=== PATIENT | male | born 1990 | race Caucasian/White ===

== ENCOUNTER 2022-04-26 10:21 | Inpatient (IN) | payer MEDICAID, SELFPAY ==
[2022-04-26] VITALS (9 sets, daily range): BP systolic 117–130; BP diastolic 69–75; PULSE 74–97; RESP 16; TEMP 36.6–38.9; O2SAT 99–100; BMI 25.0; BMI 24.5
--- NOTE | 2022-04-26 11:11 | ED.VIS.LOWEX ---
HPI History of Present Illness HPI Narrative: Patient presents with right leg redness and swelling that has been getting worse over the past 2 weeks. Patient describes the pain as aching. Patient states it is worse with ambulation. Patient denies any paresthesias or weakness. Patient states that today it started bleeding. Patient states he had a Doppler ultrasound done at [place] which was negative for DVT. Patient had lab work drawn at [place] which was positive for an elevated D-dimer. Patient states his primary care physician referred him to the emergency department for further evaluation of the elevated D-dimer. Patient denies any fevers or chills. Patient denies any trauma or injury. Patient denies any chest pain or shortness of breath. Chief Complaint: Wound Informant: patient Onset/Context/Timing Onset: Weeks (2) Context: Gradual Onset Timing: Continuous Quality of Pain: Aching Location: Right leg Worsened by: Ambulation Relieved by: Rest Associated Symptoms Associated Symptoms: Negative for Parasthesia, Weakness or Loss of Funtion Narrative Tetanus Immunization: Unknown [facility] Medical History Eczema Hyperlipidemia Hypertension Home Medications atenolol 100 mg tablet 100 mg PO DAILY HTN 04/26/22 [History Last Taken 04/25/22] fenofibrate 160 mg tablet 160 mg PO DAILY CHOLESTEROL 04/26/22 [History Last Taken 04/25/22] lisinopril 20 mg-hydrochlorothiazide 12.5 mg tablet 1 tab PO DAILY HTN 04/26/22 [History Last Taken 04/25/22] upadacitinib 15 mg tablet,extended release 24 hr (Rinvoq) 15 mg PO DAILY RA 04/26/22 [History Last Taken 04/25/22] Allergy/AdvReac Type Severity Reaction Status Date / Time No Known Allergies Allergy Verified 04/26/22 10:25 Surgical History no surgical history Social History Smoking Status: Current every day smoker tobacco type: cigarettes ROS ROS ED Constitutional Constitutional ED: Denies chills or fever(s) Eyes Eyes: Denies blurry vision or change in vision ENT ENT ED: Denies rhinorrhea or sore throat Cardiovascular Cardiovascular: Denies chest pain or palpitations Respiratory/Chest Respiratory/Chest: Denies cough or dyspnea Gastrointestinal Gastrointestinal: Denies nausea or vomiting Genitourinary Genitourinary ED: Denies dysuria or hematuria Musculoskeletal Musculoskeletal: Denies back pain or neck pain Integumentary Denies abscess or rash Neurologic Neurologic: Denies headache(s) or weakness Allergic/Immunologic Allergic/Immunologic ED: Denies mouth swelling or urticaria EXAM Physical Exam Const Vital Signs: 04/26/22 10:22 04/26/22 12:15 Temperature 98.4 F Temperature Source Oral Pulse Rate 74 78 Respiratory Rate 16 16 Blood Pressure 117/71 117/75 Blood Pressure Mean 86 89 Pulse Ox 99 100 Oxygen Delivery Method Room Air Positive well nourished and well developed General Appearance ED: well developed and NAD HEENT Reports moist mucous membranes Neck full ROM and supple Extremity Extremity Narrative: There is tenderness, erythema, warmth, and induration over the posterior aspect of the right calf. There is some mild bleeding. There is tenderness to palpation over the area. There is full range of motion. Sensation was intact to light touch bilaterally in the lower extremities. Pedal pulses are equal bilaterally. Capillary refill was less than 2 seconds in all digits. Neuro oriented x3, CN's II-XII intact bilaterally, moves all extremities and no sensory deficits noted Sensorium / Orientation: alert Motor Exam: strength 5/5 throughout MDM MDM MDM Narrative Medical decision making narrative: Patient was started on Unasyn here in the emergency department. CBC shows a white blood cell count of 23.4. Comprehensive metabolic profile shows sodium 130, potassium of 2.7, and chloride of 92. Lactate was normal. Patient was given a dose of IV and oral potassium here. Blood cultures were obtained prior to starting antibiotics. Because of the elevated outpatient D-dimer, CTA of the chest was obtained. There is no evidence of pulmonary embolism. Patient was advised of his findings. Case was discussed with the hospitalist. She will admit the patient to her service. Patient understood and was agreeable with the plan. All questions were answered. Lab Data Attestation: I reviewed the patient's lab results. Labs: Laboratory Results - last 24 hr 04/26/22 04/26/22 04/26/22 10:28 10:28 10:28 WBC 23.4 H RBC 3.92 L Hgb 12.7 L Hct 37.0 L MCV 94.4 H MCH 32.4 H MCHC 34.3 RDW Std Deviation 40.0 RDW Coeff of Josette 11.6 Plt Count 390 MPV 10.6 Immature Gran % (Auto) 1.600 H Neut % (Auto) 81.0 H Lymph % (Auto) 5.6 L [place] % (Auto) 10.8 H Eos % (Auto) 0.6 Baso % (Auto) 0.4 Absolute Neuts (auto) 19.0 H Absolute Lymphs (auto) 1.31 Nucleated RBC % 0 Diff Path Review Reviewed Dohle Bodies 23.4 Sodium 130 L Potassium 2.7 L* Chloride 92 L Carbon Dioxide 30.0 Anion Gap 8 BUN 14 Creatinine 1.12 Estim Creat Clear Calc 102.97 Est GFR (MDRD) Af Amer 97 Est GFR (MDRD) Non-Af 80 BUN/Creatinine Ratio 12.5 Glucose 100 Lactic Acid 1.2 Calcium 9.9 Total Bilirubin 0.40 AST 20 ALT 38 Alkaline Phosphatase 76 Total Protein 8.8 H Albumin 2.8 L Globulin 6.0 H Albumin/Globulin Ratio 0.5 L Radiography Diagnostic Testing: Clinical Impression(s) from Imaging Studies Chest CTA 04/26/22 11:17 IMPRESSION: Normal CTA chest examination, without a demonstrated pulmonary embolism or arterial dissection. Electronically Signed: Vahid Antoine MD at 13:25 EST , Discharge Plan Triage Chief Complaint: Wound ED Provider: Gonzales Riojas Dx/Rx/DC Orders Clinical Impression: Cellulitis of leg, right, Leukocytosis, Hypokalemia Prescriptions: No Action lisinopril-hydrochlorothiazide 20-12.5 mg tablet 1 tab PO DAILY atenolol 100 mg tablet 100 mg PO DAILY fenofibrate 160 mg tablet 160 mg PO DAILY Rinvoq 15 mg tablet extended release 24 hr 15 mg PO DAILY Primary Care Provider: Shant Kaur NP Referrals: [facility],Out of [Non-Staff] - Disposition Disposition: [facility]
--- NOTE | 2022-04-26 11:17 | CT_ITS ---
STUDY: CTA CHEST REASON FOR EXAM: Male, 32 years old. Elevated D-dimer. Right lower extremity wound. RADIATION DOSAGE (If Supplied By Facility): CTDIvol = ( 14.44 ) mGy, DLP = ( 444.78 ) mGycm TECHNIQUE: The examination was performed with the intravenous administration of IV 100mL Isovue-370. Post-processing of the angiographic images was performed, with multiplanar reformation and 3D reconstruction. Individualized dose optimization techniques were used for this CT. COMPARISON: None. FINDINGS: Normal enhancement of the main pulmonary artery and right and left pulmonary arteries. Normal enhancement of the bilateral peripheral pulmonary arteries. There is no demonstrated pulmonary embolism. Normal thoracic aorta and visualized great vessels. There is no demonstrated aortic dissection. Normal heart and pericardium. Normal mediastinum. Normal hilar regions. Normal visualized trachea and bronchi. The lungs are well expanded. Normal pulmonary parenchyma. Normal pleura. Normal chest wall structures. Normal osseous structures. Normal visualized upper abdomen. CT/CTA Chest W/WO Contrast IMPRESSION: Normal CTA chest examination, without a demonstrated pulmonary embolism or arterial dissection. Electronically Signed: Vahid Antoine MD at 13:25 EST ,
[2022-04-26 11:33] LABS: Absolute Lymphocyte Count 1.31 X10^3/uL (0.83-4.51); Basophil# 0.09 X10^3/uL; Basophil% 0.4 % (0-1); Eosinophil# 0.13 X10^3/uL; Eosinophils% 0.6 % (0-5); Hemoglobin 12.7 g/dL (13.0-16.5); Lymphocyte # 1.31 X10^3/ul (0.83-4.51); Lymphocyte % 5.6 % (19-41); Mean Corp Hgb Conc 34.3 g/dL (32-36); Mean Corpuscular Hgb 32.4 pg (27.0-32.0); Mean Corpuscular Volume 94.4 fL (80-94); Mean Platelet Vol. 10.6 fl (6.2-12.0); Monocyte# 2.52 X10^3/uL; Monocyte% 10.8 % (0-10); NRBC Flagged by Analyzer 0 % (0-5); Neutrophil # 18.98 X10^3/uL (2.7-7.7); POSITIVE DIFFERENTIAL YES; Platelet Count 390 K/mm3 (150-450); RBC Distribution Width CV 11.6 % (11.6-14.6); Red Blood Count 3.92 M/mm3 (4.6-6.2); White Blood Count 23.4 K/mm3 (4.4-11.0)
[2022-04-26 11:34] LABS: Differential Indicated SCAN CRITERIA MET
[2022-04-26 11:55] LABS: Dohle Bodies 23.4
[2022-04-26 11:56] LABS: ALB/GLOB Ratio 0.5 RATIO (0.9-2.4); AST(SGOT) 20 U/L (15-37); Alanine Aminotransfer ALT/SGPT 38 U/L (16-61); Albumin, Serum 2.8 g/dL (3.2-5.0); Alkaline Phosphatase 76 U/L (45-117); Anion Gap 8 (5-15); BUN 14 mg/dL (7-18); BUN/Creat Ratio 12.5 RATIO (10-20); Calcium,Total 9.9 mg/dL (8.5-10.1); Chloride 92 mmol/L (98-107); Creatinine, Serum 1.12 mg/dL (0.70-1.30); EST Glomerular Filtration Rate 80 mL/min (>60); Est Glom Filt Rate - Afr Amer 97 mL/min (>60); Estimated Creatinine Clearance 102.97 ml/min; Glucose 100 mg/dL (74-106); Potassium 2.7 mmol/L (3.5-5.1); Protein, Total 8.8 g/dL (6.4-8.2); Sodium Level 130 mmol/L (136-145)
[2022-04-26 12:04] LABS: Lactic Acid 1.2 mmol/L (0.4-1.9)
[2022-04-26] MEDS: Potassium Chloride 10mEq/100mL 10 MEQ/100 ML IV.SOLN. 100 MEQ IV BOLUS (12:53)
[2022-04-26] MEDS: Potassium Chloride Oral Tablet 20 MEQ 40 MEQ PO (12:53)
[2022-04-26 14:37] LABS: Pathologist Review Reviewed
--- NOTE | 2022-04-26 14:52 | HP.PCM.HOS_ITS ---
HPI - General General Date of Admission: 04/26/22 Date of Service: 04/26/22 Chief Complaint: RLE edema, redness. HPI Narrative The patient is a 32 y/o M w/ PMHx: Eczema, HTN, HLD, Tobacco use who presents to the [facility] ED on 04/26/22 with history of right lower extremity redness and edema which has been worsening over the last 2 weeks with ongoing aching which has been worsening with a Doppler ultrasound at [place] which was negative for DVT as well as recent labs drawn at [place] ED which had an elevated D-dimer with recommendation for his PCP to present to the ED for consideration CT prompting [facility] evaluation. Patient upon evaluation notes significant pain especially with palpation to the right calf region, 10 out of 10 in severity with any attempts to palpate. Typically report that the ultrasound performed on the Saturday of the week of presentation did demonstrate fluid in that region but no DVT. He does report that just a handful of days prior to onset of the erythema he did fall and did have an abrasion to his right anterior knee but was unaware of any potential abrasions or wounds to the posterior calf but did not specifically look at that time. Work-up in the ED included T98.4, heart rate 78, BP 117/75, respiratory rate 16, 100% on room air, CBC with WC 23.4, hemoglobin 12.7, MCV 94.4, platelet 390 with significant left shift, CMP with sodium 130, potassium 2.7, chloride 92, hepatic profile not marked appearing, lactic acid 1.2, blood culture x2 pending per ED, CTPA unremarkable with no demonstrated PE or arterial dissection. In the ED patient ministered Unasyn and potassium 40 mill equivalent p.o. x1. [facility] Medical History Eczema Hyperlipidemia Hypertension Tobacco use Home Medications atenolol 100 mg tablet 100 mg PO DAILY HTN 04/26/22 [History Last Taken 04/25/22] fenofibrate 160 mg tablet 160 mg PO DAILY CHOLESTEROL 04/26/22 [History Last Taken 04/25/22] lisinopril 20 mg-hydrochlorothiazide 12.5 mg tablet 1 tab PO DAILY HTN 04/26/22 [History Last Taken 04/25/22] upadacitinib 15 mg tablet,extended release 24 hr (Rinvoq) 15 mg PO DAILY RA 04/26/22 [History Last Taken 04/25/22] Allergy/AdvReac Type Severity Reaction Status Date / Time No Known Allergies Allergy Verified 04/26/22 10:25 Family History (Updated 04/26/22 @ 21:[address] Clara Pacheco MD) Mother Diabetes Hypertension Father Hypertension Surgical History (Updated 04/26/22 @ 21:[address] Clara Pacheco MD) No history of previous surgery Surgical History no surgical history Social History (Updated 04/26/22 @ 21:[address] Clara Pacheco MD) household members: spouse and family Smoking Status: Current every day smoker tobacco type: e-cigarettes how long ago did patient quit smoking: Quit cigarette use 4-5 months prior, 1 ppd since teen until change to vape. alcohol intake: current alcohol intake frequency: a few times a week substance use type: does not use ROS ROS Narrative Admission Review of Systems: CONSTITUTIONAL: No weight loss, fever, chills, + weakness or fatigue. HEENT: Eyes: No visual loss, blurred vision, double vision or yellow sclerae. Ears, Nose, Throat: No hearing loss, sneezing, congestion, runny nose or sore throat. SKIN: + Significant right lateral posterior calf wound, mild drainage, tendern ess palpation, periwound erythema and edema, notable underlying issues with eczema. CARDIOVASCULAR: No chest pain, chest pressure or chest discomfort, palpitations, edema, orthopnea, syncopal events. RESPIRATORY: No shortness of breath, cough or sputum, wheezing, hemoptysis. GASTROINTESTINAL: No anorexia, nausea, vomiting or diarrhea, abdominal pain, melena, BRBPR. GENITOURINARY: No dysuria, frequency, urgency or retention. NEUROLOGICAL: No headache, dizziness, syncope, paralysis, ataxia, numbness or tingling in the extremities, focal weakness, change in bowel or bladder control, seizure. MUSCULOSKELETAL: + muscle, back pain, joint pain or stiffness. HEMATOLOGIC: + anemia, bleeding or bruising. LYMPHATICS: No enlarged nodes. No history of splenectomy. PSYCHIATRIC: No history of depression or anxiety. ENDOCRINOLOGIC: No reports of sweating, cold or heat intolerance. No polyuria or polydipsia. ALLERGIES: + history of eczema. Vital Signs Vital Signs Vital Signs: 04/26/22 10:22 04/26/22 12:15 Temperature 98.4 F Temperature Source Oral Pulse Rate 74 78 Respiratory Rate 16 16 Blood Pressure 117/71 117/75 Blood Pressure Mean 86 89 Pulse Ox 99 100 Oxygen Delivery Method Room Air Weight Weight: 184 lb 15.485 oz Body Mass Index (BMI) 25.0 Physical Exam Narrative Physical Examination: General: Awake, alert, oriented x 3 and cooperative, seated upright in the ED bed, fatigued appearing Skin: Normal color, normal turgor, no icterus, no cyanosis except for significant right posterior lateral calf with notable edema, erythema with a wound with mild macerated region and distal to this an area of induration, warm to touch, severely tender with a more proximal region of mild maceration with almost blotability. HEENT: AT/NC, EOMI, PERRLA, dry MM, no carotid bruits or JVD noted. Lungs: Mildly diminished, greater bases, poor effort, no rales, ronchi or wheezing. Heart: Mildly tachycardic with regular rhythm; no gallop, rub audible. Abdomen: Soft, NTTP, ND, distant normal BS, no HSM. Extremities: No cyanosis, no clubbing, see skin. Neurological: Patient awake, alert, oriented as noted, cognitive function intact; pupils equally reactive to light and accommodation, cranial nerves II- XII grossly normal, moving all 4 extremities although extremely limited limited right lower extremity movement secondary to pain elicited, strength accordingly moderately globally decreased. Psychiatric: Affect appears fatigued, uncomfortable, no acute evidence of depressive or anxiety feelings. Results Lab / Micro Data Result Diagrams: 04/26/22 10:28 04/26/22 10:28 Labs: Laboratory Results - last 24 hr 04/26/22 10:28: WBC 23.4 H, RBC 3.92 L, Hgb 12.7 L, Hct 37.0 L, MCV 94.4 H, MCH 32.4 H, MCHC 34.3, RDW Std Deviation 40.0, RDW Coeff of Josette 11.6, Plt Count 390, MPV 10.6, Immature Gran % (Auto) 1.600 H, Neut % (Auto) 81.0 H, Lymph % (Auto) 5.6 L, [place] % (Auto) 10.8 H, Eos % (Auto) 0.6, Baso % (Auto) 0.4, Absolute Neuts (auto) 19.0 H, Absolute Lymphs (auto) 1.31, Nucleated RBC % 0, Diff Path Review Reviewed, Dohle Bodies 23.4 04/26/22 10:28: Sodium 130 L, Potassium 2.7 L*, Chloride 92 L, Carbon Dioxide 30.0, Anion Gap 8, BUN 14, Creatinine 1.12, Estim Creat Clear Calc 102.97, Est GFR (MDRD) Af Amer 97, Est GFR (MDRD) Non-Af 80, BUN/Creatinine Ratio 12.5, Glucose 100, Calcium 9.9, Total Bilirubin 0.40, AST 20, ALT 38, Alkaline Phosphatase 76, Total Protein 8.8 H, Albumin 2.8 L, Globulin 6.0 H, Albumin/Globulin Ratio 0.5 L 04/26/22 10:28: Lactic Acid 1.2 Radiology Impression Chest CTA 04/26/22 11:17 IMPRESSION: Normal CTA chest examination, without a demonstrated pulmonary embolism or arterial dissection. Electronically Signed: Vahid Antoine MD at 13:25 EST , Assessment & Plan Assessment/Plan (1) Cellulitis of leg, right: PLAN: Plan The patient is a 32 y/o M w/ PMHx: Eczema, HTN, HLD, Tobacco use who presents to the [facility] ED on 04/26/22 with history of right lower extremity redness and edema which has been worsening over the last 2 weeks with ongoing aching which has been worsening with a Doppler ultrasound at [place] which was negative for DVT as well as recent labs drawn at [place] ED which had an elevated D-dimer with recommendation for his PCP to present to the ED for consideration CT prompting [facility] evaluation. #1. RLE Extremity Cellulitis: Will admit to [facility], maintain on IV vancomycin and Zosyn given significant appearance and notable concern for actual underlying abscess as patient did report that ultrasound performed on Saturday did demonstrate significant fluid appearance, requested CT of the leg however given recent contrast will need to be deferred to early a.m. which was discussed with CT, if in the interim and spontaneously opens will request wound culture and MRSA PCR wound. If there is notable fluid/abscess we will need to request surgery involvement, potentially plastics if they are available. Will continue affected extremity elevation above heart when seated and in bed, monitor erythema outline with VS checks. #2. Hyponatremia, mild, suspected hypovolemia: Admission sodium 130, chloride 92, suspect hypovolemic component we will continue to hydrate and repeat CMP in AM. #3. Hypokalemia: Admission K+ 2.7, magnesium level requested, supplementation given, repeat level in AM. #4. Anemia, macrocytic: Admission hemoglobin 12.7, MCV 94.4, no prior comparison, will obtain iron panel, ferritin, vitamin B12 and folic acid with repeat CBC in AM. #5. Hypertension: Continue home regimen including atenolol as well as lisinopril but holding hydrochlorothiazide given notable hypokalemia and intention for IV fluids given acute presentation #1, PRN hydralazine. #6. Chronic eczema: Did initially want to hold his revoked given acute presentation but he is insistent on continuation of this and is using his own home medication. #7. Tobacco Abuse: Patient previously smoked cigarettes but recently transition to high-dose vaping over the last 4 to 5 months, encouraged cessation, inpatient consultation per RT, NR if desired. #8. DVT prophylaxis: SCDs, Lovenox. Charges/Coding Visit Charges Inpatient E&M: 58291 Init Hosp L3
[2022-04-26 16:24] LABS: Magnesium 2.7 mg/dL (1.6-2.6)
[2022-04-26 17:54] LABS: Ferritin 1308 ng/mL (26-388); Iron 29 ug/dL (65-175); Iron Binding Capacity,Total 245 ug/dL (250-450); PERCENT IRON SATURATION 11.8 % (15.0-55.0)
[2022-04-26] MEDS: oxyCODONE 5 MG Tablet PO (18:11)
[2022-04-26] MEDS: 0.9% Normal Saline 1,000 ML 125 ML IV (18:12)
[2022-04-26] MEDS: 0.9% Saline Lock 10 ML Syringe IV (18:12)
[2022-04-26] MEDS: Acetaminophen 325 MG Tablet 650 MG PO (18:12)
[2022-04-26 19:08] LABS: Vitamin B12 499 pg/mL (211-911)
--- NOTE | 2022-04-26 19:45 | PCM.RX.CS ---
Consult Pharmacy has been consulted to manage selected antiobiotic: Vancomycin Type of Consult: New start Prior Doses of Antibiotics Received/Current Regimen: Medications Vancomycin HCl 2,000 mg/ (Sodium Chloride) 540 mls @ 250 mls/hr IV X1 ONE Stop: 04/26/22 20:39 Last Admin: 04/26/22 19:06 Dose: 250 mls/hr Labs: Sodium 130 mmol/L (136-145) L 04/26/22 10:28 Potassium 2.7 mmol/L (3.5-5.1) L* 04/26/22 10:28 Chloride 92 mmol/L (98-107) L 04/26/22 10:28 Carbon Dioxide 30.0 mmol/L (21.0-32.0) 04/26/22 10:28 Anion Gap 8 (5-15) 04/26/22 10:28 BUN 14 mg/dL (7-18) 04/26/22 10:28 Creatinine 1.12 mg/dL (0.70-1.30) 04/26/22 10:28 Est GFR (MDRD) Af Amer 97 mL/min (>60) 04/26/22 10:28 Est GFR (MDRD) Non-Af 80 mL/min (>60) 04/26/22 10:28 BUN/Creatinine Ratio 12.5 RATIO (10-20) 04/26/22 10:28 Glucose 100 mg/dL (74-106) 04/26/22 10:28 Weight used for dosin kg Estimated Creatinine Clearance: 103 Goal Trough: 15-20 mcg/mL Pharmacy Plan for Drug Dosinmg given x1, 1000mg IV q8 with trough prior to 4th dose per policy. Pharmacy Service will continue to monitor and adjust dosing as required. Follow-Up Labs: Trough Vancomycin - 04/27 @ 1830
[2022-04-26 22:08] LABS: M R Staph aureus DNA By PCR Negative (Negative); Probe Check PASS; Specimen Processing Control PASS; Staph aureus DNA By PCR NEGATIVE (Negative)
[2022-04-27] VITALS (13 sets, daily range): BP systolic 95–120; BP diastolic 61–81; PULSE 71–94; RESP 16–18; TEMP 36.6–38.7; O2SAT 95–100; BMI 26.4
--- NOTE | 2022-04-27 | ABS_PTH ---
PATIENT: NADIA GUALLPA LOC: [facility] U#:[id number] AGE/SX: 32/M ROOM: [facility] RE04/26/[address]: Dr. Andrews López MD : 1990 BED: 1 DIS: 04/28/2022 SPEC #: [id number] RECD: 04/30/22 08:08 STATUS: GEOVANY HOLM #: [id number] SAUL: 04/27/22 00:[address]: Amanda Iqbal DEPT: SURGICAL PATHOLOGY RECD BY: Darryl Musa ENTERED: 04/30/22 10:13 SP TYPE: Abscess OTHR DR: MD Dr. Natalie Diaz DO Dr. Linda Wang, MD Dr. Prakash Chand, MD Terry Hellinger, BURR FILER-C Tissues: Leg, NOS Procedures: Surgery Specimen Level IV Comments: @ Ordering doctor for SUIII edited from to DR.LWANG July GUERRERO at 04/30/22 1538 @ Submitting doctor edited from to DR.LWANG July GUERRERO at 04/30/22 1538 HEADER OPERATION: I & D abscess leg PRE-OP DIAGNOSIS: Immunosuppression, cellulitis and abscess of lower extremity TISSUE SUBMITTED: Debridement right lower extremity MICROSCOPIC DIAGNOSIS Soft tissue of right lower extremity, biopsy: Fibrofatty tissue with marked acute inflammation and tissue necrosis consistent with cellulitis and abscess. See comment. AM:michael 05/01/2022 COMMENT Clinical correlation is suggested. MICROSCOPIC DESCRIPTION Slides are reviewed. GROSS DESCRIPTION Received in fixative is one container labeled with the patient's name and designated right lower extremity debridement. The specimen consists of multiple irregular fragments of nolan-barr soft tissue that in aggregate measure 5 x 4 x 1 cm. Threading Machine Tender portions are submitted in one cassette. / AM:michael 04/30/2022 TC:2 CPT: 82833
[2022-04-27] MEDS: 0.9% Normal Saline 1,000 ML 125 ML IV (03:05)
[2022-04-27] MEDS: Acetaminophen 325 MG Tablet 650 MG PO (03:05)
[2022-04-27] MEDS: Vancomycin IV 1,000 MG/200 ML BAG 200 MG IV ×2 (03:06→15:11)
[2022-04-27] MEDS: oxyCODONE 5 MG Tablet PO (05:46)
[2022-04-27 06:03] LABS: Absolute Lymphocyte Count 0.73 X10^3/uL (0.83-4.51); Absolute Neutrophil Count 14.5 X10^3/uL (2.0-7.7); Basophil% 0.5 % (0-1); Eosinophil# 0.27 X10^3/uL; Eosinophils% 1.5 % (0-5); Hematocrit 33.4 % (40-54); Hemoglobin 11.4 g/dL (13.0-16.5); Lymphocyte # 0.73 X10^3/ul (0.83-4.51); Mean Corp Hgb Conc 34.1 g/dL (32-36); Mean Corpuscular Hgb 32.2 pg (27.0-32.0); Mean Corpuscular Volume 94.4 fL (80-94); Monocyte# 2.25 X10^3/uL; Monocyte% 12.2 % (0-10); NRBC Flagged by Analyzer 0 % (0-5); Neutrophil # 14.48 X10^3/uL (2.7-7.7); Neutrophil % 78.7 % (47-70); POSITIVE DIFFERENTIAL YES; Platelet Count 374 K/mm3 (150-450); RBC Distribution Width CV 11.6 % (11.6-14.6); RBC Distribution Width SD 40.3 fl (35.1-43.9); Red Blood Count 3.54 M/mm3 (4.6-6.2); White Blood Count 18.4 K/mm3 (4.4-11.0)
[2022-04-27 06:06] LABS: Differential Indicated SCAN CRITERIA MET
[2022-04-27 06:35] LABS: ALB/GLOB Ratio 0.4 RATIO (0.9-2.4); AST(SGOT) 18 U/L (15-37); Alanine Aminotransfer ALT/SGPT 32 U/L (16-61); Albumin, Serum 2.2 g/dL (3.2-5.0); Alkaline Phosphatase 62 U/L (45-117); Anion Gap 8 (5-15); BUN 5 mg/dL (7-18); BUN/Creat Ratio 6.3 RATIO (10-20); Calcium,Total 8.5 mg/dL (8.5-10.1); Chloride 98 mmol/L (98-107); Creatinine, Serum 0.79 mg/dL (0.70-1.30); EST Glomerular Filtration Rate 120 mL/min (>60); Est Glom Filt Rate - Afr Amer 145 mL/min (>60); Estimated Creatinine Clearance 145.98 ml/min; Glucose 122 mg/dL (74-106); Potassium 3.1 mmol/L (3.5-5.1); Protein, Total 7.2 g/dL (6.4-8.2); Sodium Level 131 mmol/L (136-145)
[2022-04-27 06:40] LABS: Macrocytosis RARE
--- NOTE | 2022-04-27 07:30 | CT_ITS ---
INDICATION: Suspect R calf abscess EXAMINATION: CT- CT Tibia/Fibula W/ Contrast Injection TECHNIQUE: Helically acquired images were obtained of the right tib-fib. 2-D reformats were performed by the technologist. A radiation dose optimization technique was used for this scan. IV Contrast dosage and agent: 100 cc [id number] COMPARISON: None. FINDINGS: SOFT TISSUES: 8.0 x 3.0 x 10.3 cm TRV X AP X CC abscess immediately posterior to the cephalad calf muscles, extending up to the level of the knee joints, and inferiorly to the level of the upper third of the tib-fib. The abscess extends close to the posterior skin surface near the midline approximately 4 cm inferior to the crease of the knee joint where there is irregularity of the skin suggestive of draining sinus tract or overlying puncture wound. Adjacent cellulitis and fasciitis, extending cephalad into the lateral thigh not fully visible, and inferiorly adjacent to the medial greater than lateral malleoli. No soft tissue air.. No radiopaque foreign body. BONES/JOINTS: No fracture or dislocation or osseous destruction. No significant degenerative changes. CT/Extremity Lower WITH Contrast IMPRESSION: 8.0 x 3.0 x 10.3 cm abscess immediately posterior to the cephalad calf muscles. The abscess extends close to the posterior skin surface near the midline approximately 4 cm inferior to the crease of the knee joint where there is irregularity of the skin suggestive of draining sinus tract or overlying puncture wound, please correlate with physical examination. Adjacent cellulitis/fasciitis. No soft tissue air to definitively suggest necrotizing infection. Electronically Signed: Gaston Mason MD at 7:48 EST Reading Location ID and State: [facility] / [place] Tel , Service support ,
[2022-04-27] MEDS: Fenofibrate 145 MG Tablet PO (08:04)
[2022-04-27] MEDS: Lisinopril 20 MG Tablet PO (08:04)
[2022-04-27] MEDS: Enoxaparin 40 MG/0.4 ML Syringe SC (08:04)
[2022-04-27] MEDS: Atenolol 100 MG Tablet PO (08:05)
--- NOTE | 2022-04-27 08:41 | WOUNDNOTE ---
wound photo: right calf
--- NOTE | 2022-04-27 09:04 | PCM.PROGNOTE ---
Subjective Subjective Zosyn/vancomycin day #2. Tmax is 102F Blood pressure is within normal limits. He is maintaining appropriate oxygen saturation on room air Patient is a 32-year-old male with a past medical history of eczema, hypertension, hyperlipidemia and tobacco dependence who presented to the emergency department at [facility] on 04/26/2022 complaining of right lower extremity redness and swelling which has been present and worsening over the past 2 weeks. Doppler ultrasound at [place] was negative for DVT. He denies fevers/chills, cough, SOB, nausea, lightheadedness. All lab from today was personally reviewed. Count today is 18.4, down from 23.4 yesterday. There is a left shift. Hemoglobin is 11.4 and platelets are within normal limits. Sodium is low at 131 and the potassium is low at 3.1. BUN is 5 with a creatinine of 0.79. Fasting blood sugar is 122. Iron studies yesterday are consistent with iron deficiency. Ferritin is elevated at 1308 likely secondary to inflammation/infection. Lactic acid yesterday was normal at 1.2.PCR was negative for SA and MRSA CTA of the chest was done yesterday due to an elevated D-dimer and was negative for pulmonary embolus. D-dimer is likely elevated secondary to infection. Blood cultures and wound culture are pending. He tells the the pain is adequately controlled. He denies cough and shortness of breath and also denies lightheadedness, nausea, dysuria, abdominal pain. Med list was reviewed. He is currently on normal saline at 125 cc/h. Objective Data Objective Data Vital Signs: Vital Signs Temp Pulse Resp BP Pulse Ox O2 Del Method 97.9 F 83 16 120/76 97 Room Air 04/27/22 08:44 04/27/22 08:44 04/27/22 08:44 04/27/22 08:44 04/27/22 08:44 04/27/22 08:44 Oxygen Delivery Method Room Air Weight: 181 lb 7.047 oz Body Mass Index (BMI) 24.5 Intake & Output: Intake and Output for Last 24 Hours 04/25/22 04/26/22 04/27/22 23:59 23:59 23:59 Intake Total 866.58 / 1166.58 1562.5 / 1562.5 Output Total 125 / 325 500 / 500 Balance 741.58 / 841.58 1062.5 / 1062.5 Lab / Micro Data Result Diagrams: 04/27/22 05:46 04/27/22 05:46 Labs: Laboratory Results - last 24 hr 04/26/22 10:28: WBC 23.4 H, RBC 3.92 L, Hgb 12.7 L, Hct 37.0 L, MCV 94.4 H, MCH 32.4 H, MCHC 34.3, RDW Std Deviation 40.0, RDW Coeff of Josette 11.6, Plt Count 390, MPV 10.6, Immature Gran % (Auto) 1.600 H, Neut % (Auto) 81.0 H, Lymph % (Auto) 5.6 L, [place] % (Auto) 10.8 H, Eos % (Auto) 0.6, Baso % (Auto) 0.4, Absolute Neuts (auto) 19.0 H, Absolute Lymphs (auto) 1.31, Nucleated RBC % 0, Diff Path Review Reviewed, Dohle Bodies 23.4 04/26/22 10:28: Sodium 130 L, Potassium 2.7 L*, Chloride 92 L, Carbon Dioxide 30.0, Anion Gap 8, BUN 14, Creatinine 1.12, Estim Creat Clear Calc 102.97, Est GFR (MDRD) Af Amer 97, Est GFR (MDRD) Non-Af 80, BUN/Creatinine Ratio 12.5, Glucose 100, Calcium 9.9, Total Bilirubin 0.40, AST 20, ALT 38, Alkaline Phosphatase 76, Total Protein 8.8 H, Albumin 2.8 L, Globulin 6.0 H, Albumin/Globulin Ratio 0.5 L 04/26/22 10:28: Lactic Acid 1.2 04/26/22 10:28: Magnesium 2.7 H 04/26/22 10:28: Iron 29 L, TIBC 245 L, Iron Saturation 11.8 L, Ferritin 1308 H, Folate 9.00 04/26/22 18:37: Vitamin B12 499 04/26/22 20:00: S.aureus Protein A PCR NEGATIVE, MRSA (PCR) Negative 04/27/22 05:46: WBC 18.4 H, RBC 3.54 L, Hgb 11.4 L, Hct 33.4 L, MCV 94.4 H, MCH 32.2 H, MCHC 34.1, RDW Std Deviation 40.3, RDW Coeff of Josette 11.6, Plt Count 374, MPV 10.0, Immature Gran % (Auto) 3.100 H, Neut % (Auto) 78.7 H, Lymph % (Auto) 4.0 L, [place] % (Auto) 12.2 H, Eos % (Auto) 1.5, Baso % (Auto) 0.5, Absolute Neuts (auto) 14.5 H, Absolute Lymphs (auto) 0.73 L, Nucleated RBC % 0, Diff Path Review May foll, Macrocytosis RARE 04/27/22 05:46: Sodium 131 L, Potassium 3.1 L, Chloride 98, Carbon Dioxide 25.0, Anion Gap 8, BUN 5 L, Creatinine 0.79, Estim Creat Clear Calc 145.98, Est GFR (MDRD) Af Amer 145, Est GFR (MDRD) Non-Af 120, BUN/Creatinine Ratio 6.3 L, Glucose 122 H, Calcium 8.5, Total Bilirubin 0.40, AST 18, ALT 32, Alkaline Phosphatase 62, Total Protein 7.2, Albumin 2.2 L, Globulin 5.0 H, Albumin/Globulin Ratio 0.4 L Radiography Diagnostic Testing: Radiology Impression Chest CTA 04/26/22 11:17 IMPRESSION: Normal CTA chest examination, without a demonstrated pulmonary embolism or arterial dissection. Electronically Signed: Vahid Antoine MD at 13:25 EST , Lower Extremity CT 04/27/22 07:30 IMPRESSION: 8.0 x 3.0 x 10.3 cm abscess immediately posterior to the cephalad calf muscles. The abscess extends close to the posterior skin surface near the midline approximately 4 cm inferior to the crease of the knee joint where there is irregularity of the skin suggestive of draining sinus tract or overlying puncture wound, please correlate with physical examination. Adjacent cellulitis/fasciitis. No soft tissue air to definitively suggest necrotizing infection. Electronically Signed: Gaston Mason MD at 7:48 EST Reading Location ID and State: [facility] / [place] Tel , Service support , Physical Exam Const alert, oriented x3 and no apparent distress Constitutional Narrative: Lying in bed and does not appear to be in any distress. He is pleasant and appropriate HEENT Mouth: dry mucous membranes Resp Resp Narrative: He has coarse crackles on the left anterior and lateral. No wheezes. Breath sounds are diminished. Breathing is not labored and he has no conversational dyspnea. I reviewed the CT chest done yesterday and there was no infiltrate in the left base. Cardio regular rate, regular rhythm and no gallops GI normal to inspection, nondistended, normoactive bowel sounds, soft to palpation and non-tender GI Narrative: No guarding with palpation Extremity Extremity Narrative: The wound was just dressed by the wound care nurse and I viewed the photo of the wound she took. The posterior calf is erythematous and the calf is swollen. There is a localized area in the upper posterior calf that appears to be and abscess. General Extremity: edema left (calf); Negative for cyanosis Skin General Skin Exam: no breakdown Wound Narrative: See under extremity Neuro CN's II-XII intact bilaterally and no focal motor deficits Psych thought process normal, cooperative and affect normal Assessment & Plan Assessment/Plan (1) Cellulitis and abscess of lower extremity: PLAN: continue the Zosyn and the Vanco. Keep the pt NPO and consult Dr. Mazariegos. If Dr. Mazariegos is not available will consult general surgery. (2) Immunosuppression: PLAN: DC Rinvoq until the infection is well controlled. (3) Hyponatremia: PLAN: Continue IV NS at 125cc/hr and recheck a BMP in the AM. Check a Urine sodium and creatinine but, suspect hyponatremia due to dehydration. (4) Iron deficiency anemia: PLAN: IV iron sucrose 100 mg today and if tolerated with no adverse reaction consider 2 more doses of iron sucrose. Start a PO iron supplement (5) Leukocytosis: (6) Hypokalemia: PLAN: supplement and recheck in the AM (7) Vaping nicotine dependence, tobacco product: PLAN: Cessation counselling was given. Charges/Coding Visit Charges Inpatient E&M: 18557 Subs Hosp L2
[2022-04-27] MEDS: Potassium Chloride Oral Tablet 20 MEQ 40 MEQ PO (10:22)
--- NOTE | 2022-04-27 10:45 | CASEMGMT ---
RN JESSICA Face to Face with patient for initial transition planning/care coordination assessment. RN CM introduced self and role at [facility]. Patient lying in bed, alert and oriented, at bedside. Patient willing to participate in assessment and is able to answer all questions appropriately. Care providers, pharmacy, and demographics verified. Patient wishes to discharge home, denies need for home health at this time. Patient states he has no further needs or concerns at this time. CM to follow for discharge planning needs that may arise. PCP: Vincent Specialists: Flor Physics Teacher Preferred Pharmacy: [facility] Insurance: [employer] Prescription Benefit: yes Living Will/HPOA: none LNOK: Living Arrangements: Patient lives with in a single story home with no steps to enter. Patient states he is independent at home. Transportation: DME/HHC: Patient states he has crutches at home. No previous HHC. is able to assist with wound care. Disposition Plan: Patient to discharge home with family support and follow-up plans in place. Will monitor for wound care at discharge. Smita MA, RN, CM
[2022-04-27 11:23] LABS: Urine Sodium 26 mmol/L (Not Establ.)
[2022-04-27] MEDS: Sodium Ferric Gluconat 125 MG in 0.9% Normal Saline 100 ML 110 MG IV (11:56)
[2022-04-27 12:04] LABS: Pathologist Review Reviewed
--- NOTE | 2022-04-27 12:11 | NURSING ---
page out for Dr Green thrhardeep Wilks RN/RU for clarification of consult w/[place] or Surgery
[2022-04-27] MEDS: Morphine 2 MG/ML Syringe IV (13:51)
[2022-04-27] MEDS: 0.9% Saline Lock 10 ML Syringe IV ×2 (13:55→21:22)
--- NOTE | 2022-04-27 16:49 | CON.PCM.SX_ITS ---
Assessment & Plan Assessment/Plan (1) Immunosuppression: PLAN: need for drainage (2) Cellulitis and abscess of lower extremity: PLAN: Will plan I&D of this area. Will require healing by secondary intention. Patient can follow up in wound clinic as outpatient. packing can remain in, until evaluation by wound nurse on Saturday, or if discharged - at the wound clinic. PLAN: Plan Risls/benefits - need to drain infection to allow area to heal and prevent sepsis risks - including but not limited tO: of infection/bleeding, cosmetic deformity, injury to any blood vessels/nerves, continued infection, etc. Patient understands and agrees to proceed. HPI Consult Data Date of Consult: 04/27/22 HPI Narrative Reason for Consultation: leg abscess HPI Narrative: Mariano GUALLPA, is a 32 M who presents with leg abscess. I was asked by Dr. Natalie Green to evaluate this patient. It has been present for about two weeks and slowly increased in size. Noted purulent drainage at the site. Previous doppler US done at another location revealed no DVT. Another US revealed possible fluid pocket. Patient is presently on Rinvoq. [facility] Medical History Eczema Hyperlipidemia Hypertension Tobacco use Home Medications atenolol 100 mg tablet 100 mg PO DAILY HTN 04/26/22 [History Last Taken 04/25/22] fenofibrate 160 mg tablet 160 mg PO DAILY CHOLESTEROL 04/26/22 [History Last Taken 04/25/22] lisinopril 20 mg-hydrochlorothiazide 12.5 mg tablet 1 tab PO DAILY HTN 04/26/22 [History Last Taken 04/25/22] upadacitinib 15 mg tablet,extended release 24 hr (Rinvoq) 15 mg PO DAILY RA 04/26/22 [History Last Taken 04/25/22] Allergy/AdvReac Type Severity Reaction Status Date / Time No Known Allergies Allergy Verified 04/26/22 10:25 Family History Mother Diabetes Hypertension Father Hypertension Surgical History No history of previous surgery Surgical History no surgical history Social History household members: spouse and family Smoking Status: Current every day smoker tobacco type: e-cigarettes how long ago did patient quit smoking: Quit cigarette use 4-5 months prior, 1 ppd since teen until change to vape. alcohol intake: current alcohol intake frequency: a few times a week substance use type: does not use ROS ROS Narrative CONSTITUTIONAL: No weight loss, fever, chills, + weakness or fatigue. HEENT: Eyes: No visual loss, blurred vision, double vision or yellow sclerae. Ears, Nose, Throat: No hearing loss, sneezing, congestion, runny nose or sore throat. SKIN: + Significant right lateral posterior calf wound, mild drainage, tenderness palpation, periwound erythema and edema, notable underlying issues with eczema. CARDIOVASCULAR: No chest pain, chest pressure or chest discomfort, palpitations, edema, orthopnea, syncopal events. RESPIRATORY: No shortness of breath, cough or sputum, wheezing, hemoptysis. GASTROINTESTINAL: No anorexia, nausea, vomiting or diarrhea, abdominal pain, melena, BRBPR. GENITOURINARY: No dysuria, frequency, urgency or retention. NEUROLOGICAL: No headache, dizziness, syncope, paralysis, ataxia, numbness or tingling in the extremities, focal weakness, change in bowel or bladder control, seizure. MUSCULOSKELETAL: + muscle, back pain, joint pain or stiffness. HEMATOLOGIC: + anemia, bleeding or bruising. LYMPHATICS: No enlarged nodes. No history of splenectomy. PSYCHIATRIC: No history of depression or anxiety. ENDOCRINOLOGIC: No reports of sweating, cold or heat intolerance. No polyuria or polydipsia. ALLERGIES: + history of eczema. Physical Exam Const alert and oriented x3 General Appearance: cooperative HEENT normocephalic Eyes conjunctivae normal Neck supple Resp normal respiratory effort Effort and Inspection: able to speak in complete sentences Cardio Rate: regular rate GI GI Narrative: abdomen is soft and benign Extremity Extremity Narrative: right lower extremity - posteriorly, calf area with erythema at least extending 20 cm with purulent drainage from central aspect, very tender Skin Skin Narrative: see above Medical Records Data Attestation: I reviewed the patient's medical records Lab / Micro Data Attestation: I reviewed the patient's lab results. Result Diagrams: 04/27/22 05:46 04/27/22 05:46 Labs: Laboratory Results - last 24 hr 04/26/22 10:28: Iron 29 L, TIBC 245 L, Iron Saturation 11.8 L, Ferritin 1308 H, Folate 9.00 12/01/22 18:37: Vitamin B12 499 04/26/22 20:00: S.aureus Protein A PCR NEGATIVE, MRSA (PCR) Negative 04/27/22 05:46: WBC 18.4 H, RBC 3.54 L, Hgb 11.4 L, Hct 33.4 L, MCV 94.4 H, MCH 32.2 H, MCHC 34.1, RDW Std Deviation 40.3, RDW Coeff of Josette 11.6, Plt Count 374, MPV 10.0, Immature Gran % (Auto) 3.100 H, Neut % (Auto) 78.7 H, Lymph % (Auto) 4.0 L, [place] % (Auto) 12.2 H, Eos % (Auto) 1.5, Baso % (Auto) 0.5, Absolute Neuts (auto) 14.5 H, Absolute Lymphs (auto) 0.73 L, Nucleated RBC % 0, Diff Path Review Reviewed, Macrocytosis RARE 04/27/22 05:46: Sodium 131 L, Potassium 3.1 L, Chloride 98, Carbon Dioxide 25.0, Anion Gap 8, BUN 5 L, Creatinine 0.79, Estim Creat Clear Calc 145.98, Est GFR (MDRD) Af Amer 145, Est GFR (MDRD) Non-Af 120, BUN/Creatinine Ratio 6.3 L, Glucose 122 H, Calcium 8.5, Total Bilirubin 0.40, AST 18, ALT 32, Alkaline Phosphatase 62, Total Protein 7.2, Albumin 2.2 L, Globulin 5.0 H, Albumin/Globulin Ratio 0.4 L 04/27/22 10:30: Ur Random Sodium 26 04/27/22 10:30: Urine Creatinine 17.50 Micro: Microbiology 04/26/22 20:00 Fluid, Cyst - Leg, Right Gram Stain - Final 04/26/22 20:00 Fluid, Cyst - Leg, Right Wound Culture - Preliminary Streptococcus group A Radiology Impression Lower Extremity CT 04/27/22 07:30 IMPRESSION: 8.0 x 3.0 x 10.3 cm abscess immediately posterior to the cephalad calf muscles. The abscess extends close to the posterior skin surface near the midline approximately 4 cm inferior to the crease of the knee joint where there is irregularity of the skin suggestive of draining sinus tract or overlying puncture wound, please correlate with physical examination. Adjacent cellulitis/fasciitis. No soft tissue air to definitively suggest necrotizing infection. Electronically Signed: Gaston Mason MD at 7:48 EST Reading Location ID and State: [facility] / [place] Tel , Service support ,
--- NOTE | 2022-04-27 19:22 | PCM.OPRPT ---
Report of Operation Date of Procedure: 04/27/22 Pre-Operative Diagnosis: right lower extremity posterior calf abscess/cellulitis Post-Operative Diagnosis: necrotizing fasciitis of right lower extremity posterior calf Surgery/Procedure Performed:: Incision and drainage of abscess, deep debridement of soft tissues and fascia Description of Surgical Findings:: necrotic fascia overlying gastrocnemius muscles, necrotic soft tissue Surgeon: Amanda Iqbal Type of Anesthesia: MAC Anesthesiologist: Clarissa Aguila Specimen's removed: necrotic fascia and soft tissue for pathology and tissue culture Estimated Blood Loss (mL): 50 cc Fluids Replaced: 500 ml RL Description of Procedure: After informed consent was given, the patient was brought to the operating room. Appropriate time out protocol was followed. He was placed in the left lateral decubitus position with appropriate padding to all pressure areas. He was given IV anesthesia by the anesthesiologist. The patient's posterior right calf area was prepped with a betadyne skin preparation and appropriate surgical drapes were placed. The patient already had an area of necrotic skin that was draining purulent material. This area was opened and a large amount of purulent fluid emanated. There was a large amount of necrotic subcutaneous fatty tissue and soft tissue that was debrided sharply.. This was done down to the level of the gastrocnemius muscles. The overlying fascia was noted to be necrotic. There was a large amount of undermining of the soft tissue that was devitalized. Excision of the overlying skin was done. This skin was devitalized. The wound was then vigorously irrigated with hydrogen peroxide solution. Hemostasis was achieved with electrocautery. The wound was then densely packed with gauze and gauze dressing was wrapped around the leg. Tissue for cultures and pathology were sent. Sponge, suture, and instrument count were verified and correct. The patient tolerated the procedure well and was brought to the Recovery Room in stable condition. Complications none noted Admit VTE Documentation VTE Pharm Prophylaxis ordered?: Yes
--- NOTE | 2022-04-27 19:35 | PCM.PN.BLA ---
Progress Note Patient found to have necrotizing fasciitis. I have discussed this with the hospitalist information technology officer and recommended transfer to a tertiary facility. I am uncomfortable with continued treatment of necrotizing fasciitis. I attempted to contact plastic surgery here, however, we do not have a plastic surgeon information technology officer at this facility.
[2022-04-27 20:00] LABS: Vancomycin, Trough Level 22.2 ug/mL (5.0-15.0)
--- NOTE | 2022-04-28 01:08 | PN_ITS ---
Progress Note Received a call from Dr. Amanda Iqbal that patient had an I&D with her and the patient has necrotizing fasciitis. Recommendation was to transfer patient. Patient prefers to stay at [facility] since he feels better. Explained to patient that we may have to transfer him. His first preference is [place]. Called [facility] and [facility] who did not have beds at this time. Called [facility] mainline. Advised to call later on.
--- NOTE | 2022-04-28 02:44 | PN_ITS ---
Progress Note Discussed case with [facility] transfer line. [facility] requested per patient preference. Rapid COVID test ordered per transfer line request. Nurses to fax facesheet. Expecting a call back from transfer line.
--- NOTE | 2022-04-28 02:44 | PCM.PN.BLA ---
Progress Note Discussed case with [facility] transfer line. [facility] requested per patient preference. Rapid COVID test ordered per transfer line request. Nurses to fax facesheet. Expecting a call back from transfer line.
[2022-04-28 03:06] VITALS: BP 117/65; PULSE 81; RESP 18; TEMP 38.2; O2SAT 99
[2022-04-28] MEDS: Acetaminophen 325 MG Tablet 650 MG PO ×2 (03:24→11:25)
[2022-04-28 03:34] LABS: Absolute Lymphocyte Count 0.79 X10^3/uL (0.83-4.51); Absolute Neutrophil Count 9.8 X10^3/uL (2.0-7.7); Basophil# 0.11 X10^3/uL; Basophil% 0.9 % (0-1); Eosinophil# 0.33 X10^3/uL; Eosinophils% 2.6 % (0-5); Hematocrit 36.1 % (40-54); Hemoglobin 12.2 g/dL (13.0-16.5); Lymphocyte # 0.79 X10^3/ul (0.83-4.51); Lymphocyte % 6.1 % (19-41); Mean Corp Hgb Conc 33.8 g/dL (32-36); Mean Corpuscular Hgb 32.8 pg (27.0-32.0); Mean Platelet Vol. 9.6 fl (6.2-12.0); Monocyte# 1.56 X10^3/uL; Monocyte% 12.1 % (0-10); NRBC Flagged by Analyzer 0 % (0-5); Neutrophil % 75.7 % (47-70); POSITIVE DIFFERENTIAL YES; Platelet Count 411 K/mm3 (150-450); RBC Distribution Width CV 11.8 % (11.6-14.6); RBC Distribution Width SD 41.8 fl (35.1-43.9); Red Blood Count 3.72 M/mm3 (4.6-6.2); White Blood Count 12.9 K/mm3 (4.4-11.0)
[2022-04-28] MEDS: Vancomycin IV 1,000 MG/200 ML BAG 200 MG IV (03:41)
[2022-04-28 03:47] LABS: Differential Indicated SCAN CRITERIA MET
[2022-04-28 04:04] LABS: Anion Gap 7 (5-15); BUN 8 mg/dL (7-18); BUN/Creat Ratio 6.1 RATIO (10-20); Calcium,Total 8.8 mg/dL (8.5-10.1); Chloride 100 mmol/L (98-107); Creatinine, Serum 1.32 mg/dL (0.70-1.30); EST Glomerular Filtration Rate 66 mL/min (>60); Est Glom Filt Rate - Afr Amer 80 mL/min (>60); Estimated Creatinine Clearance 84.78 ml/min; Glucose 96 mg/dL (74-106); Magnesium 2.2 mg/dL (1.6-2.6); Phosphorus 2.4 mg/dL (2.5-4.9); Potassium 3.5 mmol/L (3.5-5.1); Sodium Level 134 mmol/L (136-145); Vancomycin, Trough Level 11.7 ug/mL (5.0-15.0)
[2022-04-28 04:15] LABS: Differential Comment SCANNED
--- NOTE | 2022-04-28 05:47 | PCM.RX.CS ---
Consult Pharmacy has been consulted to manage selected antiobiotic: Vancomycin Type of Consult: Follow-up Labs: Sodium 134 mmol/L (136-145) L 04/28/22 03:24 Potassium 3.5 mmol/L (3.5-5.1) 04/28/22 03:24 Chloride 100 mmol/L (98-107) 04/28/22 03:24 Carbon Dioxide 27.0 mmol/L (21.0-32.0) 04/28/22 03:24 Anion Gap 7 (5-15) 04/28/22 03:24 BUN 8 mg/dL (7-18) 04/28/22 03:24 Creatinine 1.32 mg/dL (0.70-1.30) H 04/28/22 03:24 Est GFR (MDRD) Af Amer 80 mL/min (>60) 04/28/22 03:24 Est GFR (MDRD) Non-Af 66 mL/min (>60) 04/28/22 03:24 BUN/Creatinine Ratio 6.1 RATIO (10-20) L 04/28/22 03:24 Glucose 96 mg/dL (74-106) 04/28/22 03:24 Vancomycin Trough 11.7 ug/mL (5.0-15.0) 04/28/22 03:24 Microbiology: Microbiology 04/28/22 03:00 Nasal Secretion SARS-CoV-2 Antigen (Rapid) - Final 04/26/22 20:00 Fluid, Cyst - Leg, Right Gram Stain - Final 04/26/22 20:00 Fluid, Cyst - Leg, Right Wound Culture - Preliminary Streptococcus group A Goal Trough: 15-20 mcg/mL Pharmacy Plan for Drug Dosing: Pharmacy Service will continue to monitor and adjust dosing as required. ORDERED Q12H, TROUGH ORDERED EARLY. RESCHEDULED TROUGH AND 11.7 @ 12HRS. SCr INCREASED FROM 1.12 TO 1.32. NO CHANGES AT THIS TIME DUE TO INCREASE IN SCr. AND RECHECK TROUGH IN 24 HRS Follow-Up Labs: Trough Vancomycin Labs to be done on [date and time ordered]: 04/29 @ 7151
[2022-04-28] MEDS: oxyCODONE 5 MG Tablet PO ×2 (06:56→11:26)
[2022-04-28 07:01] VITALS: BP 126/71; PULSE 69; RESP 18; TEMP 36.6; O2SAT 100
[2022-04-28 07:31] VITALS: O2SAT 98
--- NOTE | 2022-04-28 08:36 | PN.HOSP_ITS ---
Objective Data Objective Data Vital Signs: Vital Signs Temp Pulse Resp BP Pulse Ox O2 Del Method 97.8 F 69 18 126/71 H 98 Room Air 04/28/22 07:01 04/28/22 07:01 04/28/22 07:01 04/28/22 07:01 04/28/22 07:31 04/28/22 07:31 Oxygen Delivery Method Room Air Weight: 190 lb Body Mass Index (BMI) 26.4 Intake & Output: Intake and Output for Last 24 Hours 04/26/22 04/27/22 04/28/22 23:59 23:59 23:59 Intake Total 866.58 / 1166.58 4311.75 / 4311.75 648.75 / 648.75 Output Total 125 / 325 500 / 1100 1250 / 1250 Balance 741.58 / 841.58 3811.75 / 3211.75 -601.25 / -601.25 Lab / Micro Data Result Diagrams: 04/28/22 03:24 04/28/22 03:24 Labs: Laboratory Results - last 24 hr 04/27/22 05:46: Diff Path Review Reviewed 04/27/22 10:30: Ur Random Sodium 26 04/27/22 10:30: Urine Creatinine 17.50 04/27/22 18:36: Vancomycin Trough 22.2 H 04/28/22 03:24: WBC 12.9 H, RBC 3.72 L, Hgb 12.2 L, Hct 36.1 L, MCV 97.0 H, MCH 32.8 H, MCHC 33.8, RDW Std Deviation 41.8, RDW Coeff of Josette 11.8, Plt Count 411, MPV 9.6, Immature Gran % (Auto) 2.600 H, Neut % (Auto) 75.7 H, Lymph % (Auto) 6.1 L, [place] % (Auto) 12.1 H, Eos % (Auto) 2.6, Baso % (Auto) 0.9, Absolute Neuts (auto) 9.8 H, Absolute Lymphs (auto) 0.79 L, Nucleated RBC % 0, Differential Comment SCANNED, Diff Path Review September04/28/22 03:24: Sodium 134 L, Potassium 3.5, Chloride 100, Carbon Dioxide 27.0, Anion Gap 7, BUN 8, Creatinine 1.32 H, Estim Creat Clear Calc 84.78, Est GFR (MDRD) Af Amer 80, Est GFR (MDRD) Non-Af 66, BUN/Creatinine Ratio 6.1 L, Glucose 96, Calcium 8.8, Phosphorus 2.4 L, Magnesium 2.2 04/28/22 03:24: Vancomycin Trough 11.7 Micro: Microbiology 04/26/22 20:00 Fluid, Cyst - Leg, Right Gram Stain - Final 04/26/22 20:00 Fluid, Cyst - Leg, Right Wound Culture - Final Streptococcus group A 04/28/22 03:00 Nasal Secretion SARS-CoV-2 Antigen (Rapid) - Final Physical Exam Narrative Physical Examination: General: Awake, alert, oriented x 3 and cooperative, seated upright in the ED bed, fatigued appearing Skin: Normal color, normal turgor, no icterus, no cyanosis except for significant right posterior lateral calf with notable edema, erythema with a wound with mild macerated region and distal to this an area of induration, warm to touch, severely tender with a more proximal region of mild maceration with almost blotability. HEENT: AT/NC, EOMI, PERRLA, dry MM, no carotid bruits or JVD noted. Lungs: Mildly diminished, greater bases, poor effort, no rales, ronchi or wheezing. Heart: Mildly tachycardic with regular rhythm; no gallop, rub audible. Abdomen: Soft, NTTP, ND, distant normal BS, no HSM. Extremities: No cyanosis, no clubbing, see skin. Neurological: Patient awake, alert, oriented as noted, cognitive function intac t; pupils equally reactive to light and accommodation, cranial nerves II-XII grossly normal, moving all 4 extremities although extremely limited limited right lower extremity movement secondary to pain elicited, strength accordingly moderately globally decreased. Psychiatric: Affect appears fatigued, uncomfortable, no acute evidence of depressive or anxiety feelings. Assessment & Plan Assessment/Plan (1) Cellulitis and abscess of lower extremity: PLAN: continue the Zosyn and the Vanco. Keep the pt NPO and consult Dr. Mazariegos. If Dr. Mazariegos is not available will consult general surgery. (2) Immunosuppression: PLAN: DC Rinvoq until the infection is well controlled. (3) Hyponatremia: PLAN: Continue IV NS at 125cc/hr and recheck a BMP in the AM. Check a Urine sodium and creatinine but, suspect hyponatremia due to dehydration. (4) Iron deficiency anemia: PLAN: IV iron sucrose 100 mg today and if tolerated with no adverse reaction consider 2 more doses of iron sucrose. Start a PO iron supplement (5) Leukocytosis: (6) Hypokalemia: PLAN: supplement and recheck in the AM (7) Vaping nicotine dependence, tobacco product: PLAN: Cessation counselling was given.
--- NOTE | 2022-04-28 08:45 | DS.PCM_ITS ---
Providers Date of Admission: 04/26/22 Date of Discharge: 04/28/22 Primary Care Physician: Shant Kaur, INSURANCE SALES ASSISTANT-C Consultations 04/26/22 17:18 Consult: Onc/Wound/gunner's mate g Routine Comment: Reason for Consult:: R leg wound 04/27/22 12:45 Consult: General Surgery Routine Consulting Provider: Amanda Iqbal Reason for Consult: Right calf abscess EMERGENT Consult: No MD Notified: Yes Date Notified: 04/27/22 Time Notified: 12:45 Method of Notification: Text Reason For Visit: RLE CELLULITIS Diagnosis Discharge Diagnosis (1) Cellulitis and abscess of lower extremity: Status: Acute Code(s): L03.119 - Cellulitis of unspecified part of limb; L02.419 - Cutaneous abscess of limb, unspecified Plan: continue the Zosyn and the Vanco. Keep the pt NPO and consult Dr. Mazariegos. If Dr. Mazariegos is not available will consult general surgery. (2) Immunosuppression: Status: Acute Code(s): D84.9 - Immunodeficiency, unspecified Plan: DC Rinvoq until the infection is well controlled. (3) Hyponatremia: Status: Acute Code(s): E87.1 - Hypo-osmolality and hyponatremia Plan: Continue IV NS at 125cc/hr and recheck a BMP in the AM. Check a Urine sodium and creatinine but, suspect hyponatremia due to dehydration. (4) Iron deficiency anemia: Status: Acute Code(s): D50.9 - Iron deficiency anemia, unspecified Plan: IV iron sucrose 100 mg today and if tolerated with no adverse reaction consider 2 more doses of iron sucrose. Start a PO iron supplement (5) Leukocytosis: Status: Acute Code(s): D72.829 - Elevated white blood cell count, unspecified (6) Hypokalemia: Status: Acute Code(s): E87.6 - Hypokalemia Plan: supplement and recheck in the AM (7) Vaping nicotine dependence, tobacco product: Status: Acute Code(s): F17.290 - Nicotine dependence, other tobacco product, uncomplicated Plan: Cessation counselling was given. Medications at Discharge Home Medications atenolol 100 mg tablet 100 mg PO DAILY HTN 04/26/22 fenofibrate 160 mg tablet 160 mg PO DAILY CHOLESTEROL 04/26/22 lisinopril 20 mg-hydrochlorothiazide 12.5 mg tablet 1 tab PO DAILY HTN 04/26/22 upadacitinib 15 mg tablet,extended release 24 hr (Rinvoq) 15 mg PO DAILY RA 04/26/22 Hospital Course Summary of Care Provided Hospital Course: This 32-year-old question gentleman with history of hypertension dyslipidemia and chronic smoking was admitted with 2-week history of right lower leg redness swelling in the region of calf. Patient had venous duplex done on past Saturday 6 days ago in [place] was negative for DVT. He did not had fever chills cough shortness of breath nausea vomiting lightheadedness. His further hospital course as explained below 1.? RLE cellulitis and abscess complicated into necrotizing fasciitis: Patient was admitted on [facility] floor. Was started on IV vancomycin and Zosyn. CT of the right lower extremity shows 8 x 3 x 10.3 cm abscess mainly posterior to [place] calf muscles. Abscess extends close to posterior skin surface near midline which raises suspicion of irregularity of his skin suggestive of draining sinus tract. [place]'s cellulitis and fasciitis but no soft tissue air. Patient had incision and drainage by Dr. Iqbal. She suggested transfer for suspected necrotizing fasciitis. Multiple hospitals were called overnight by nighttime hospitalist but there were no available bed therefore no sepsis. Lastly I called [facility] and talked to Dr. Vargas and she accepted the patient. Patient had fever, T-max 102 Fahrenheit on 04/26 and 100.7 Fahrenheit at 3 AM. Blood pressure in normal range #2.? Hyponatremia, mild hypotonic hypovolemic: Admission sodium 130, chloride 92, improved to sodium 134 chloride 100. #3.? Hypokalemia: Admission K+ 2.7, magnesium 2.2. Mild hypophosphatemia phosphorus 2.4. Sodium and potassium were replaced. Repeat potassium 3.5. #4.? Anemia, macrocytic: Admission hemoglobin 12.7, MCV 94.4. Iron profile was done suggestive of anemia of chronic disease with high ferritin, low iron and low TIBC, low iron saturation. #5.? Hypertension: Continue home regimen including atenolol as well as lisinopril. HCTZ was held due to hypokalemia and hyponatremia. #6.? Chronic eczema and immunosuppression: DC Rinvoq until the infection is well controlled. #7.? Tobacco Abuse: Patient previously smoked cigarettes but recently transition to high-dose vaping over the last 4 to 5 months, encouraged cessation Total time spent, exact 40 minutes on discharge meds reconciliation, examina tion, transfer call and clinical exchange of information for transfer with surgeon Dr. Vargas in [facility], transfer primary care md, coordination of care with nurses and ancillary staff, review of imaging and blood test and discussion with the patient on follow-up instructions. Clinical Impression(s) from Imaging Studies Chest CTA 04/26/22 11:17 IMPRESSION: Normal CTA chest examination, without a demonstrated pulmonary embolism or arterial dissection. Electronically Signed: Vahid Antoine MD at 13:25 EST , Lower Extremity CT 04/27/22 07:30 IMPRESSION: 8.0 x 3.0 x 10.3 cm abscess immediately posterior to the cephalad calf muscles. The abscess extends close to the posterior skin surface near the midline approximately 4 cm inferior to the crease of the knee joint where there is irregularity of the skin suggestive of draining sinus tract or overlying puncture wound, please correlate with physical examination. Adjacent cellulitis/fasciitis. No soft tissue air to definitively suggest necrotizing infection. Physical Exam Narrative Seen and examined. Patient had incision and drainage of right calf region. Admitted with cellulitis and abscess of 2 weeks. Physical exam: General: Alert, Oriented x3, Cooperative HEENT: Atraumatic, PERRLA, EOMI, Normocephalic Oral: Oral mucosa moist. No Gingival or Mucosal Lesions/ Ulcerations Neck: Supple, No JVD, Negative Carotid Bruits Lungs: Air entry diminished in bilateral lung bases. No crepitation/rhonchi Cardiovascular: Regular rate, Regular Rhythm, Normal S1, Normal S2, No murmurs Abdomen: Bowel Sounds Present, Soft, Non Tender, Non-Distended : No renal angle tenderness. No suprapubic tenderness. Extremities: No edema, Capillary Refill Less than 3 Seconds Skin: Bandage over incision and drainage is dry. Tenderness present around the wound. Musculoskeletal: No Tenderness to Palpation of Joints or Extremities Neurological: Cranial nerves II-XII grossly intact, DTR 2+/4 and Symmetrical, Neuro grossly intact Psych/Mental Status: Normal Affect, Appropriate. Weight / BMI Weight Weight: 190 lb Body Mass Index (BMI) 26.4 ABG / Lab / Microbiology Data Result Diagrams: 04/28/22 03:24 04/28/22 03:24 Laboratory: Laboratory Results - last 24 hr 04/27/22 05:46: Diff Path Review Reviewed 04/27/22 10:30: Ur Random Sodium 26 04/27/22 10:30: Urine Creatinine 17.50 04/27/22 18:36: Vancomycin Trough 22.2 H 04/28/22 03:24: WBC 12.9 H, RBC 3.72 L, Hgb 12.2 L, Hct 36.1 L, MCV 97.0 H, MCH 32.8 H, MCHC 33.8, RDW Std Deviation 41.8, RDW Coeff of Josette 11.8, Plt Count 411, MPV 9.6, Immature Gran % (Auto) 2.600 H, Neut % (Auto) 75.7 H, Lymph % (Auto) 6.1 L, [place] % (Auto) 12.1 H, Eos % (Auto) 2.6, Baso % (Auto) 0.9, Absolute Neuts (auto) 9.8 H, Absolute Lymphs (auto) 0.79 L, Nucleated RBC % 0, Differential Comment SCANNED, Diff Path Review May foll 04/28/22 03:24: Sodium 134 L, Potassium 3.5, Chloride 100, Carbon Dioxide 27.0, Anion Gap 7, BUN 8, Creatinine 1.32 H, Estim Creat Clear Calc 84.78, Est GFR (MDRD) Af Amer 80, Est GFR (MDRD) Non-Af 66, BUN/Creatinine Ratio 6.1 L, Glucose 96, Calcium 8.8, Phosphorus 2.4 L, Magnesium 2.2 04/28/22 03:24: Vancomycin Trough 11.7 Microbiology: Microbiology 04/26/22 20:00 Fluid, Cyst - Leg, Right Gram Stain - Final 04/26/22 20:00 Fluid, Cyst - Leg, Right Wound Culture - Final Streptococcus group A 04/28/22 03:00 Nasal Secretion SARS-CoV-2 Antigen (Rapid) - Final Meaningful Use Info Meaningful Use Diagnoses (Choose all that apply): None applicable Discharge Plan Admission Admit Date/Time: 04/26/22 14:53 Attending Provider: Andrews López Primary Care Provider: Shant Kaur INSURANCE SALES ASSISTANT Consulting Providers: Clara Pacheco ; Amanda Iqbal ; Natalie Green Discharge Orders/Prescriptions Prescriptions: No Action lisinopril-hydrochlorothiazide 20-12.5 mg tablet 1 tab PO DAILY atenolol 100 mg tablet 100 mg PO DAILY fenofibrate 160 mg tablet 160 mg PO DAILY Rinvoq 15 mg tablet extended release 24 hr 15 mg PO DAILY Referrals / Follow Up: Shant Kaur NP, INSURANCE SALES ASSISTANT-C [Primary Care Provider] - [facility] Doctor,Out of [Non-Staff] - Disposition Disposition (needs filled in before D/C Order can be placed): Acute Care Hospital Charges/Coding Visit Charges Inpatient E&M: 53222 Disch Hosp
--- NOTE | 2022-04-28 08:47 | PN.SURG_ITS ---
Subjective Subjective Patient notes still pain in the area, but he states that it is less than prior to surgery, however, patient seems in good spirits and may be downplaying the pain, I am still concerned about necrotizing fasciitis Objective Data Objective Data Vital Signs: Vital Signs Temp Pulse Resp BP Pulse Ox O2 Del Method 97.8 F 69 18 126/71 H 98 Room Air 04/28/22 07:01 04/28/22 07:01 04/28/22 07:01 04/28/22 07:01 04/28/22 07:31 04/28/22 07:31 Oxygen Delivery Method Room Air Weight: 86.183 kg Body Mass Index (BMI) 26.4 Intake & Output: Intake and Output for Last 24 Hours 04/26/22 04/27/22 04/28/22 23:59 23:59 23:59 Intake Total 866.58 / 1166.58 4311.75 / 4311.75 648.75 / 648.75 Output Total 125 / 325 500 / 1100 1250 / 1250 Balance 741.58 / 841.58 3811.75 / 3211.75 -601.25 / -601.25 Lab / Micro Data Attestation: I reviewed the patient's lab results. Result Diagrams: 04/28/22 03:24 04/28/22 03:24 Labs: Laboratory Results - last 24 hr 04/27/22 05:46: Diff Path Review Reviewed 04/27/22 10:30: Ur Random Sodium 26 04/27/22 10:30: Urine Creatinine 17.50 04/27/22 18:36: Vancomycin Trough 22.2 H 04/28/22 03:24: WBC 12.9 H, RBC 3.72 L, Hgb 12.2 L, Hct 36.1 L, MCV 97.0 H, MCH 32.8 H, MCHC 33.8, RDW Std Deviation 41.8, RDW Coeff of Josette 11.8, Plt Count 411, MPV 9.6, Immature Gran % (Auto) 2.600 H, Neut % (Auto) 75.7 H, Lymph % (Auto) 6.1 L, [place] % (Auto) 12.1 H, Eos % (Auto) 2.6, Baso % (Auto) 0.9, Absolute Neuts (auto) 9.8 H, Absolute Lymphs (auto) 0.79 L, Nucleated RBC % 0, Differential Comment SCANNED, Diff Path Review September foll 04/28/22 03:24: Sodium 134 L, Potassium 3.5, Chloride 100, Carbon Dioxide 27.0, Anion Gap 7, BUN 8, Creatinine 1.32 H, Estim Creat Clear Calc 84.78, Est GFR (MDRD) Af Amer 80, Est GFR (MDRD) Non-Af 66, BUN/Creatinine Ratio 6.1 L, Glucose 96, Calcium 8.8, Phosphorus 2.4 L, Magnesium 2.2 04/28/22 03:24: Vancomycin Trough 11.7 Micro: Microbiology 04/26/22 20:00 Fluid, Cyst - Leg, Right Gram Stain - Final 04/26/22 20:00 Fluid, Cyst - Leg, Right Wound Culture - Final Streptococcus group A 04/28/22 03:00 Nasal Secretion SARS-CoV-2 Antigen (Rapid) - Final Physical Exam Const alert and oriented x3 General Appearance: cooperative HEENT normocephalic Neck supple Resp normal respiratory effort Effort and Inspection: able to speak in complete sentences GI GI Narrative: abdomen is soft and benign Extremity Extremity Narrative: erythema is slightly better proximally, however, distally, I am concerned of its persistent presence and 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 cannot fully extend right knee Skin Skin Narrative: see above Assessment & Plan Assessment/Plan (1) Necrotizing fasciitis: PLAN: see below (2) Immunosuppression: PLAN: see below PLAN: Plan I am concerned that patient has necrotizing fasciitis - I am uncomfortable in further treatment due to lack of experience I discussed with plastic surgery last night and he agrees with transfer to tertiary medical facility This patient will require further operative debridement and this may be quite extensive also concerning is his increasing serum creatinine I have told the patient the above and I have answered his questions and he has no further questions
[2022-04-28 09:33] VITALS: BP 132/71; PULSE 74; RESP 16; TEMP 36.6; O2SAT 100
[2022-04-28] MEDS: Enoxaparin 40 MG/0.4 ML Syringe SC (09:37)
[2022-04-28] MEDS: Atenolol 100 MG Tablet PO (09:37)
[2022-04-28] MEDS: Juven (unflavored) Packet 1 PACKET PO (09:37)
[2022-04-28] MEDS: Lisinopril 20 MG Tablet PO (09:37)
[2022-04-28] MEDS: Fenofibrate 145 MG Tablet PO (09:38)
--- NOTE | 2022-04-28 11:19 | NURSING ---
REPORT CALLED TO [facility] AND SPOKE WITH DIDI BERG RN
[2022-04-28] MEDS: 0.9% Saline Lock 10 ML Syringe IV (11:25)
[2022-04-30 14:17] LABS: Pathologist Review Reviewed
== END 2022-04-28 11:50 | disposition short-term general hospital (02) | DRG 383 ==
LOC: ED 15:13 → MS3 15:33
PROVIDERS: Internal Medicine; Surgery; Admitting Provider Family Medicine; Emergency Provider Emergency Medicine; PCP Nurse Practitioner Family; Visit Provider Internal Medicine
PROC: 0JBN0ZZ Excision of Right Lower Leg Subcutaneous Tissue and Fascia, Open Approach (ICD-10-PCS; principal; 2022-04-27 16:50)
DX: L03.115 Cellulitis of right lower limb (principal); M72.6 Necrotizing fasciitis; E87.1 Hypo-osmolality and hyponatremia; E78.5 Hyperlipidemia, unspecified; D50.9 Iron deficiency anemia, unspecified; F17.290 Nicotine dependence, other tobacco product, uncomplicated; E87.6 Hypokalemia; L30.9 Dermatitis, unspecified; I10 Essential (primary) hypertension; E86.1 Hypovolemia; E86.0 Dehydration; L02.415 Cutaneous abscess of right lower limb; Z79.899 Other long term (current) drug therapy
CPT/HCPCS: 36415; 71275; 73701; 80048; 80053; 80202; 82570; 82607; 82728; 82746; 83540; 83550; 83605; 83735; 84100; 84300; 85025; 87015; 87040; 87070; 87075; 87077; 87102; 87116; 87186; 87205; 87206; 87426; 87640; 88304; 88305; 99251; 99285; 99406; J7030; J7040; J7050; Q9967; A4216; G0463; J0295; J2405; J2916

== ENCOUNTER 2022-05-25 23:05 | Emergency (ER) | payer MEDICAID, SELFPAY | END 2022-05-25 23:15 | disposition left against medical advice (07) | LOC: ED 05-26 01:01 | PROVIDERS: PCP Nurse Practitioner Family | DX: Z53.21 Procedure and treatment not carried out due to patient leaving prior to being seen by health care provider (principal) ==

== ENCOUNTER → 2024-04-15 | Outpatient (CLI) | payer MEDICARE, SELFPAY ==
--- NOTE | 2024-04-15 07:09 | US_ITS ---
STUDY: ABDOMINAL ULTRASOUND - RIGHT UPPER QUADRANT REASON FOR VISIT: Male, 34 years old RUQ PAIN, DIARRHEA TECHNIQUE: Ultrasound evaluation of the right upper quadrant was performed with real-time and static nolan-scale imaging. TECHNICAL QUALITY: Adequate. COMPARISON: None. FINDINGS: Liver: The liver is enlarged and measures 20.6 cm. There is increased echogenicity consistent with fatty infiltration. There is evidence of focal fatty sparing adjacent to the gallbladder lumen. The bile ducts are within normal limits. There is hepatic color flow. The direction of portal flow is hepatopetal. There is no demonstrated mass lesion. Gallbladder: Normal distended gallbladder. The gallbladder wall measures 1.5 mm. There is a negative sonographic Campbell''s sign. There is no pericholecystic fluid. There are no gallstones. Common Bile Duct (C.B.D.): The common bile duct measures 4.0 mm. Pancreas: Normal size of the head, body and tail of the pancreas. There is normal echogenicity of the pancreas. There is no demonstrated pancreatic mass or cyst. Right Kidney: Normal size of the right kidney. The right kidney measures 12.9 cm x 5.8 cm x 4.7 cm. Normal renal cortex. The right cortex measures 1.7 cm. There is no demonstrated renal mass or cyst. There is no right hydronephrosis. US/Gallbladder IMPRESSION: Hepatomegaly and fatty infiltration of the liver. Focal fatty sparing adjacent to the gallbladder fossa. Electronically Signed: Vahid Antoine MD at 11:49 EST ,
== END | disposition home or self-care (01) ==
LOC: US 07:08
PROVIDERS: PCP Internal Medicine; Referring Provider Internal Medicine; Visit Provider Internal Medicine
DX: R10.11 Right upper quadrant pain (principal)
CPT/HCPCS: 76705

== ENCOUNTER → 2024-05-29 | Outpatient (CLI) | payer MEDICARE, SELFPAY ==
--- NOTE | 2024-05-29 12:18 | NM_ITS ---
CLINICAL: 34-year-old male with history of chronic diarrhea. RADIONUCLIDE HEPATOBILIARY SCINTIGRAPHY COMPARISON: Abdominal ultrasound report 04/15/2024 FINDINGS: Following the intravenous administration of 5.8 mCi of 99m Tc Mebrofenin, hepatobiliary images reveal: 1. Relatively prompt and homogeneous radiopharmaceutical concentration is noted by a normal sized liver. No parenchymal defects are identified. 2. Gallbladder activity is identified at approximately 10 minutes post radiopharmaceutical administration. 3. Small intestinal tract is observed at 10 minutes following tracer injection. 4. Washout of the radiopharmaceutical by the hepatic parenchyma appears qualitatively normal. Cholecystokinin (0.02 ug/kg) was administered intravenously over a 30-minute period. The post CCK gallbladder ejection fraction calculated at 18 minutes following Cholecystokinin administration was noted to be 85.0 % (normal greater than 35%). During 30 minutes of post CCK imaging, there is no scintigraphic evidence of reflux of the radiotracer into the common hepatic duct or refilling of the gallbladder. There appears to be scintigraphic evidence of post CCK duodenal gastric reflux. NM/Hepatobilliary Img w/Pharm Int IMPRESSION: 1. A gallbladder ejection fraction calculated to be greater than 35% following the administration of Cholecystokinin makes the probability of functional hepatobiliary disease (gallbladder and/or sphincter of Oddi dyskinesia) and/or organic hepatobiliary disease (chronic acalculous cholecystitis and/or cystic duct syndrome) to be low. (Lorena Tello et al, Journal of Nuclear Medicine 32:1695, 1990). 2. There is apparent scintigraphic evidence of post CCK duodenal-gastric reflux. (Judie et al, Nucl Med Angelia Nuris Press pg. 35, 1980). Electronically Signed: Yeison Dickerson DO at 8:59 EST ,
== END | disposition home or self-care (01) ==
PROVIDERS: PCP Internal Medicine; Referring Provider Internal Medicine; Visit Provider Internal Medicine
DX: R10.11 Right upper quadrant pain (principal); R19.7 Diarrhea, unspecified
CPT/HCPCS: 78227; A9537; J2805

== ENCOUNTER 2024-11-08 00:39 | Emergency (ER) | payer MEDICARE, SELFPAY ==
[2024-11-08 00:40] VITALS: BP 124/85; PULSE 68; RESP 18; TEMP 37.1; O2SAT 99; BMI 30.2
[2024-11-08 00:43] VITALS: BP 115/84; PULSE 68; RESP 18; TEMP 37.1; O2SAT 98
--- NOTE | 2024-11-08 01:06 | ED.VIS.LOWEX ---
HPI History of Present Illness Chief Complaint: Lower Extremity Injury Informant: patient Narrative Narrative: 34-year-old male has been having pain in his left hip for the past 3 months or more, states he has been following with his primary care provider Jeane Mendez in [place], had x-rays and an MRI that showed degeneration of the bone or joint according to the patient, and is scheduled to see orthopedics in about 3 weeks. He states he has been on meloxicam for several weeks, and presents here for pain control because he just cannot take the pain anymore. Denies any new falls or injuries. Denies any new symptoms. No fevers or chills. He is able to walk but urged to do so. He has been taking nothing other than the prescription he was given any try to call his PCP today for a prescription for something stronger, but she was not available. [facility] Medical History (Updated 11/08/24 @ 01:[address] Sukh Pradhan MD) Necrotizing fasciitis Vaping nicotine dependence, tobacco product Immunosuppression Cellulitis and abscess of lower extremity Tobacco use Leukocytosis Hyperlipidemia Eczema Hypertension Home Medications ?Medication ?Instructions ?Recorded ?Last Taken ?Type atenolol 100 mg tablet 50 mg PO DAILY HTN 04/26/22 04/25/22 History fenofibrate 160 mg tablet 160 mg PO DAILY CHOLESTEROL 04/26/22 04/25/22 History lisinopril 20 1 tab PO DAILY HTN 04/26/22 04/25/22 History mg-hydrochlorothiazide 12.5 mg tablet upadacitinib 15 mg tablet,extended 15 mg PO DAILY RA 04/26/22 04/25/22 History release 24 hr (Rinvoq) meloxicam 15 mg tablet 15 mg PO DAILY 11/08/24 Unknown History tramadol 50 mg tablet 50 mg PO Q8H PRN Pain 4 days #12 11/08/24 Unknown Rx tabs Allergy/AdvReac Type Severity Reaction Status Date / Time No Known Allergies Allergy Verified 11/08/24 00:44 Family History Mother Diabetes Hypertension Father Hypertension Surgical History No history of previous surgery Social History household members: spouse and family Smoking Status: Current every day smoker tobacco type: smokeless tobacco how long ago did patient quit smoking: Quit cigarette use 4-5 months prior, 1 ppd since teen until change to vape. alcohol intake: current alcohol intake frequency: a few times a week substance use type: does not use ROS ROS ED Constitutional Constitutional ED: Denies chills or fever(s) Musculoskeletal Musculoskeletal: Reports extremity pain; Denies neck pain Integumentary Denies Abrasions, rash or wounds Neurologic Neurologic: Denies paresthesias or weakness EXAM Physical Exam Const Vital Signs: 11/08/24 00:40 11/08/24 00:43 11/08/24 01:12 Temperature 98.8 F 98.8 F 98.8 F Temperature Source Oral Oral Pulse Rate 68 68 78 Respiratory Rate 18 18 18 Blood Pressure 124/85 H 115/84 H 123/88 H Blood Pressure Mean 98 94 99 Pulse Ox 99 98 100 Oxygen Delivery Method Room Air Room Air Positive well nourished and well developed General Appearance ED: well developed and NAD Neck full ROM and supple GI non-tender and non-distended Auscultation: normoactive bowel sounds Palpation: soft Back/Spine normal ROM and normal to inspection Extremity Extremity Narrative: Greater trochanter on the left is not tender. The pelvis and iliac crest are nontender. There is no significant discomfort with internal and external rotation of the hip joint, when he bears weight he has pain but he is able to do so, but the joint otherwise moves well when he is not bearing weight, without limitation. Neuro oriented x3, no focal motor deficits and no sensory deficits noted Sensorium / Orientation: alert Psych mental status grossly normal and thought process normal Skin no wounds Rashes: no rashes MDM MDM MDM Narrative Medical decision making narrative: I checked an [facility] report on the patient and it is clear. I given him a tramadol and a prescription for a short course advising that he follow-up after the weekend with his physician. Discharge Plan Triage Chief Complaint: Lower Extremity Injury ED Provider: Sukh Pradhan Dx/Rx/DC Orders Clinical Impression: Acute pain of left hip Instructions: Osteoarthritis: Common Sites Prescriptions: New tramadol 50 mg tablet 50 mg PO Q8H PRN (Reason: Pain) 4 Days Qty: 12 0RF Continued lisinopril-hydrochlorothiazide 20-12.5 mg tablet 1 tab PO DAILY atenolol 100 mg tablet 50 mg PO DAILY fenofibrate 160 mg tablet 160 mg PO DAILY Rinvoq 15 mg tablet extended release 24 hr 15 mg PO DAILY meloxicam 15 mg tablet 15 mg PO DAILY Primary Care Provider: Yeimi Mendez Referrals: Yeimi Mendez, KILN OPERATOR HELPER-C [Primary Care Provider] - 3-5 Days if not improving Print Language: Sammarinese Disposition Disposition: Home, Self Care Discharge Date/Time: 11/08/24 01:14
--- OUTSIDE RECORDS SUMMARY | 2024-11-08 01:08 | XMS RPT_ITS | CCD ---
Author Organization [facility] Care Team Providers Care Vice President Lending Name Role Phone FAZAL STEVENS II Unavailable UnavailKain Laureano Unavailable Stephanie Clover Unavailable Unavailable Unavailable Primary Care Provider UnavailKain Laureano CNP Primary Care Provider [phone] KAIN VIEYRA. Primary Care Unavailable KAIN VIEYRA Attending Unavailable KAIN VIEYRA. Referring Unavailable KAIN VIEYRA Primary Care Physician [phone] JANETT AUGUSTIN Referring Unavailable CHRIS SUAREZ Attending Unavailable CHRIS SUAREZ Admitting Unavailable REQUEST, IP OCCUPATIONAL THERAPY SERVICE Consult ing Unavailable Dolce, Daniel R Attending Unavailable Dolce, Daniel R Attending Unavailable REFERRAL, SELF Referring Unavailable Dolce, Daniel R Attending Unavailable Dolce, Daniel R Attending Unavailable Dolce, Daniel R Attending Unavailable Dolce, Daniel R Attending Unavailable Dolce, Daniel R Attending Unavailable Dolce, Daniel R Attending Unavailable Dolce, Daniel R Attending Unavailable Dolce, Daniel R Attending Unavailable Eric Singh DO Primary Care Provider ERIC SINGH Primary Care Unavailable Eric Singh DO Unavailable [phone] JOSH COFFMAN DO Primary Care Unavailable JOSH COFFMAN DO Admitting Unavailable KAIN VIEYRA Referring Unavailable KAIN VIEYRA Consulting Unavailable JOSH COFFMAN DO Attending Unavailable PROVIDER, UNKNOWN Consulting Unavailable HARRIET RICHARDS DO Attending Unavailable HARRIET RICHARDS DO Primary Care Unavailable HARRIET RICHARDS DO Admitting Unavailable KAIN VIEYRA Referring Unavailable KAIN VIEYRA Consulting Unavailable PROVIDER, UNKNOWN Consulting Unavailable Samantha LINKCaseyalexia Mtz Unavailable [phone] Yeimi Haynes Primary Care Provider ERIC SINGH Attending Unavailable ERIC SINGH Referring Unavailable ERIC SINGH Primary Care Unavailable YEIMI MENDEZ Attending Unavailable YEIMI MENDEZ Primary Care Unavailable YEIMI MENDEZ Referring Unavailable YEIMI MENDEZ Primary Care Unavailable YEIMI MENDEZ Referring Unavailable YEIMI MENDEZ Primary Care Unavailable Allergies Allergy Classification Reported Allergen(s) Allergy Type Date of Onset Reaction(s) Facility (1 source) BEE STING; Translations: [BEE STING] Propensity to adverse reactions (disorder) [facility] Repository Medications Current Medications Medication Drug Class(es) Dates Sig (Normalized) Sig (Original) acetaminophen 500 mg oral tablet (13 sources) Start: 05-02-2022 End: 06-01-2022 take 1 tablet by mouth every six hours as needed for pain acetaminophen (TYLENOL) 500 MG tablet Take 1 Tablet by mouth every 6 hours as needed for Pain or Fever. 30 Tablet 0 05/02/2022 06/01/2022 Active Start: 04-28-2022 End: 06-01-2022 take 2 tablets by mouth every six hours acetaminophen (TYLENOL) 325 mg tablet Take 2 Tablets by mouth every 6 (six) hours. 30 Tablet 0 04/30/2022 05/02/2022 Discontinued Adbry 150 mg/mL syringe injection (6 sources) Start: 04-24-2023 Adbry 150 mg/m L syringe injection Inject 2 mL (300 mg) under the skin every 14 (fourteen) days. 04/24/2023 Active Start: 04-24-2023 Adbry 150 mg/m L syringe injection Inject 2 mL (300 mg) under the skin every 14 (fourteen) days. 0 04/24/2023 Active atenolol 50 mg oral tablet (8 sources) beta-Adrenergic Carly Start: 03-09-2024 take 1 tablet by mouth once daily atenolol (Tenormin) 50 mg tablet Indications: Primary hypertension TAKE 1 TABLET BY MOUTH EVERY DAY 90 tablet 1 03/09/2024 Active Start: 05-28-2023 End: 06-17-2023 take 1 tablet by mouth once daily atenolol (Tenormin) 50 mg tablet Indications: Primary hypertension Take 1 tablet (50 mg) by mouth once daily. 90 tablet 1 06/17/2023 Active Start: 04-29-2022 atenolol (TENO RMIN) tablet blood pressure kit-extra lar ge kit (2 sources) Start: 10-02-2024 blood pressure kit-extra large kit Indications: Primary hypertension Use 1-2 times daily to track BP 1 kit 10/02/2024 Active Start: 09-30-2024 blood pressure kit-extra large kit Indications: Primary hypertension 1 KIT ONCE DAILY. 1 kit 09/30/2024 Active blood pressure monitor kit (1 source) Start: 09-30-2024 blood pressure monitor kit Indications: Primary hypertension 1 kit once daily. 1 kit 09/30/2024 Active cefTRIAXone 2000 mg injection (1 source) Cephalosporin Antibacterial Start: 04-28-2022 cefTRIAXone (ROCEPHIN) 2,000 mg in dextrose 50 mL ivpb 0.4 ml enoxaparin sodium 100 mg/ml prefilled syringe (1 source) Low Molecular Weight Heparin Start: 04-28-2022 enoxaparin (LOVENOX) 40 MG/0.4ML injection 40 mg [id number] 0.3 ml EPINEPHrine 1 mg/ml auto-injector (4 sources) alpha-Adrenergic Agonist, beta-Adrenergic Agonist, Catecholamine Start: 03-23-2024 EPINEPHrine (Epipen) 0.3 mg/0.3 mL injection syringe Indications: Bee allergy status Inject 0.3 mL (0.3 mg) into the muscle 1 time if needed for anaphylaxis for up to 4 doses. Call 911 after use. 2 each 1 03/23/2024 Active fenofibrate 160 mg oral tablet (8 sources) Peroxisome Proliferator Receptor alpha Agonist Start: 09-01-2024 take 1 tablet by mouth once daily fenofibrate (Triglide) 160 mg tablet Indications: Primary hypertension Take 1 tablet (160 mg) by mouth once daily. 30 tablet 09/01/2024 Active Start: 12-10-2022 End: 06-17-2023 take 1 tablet by mouth once daily fenofibrate (Triglide) 160 mg tablet Indications: Primary hypertension Take 1 tablet (160 mg) by mouth once daily. 90 tablet 3 06/17/2023 Active Start: 04-29-2022 fenofibrate (T RICOR) tablet hydroCHLOROthiazide 12.5 mg / lisinopril 20 mg oral tablet (7 sources) Thiazide Diuretic, Angiotensin Converting Enzyme Inhibitor Start: 05-28-2023 End: 06-17-2023 take 1 tablet by mouth once daily lisinopriL-hydrochlorothiazide 20-12.5 mg tablet Indications: Primary hypertension Take 1 tablet by mouth once daily. 90 tablet 3 06/17/2023 Active lisinopril 10 mg oral tablet (7 sources) Angiotensin Converting Enzyme Inhibitor Start: 05-27-2023 End: 06-17-2023 take 1 tablet by mouth once daily lisinopril 10 mg tablet Indications: Primary hypertension Take 1 tablet (10 mg) by mouth once daily. 90 tablet 3 06/17/2023 Active meloxicam 15 mg oral tablet (3 sources) Nonsteroidal Anti-inflammat ory Drug Start: 09-30-2024 End: 09-30-2025 take 1 tablet by mouth once daily meloxicam (Mobic) 15 mg tablet Indications: Left hip pain Take 1 tablet (15 mg) by mouth once daily. 30 tablet 11 09/30/2024 09/30/2025 Active methylPREDNISolone (2 sources) Corticosteroid Start: 09-30-2024 End: 10-06-2024 methylPREDNISolone (Medrol Dospak) 4 mg tablets Indications: Left hip pain Take as directed on package. 21 tablet 09/30/2024 10/06/2024 Active naloxone hydrochloride 40 mg/ml nasal spray (3 sources) Opioid Antagonist Start: 05-02-2022 naloxone 4 mg/0.1 mL nasal liquid Use 1 [place] in one nostril (alternate sides) as needed for Drug Overdose for up to 1 dose. Every 2-3 mins. until help arrives. 1 Each 1 05/02/2022 Active omeprazole 40 mg delayed release oral capsule (6 sources) Proton Pump Inhibitor Start: 06-19-2024 take 1 capsule by mouth once daily before mealtime omeprazole (PriLOSEC) [address] capsule Indications: Gastroesophageal reflux disease without esophagitis Take 1 capsule (40 mg) by mouth once daily in the morning. Take before meals. Do not crush or chew. 90 capsule 3 06/19/2024 Active Start: 01-06-2024 take 1 capsule by mo uth once daily before mealtime omeprazole (PriLOSEC) [address] capsule Indications: Gastroesophageal reflux disease without esophagitis TAKE 1 CAPSULE (40 MG) BY MOUTH ONCE DAILY IN THE MORNING. TAKE BEFORE MEALS. DO NOT CRUSH OR CHEW. 90 capsule 1 01/06/2024 Active Start: 07-12-2023 take 1 capsule by mo uth once daily before mealtime omeprazole (PriLOSEC) [address] capsule Indications: Gastroesophageal reflux disease without esophagitis TAKE 1 CAPSULE (40 MG) BY MOUTH ONCE DAILY IN THE MORNING. TAKE BEFORE MEALS. DO NOT CRUSH OR CHEW. 90 capsule 1 07/12/2023 Active Start: 06-17-2023 take 1 capsule by mo uth once daily before mealtime omeprazole (PriLOSEC) [address] capsule Indications: Gastroesophageal reflux disease without esophagitis Take 1 capsule (40 mg) by mouth once daily in the morning. Take before meals. Do not crush or chew. 30 capsule 1 06/17/2023 Active 2 ml ondansetron 2 mg/ml injection (1 source) Serotonin-3 Receptor Antagonist Start: 04-28-2022 ondansetron (ZOFRAN) 4 MG/2ML injection oxyCODONE hydrochloride 5 mg oral tablet (10 sources) Opioid Agonist Start: 05-02-2022 End: 05-05-2022 take 1 tablet by mouth every six hours as needed for pain oxyCODONE 5 MG immediate release tablet Indications: Acute post-operative pain Take 1 Tablet by mouth every 6 hours as needed for Pain for up to 3 days. 12 Tablet 0 05/02/2022 05/05/2022 Active Start: 04-28-2022 End: 05-03-2022 take 1 tablet by mouth every four hours as needed oxyCODONE 5 MG immediate release tablet Indications: Abscess of right leg Take 1 Tablet by mouth every 4 hours as needed for up to 3 days. 9 Tablet 0 04/30/2022 05/02/2022 Discontinued Completed/Discontinued Medications Medication Drug Class(es) Dates Sig (Normalized) Sig (Original) calcium chloride 0.0014 meq/ml / potassium chloride 0.004 meq/ml / sodium chloride 0.103 meq/ml / sodium lactate 0.028 meq/ml injectable solution (1 source) Start: 04-28-2022 End: 04-28-2022 lactated ringers iv infusion 1 ml HYDROmorphone hydrochloride 1 mg/ml cartridge (1 source) Opioid Agonist Start: 04-28-2022 End: 04-30-2022 HYDROmorphone (DILAUDID) 1 mg/mL injection 50 ml magnesium sulfate 40 mg/ml injection (1 source) Start: 04-29-2022 End: 04-29-2022 magnesium sulfate 2 GM/50ML in 50 mL ivpb sodium phosphate 15 mmol injection in D5W (1 source) Start: 04-29-2022 End: 04-29-2022 sodium phosphate 15 mmol injection in D5W Problems Active Problems Problem Classification Problem Date Documented Da te Episodic/Chronic Alcohol-related disorders (1 source) Alcohol intoxication; Translations: [Alcohol abuse, unspecified] 11-09-2020 Chronic Diabetes mellitus without complication (2 sources) Hyperglycemia, unspecified; Translations: [Hyperglycemia, unspecified] Onset: 4 Episodic Disorders of lipid metabolism (12 sources) Mixed hyperlipidemia; Translations: [Mixed hyperlipidemia] Onset: 4 06-17-2023 Chronic E Codes: Fall (1 source) Fall from balcony; Translations: [Accidental fall from or out of building or other structure] 11-09-2020 Episodic E Codes: Fall (1 source) Fall from balcony 11-09-2020 Esophageal disorders (4 sources) Gastroesophageal reflux disease without esophagitis; Translations: [Gastro-esophageal reflux disease without esophagitis] Onset: 5 06-17-2023 Chronic Essential hypertension (12 sources) Essential hypertension; Translations: [Essential (primary) hypertension] Onset: 4 06-17-2023 Chronic Other connective tissue disease (2 sources) Pain in right leg; Translations: [Pain in right leg] Onset: 2 Episodic Other gastrointestinal disorders (1 source) Diarrhea; Translations: [Diarrhea, unspecified] 03-23-2024 Episodic Other nervous system disorders (8 sources) Antalgic gait; Translations: [Other abnormalities of gait and mobility] Onset: 2 Episodic Other nervous system disorders (1 source) Acute postoperative pain; Translations: [Other acute postprocedural pain] Episodic Other non-traumatic joint disorders (4 sources) Hip pain; Translations: [Pain in left hip] 09-30-2024 Episodic Other non-traumatic joint disorders (4 sources) Pain in left hip; Translations: [Pain in left hip] Onset: 5 Episodic Other screening for suspected conditions (not mental disorders or infectious disease) (3 sources) Patient encounter status; Translations: [Encounter for screening for malignant neoplasm of prostate] Onset: 5 09-30-2024 Episodic Skin and subcutaneous tissue infections (20 sources) Abscess of left thigh; Translations: [Cutaneous abscess of left lower limb] Onset: 2 Episodic Unclassified (2 sources) FALL 8FT OFF RAILING INTO GRASS 11-09-2020 Comment on above: FALL 8FT OFF RAILING INTO GRASS Unclassified (1 source) Acute alcohol intoxication 11-09-2020 Past or Other Problems Problem Classification Problem Date Documented Da te Episodic/Chronic Abdominal pain (4 sources) Right upper quadrant pain; Translations: [Right upper quadrant pain] Onset: 03-23-2024 03-23-2024 Episodic Allergic reactions (12 sources) Allergic disorder of skin; Translations: [Allergic contact dermatitis, unspecified cause] Onset: 09-16-2023 09-16-2023 Episodic Other gastrointestinal disorders (2 sources) Diarrhea, unspecified; Translations: [Diarrhea, unspecified] Onset: 03-23-2024 Episodic Unclassified (6 sources) Onset: 06-17-2023 06-17-2023 Results Test Name Value Interpretation Reference Range Facility MR Hip - left WO contraston 11-04-2024 1. Acute on chronic avascular necrosis within the left hip. There is a cwogz-bx-tlicazjn left hip joint effusion, favored to be reactive. However, if there is clinical concern for infectious/inflammator y etiology, consider aspiration. 2. Chronic avascular necrosis within the right hip. I personally reviewed the images/study and I agree with the findings as stated. This study was interpreted at [facility], [place], [place]. 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 COMPARISON: Pelvis with left hip radiographs 09/30/2024. ACCESSION NUMBER(S): [id number] ORDERING CLINICIAN: YEIMI MENDEZ TECHNIQUE: MR imaging of the left hip was obtained without IV contrast. FINDINGS: TENDONS: The insertions of the gluteus medius and gluteus minimus tendons are normal. The insertion of the iliopsoas tendon is normal. The visualized hamstring tendon origin is normal. JOINTS: The hip joint articular cartilage is normal without focal defect. There is no evidence of significant arthrosis. The acetabular labrum is normal. There are serpiginous well-demarcated lines within the bilateral humeral heads consistent with chronic avascular necrosis. Within the left humeral head and neck, there is diffusely increased T2/stir signal concerning for acute marrow edema. There is a small left-sided joint effusion, favored to be reactive. OSSEOUS STRUCTURES: No focal marrow replacing lesions are identified. There is no fracture. SOFT TISSUES: No muscle atrophy or tear is seen. No evidence of muscular edema. INTERNAL ORGANS: Evaluation of the internal organs of the pelvis is limited on this small field of view study tailored for evaluation of the musculoskeletal system. No gross abnormality is seen in the pelvic organs. 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 COMPARISON: Pelvis with left hip radiographs 09/30/2024. ACCESSION NUMBER(S): [id number] ORDERING CLINICIAN: YEIMI MENDEZ TECHNIQUE: MR imaging of the left hip was obtained without IV contrast. FINDINGS: TENDONS: The insertions of the gluteus medius and gluteus minimus tendons are normal. The insertion of the iliopsoas tendon is normal. The visualized hamstring tendon origin is normal. JOINTS: The hip joint articular cartilage is normal without focal defect. There is no evidence of significant arthrosis. The acetabular labrum is normal. There are serpiginous well-demarcated lines within the bilateral humeral heads consistent with chronic avascular necrosis. Within the left humeral head and neck, there is diffusely increased T2/stir signal concerning for acute marrow edema. There is a small left-sided joint effusion, favored to be reactive. OSSEOUS STRUCTURES: No focal marrow replacing lesions are identified. There is no fracture. SOFT TISSUES: No muscle atrophy or tear is seen. No evidence of muscular edema. INTERNAL ORGANS: Evaluation of the internal organs of the pelvis is limited on this small field of view study tailored for evaluation of the musculoskeletal system. No gross abnormality is seen in the pelvic organs. IMPRESSION: 1. Acute on chronic avascular necrosis within the left hip. There is a qbtfh-kk-lqpaqgqj left hip joint effusion, favored to be reactive. However, if there is clinical concern for infectious/inflammator y etiology, consider aspiration. 2. Chronic avascular necrosis within the right hip. I personally reviewed the images/study and I agree with the findings as stated. This study was interpreted at [place], [place]. MACRO: None Signed by: Gerardo Chiang 11/04/2024 10:22 AM Dictation workstation: [id number] [facility] [place] Work Phone: Radiology Study observation (narrative) [facility] [place] Work Phone: MR Hip - left WO contrastOrd ered By: Gerardo Chiang on 11-04-2024 [facility] [place] Work Phone: MR HIP LEFT WO IV CONTRASTon 10-01-2024 MR HIP LEFT WO IV CONTRAST Interpreted By: Gerardo Chiang and Hofer Lindsay STUDY: MRI of the left hip without IV contrast; 11/04/2024 9:40 am INDICATION: Signs/Symptoms: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 COMPARISON: Pelvis with left hip radiographs 09/30/2024. ACCESSION NUMBER(S): [id number] ORDERING CLINICIAN: YEIMI MENDEZ TECHNIQUE: MR imaging of the left hip was obtained without IV contrast. FINDINGS: TENDONS: The insertions of the gluteus medius and gluteus minimus tendons are normal. The insertion of the iliopsoas tendon is normal. The visualized hamstring tendon origin is normal. JOINTS: The hip joint articular cartilage is normal without focal defect. There is no evidence of significant arthrosis. The acetabular labrum is normal. There are serpiginous well-demarcated lines within the bilateral humeral heads consistent with chronic avascular necrosis. Within the left humeral head and neck, there is diffusely increased T2/stir signal concerning for acute marrow edema. There is a small left-sided joint effusion, favored to be reactive. OSSEOUS STRUCTURES: No focal marrow replacing lesions are identified. There is no fracture. SOFT TISSUES: No muscle atrophy or tear is seen. No evidence of muscular edema. INTERNAL ORGANS: Evaluation of the internal organs of the pelvis is limited on this small field of view study tailored for evaluation of the musculoskeletal system. No gross abnormality is seen in the pelvic organs. IMPRESSION: 1. Acute on chronic avascular necrosis within the left hip. There is a mjxig-vr-ymzragvb left hip joint effusion, favored to be reactive. However, if there is clinical concern for infectious/inflammator y etiology, consider aspiration. 2. Chronic avascular necrosis within the right hip. I personally reviewed the images/study and I agree with the findings as stated. This study was interpreted at [place], [place]. MACRO: None Signed by: Gerardo Chiang 11/04/2024 10:22 AM Dictation workstation: [id number] Normal [facility] XR HIP LEFT WITH PELVIS WHEN PERFORMED 2 OR 3 VIEWSon 09-30-2024 XR HIP LEFT WITH PELVIS WHEN PERFORMED 2 OR 3 VIEWS Interpreted By: Faye Crane, STUDY: XR HIP LEFT WITH PELVIS WHEN PERFORMED 2 OR 3 VIEWS; 09/30/2024 10:50 am INDICATION: Signs/Symptoms:left hip pain. COMPARISON: None. ACCESSION NUMBER(S): [id number] ORDERING CLINICIAN: YEIMI MENDEZ FINDINGS: Mild narrowing of bilateral hip joints is seen with associated sclerosis and spur formation. Areas of sclerosis and lucency are seen in bolus femoral heads, which may be related to avascular necrosis. No acute fracture or dislocation is seen. The pubic symphysis is not a diastased. No lytic or blastic lesions are seen. IMPRESSION: Mild degenerative changes of bilateral hips. Areas of lucency and sclerosis in both femoral heads, qwti-rxyzffh-hvul-righ t which may be related to avascular necrosis. Further evaluation with CT or MRI may be obtained. MACRO: None Signed by: Faye Crane 10/01/2024 11:46 AM Dictation workstation: [id number] [facility] ACETAMINOPHENon 06-19-2024 ACETAMINOPHEN <0.0 Low 10.0 - 30.0 [facility] Comment on above: Performed By: #### 2 [id number] #### [facility],[address] [place] [address] 54357 ALCOHOL-BLOOD MEDICALon 05-28 Ethanol [Mass/Vol] 333 mg/dL Critically high 0 - 50 J [facility] Comment on above: Result Comment: { CA LLED TO HERMINIO TenorioRN AT 0239 { READ BACK BY HERMINIO Tenorio RN TO Performed By: #### 2 [id number] ####[facility],[address] [place] [address] 61472 CBC + DIFFon 06-19-2024 Baso # 0.05 x10EE3/UL Normal 0.00 - 0.10 [facility] Comment on above: Performed By: #### 2 [id number] ####[facility],[address] [place] [address] 09492 Basophils/100 WBC (Bld) 0.5 % Normal 0.0 - 2.0 [facility] Comment on above: Performed By: #### 2 [id number] ####[facility],[address] [place] [address] 20988 CBC + DIFF Normal [facility] Comment on above: Result Comment: CBC- COMPLETE BLOOD COUNT Performed By: #### 2 [id number] ####[facility],[address] [place] [address] 80401 EO # 0.54 x10EE3/UL High 0.00 - 0.50 [facility] Comment on above: Performed By: #### 2 01213 ####[facility],[address] [place] [address] 70157 Eosinophils/100 WBC (Bld) 5.4 % Normal 0.0 - 7.0 [facility] Comment on above: Performed By: #### 2 [id number] ####[facility],[address] [place] [address] 55133 Erythrocyte distribution width (RBC) [Ratio] 12.7 % Normal 12.0 - 15.6 [facility] Comment on above: Performed By: #### 2 [id number] ####[facility],[address] [place] [address] 82961 Hematocrit (Bld) [Volume fraction] 46.0 % Normal 40.0 - 52.0 [facility] Comment on above: Performed By: #### 2 14274 ####[facility],[address] [place] [address] Hemoglobin (Bld) [Mass/Vol] 16.3 g/dL Normal 13.0 - 17.5 [facility] Comment on above: Performed By: #### 2 06713 ####[place] [address] Lymph # 2.41 x10EE3/UL Normal 0.80 - 2.80 [facility] Comment on above: Performed By: #### 2 [id number] ####[facility],[address] [place] [address] 70831 Lymphocytes/100 WBC (Bld) 24.4 % Normal 20.0 - 45.0 [facility] Comment on above: Performed By: #### 2 04187 ####[facility],[address] [place] [address] 97092 MANUAL DIFF N/A Normal [facility] Comment on above: Performed By: #### 2 [id number] ####[facility],[address] [place] [address] 12468 MCH (RBC) [Entitic mass] 32 pg Normal 27 - 33 [facility] Comment on above: Performed By: #### 2 01831 ####[facility],[address] [place] [address] 77470 MCHC 35 X10 3 Normal 32 - 36 [facility] Comment on above: Performed By: #### 2 07830 ####[facility],[address] [place] [address] 62788 MCV (RBC) [Entitic vol] 91 fL Normal 81 - 98 [facility] Comment on above: Performed By: #### 2 [id number] ####[facility],[address] [place] [address] 79571 Bibb # 0.81 x10EE3/UL Normal 0.20 - 1.00 [facility] Comment on above: Performed By: #### 2 92026 ####[facility],[address] [place] [address] 88014 MONOS % 8.2 % Normal 0.0 - 10.0 [facility] Comment on above: Performed By: #### 2 90668 ####[facility],[address] [place] [address] 17839 Morphology Michael (Bld) [Interp] N/A Normal [facility] Comment on above: Performed By: #### 2 [id number] ####[facility],[address] [place], [place] [id number] Neut # 6.05 x10EE3/UL Normal 1.50 - 7.10 [facility] Comment on above: Performed By: #### 2 66315 ####[facility],[address] [place] [address] 81880 Neutrophils/100 WBC (Bld) 61.4 % Normal 46.0 - 76.0 [facility] Comment on above: Performed By: #### 2 62222 ####[facility],[address] [place] [address] 14579 PLATELET 352 x10EE3/UL Normal 150 - 450 [facility] Comment on above: Performed By: #### 2 17034 ####[facility],[address] [place] [address] 88392 Platelet mean volume (Bld) [Entitic vol] 7.5 fL Normal 6.4 - 10.5 [facility] Comment on above: Result Comment: AUTO MATED DIFFERENTIAL Performed By: #### 2 56981 ####[facility],[address] [place] [address] 15108 RBC 5.05 x 10EE6/UL Normal 4.50 - 6.00 [facility] Comment on above: Performed By: #### 2 07490 ####[facility],[address] [place] [address] 21992 WBC 9.9 x 10EE3/UL Normal 4.5 - 10.8 [facility] Comment on above: Performed By: #### 2 92517 ####[facility],[address] [place] [address] 07193 CMP with eGFRon 06-19-2024 AGE 34 years Normal [facility] Comment on above: Performed By: #### 2 59274 #### [facility],[address] [place] [address] 30306 Albumin [Mass/Vol] 3.8 g/dL Normal 3.4 - 5.0 [facility] Comment on above: Performed By: #### 2 29854 #### [facility],[address] [place] [address] 72979 Albumin/Globulin [Mass ratio] 0.9 {ratio} Normal 0.9 - 1.6 [facility] Comment on above: Performed By: #### 2 51494 #### [facility],[address] [place] [address] 26428 ALK PHOS 63 U/L Normal 46 - 116 [facility] Comment on above: Performed By: #### 2 97189 #### [facility],[address] [place] [address] 09913 ALT [Catalytic activity/Vol] 75 U/L High 16 - 63 [facility] Comment on above: Performed By: #### 2 79279 #### [facility],[address] [place] [address] 68074 Anion gap [Moles/Vol] 16 mmol/L Normal 10 - 20 [facility] Comment on above: Performed By: #### 2 42767 #### [facility],[address] [place] [address] 86949 AST [Catalytic activity/Vol] 68 U/L High 15 - 37 [facility] Comment on above: Performed By: #### 2 07949 #### [facility],[address] [place] [address] 49301 B/C RATIO 7 ratio Normal 0 - 30 [facility] Comment on above: Performed By: #### 2 57153 #### [facility],[address] [place] [address] 64086 Bilirubin [Mass/Vol] 0.3 mg/dL Normal 0.2 - 1.0 [facility] Comment on above: Performed By: #### 2 00504 #### [facility],[address] [place] [address] 05603 Calcium [Mass/Vol] 8.5 mg/dL Normal 8.5 - 10.1 [facility] Comment on above: Performed By: #### 2 31772 #### [facility],[address] [place] [address] 12580 Chloride [Moles/Vol] 98 mmol/L Normal 98 - 107 [facility] Comment on above: Performed By: #### 2 81225 #### [facility],[address] [place] [address] 75169 CMP with eGFR Normal [facility] Comment on above: Result Comment: COMP REHENSIVE METABOLIC PANEL Performed By: #### 2 29551 #### [facility],[address] [place] [address] 26703 CO2 [Moles/Vol] 23.7 mmol/L Normal 21.0 - 32.0 [facility] Comment on above: Performed By: #### 2 43364 #### [facility],[address] [place] [address] 25240 Creatinine [Mass/Vol] 0.71 mg/dL Normal 0.70 - 1.30 [facility] Comment on above: Performed By: #### 2 19954 #### [facility],[address] [place], [place] [id number] GFR/1.73 sq M.predicted among non-blacks MDRD (S/P/Bld) [Vol rate/Area] mL/min/{1.73_m2} Normal 60 - 999 [facility] Comment on above: Performed By: #### 2 51154 #### [facility],[address] [place] [address] Result Comment: ACCO RDING TO THE NATIONAL KIDNEY DISEASE EDUCATION PROGRAM(NKDE), A NORMAL eGFR IS A VALUE GREATER THAN OR EQUAL TO 60 ML/MIN/1.73 SQ METERS. CHRONIC KIDNEY DISEASE: <60mL/MIN/1.73 SQ METERS KIDNEY FAILURE: <15mL/MIN/1.73 SQ METERS THIS TEST SHOULD ONLY BE USED FOR PATIENTS 18 YEARS OF AGE AND OLDER. Globulin (S) [Mass/Vol] 4.1 g/dL High 1.5 - 3.8 [facility] Comment on above: Performed By: #### 2 25855 #### [place] [address] Glucose [Mass/Vol] 101 mg/dL Normal 74 - 106 [facility] Comment on above: Performed By: #### 2 14377 #### [facility],[address] [place] [address] 94055 Potassium [Moles/Vol] 3.0 mmol/L Low 3.5 - 5.1 [facility] Comment on above: Performed By: #### 2 48135 #### [address] [address] Protein [Mass/Vol] 7.9 g/dL Normal 6.4 - 8.2 [facility] Comment on above: Performed By: #### 2 06741 #### [place] [id number] Sodium [Moles/Vol] 135 mmol/L Low 136 - 145 [facility] Comment on above: Performed By: #### 2 81662 #### [facility],[address] [place] [address] Urea nitrogen [Mass/Vol] 5 mg/dL Low 7 - 18 [facility] Comment on above: Performed By: #### 2 94401 #### [facility],[address] [place] [address] CORONAVIRUS (SARS) ANTIGEN T ESTon 06-19-2024 EXTERNAL QC DONE? YES Normal [facility] Comment on above: Performed By: #### 2 22592 #### [facility],[address] [place] [address] INTERNAL CONTROL PASS Normal [facility] Comment on above: Performed By: #### 2 64179 #### [facility],[address] [place] [address] SARS ANTIGEN Negative Normal NORMAL: NEGATIVE [facility] Comment on above: Performed By: #### 2 71556 #### [facility],[address] [place] [address] SEND TO ? NO Normal [facility] Comment on above: Result Comment: SARS -CoV-2 THIS TEST IS BEING USED UNDER THE FDA EUA PROCEDURE. THIS ASSAY HAS BEEN VALIDATED AT [facility] FOR USE WITH NASAL AND NASOPHARYNGEAL SWAB SPECIMENS. INTERPRETIVE DATA TEST RESULTS SHOULD ALWAYS BE CONSIDERED IN THE CONTEXT OF CLINICAL OBSERVATIONS AND EPIDEMIOLOGICAL DATA IN MAKING FINAL DIAGNOSIS AND PATIENT MANAGEMENT DECISIONS. PATIENT MANAGEMENT SHOULD FOLLOW CURRENT CDC GUIDELINES. THE TANJA SARS ANTIGEN DOUG DOES NOT DIFFERENTIATE BETWEEN SARS-CoV & SARS-CoV-2. A POSITIVE TEST RESULT INDICATES THE PRESENCE OF SARS-CoV-2 NUCLEOCAPSID PROTEIN ANTIGEN, AND THE PATIENT IS INFECTED WITH THE VIRUS AND PRESUMED TO BE CONTAGIOUS. A NEGATIVE TEST RESULT FOR THIS TEST MEANS THAT SARS-CoV-2 NUCLEOCAPSID PROTEIN ANTIGEN WAS NOT PRESENT IN THE SPECIMEN ABOVE THE LIMIT OF DETECTION. HOWEVER, A NEGATIVE RESULT DOES NOT RULE OUT COVID-19 AND SHOULD NOT BE USED THE SOLE BASIS FOR TREATMENT OR PATIENT MANAGEMENT DECISIONS. A NEGATIVE RESULT DOES NOT EXCLUDE THE POSSIBILITY OF COVID-19. NEGATIVE RESULTS, FROM PATIENTS WITH SYMPTOM ONSET BEYOND FIVE DAYS, SHOULD BE TREATED PRESUMPTIVE AND CONFIRMATION WITH A MOLECULAR ASSAY, IF NECESSARY, FOR PATIENT MANAGEMENT, MAY BE PERFORMED. WHEN DIAGNOSTIC TESTING IS NEGATIVE, THE POSSIBLILTY OF A FALSE NEGATIVE RESULT SHOULD BE CONSIDERED IN THE CONTEXT OF A PATIENT'S RECENT EXPOSURES AND THE PRESENCE OF CLINICAL SIGNS AND SYMPTOMS CONSISTENT WITH COVID-19. THE POSSIBILITY OF A FALSE NEGATIVE RESULT SHOULD ESPECIALLY BE CONSIDERED IF THE PATIENT'S RECENT EXPOSURES OR CLINICAL PRESENTATION INDICATE THAT COVID-19 IS LIKELY, AND DIAGNOSTIC TESTS FOR OTHER CAUSES OF ILLNESS (e.g., OTHER RESPIRATORY ILLNESS) ARE NEGATIVE. IF COVID-19 IS STILL SUSPECTED BASED ON EXPOSURE HISTORY TOGETHER WITH OTHER CLINICAL FINDINGS, RE-TESTING SHOULD BE CONSIDERED BY HEALTHCARE PROVIDERS IN CONSULTATION WITH PUBLIC HEALTH AUTHORITIES. Performed By: #### 2 92164 #### [place] [address] DRUG SCREEN URINE MEDICon AMPHETAMINES Negative [facility] Comment on above: Performed By: #### 2 57029 #### [facility],[address] [place] [address] B-DIAZEPINES Negative [facility] Comment on above: Performed By: #### 2 71145 #### [address] [address] BARBITURATES Negative [facility] Comment on above: Performed By: #### 2 91217 #### [facility],[address] [place], [place] [id number] COCAINE Negative [facility] Comment on above: Performed By: #### 2 34818 #### [place] [address] DRUG SCREEN URINE MEDIC [facility] Comment on above: Result Comment: DRUG SCREEN - URINE Performed By: #### 2 35988 #### [facility],[address] [place] [address] 14479 METHADONE Negative Normal [facility] Comment on above: Performed By: #### 2 37989 #### [facility],[address] [place] [address] 35104 OPIATES Negative Normal [facility] Comment on above: Performed By: #### 2 25856 #### [facility],[address] [place] [address] 65650 PCP Negative Normal [facility] Comment on above: Performed By: #### 2 45966 #### [facility],[address] [place] [address] 01208 THC Negative Normal [facility] Comment on above: Result Comment: ANGEL ENTS RECEIVING PROTON PUMP INHIBITORS MAY DEMONSTRATE FALSE POSITIVE THC/CANNABINOID RESULTS. AN ALTERNATIVE CONFIRMATORY METHOD SHOULD BE CONSIDERED TO VERIFY POSITIVE RESULTS. 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 [place] [id number] [phone] 06/18/2024 Patient: NADIA BIGGS Sex: Male : 1990 Age: 34y MEASUREMENTS: Wt: 90.7 kg, Ht/Ney: 72.0 in, BMI: 27.12 ALLERGIES: No known drug allergies Medication Ordered Medication Administration Date/Time IV NS 0.9 % 1000 00:17 06/19 IV NS 0.9 % refused. - 06:17 Christa Rebolledo R.N. Refused mL at 999 mL/hr 00:17 06/19/2024 (NOW x1) Christa Rebolledo R.N. LORazepam 01:06/19 LORazepam (Ativan) IM 2 mg given. Given in the right Given (Ativan) IM 2 mg deltoid. (pt combative, PD assisted). - 03:01 Christa Rebolledo R.N. 01:06/19/2024 (NOW x1) Christa Rebolledo R.N. Scanned Haloperidol IM 5 mg 01:01 06/19 Haloperidol IM 5 mg given. Given in the right deltoid. Given (NOW x1) (pt combative). - 03:02 Christa Rebolledo R.N. 01:06/19/2024 Christa Rebolledo R.N. Not Scanned Potassium Chloride 06:16 06/19 Potassium Chloride PO refused. Refused by patient Refused PO 40 mEq (NOW (MD made aware MD made aware). - 06:16 Christa Rebolledo R.N. 06:16 06/19/2024 x1) Christa Rebolledo R.N. 1 of 1 Normal [facility] ED NURSES CLINICAL NOTEon ED NURSES CLINICAL NOTE Nurse Narrative Nurse Clinical Narrative [place] [address] [place] [address] [phone] 06/18/2024 Patient: NADIA BIGGS Sex: Male : 1990 Age: 34y Disposition: Transfer to [facility] Disposition Decision Time: 03:56 06/19/2024 Departure Time: 08:10 06/19/2024 TRIAGE Historian: patient. Arrived in police custody. Triage time: 23:48 06/18/2024. Acuity: LEVEL 2. Chief Complaint: SUICIDAL THOUGHTS. ( Pt arrived by [place] . called PD to report pt was having SI, pain with a gun, Pt has guns at home . Pt has been having these thoughts for 2 days. Pt is a daily drinker per 's report to PD. Pt reported several family members passing that has pushed him to this point.). ( Pt's reported earlier was hearing voices). SEPSIS SCREEN: NEGATIVE. SIRS criteria negative. No possible sources of infection. -- 00:14 06/19/24 YVONNE Rebolledo R.N. 00:13 06/19/24. BP: 136/86 while sitting. MAP: 103. HR: 79. RR: 20. O2 saturation: 97% Temperature: 98.2 F (oral). Pain level now 0/10. -- 00:14 06/19/24 YVONNE Rebolledo R.N. Measurements: 00:10 06/19/24 Wt: 90.7 kg, Ht/Ney: 72.0 in, BMI: 27.12 -- 00:10 06/19/24 YVONNE Rebolledo R.N. Medications: Adbry 150 mg/mL subcutaneous syringe -- 00:16 06/19/24 YVONNE Rebolledo R.N. fenofibrate 160 mg tablet -- 00:16 06/19/24 YVONNE Rebolledo R.N. 1 of 5 Nurse Narrative lisinopril 20 mg-hydrochlorothiazide 12.5 mg tablet -- 00:16 06/19/24 YVONNE Rebolledo R.N. omeprazole 40 mg capsule,delayed release -- 00:16 06/19/24 YVONNE Rebolledo R.N. epinephrine 0.3 mg/0.3 mL injection, auto-injector -- 00:16 06/19/24 YVONNE Rebolledo R.N. atenolol 50 mg tablet -- 00:16 06/19/24 YVONNE Rebolledo R.N. lisinopril 10 mg tablet -- 00:16 06/19/24 YVONNE Rebolledo R.N. Allergies: no known drug allergies -- 00:03 06/19/24 YVONNE Rebolledo R.N. Problems: Hypertension: Active -- 00:07 06/19/24 YVONNE Rebolledo R.N. exzema -- 00:07 06/19/24 YVONNE Rebolledo R.N. Hypercholesterolemia -- 00:08 06/19/24 YVONNE Rebolledo R.N. 23:48 06/18/24. Preferred pharmacy: [facility]. -- 00:14 06/19/24 YVONNE Rebolledo R.N. ADDITIONAL SURGERIES: right leg. Calf area, to remove infection -- 00:09 06/19/24 YVONNE Rebolledo R.N. History 23:48 06/18/24. SOCIAL HX: Smoker - current smoking amount unknown. Alcohol use; consumes a large amount of beer daily and liquor occasionally. Last drink was less than 24 hours ago. Patient is a longstanding alcoholic. Patient smells of ETOH in the emergency department (recently). The patient has not traveled outside the [place] Infectious disease exposure: No infectious disease exposure. ABUSE ASSESSMENT: The patient answered yes to the question(s) Do you feel safe in your home? and no to the question(s) Are you afraid to go home?. SELF HARM ASSESSMENT: Self harm assessment was performed. The patient answered yes to the question(s) Have you recently felt down, depressed, or hopeless?, Do you have thoughts of harming or killing yourself?, Do you have a plan for harming or killing yourself?, Do you have any dangerous items in your 2 of 5 Nurse Narrative possession? and Have you noticed less interest or pleasure in doing things? and no to the question(s) Have you recently had thoughts about harming or killing others?, Are you here because you tried to hurt yourself? and Have you ever tried to hurt yourself before today?. The patient has been placed under 1-on-1 supervision with a hospital sitter at bedside. The patient was placed in a safe room in direct sight of the nurses station. Clothes and valuables were removed and placed in a safe. The ED physician has been notified. FALL RISK ASSESSMENT: Fall risk assessment completed. Risk factors identified include patient impairment; ETOH. -- 00:14 06/19/24 YVONNE Rebolledo R.N. Interventions 23:48 06/18/24. Identification band and allergy band on patient. Advanced care plan discussed with patient. Patient does not have advanced directive. -- 00:14 06/19/24 YVONNE Rebolledo R.N. PHYSICAL ASSESSMENT 00:38 06/19/24. GENERAL / NEURO / PSYCH: Alert. Oriented X 4. Patient's speech is slurred. Patient appears calm and cooperative. The patient appears to have altered thought processes (altered mental status due to ETOH). Good eye contact. RESPIRATORY: Respirations not labored. Breath sounds within normal limits. CVS: Normal heart rate and rhythm. Capillary refill less than 2 seconds. GI / : Abdomen soft and nontender. Bowel sounds within normal limits. SKIN: Skin intact. Skin is warm and dry. Skin color is within normal limits. -- 00:38 06/19/24 YVONNE Rebolledo R.N. NURSING PROGRESS NOTES 00:06/19/24. IV NS 0.9 %: Medication Refused. -- 06:17 06/19/24 YVONNE Rebolledo R.N. 00:18 06/19/24. 12-LEAD EKG: EKG time: (00:18 (more content not included)... Normal [facility] ED ORDER SHEET (CPOE ONLY)on 06-19-2024 ED ORDER SHEET (CPOE ONLY) Order Sheet Order Sheet [facility] [address] [place] [address] [phone] 06/18/2024 Patient: NADIA BIGGS Sex: Male : 1990 Age: 34y MEASUREMENTS: Wt: 90.7 kg, Ht/Ney: 72.0 in, BMI: 27.12 ALLERGIES: No known drug allergies MEDICATION/IV/DRIP/FLU ID ORDERS Order Description Priority Entered Acknowledged Completed IV NS 0.9 %1000 mL at 999 00:06 06/19/2024 00:16 06:17 mL/hr (NOW x1) Josh Coffman D.O. 06/19/2024 06/19/2024 Live Schwab R.N. LORazepam (Ativan) IM2 mg 01:00 06/19/2024 01:01 03:01 (NOW x1) Josh Coffman D.O. 06/19/2024 06/19/2024 Live Schwab R.N. Haloperidol IM5 mg (NOW x1) 01:00 06/19/2024 01:01 03:02 Josh Coffman D.O. 06/19/2024 06/19/2024 Live Schawb R.N. Potassium Chloride PO40 mEq 06:04 06/19/2024 06:12 06:16 (NOW x1) Josh Coffman D.O. 06/19/2024 06/19/2024 Live Schwab R.NMariam Reason for ordering with alerts: Clinical consideration given --06:04 06/19/2024 Josh Coffman D.O. LAB ORDERS 1 of 3 Order Sheet Order Description Priority Entered Acknowledged Collected Completed Drug Screen Urine Stat 00:03 06/19/2024 00:16 06/19/2024 00:20 06/19/2024 Medic Stat Josselyn Boland, Live Rebolledo RJoyce Urinalysis Stat Stat 00:03 06/19/2024 00:19 06/19/2024 00:20 06/19/2024 Josselyn Boland, Brooks SchmidtNMariam CBC w Diff Stat Stat 00:03 06/19/2024 00:16 06/19/2024 00:06/19/2024 Josselyn Boland, Live Rebolledo R.N. CMP Stat Stat 00:03 06/19/2024 00:16 06/19/2024 00:19 06/19/2024 Josselyn Boland R.N. Anne Rutt, BrooksNMariam EKG - ED Stat Stat 00:03 06/19/2024 00:16 06/19/2024 00:19 06/19/2024 Josselyn Boland, Live Rebolledo, R.NMariam Acetaminophen Level Stat 00:03 06/19/2024 00:16 06/19/2024 00:06/19/2024 Stat Josselyn Boland, Live Rebolledo, R.NMariam Salicylate Level Stat Stat 00:03 06/19/2024 00:19 06/19/2024 00:20 06/19/2024 Josselyn Boland, Live Rebolledo, R.N. Rapid COVID (SARS) Stat 00:03 06/19/2024 00:19 06/19/2024 00:20 06/19/2024 ANTIGEN TEST Stat Josselyn Boland, Live Rebolledo, R.N. Blood Alcohol - ETOH Stat 00:03 06/19/2024 00:16 06/19/2024 00:06/19/2024 Stat Josselyn Boland R.N. Anne Rutt, R.N. DIAGNOSTIC STUDY ORDERS 2 of 3 Order Sheet Order Description Priority Entered Acknowledged Completed STAFF ORDERS Order Description Priority Entered Acknowledged Collected Completed IV Saline Lock 00:06 06/19/2024 00:19 06/19/2024 Josselyn Boland R.N. Order Comments: 06:17 06/19/2024: pt refused IV Christa Rebolledo R.N. [Electronically signed by Josh Coffman D.O. (06/19/2024 07:10 EST)] 3 of 3 Normal [facility] ED PHYSICIAN CLINICAL REPORT on 06-19-2024 ED PHYSICIAN CLINICAL REPORT Narrative Physician Clinical Narrative [address] [place] [address] [phone] 06/18/2024 Patient: NADIA BIGGS Sex: Male : 1990 Age: 34y Disposition: Transfer to [facility] Disposition Decision Time: 03:56 06/19/2024 Measurements Wt: 90.7 kg, Ht/Ney: 72.0 in, BMI: 27.12 Initial Vital Sign Measured Time BP MAP HR RR O2Sat ETCO2 Temp Pain GCS RTS 00:13 06/19/2024 136/86 103 79 20 97% 98.2 F 0 Time Seen: 23:57 06/18/2024. Arrived- Police present. Came from home. Historian- patient. Referred by patient's family. HISTORY OF PRESENT ILLNESS Chief Complaint: DEPRESSED and SUICIDAL THOUGHTS and AUDITORY HALLUCINATIONS. This started 3 days ago. (Patient describes several days SI without a plan. He describes ongoing depression due to father who shot himself 3 years ago as well as aunt who recently . He does have access to firearms at home. His family reports he has been found holding farms who has had however that was not the case this evening. Despite these reports, patient does endorse SI however denies plan. He does not consistently and describe having auditory hallucinations to which he describes to me as his aforementioned her brother stating that it is okay. To other staff he has reported command hallucinations to kill himself. He describes having about 8 or 9 beers per day but denies any history of withdrawal. Furthermore he does endorse has been came out half a joint each day 1 of 15 Narrative but no other illicit drugs.). Recent drug use and alcohol consumption. Has been depressed and had suicidal thoughts. REVIEW OF SYSTEMS SKIN: The patient has had skin rash with generalized distribution (chronically). Has had similar previous symptoms of skin rash. CONSTITUTIONAL: No fever. GI: No abdominal pain or vomiting. CVS: No chest pain or palpitations. NEUROLOGICAL: No headache, dizziness or weakness. PAST HISTORY Depression. Alcoholism. exzema Hypercholesterolemia Hypertension: [Active] Surgeries: right leg: Body Site Calf area, to remove infection Medications: Adbry 150 mg/mL subcutaneous syringe atenolol 50 mg tablet epinephrine 0.3 mg/0.3 mL injection, auto-injector fenofibrate 160 mg tablet lisinopril 10 mg tablet lisinopril 20 mg-hydrochlorothiazide 12.5 mg tablet omeprazole 40 mg capsule,delayed release Allergies: no known drug allergies SOCIAL HISTORY Current every day smoker. Alcohol use. No drug use. Has social support. FAMILY HISTORY History of suicide attempts in first-degree relative (sibling). 2 of 15 Narrative ADDITIONAL NOTES The nursing notes have been reviewed. PHYSICAL EXAM Vital Signs: Have been reviewed. Appearance: Alert. Appearance is normal. Patient is in mild distress. Neck: Normal inspection. CVS: Normal heart rate and rhythm. Heart sounds normal. Respiratory: Breath sounds normal. Abdomen: Soft and nontender. Skin: Normal skin color. Normal skin turgor. (generalized rash consistent with history of eczema.). Extremities: Extremities exhibit normal ROM. Psych / Neuro: Oriented X 3. Appears depressed. Speech normal. Cognition normal. Appears to have auditory hallucinations. The patient expresses suicidal thoughts. Insight and judgement normal. No motor deficit. No sensory deficit. LABS, X-RAYS, AND EKG 12-LEAD EKG: EKG time: 00:18 06/19/2024. No acute process. No acute ischemia. Normal EKG. Normal sinus rhythm. Rate: 80. The study has been interpreted contemporaneously by me. The study has been independently viewed by me. Interpretation time: 00:21 06/19/2024. Laboratory Tests: ACETAMINOPHEN Final SAUL: 06/19/2024 01:58:00 EST MsgRcvd: 06/19/2024 02:58 EST Lab Test Result Reference Status Received Comments <0.0 ug/mL 06/19/2024 ACETAMINOPHEN 10.0 - 30.0 Final Below low normal 02:58 EST ALCOHOL-BLOOD MEDICAL Final SAUL: 06/19/2024 01:58:00 EST MsgRcvd: 06/19/2024 02:39 EST 3 of 15 Narrative Lab Test Result Reference Status Received Comments { CALLED TO HERMINIO Tenorio RN 333 mg/dl 06/19/2024 02:39 AT 0239 ALCOHOL Above upper panic 0 - 50 Final EST { READ BACK limits BY HERMINIO Tenorio RN TO GE CBC + DIFF Final SAUL: 06/19/2024 00:14:00 EST MsgRcvd: 06/19/2024 00:48 EST Lab Test Result Reference Status Received Comments 06/19/2024 00:48 CBC-COMPLETE CBC + DIFF Final EST BLOOD COUNT 06/19/2024 00:48 WBC 9.9 x 10/UL 4.5 - 10.8 Final EST 06/19/2024 00:48 RBC 5.05 x 10/UL 4.50 - 6.00 Final EST 06/19/2024 00:48 HEMOGLOBIN 16.3 g/dl 13.0 - 17.5 Final EST 06/19/2024 00:48 HEMATOCRIT 46.0 % 40.0 - 52.0 Final EST 06/19/2024 00:48 MCV 91 fl 81 - 98 Final EST 06/19/2024 00:48 MCH 32 pg 27 - 33 Final EST 06/19/2024 00:48 MCHC 35 X10 3 32 - 36 Lexus (more content not included)... Normal [facility] ED SUPER BILLon 06-19-2024 ED SUPER BILL [address] [place] [address] [phone] 06/18/2024 Patient: NADIA BIGGS Sex: Male : 1990 Age: 34y Facility Professional Category Item Description Code Code Quantity Fee Total Nurse/E/M EMERGENCY 983144 1 $0.00 $0.00 DEPT VISIT HIGH SEVERITYFUNCJ (21524-05) Nurse/IV/IM/Infusions IM/SQ ([id number]) [id number] 2 $0.00 $0.00 Grand $0.00 Total Providers Josh Coffman D.O. Chief Complaint DEPRESSED and SUICIDAL THOUGHTS and AUDITORY HALLUCINATIONS. Principal Diagnosis Probable suicidal ideation Probable alcohol intoxication with alcohol dependence.No alcohol intoxication with delirium. Complicated alcohol intoxication. 1 of 1 Normal [facility] ED VISIT SUMMARYon ED VISIT SUMMARY Visit Overview Visit Overview [facility] [address] [facility] [place] [address] [id number] 06/18/2024 Patient: NADIA BIGGS Sex: Male : 1990 Age: 34y 06/19/2024 03:55 PM EST ED Arrival:23:50 06/18/2024 EST Status: Recent Travel:no Language:eng Adv Directive:No Isolation Status: Ethnicity:N Fall Risk:risk Infectious Disease Exposure:no Measurements:6' / 182.9 Self-Harm Status:risk Sepsis Screen:negative cm 200.0 lb / 90.7 kg Chief Complaint:SUICIDAL THOUGHTS, (Pt arrived by [place] [employer]. called PD to report pt was having SI, pain with a gun, Pt has guns at home . Pt has been having these thoughts for 2 days. Pt is a daily drinker per 's report to PD. Pt reported several family members passing that has pushed him to this point. ), and (Pt's reported earlier was hearing voices) ALLERGIES 1 of 4 Visit Overview No Known Drug Allergies HOME MEDICATIONS Adbry 150 mg/mL subcutaneous syringe atenolol 50 mg tablet epinephrine 0.3 mg/0.3 mL injection, auto-injector fenofibrate 160 mg tablet lisinopril 10 mg tablet lisinopril 20 mg-hydrochlorothiazide 12.5 mg tablet omeprazole 40 mg capsule,delayed release PAST MEDICAL HISTORY / PROBLEMS Alcoholism Depression exzema Hypercholesterolemia Hypertension: Active PAST SURGICAL HISTORY right leg. Calf area, to remove infection SOCIAL HISTORY Smoking status: Unknown Alcohol use: Yes ED COURSE MEDICATIONS GIVEN IN EMERGENCY DEPARTMENT 01:00 06/19/24 LORazepam (Ativan) IM 2 mg 01:06/19/24 Haloperidol IM 5 mg IV SITE INFORMATION INTAKE OUTPUT 2 of 4 Visit Overview REASSESMENT (most recent) 00:38 06/19/24. GENERAL / NEURO / PSYCH: Alert. Oriented X 4. Patient's speech is slurred. Patient appears calm and cooperative. The patient appears to have altered thought processes (altered mental status due to ETOH). Good eye contact. RESPIRATORY: Respirations not labored. Breath sounds within normal limits. CVS: Normal heart rate and rhythm. Capillary refill less than 2 seconds. GI / : Abdomen soft and nontender. Bowel sounds within normal limits. SKIN: Skin intact. Skin is warm and dry. Skin color is within normal limits. VITAL SIGNS First Vitals Last Vitals Temp 00:13 06/19/24 98.2 F Temp 04:58 06/19/24 BP 00:13 06/19/24 136/86 BP 04:58 06/19/24 HR 00:13 06/19/24 79 HR 04:58 06/19/24 56 RR 00:13 06/19/24 20 RR 04:58 06/19/24 16 O2 Sat 00:13 06/19/24 97% O2 Sat 04:58 06/19/24 98% Pain 00:13 06/19/24 0 Pain 04:58 06/19/24 ETCO2 00:13 06/19/24 ETCO2 04:58 06/19/24 GCS 00:13 06/19/24 GCS 04:58 06/19/24 RTS 00:13 06/19/24 RTS 04:58 06/19/24 PROCEDURES NURSING INTERVENTIONS LABS / STUDIES LABS / STUDIES ORDERED Acetaminophen Level Blood Alcohol - ETOH CBC w Diff CMP Drug Screen Urine Medic EKG - ED Rapid COVID (SARS) ANTIGEN TEST Salicylate Level Urinalysis 3 of 4 Visit Overview CLINICAL IMPRESSION PROBABLE ALCOHOL INTOXICATION WITH ALCOHOL DEPENDENCE.NO ALCOHOL INTOXICATION WITH DELIRIUM. COMPLICATED ALCOHOL INTOXICATION PROBABLE SUICIDAL IDEATION 4 of 4 Normal [facility] ED VITALS FLOW SHEETon 06-19 ED VITALS FLOW SHEET Vitals Vital Sign Flow Sheet [address] [place] [address] [phone] 06/18/2024 Patient: NADIA BIGGS Sex: Male : 1990 Age: 34y Measurements Wt: 90.7 kg, Ht/Ney: 72.0 in, BMI: 27.12 Measured Time BP MAP HR RR O2Sat ETCO2 Temp Pain GCS RTS 04:58 06/19/2024 56 16 98% 02:40 06/19/2024 64 20 100% 00:13 06/19/2024 136/86 103 79 20 97% 98.2 F 0 1 of 1 Normal [facility] SALICYLATEon 06-19-2024 SALICYLATE 1.2 mg/dl Low 2.8 - 20.0 [facility] Comment on above: Result Comment: *PAT IENTS TREATED WITH SULFASALAZINE MAY GENERATE A FALSE HIGH RESULT FOR SALICYLATE. *PATIENTS TREATED WITH SULFAPYRIDINE MAY GENERATE A FALSE LOW RESULT FOR SALICYLATE. Performed By: #### 2 90786 #### [facility],[address] [place] [address]1265 URINALYSISon 06-19-2024 Bilirubin Ql (U) Negative Normal NORMAL: NEGATIVE [facility] Comment on above: Performed By: #### 2 56328 #### [facility],[address] [place] [address] 81803 Clarity (U) clear Normal NORMAL: CLEAR [facility] Comment on above: Performed By: #### 2 74199 #### [facility],[address] [place] [address] 52690 Color (U) p.yel Normal NORMAL: YELLOW [facility] Comment on above: Performed By: #### 2 55516 #### [facility],[address] [place] [address] 84937 Glucose Ql (U) NORM Normal NORMAL: NORMAL [facility] Comment on above: Performed By: #### 2 26120 #### [facility],[address] [place] [address] 52755 Hemoglobin Ql (U) Negative Normal NORMAL: NEGATIVE [facility] Comment on above: Performed By: #### 2 30828 #### [facility],[address] [place] [address] 28145 Ketone Negative Normal NORMAL: NEGATIVE [facility] Comment on above: Performed By: #### 2 68502 #### [facility],[address] [place], [place] [id number] Leukocytes Negative Normal NORMAL: NEGATIVE [facility] Comment on above: Performed By: #### 2 05486 #### [facility],[address] [place] [address] Nitrite Ql (U) Negative Normal NORMAL: NEGATIVE [facility] Comment on above: Performed By: #### 2 66166 #### [facility],[address] [place] [address] pH (U) 6 [pH] Normal NORMAL: 5.0-8.0 [facility] Comment on above: Performed By: #### 2 32550 #### [facility],[address] [place] [address] Protein Ql (U) 15 Abnormal NORMAL: NEGATIVE [facility] Comment on above: Performed By: #### 2 36767 #### [facility],[address] [place] [address] Sp Olean 1.010 Normal NORMAL: 1.010-1.030 [facility] Comment on above: Performed By: #### 2 64754 #### [facility],[address] [place] [address] Specimen Type R Normal [facility] Comment on above: Performed By: #### 2 03298 #### [facility],[address] [place] [address] Urinalysis dipstick W Reflex Microscopic panel (U) NOT INDICATED Normal [facility] Comment on above: Performed By: #### 2 35572 #### [facility],[address] [place] [address] Urobilinog NORM Normal NORMAL: NORMAL [facility] Comment on above: Performed By: #### 2 49277 #### [facility],[address] [place] [address] EMERGENCY REPORTon 4 EMERGENCY REPORT [facility] EMERGENCY ROOM REPORT NAME ACCOUNT SEX AGE ADMIT DISCHARGE PT MED. RECORD# NUMBER DATE DATE TYPE NADIA BIGGS [id number] Aniya 33 10/18/23 10/19/23 3 [id number] ROOM: [facility] DATE OF : 1990 DICTATING PHYSICIAN: Harriet Richards HISTORY OF PRESENT ILLNESS: This 33-year-old male came into the Emergency Room for evaluation of a nail injury to his left plantar foot. It happened about 2 hours prior to arrival. He came in by ambulance because of transportation issues. He states that he was going out into the barnyard to attend to his child's goat, and there was a nail that was hidden in the debris in the barnyard and he stepped on it. He had tennis shoes on, and it went through his tennis shoe to get to his foot. He states that he has some discomfort to it. He and his washed the foot off with soap and water, but it is uncomfortable to walk thereupon so he came to the Emergency Room. He has not taken anything for it. His last tetanus was about a year and a half ago. He is not a diabetic. He denies numbness or tingling to his toes or more proximal. He states he can move his foot okay, but when he steps on it, it hurts. No history of heart valve disorder. He is not a diabetic. He was seen in the hallway. At arrival, he is a pleasant individual. Positive smoker. PHYSICAL EXAMINATION: VITAL SIGNS: Temperature is 97.7, pulse 75, blood pressure 154/98, and saturation 97% on room air. Normal respirations. Prior to discharge, I rechecked his blood pressure and it was 123/77, which is good. GENERAL: Grossly, he was in no distress. HEENT: Examination is normal. LUNGS: Lungs are clear. There are no expiratory wheezes, rales, or paradoxical chest motion. HEART: Heart rate and rhythm are regular without a murmur. ABDOMEN: His abdomen is soft. He is not overweight. EXTREMITIES: Attention was directed to the left foot, which had a puncture wound just around the area just slightly lateral to the second ray of the toe. He indicated the discomfort is near the web of that toe. There is no swelling to his foot either dorsally or ventrally. The puncture site was very clean. No foreign body could be palpated. Alignment is well maintained. Distal samira of 1-5 was normal. Range of motion was good. DIAGNOSTIC DATA: X-rays revealed no fracture, foreign bodies, dislocation, or air in the tissues, as interpreted by the Emergency Room physician. EMERGENCY DEPARTMENT COURSE AND TREATMENT: He was medicated here in the Emergency Room with antibiotics, Cipro. He was also given a dose of ibuprofen and also discharged to home with prescriptions for ibuprofen and Cipro and told to keep his eye on it. Follow up with his family doctor, who is in another [facility], or he can follow up with [facility] in a couple days if he is not improving. DIAGNOSIS: Puncture wound of plantar left foot in a contaminated environment. Page 1 of 2 NADIA BIGGS Emergency Room Report NADIA BIGGS : 1990 Dictated By: Harriet Richards DO 10/20/23 05:11 JOB #: [id number] Transcribed By: stiven 10/20/23 11:39 Electronically signed by: E-SIGN HARRIET RICHARDS DO 11/09/23 18:00 Page 2 of 2 NADIA BIGGS Emergency Room Report Normal [facility] FOOT COMPLETE LTon FOOT COMPLETE [place] [address] Patient: NADIA BIGGS. Phone#: : 1990 Age: 33 Gender: M Pt. Type: ER Account: [id number] Location: 052 Ordering: DR. HARRIET RICHARDS Exam Date: 10/18/2023/23:29 Family Phys: KAIN VIEYRA Charge Code: 478889 Physician: [place] Order #: [id number] Dose#: PROCEDURE: X-RAY FOOT LT COMPLETE MIN 3 VIEWS COMPARISON: None. INDICATIONS: Foreign body. FINDINGS: BONES: Normal. No significant arthropathy or acute abnormality. No fracture or dislocation. SOFT TISSUES: Negative. No visible soft tissue swelling. No radiopaque foreign object. EFFUSION: None visible. OTHER: Negative. CONCLUSION: No radiopaque foreign object. Dictated by: Denia Márquez MD on 10/19/2023 at 21:39 Approved by: Denia Márquez MD on 10/19/2023 at 21:46 Normal [facility] CBC W Auto Differential pane l (Bld)on 06-17-2023 Basophils (Bld) [#/Vol] 0.08 x10*3/uL Normal 0.00-0.10 [facility] Comment on above: Performed By: #### 5 7021-8 #### RONNY SINGH ([id number]) [facility] ([facility]) [address] [place] [address] 60986 Basophils/100 WBC (Bld) 1.5 % Normal 0.0-2.0 [facility] Comment on above: Performed By: #### 5 7021-8 #### RONNY SINGH ([id number]) [facility] ([facility]) [address] [place] [address] 03307 Eosinophils (Bld) [#/Vol] 0.54 x10*3/uL Normal 0.00-0.70 [facility] Comment on above: Performed By: #### 5 7021-8 #### RONNY SINGH ([id number]) [facility] ([facility]) [address] [place] [address] 57326 Eosinophils/100 WBC (Bld) 10.3 % Normal 0.0-6.0 [facility] Comment on above: Performed By: #### 5 7021-8 #### RONNY SINGH ([id number]) [facility] ([facility]) [address] [place] [address] 73653 Erythrocyte distribution width (RBC) [Ratio] 11.3 % Low 11.5-14.5 [facility] Comment on above: Performed By: #### 5 7021-8 #### RONNY SINGH ([id number]) [facility] ([facility]) [address] [place] [address] 42128 Hematocrit (Bld) [Volume fraction] 46.1 % Normal 41.0-52.0 [facility] Comment on above: Performed By: #### 5 7021-8 #### RONNY SINGH ([id number]) [facility] ([facility]) [address] [place] [address] 07868 Hemoglobin (Bld) [Mass/Vol] 15.8 g/dL Normal 13.5-17.5 [facility] Comment on above: Performed By: #### 5 7021-8 #### RONNY SINGH ([id number]) [facility] ([facility]) [address] [place] [address] 89150 Immature granulocytes (Bld) [#/Vol] 0.07 x10*3/uL Normal 0.00-0.70 [facility] Comment on above: Performed By: #### 5 7021-8 #### RONNY SINGH ([id number]) [facility] ([facility]) [address] [place] [address] 61071 Immature granulocytes/100 WBC (Bld) 1.3 % High 0.0-0.9 [facility] Comment on above: Result Comment: Annalise ture Granulocyte Count (IG) includes promyelocytes, myelocytes and metamyelocytes but does not include bands. Percent differential counts (%) should be interpreted in the context of the absolute cell counts (cells/UL). Performed By: #### 5 7021-8 #### RONNY SINGH ([id number]) [facility] ([facility]) [address] [place] [address] 57965 Lymphocytes (Bld) [#/Vol] 1.42 x10*3/uL Normal 1.20-4.80 [facility] Comment on above: Performed By: #### 5 7021-8 #### RONNY SINGH ([id number]) [facility] ([facility]) [address] [place] [address] 74991 Lymphocytes/100 WBC (Bld) 27.2 % Normal 13.0-44.0 [facility] Comment on above: Performed By: #### 5 7021-8 #### RONNY SINGH ([id number]) [facility] ([facility]) [address] [place] [address] 38198 MCH (RBC) [Entitic mass] 31.3 pg Normal 26.0-34.0 [facility] Comment on above: Performed By: #### 5 7021-8 #### RONNY SINGH ([id number]) [facility] ([facility]) [address] [place] [address] 66673 MCHC (RBC) [Mass/Vol] 34.3 g/dL Normal 32.0-36.0 [facility] Comment on above: Performed By: #### 5 7021-8 #### RONNY SINGH ([id number]) [facility] ([facility]) [address] [place] [address] 02727 MCV (RBC) [Entitic vol] 91 fL Normal 80-100 [facility] Comment on above: Performed By: #### 5 7021-8 #### RONNY SINGH ([id number]) [facility] ([facility]) [address] [place] [address] Monocytes (Bld) [#/Vol] 0.40 x10*3/uL Normal 0.10-1.00 [facility] Comment on above: Performed By: #### 5 7021-8 #### RONNY SINGH ([id number]) [facility] ([facility]) [address] [place] [address] 50913 Monocytes/100 WBC (Bld) 7.6 % Normal 2.0-10.0 [facility] Comment on above: Performed By: #### 5 7021-8 #### RONNY SINGH ([id number]) [facility] ([facility]) [address] [place] [address] 64076 Neutrophils (Bld) [#/Vol] 2.72 x10*3/uL Normal 1.20-7.70 [facility] Comment on above: Result Comment: Perc ent differential counts (%) should be interpreted in the context of the absolute cell counts (cells/uL). Performed By: #### 5 7021-8 #### RONNY SINGH ([id number]) [facility] ([facility]) [address] [place] [address] 36908 Neutrophils/100 WBC (Bld) 52.1 % Normal 40.0-80.0 [facility] Comment on above: Performed By: #### 5 7021-8 #### RONNY SINGH ([id number]) [facility] ([facility]) [address] [place] [address] Nucleated RBC/100 WBC (Bld) [Ratio] 0.0 /100 WBCs Normal 0.0-0.0 [facility] Comment on above: Performed By: #### 5 7021-8 #### RONNY SINGH ([id number]) [facility] ([facility]) [address] [place] [address] 74832 Platelets (Bld) [#/Vol] 314 x10*3/uL Normal 150-450 [facility] Comment on above: Performed By: #### 5 7021-8 #### RONNY SINGH ([id number]) [facility] ([facility]) [address] [place] [address] RBC (Bld) [#/Vol] 5.05 x10*6/uL Normal 4.50-5.90 [facility] Comment on above: Performed By: #### 5 7021-8 #### RONNY SINGH ([id number]) [facility] ([facility]) [address] [place] [address] WBC (Bld) [#/Vol] 5.2 x10*3/uL Normal 4.4-11.3 [facility] Comment on above: Performed By: #### 5 7021-8 #### RONNY SINGH ([id number]) [facility] ([facility]) [address] [place] [address] Comprehensive metabolic 2000 panelon 06-17-2023 Albumin BCP dye [Mass/Vol] 5.0 g/dL Normal 3.4-5.0 [facility] Comment on above: Performed By: #### 2 4323-8 #### RONNY SINGH ([id number]) [facility] ([facility]) [address] [place] [address] 20942 ALP [Catalytic activity/Vol] 41 U/L Normal 33-120 [facility] Comment on above: Performed By: #### 2 4323-8 #### RONNY SINGH ([id number]) [facility] ([facility]) [address] [place] [address] 67536 ALT With P-5'-P [Catalytic activity/Vol] 70 U/L High 10-52 [facility] Comment on above: Result Comment: Angel ents treated with Sulfasalazine may generate falsely decreased results for ALT. Performed By: #### 2 4323-8 #### RONNY SINGH ([id number]) [facility] ([facility]) [address] [place] [address] Anion gap [Moles/Vol] 16 mmol/L Normal 10-20 [facility] Comment on above: Performed By: #### 2 4323-8 #### RONNY SINGH ([id number]) [facility] ([facility]) [address] [place] [address] AST With P-5'-P [Catalytic activity/Vol] 62 U/L High 9-39 [facility] Comment on above: Performed By: #### 2 432-8 #### RONNY SINGH ([id number]) [facility] ([facility]) [address] [place] [address] Bilirubin [Mass/Vol] 0.3 mg/dL Normal 0.0-1.2 [facility] Comment on above: Performed By: #### 2 432-8 #### RONNY SINGH ([id number]) [facility] ([facility]) [address] [place] [address] Calcium [Mass/Vol] 9.6 mg/dL Normal 8.6-10.3 [facility] Comment on above: Performed By: #### 2 4323-8 #### RONNY SINGH (47696) [facility] ([facility]) [address] [place] [address] Chloride [Moles/Vol] 102 mmol/L Normal 98-107 [facility] Comment on above: Performed By: #### 2 4323-8 #### RONNY SINGH ([id number]) [facility] ([facility]) [address] [place] [address] CO2 [Moles/Vol] 23 mmol/L Normal 21-32 [facility] Comment on above: Performed By: #### 2 4323-8 #### RONNY SINGH ([id number]) [facility] ([facility]) [facility] [place] [address] Creatinine [Mass/Vol] 0.75 mg/dL Normal 0.50-1.30 [facility] Comment on above: Performed By: #### 2 4323-8 #### RONNY SINGH ([id number]) [facility] ([facility]) [address] [place] [address] 96081 GFR/1.73 sq M.predicted MDRD (S/P/Bld) [Vol rate/Area] mL/min/{1.73_m2} Normal >60 [facility] Comment on above: Result Comment: Calc ulations of estimated GFR are performed using the 2020 CKD-EPI Study Refit equation without the race variable for the IDMS-Traceable creatinine methods. https://jasn.asnjournals.org/content//ASN.97322055 88 Performed By: #### 2 4323-8 #### RONNY SINGH ([id number]) [facility] ([facility]) [address] [place] [address] 83952 Glucose [Mass/Vol] 141 mg/dL High 74-99 [facility] Comment on above: Performed By: #### 2 4323-8 #### RONNY SINGH (47757) [facility] ([facility]) [address] [place] [address] 19393 Potassium [Moles/Vol] 3.5 mmol/L Normal 3.5-5.3 [facility] Comment on above: Performed By: #### 2 4323-8 #### RONNY SINGH ([id number]) [facility] ([facility]) [address] [place] [address] 50669 Protein [Mass/Vol] 7.9 g/dL Normal 6.4-8.2 [facility] Comment on above: Performed By: #### 2 4323-8 #### RONNY SINGH ([id number]) [facility] ([facility]) [address] [place] [address] 56188 Sodium [Moles/Vol] 137 mmol/L Normal 136-145 [facility] Comment on above: Performed By: #### 2 4323-8 #### RONNY SINGH ([id number]) [facility] ([facility]) [facility] [place] [address] Urea nitrogen [Mass/Vol] 7 mg/dL Normal 6- [facility] Comment on above: Performed By: #### 2 4323-8 #### RONNY SINGH ([id number]) [facility] ([facility]) [address] [place] [address] 13296 HbA1c (Bld) [Mass fraction]o n 06-17-2023 Average glucose Estimated from glycated hemoglobin (Bld) [Mass/Vol] 108 mg/dL Normal Not Established [facility] Comment on above: Order Comment: Diagn osis of Diabetes-Adults Non-Diabetic: < or = 5.6% Increased risk for developing diabetes: 5.7-6.4% Diagnostic of diabetes: > or = 6.5% Monitoring of Diabetes Age (y)....................... Therapeutic Goal (%) Adults: >18.........................<7.0 Pediatrics: 13-18...................<7.5 Pediatrics: 7-12....................<8.0 Pediatrics: 0-6..................... 7.5-8.5 [place] [employer]. Diabetes Care 33(S1)May 2009 Performed By: #### 4 548-4 #### RONNY SINGH ([id number]) [facility] ([facility]) [address] [place] [address] 74562 Hemoglobin A1c/Hemoglobin.to sukhi 06-17-2023 HbA1c (Bld) [Mass fraction] 5.4 % Normal see below [facility] Comment on above: Order Comment: Diagn osis of Diabetes-Adults Non-Diabetic: < or = 5.6% Increased risk for developing diabetes: 5.7-6.4% Diagnostic of diabetes: > or = 6.5% Monitoring of Diabetes Age (y)....................... Therapeutic Goal (%) Adults: >18.........................<7.0 Pediatrics: 13-18...................<7.5 Pediatrics: 7-12....................<8.0 Pediatrics: 0-6..................... 7.5-8.5 [employer]. Diabetes Care 33(S1), May 2009 Performed By: #### 4 548-4 #### RONNY SINGH ([id number]) [facility] ([facility]) [address] [place] [address] 68640 Lipid 1996 panelon 4 Cholesterol [Mass/Vol] 216 mg/dL High 0-199 [facility] Comment on above: Result Comment: Age Desirable Borderline High High 0-19 Y 0 - 169 170 - 199 >/= 200 20-24 Y 0 - 189 190 - 224 >/= 225 >24 Y 0 - 199 200 - 239 >/= 240 All ranges are based on fasting samples. Specific therapeutic targets will vary based on patient-specific cardiac risk. Pediatric guidelines reference:Pediatrics 2011, 128(S5).Adult guidelines reference: NCEP ATPIII Guidelines,JACKIE 2001, 258:2486-97 Venipuncture immediately after or during the administration of Metamizole may lead to falsely low results. Testing should be performed immediately prior to Metamizole dosing. Performed By: #### 2 4331-1 #### RONNY SINGH ([id number]) [facility] ([facility]) [address] [place] [address] 23083 Cholesterol in HDL [Mass/Vol] 48.0 mg/dL Normal [facility] Comment on above: Result Comment: Age Very Low Low Normal High 0-19 Y < 35 < 40 40-45 ---- 20-24 Y ---- < 40 >45 ---- >24 Y ---- < 40 40-60 >60 Performed By: #### 2 4331-1 #### RONNY SINGH ([id number]) [facility] ([facility]) [address] [place] [address] 61106 Cholesterol in LDL [Mass/Vol] 119 mg/dL High <=99 [facility] Comment on above: Result Comment: Near Borderline AGE Desirable Optimal High High Very High 0-19 Y 0 - 109 --- 110-129 >/= 130 ---- 20-24 Y 0 - 119 --- 120-159 >/= 160 ---- >24 Y 0 - 99 100-129 130-159 160-189 >/=190 Performed By: #### 2 4331-1 #### RONNY SINGH ([id number]) [facility] ([facility]) [address] [place] [address] 31575 Cholesterol in VLDL [Mass/Vol] 49 mg/dL High 0-40 [facility] Comment on above: Performed By: #### 2 4331-1 #### RONNY SINGH ([id number]) [facility] ([facility]) [address] [place] [address] 03725 CHOLESTEROL/HDL RATIO 4.5 Normal [facility] Comment on above: Result Comment: Ref Values Desirable < 3.4 High Risk > 5.0 Performed By: #### 2 4331-1 #### RONNY SINGH ([id number]) [facility] ([facility]) [address] [place] [address] 58808 NON HDL CHOLESTEROL 168 mg/dL High 0-149 [facility] Comment on above: Result Comment: Age Desirable Borderline High High Very High 0-19 Y 0 - 119 120 - 144 >/= 145 >/= 160 20-24 Y 0 - 149 150 - 189 >/= 190 ---- >24 Y 30 mg/dL above LDL Cholesterol goal Performed By: #### 2 4331-1 #### RONNY SINGH ([id number]) [facility] ([facility]) [facility] [place] [address] Triglyceride [Mass/Vol] 247 mg/dL High 0-149 [facility] Comment on above: Result Comment: Age Desirable Borderline High High Very High 0 D-90 D 19 - 174 ---- ---- ---- 91 D- 9 Y 0 - 74 75 - 99 >/= 100 ---- 10-19 Y 0 - 89 90 - 129 >/= 130 ---- 20-24 Y 0 - 114 115 - 149 >/= 150 ---- >24 Y 0 - 149 150 - 199 200- 499 >/= 500 Venipuncture immediately after or during the administration of Metamizole may lead to falsely low results. Testing should be performed immediately prior to Metamizole dosing. Performed By: #### 2 4331-1 #### JEFFERSON SAMANTHA ([id number]) [facility] ([facility]) [address] [place] [address] Nursing Note - Woundon 08-01 Nursing Note - Wound [id number]#2. 00CD:127 Normal [facility] Coding Summary.on 07-24-2022 Coding Summary. CD:[id number] Gh 0bWw+PGhlYWQ+DH3GRYWpY 81kcTRdvX7IW8fFNP4LGQK GBADQCA0SFZ2gbAZ5PKxjR 2VybiAv TikmoGHlLK73DDq8QHB7aA bfJVwszA4rmSOcR2b7QdZk NR51tG74ISbrSJQwBnI3Iv ZpbjsgbWFy A7dcNkRfuGItCfa+PHRhYm xlIHdpZHRoPScxMDAlJyBz xAkoHT7yIu6wHMJqSXMmsR xhcHNlOiBj w4pgPCPzYWwuLB3chRrwU4 VjxPG7XBJcz2d4Rv99kNC+ VUFrGRG5fPaxBSayj396Yp Fso4qrRMO9 bEMeUMyjBGK6K71fh2Q1ZF KbHVBlAIK8jKO4cS9beBox ykhpM2UugCBcXqK2UMJ7iH EcdM2djTae pmlalZ6nZro+Q01LLX5BWB CDCO2NMop4K2OzIegfyLI+ YI36UGDaVH19uRShwZPpw8 ccxQe5LoZo JRJsGOS5pXwyUYboy0BhZY IbP47wpXNhu3I9RRCsqPbg gYTwMxFprZN3aY4cPTafxs jzo7rpovdz Trprs8hsbx70lT25N94sOT liFPLrOUA1ZPUrRAHahJgm nu5xzK7hEt0+LYxxs2zpj8 ywgPg0TzWk XAAqmlUbmHibTTI1z3NsEe 12H7ZxhJtsj5MjIck4oq77 nEDym4J3gHB7EYleIEWvlL 0uICmiPnW7 IWZsYeWsiS30pQIxRFvkWg 7coPcfiChrUP0mFDDsljey OKVuwQ0gDITahALmdZyfUZ 4wNTBpbjtm g817KfKoETQ2AMWqiJPnE0 JapR7yUrTxINBsEAUdC8Vc zMMjOAwxB150FDjpQlR1OD IuwlVgX7Tf EWXttHtpCnA9q2C8Fy0Qk2 ZxuhwiIXN5EBznTKWzFfA0 PcYaCbL6O8TzNnw1YPGzdP gaFW3zW9Yl LAKxpgmutfmlpNY9RLYgMJ KsnI49kBZhAZqjVb3ca0X1 v238GFEoTCKbhK46Cy0pmD ogMTBwdCBU dF1evhiho4rzfwjdIzGeMB HgAMf9JXe9VZToqPxtNcDf ZZH5WrH6LAY5nMHyjW8nwY hpslsrwY7i Oyc+Q48bpB6mJJM1OEN2ra hvPPCjabGxLY66IS08D3Sj PjwvdGFibGU+PGRpdiBzdH skFM3iDoRi w3bmi7NhASljQ7RwPGHwHZ hgPwv9IHTcEFW4qTA1qT7p RAThRKlki3L2qHH7W6Nirl Xtpm8ys2ti RKCcBNhrL51xzPKkh9Q5RW EzpVF8HYNfiVaeYkYtgL74 Oyc+HPEtuNjos5WsImjmk4 uhs1ksiQx5 KaNbIULumkQvoGgoQHU6c7 RzSi72U24rNFvvWAHzHITl USIwSAYyaPzndu1xbD7dNp 8+PGNvbCB3 sMJ4iZ0lYLHnKpT3YXhoF9 88TvKlgMBoVjdyh4ojn9qm pIx2NcCyWJDmhiMkoRirHH G1s4TvZi42 L16uDStzUDGqHCGlDCCdQI DtnBdijn2lyB8yOc4+PC9j z7qegw36mD55rWG+PHRkIH A5lQwvJFnd XFDkxD0tUOnuKzJ9JKXnUk FgwK04rRUeATtsNd9hiVgx yMwcMX5uEIIyvfunn085Tq Rbx0roEGPz zCAzEZwpGAX4H60lf1Y2YF KbGTYsVQV6bHF2eK5xrDdn bjogbGVmdDsgdmVydGljYW tlGKufJ085 IHRvcDsnPlBhdGllbnQgTm ZqCUe5I9FuTcp8TQOumKvi NU1avUCaWEjyRm4obNpjpF akQO1eQJAd ckgqz316DuJig6adODYdyW TrXDccOLX0M78kr2V2IMUa RLKrCRE7bRQ0fR0bwAzazz ogbGVmdDsg ghWgyOgcKRvrGWhiG702YA RvcDsnPkJpcnRoIERhdGU6 AW41QY87eCWok0B4tVD8R6 BhZGRpbmct hvkxlRJ4SKRnEVErrT31Xz 1ezZwbGl1dPNEdTQL8ETVm fYMpE5DaeL8uAuDgRBOdBX ZsW5VjyFJk XGixU067CKlmSnX0LXTvmf EbN1WaXSMhdPkgEbZ0e5N1 Pd2FO9V1JC76SH68rZSho8 E6bTX2B9At DTOatffqerpmnZL2XRIqRY DviS56Sm4dmEnqWf2aFHLb YRM1XZWhxCRiP2HzlR9qLt AjMDAwMDAw U7OamFLzULatC644PPnuGa W8RSIcbsJrV9IwNZTyiRyf KnH2d9G3Vp8VOQo7TY54AT 51lATik2E1 eCC7O1CiYOIwmtqidzwaaB G1ILLqNYClmD40Yr6xrTzq Vy8sYEYbPFK7RQHuoMEyM8 AwoI3fArPb QGAmHPEkU9AomBRlHTozY0 75JJgtQsY1VEPmbhXsJ1Oi GCLvhAmqBkB5o2H6Hp2ZUR TxPG69RQY8 jUR9TG68NF03G0XsNzacnM FibGU+PHRhYmxlIHdpZHRo OKvpHCXoFvJrkGykMG7sGn 9yZGVyLWNv bOqxyHTxBuApl4uzSXZzQZ uvYI6xtTohI7HvfSD7OUAg a5p4Dy90Z23jK7TuhMY+PG XwwSK6zJR5 gO4rIlRlXuG7QDyeQ190Cs AzzBSfVlhbl5qym5thhLg7 KoQ4TCJjajAyjQbjUUB3t7 PyGk55V50o IHdpZHRoPSIxNSUiIHZhbG ybzi2rvJ7xNs1+PGNvbCB3 uJP4pG5zZjZhWxO7NLkaS6 49InRvcCIv Psswq3ido0irfHd1WePnAM LqakZllAfbDOW2x5AoFa38 A8PfyGwin6ZlDqu4dt99mE Vbf0S5qWP4 Q6SbTBXvdxjcfWDhhEjgQZ 0pTMQzpmtcEZZonU1cNQYw H2x4FgDcKqH5PJcwP5Uxsa R4YKSsuBPt LXqlJBR8I56op7L8WFXcVN QeQNO7hGT7yU1ydUxqedtd bGVmdDsgdmVydGljYWwtYW uwA541DXCv aAzaNXUjoD2qOPHhrIHknO zwBE0eSAEipizyFhcTMUUe IFJPQkJJRTwvdGQ+PHRkIH S0mAktCAwe SVPatM3rODQdW6e8YqDuAs N2HPwkT3JhXYLnntxfTx30 jZ6gRvEzSeF6VMqmQ9Lnjc W9KFRejIAu UVwzUEC7S88uz6R1DTKrZR DnUEO7sIE2oE0dsFzaljsh bGVmdDsgdmVydGljYWwtYW hhI428BSRy hHjkOeMpEfFuJcO4NWo7G5 ZvWec4OCFrqGdgKV9eoSZk FZvcOu3lnJmlaErrPH0hXV BpbjtwYWRk jT8hLMRmjGLjgWcbLS9nCJ Bvmcmft813FoByIPT6ABOu sINgE3ZtnF6gVuWpBTSvDG YfY7WrjACc AZhrW372MWerHtF2WQTlqw BsZ3YsKXApnFddIoD7x2P8 Qb2hIiWQODXqkyjxdSG+PH HtSFS2iTqs JHfePWDmzY9bOVHpY2a6Qo FaUxL3ALboP0TjLZKcordq Nh87vN9aRfEzCzL2RHanQ9 IlskT0SGDx aLQzUVzgYQC9Q64fk2E4SD FkZNXgEUZ1yIX6dY6wjFqv bjogbGVmdDsgdmVydGljYW dyVSzrI012 AOIzkSrsHm4onNK8H9PkMt d8KTRvnUocJA6uuIFhREcd Eh9wlYmhrRntNG3hLMAzbx xhDFWbiP2x KQMpiGBgkTruHH7iMTCnxn fsn099ReNtDWD2WNLirHTt I8EsfG8jAaOuXVOxMDVqW1 RleHQtYWxp C456BLvaSrR8VVWugmIdD7 LlPMZmbQqbPgB4v5O6Qi8G iZAxGOHfCM34MP05BL19H9 RyPjwvdGFi bGU+PHRhYmxlIHdpZHRoPS bmLOKtUxMwdTdjFJ5yMj8x ZGVyLWNvbGxhcHNlOiBjb2 xsYXBzZTsg CW5fjJspF7OjkEA3FJCew9 p1Bq05Y15qQ4ZujAL+PGNv vVN0vLP1pN8kDvAeLpT2XO wvA625PdOt yVAeIzsxc6qiv5rgnCe8Ro XiOPXsooKokUpmGGV7z8Ba Tf19C46sSTvhZZFeBGWzUK UiIHZhbGln rv4leF0oTg1+APYioQJ0wE L9jG6tJkDvZlW3UXomK967 GxCzeHJtWtpqG21mY1DchP A+PHRyPjx0 VHMaiMgwJH0lbRMpIMexEr 2xZIL7PpZiPwQdUTopC4Qo VCCsatfaxspnuGJ6AURhLS PsmK91Tc7k fJtmBg4jBMUkWJE5DDLceZ XgJ5VodQ2jFtBxYYIuZDIg S7KspZSzCToxI707LKmkZc U9ZGHqstQr Z0SmZURrwFnpUaO2a9J2Ue 9FyXmyeZDmGM4fXyPoGSq9 G0MfVga3KULvsFqoIZ5fzQ RnSWoeSx6e nXdcsQlhDO0gOKLxsmqzp6 55VtUij6hlXACcoZRgHEia YPH0P02ou4R9EOBeZMXmLI G8jZB9pR6v bGlnbjogbGVmdDsgdmVydG zxRWjaALfdV215LQWluCse IkOCGqo8E1RzIvu7RLJolF bbEB1pkRPj HTkhZb9ylRtkoDqtWI6vPZ Qsniwnc406ItMmt5jcUFRv wWYeZSpjJAU8Y00qi4Z8SM MwMDAwMDA7 qSL1yE8ahXgyxwyjoKFthM ptwuNsrPjfVYdvTUtvV522 WOIxsQjdBy5CJdm2U1XgOe j9OOCfrCgo SU0xcVQjKGtfHx7udLsknS tsIC5jDVNujfaea130XpEx q9pbKJLovKKtPUhvAMR9H4 6vf6C2OYDm ETIvTGA9zQP4zP2eyZgyeu ogbGVmdDsgdmVydGljYWwt SNoeN203QGFjgUbmJpHvfS VyOjwvdGQ+ VO69gm44D5HdHwbzFbs9HP VbRMY3kHX3sQ7dJKMfQTna d7U7xWR2Z0MdkkHipt3sv8 xsYXBzZTog Y29s (more content not included)... Normal [facility] Multi-Wound Charton 07-20-19 23 Multi-Wound Chart [id number]#2. 00CD:127 Normal [facility] Nursing Assessment - Woundon 07-20-2022 Nursing Assessment - Wound [id number]#1. 00CD:127 [facility] Consent for Treatmenton 06-28 Consent for Treatment [id number]#1.0 0CD:127 [facility] Physician Orderon 07-18-2022 Physician Order [id number]#1. 00CD:127 Normal [facility] Procedure - Woundon 07-18-19 Procedure - Wound [id number]#1. 00CD:127 Normal [facility] Progress Note - Woundon 06-28 Progress Note - Wound [id number]#1. 00CD:127 Normal [facility] Coding Summary.on 07-11-2022 Coding Summary. CD:[id number] Gh 0bWw+PGhlYWQ+WY1DADCsD 43kuOYuaO5TF0dLGH1EUFC PRBTPMW4HCJ2cxDL3WWusF 2VybiAv QnnceMNeLJ56MBi4WRD9zR xdQZqmuX2wcGZjW2p4CeQk ZW37qQ61JMsxTPJaRoT4Ro ZpbjsgbWFy A3opIzOlhOZnOca+PHRhYm xlIHdpZHRoPScxMDAlJyBz oHxrXG1qZg4wWFImKJCfsQ xhcHNlOiBj i6xzPWMtEKarWB9rvIgsA9 CxkWB7OOMnu9d3Bu66oCJ+ LJLgFIE7oLowXZofs928Le Qgp7dwOQG8 cDDbCJtjCLC7S41qe2F9EF UbCRNcRQU6gHV1iF2ptJyx qjvqT4PhbRRlQtM1FEK0jZ PdyX4cjMfk iqdsiW4iXfz+E08YJS7JWR CCUH7MYez4Q4PvDxbttBJ+ MG24DNTzMX36dWVkdZOct9 dbdDy2JiSv WAVpJHP6mPrhEUxyq0FxTY FeK51qqUJxo5L3VAXrtBez tZBvEoXqfFA2pW3fOQwcak utv3mvhuew Geqjv9ovxg61bQ77C66gDV ggOIAyZGD3TKCmPZTmdFop qb1pwW9iVa7+MWkjf5fcw2 mscCz0OtSw DQAxouReeXehEWC4x3CxKy 86H5TxwNoly3OjStq4as68 nTJob0F7ySP9PUyrKLDywK 5gHUmeQfI5 YJYxPmNqnB73eYByHUnwPc 0fgDismFxkPB2aJDIkqdoq MKPezS1aKNJghXVxzDqgPY 4wNTBpbjtm l081PjRqSSA6PHRarAIrJ3 CxiC9wYqVxGDXgDVIvO8Zv nQYkJZfqM186AWgyHtP2SU XcxjQoN4Ra XBPwpGoiBxK4o3G3Hy8Oh4 YvtgiaHRU8GPdcKMXhRcT2 EtRkUtP5W1YwMbk4DJCnzC izOO3lE8Yr UXDxaznvhdpxyQP7UEGrYH TtyG19oWLnEMdrHq3zk1B0 s369ZNFbLTMyzI58Ra3ydU ogMTBwdCBU eD9fqujyq0ptqcglChIbFK BlORe2RVx4BSZvhYysWcGr LQO3IoF9XAM9dOSsfX7rrO nzzonjdV5o Oyc+P91urC0nHQH0VEX1qu ekAXGfftCaDP46ZX40S6Gn PjwvdGFibGU+PGRpdiBzdH roAV4gYtNf k6pux0YnOElzI0JhIJIiRV isFdq6NJKtJXC1mKT7cE3w EQIqJPjcw6G1sQJ2Q3Obyz Myqm2cn1ra HUFaWWnmH71wxWScl8T2LP KcxNZ3LZYszWoxVxYfbP19 Oyc+MYNkkDkqz0HdRqtgb8 stt1xktPw9 SrNfDXFiybQrqZwzMMG4g0 BvKm30N28lSKoaVJPtKWLk CIMoKGGguAnjrn1feK9fNh 8+PGNvbCB3 zTP7bR0xFBNyRzG0GJncN0 56YzCubURfFuzrv2jmh0gs hAc0OsGvUTCipwXbmScnYI L5b0NhJw62 J20cCZguJPSkROCpLKKaDS VpcXnrte4jgH7jCw4+PC9j b7etbx88yO00oHP+PHRkIH E4yJwoCFgv CGEtqU1hKAboRpA0QSZuJr NxaU73tJDxDHnbKw5nkCtc fNdzNI0qBUEkncsfg652Wy Lwv2qbYDCs jHLiHQubNOV5S93ar2T1YB ToKKKwJIV9fKI4uZ0ozPko bjogbGVmdDsgdmVydGljYW taAGvtC230 IHRvcDsnPlBhdGllbnQgTm KuAXu8X5ReNba7XDYlxAei FF3ouXBeHRmuLk1shSbfhM bqOW9sRCFx ddjcq011TcGgg3qeMGNftO SlFDbnDQT4B44eh6D7TDBt VRNdRTT8bDP5zT6cqIpflw ogbGVmdDsg nwMbjXcdJMxcMSbaM530VB RvcDsnPkJpcnRoIERhdGU6 YD83JC93lLYkj1A6sFU3F9 BhZGRpbmct athqsDD0OZKqXKEwoV15It 0dmOxvNw1dJMCdAPY9ILVo eNIfO2QtcD8xCeYtZPYzSM EgB7PbzPXd ICouB569XLoyEtA6GTBtbk JjD8VqJQHshXioBwA8z9D4 Io9MP8T5EK43NM95yXCfk2 L8vFH2X3Ke ORDieyeuozvnhFY2DYFyPF GzoN12Ay8buLknVr3lSWIb EBR1FKRnfBTfY3EulS7nZx AjMDAwMDAw V9KbxHAbUGtnK732QNapAf B1DWVjxcOpK1HxPGGcyMfv AuF1k4F2Kx3CGWp5MF33CF 89lCGmb2Q3 dEX4V4UlCSIfhedraihtjH C4XLSgZLPciM99Tl8vyLey Vd1iODCgOOF9JUGzmDMpG8 FomT2dUrPe PRNcQINnC5UlaFUdOCfmP9 40TQkwMrH4HRSsrzZgI8Yq THGpxMooQwL4c0E2Bh8IZI IvMQ86WEO9 eDA0BY87ID90Z3OpBaqqxY FibGU+PHRhYmxlIHdpZHRo SQvfWKRlJoIvdGhjHW3nGr 9yZGVyLWNv jYfjhMDeYxGwc1pmLGDnHC fnTP4ohIktJ6BfkHF9QXLk i9z4Rq50A01xM1XnmZM+PG WqfOK1fIC4 pN1dUcKyMkX5ONhuA326It QouTIcTczpv6ivz1mvqIu6 QhQ7PRIjihZomKasFHA8p5 QpMw48G91i IHdpZHRoPSIxNSUiIHZhbG rpej6zuJ1nIy6+PGNvbCB3 pEH7qP1zOpIyUqD2UQllC9 49InRvcCIv Nlram8aiq1wopNe5NpNaNZ TlovMmhKtzHPW2f1AlXu99 Z7RqaSbwg5BlYaa2yp76yN Xuz5R5jOS8 H7MuMMHagrhjcFLfkNarGO 6zBLUiqrbqDMAarV5mWKXi C4m0FnBrSwN6YOxuN3Bulq B2MSXjcJSa IDelPQG5G06wp9Q7CZSpZT PpZLX9xUY6hY8bwSpfhrxm bGVmdDsgdmVydGljYWwtYW fdW995MHQs gCbnURWacE5zXOTqfNZrcN alOC3bXSIdqljhQumXEWXs IFJPQkJJRTwvdGQ+PHRkIH S1vXoaBVcq CMQxhE2bTLTqY2h6AlTzSj B3KDneB4ImXSXgnbcyFx41 oP4xVvPiMiB3QIfaS2Zokl M6DLVipNIl CShiWWU4T41gh4C8BYVmFR TfMDG4iUI9wA2smNomtvms bGVmdDsgdmVydGljYWwtYW fdH239EZZe aXgoEgDtCaHxJkK7TAh7E5 YdXyt5ZEAtrTcgFW4rvOTr GLbfKi2rmCzpbDayCC6hCJ BpbjtwYWRk kO6pLFBgmCRyeIwvXM6jAF Bczzukt896KkOlVTF0XWYu sYSgB9KdwH0rDoCmAFYqNV XoU3IoyUUy BCieM819DCywOiX8CZFvrl OsK5IoSNFobJfuWdC5u9K2 Ca7xKdBHFDXbkuubaKZ+PH JlJTH9tLdl IHuiTEBiuR8kAGRrF8q3Qp NpScD6RZgeX9UcIEDmkexs Dp55oC8xQaCwJwP6VPjsE8 HjpnH3FJIw qIUyNLfeJGW6J23kw6O9HC ZoNKFmKLR0fWO6oL5luSci bjogbGVmdDsgdmVydGljYW svLGasT137 QHPsuEjkDj7gyUU8U2GqRf z1ZJIftWfdRO5inXCfTDtf Yf5fcSopqDhkXO6eMTBesd siYRZkhG0d FJHkwRFwaMwmEV3vEJSdkx cav418GdUlMUD0QIRlxSNz H7BlkS8cWpGpXILzNJAeY9 RleHQtYWxp C937WNurYdX5NWDknhOcS6 UzTGScoBptHsR5l1I6Ot4U dVUbKXYbUL21WO27JY48H9 RyPjwvdGFi bGU+PHRhYmxlIHdpZHRoPS ecAQOnBlTdaKsiSZ6oSa6q ZGVyLWNvbGxhcHNlOiBjb2 xsYXBzZTsg KF8vnEygL4EufLL1QPUry0 x4Cb42B87sN0MinTE+PGNv wTG3mQJ4oZ5aOqAqPqE4EH scS342TjDl jXZgXzygd8zdl4nqvQj6Jc JeVBNsdjKwaHxeVXZ5p9Ey Cn31R59dPQlyTVCmUPLsDH UiIHZhbGln kt8heI8wSu0+FSWdkNI7nL B2iX6xAoJdTjB2HWpoJ858 AmXgjWUbFnngW16xE3PgdY A+PHRyPjx0 RHVyzFmiIN9voMWjLUeeMe 8kPSF2ZiGnFaQdISzhI8Pa OALxiuhvehnjvAU4SXGnAV WluJ48Iu2j iRgmTf2xWWCsAKA5AFSbbX CuK8UnbN3hQtAxAHHoTPBg P2VygZApNKnyT087YZyoKz V7EEJekxEw Z1YtTXNwwNnsIaP5v1Y3Hl 6UnVqwwORzXS5aDyOjEKh4 I9VrKmi5IBVlbUmeYC6feE VdGMgpBe7s pObbtJvgAF7zMICgpesmv6 43ElPou9amHJNykUBpPWxu WPL1L46zx1Z4JQHyHUKnWT Z5aVI8yH7t bGlnbjogbGVmdDsgdmVydG ufVZfaSAxaI155KBYeuXnb JgHHTdr7Y1OiXyk1BGPqzZ xvVN3zvQRa CBdoLw4gjKeckKzrXG9zBN Lupeklb062QkYqx7aiZLEi jXZlTFwzQUM0L20cn5B3IT MwMDAwMDA7 eET0fP9svXjljrgohEEjbY rayqMtkDoeFCzzZDwzV851 IZMubAbqEl8FUbl7E3VnKf o1BPBozPsu SW9zlNEtVOquEm9kiBqrqB wuYS9uVXAypxugr230RoAt p1nmZVMclOFfXRphXOW7N2 1wd3P8MWSy WBGtKIU0cVV9mA2vjGeeea ogbGVmdDsgdmVydGljYWwt WMplD079XTPjxMihTqDkcF VyOjwvdGQ+ EB74sz60D1OsByrsLmo5HX YaKEA1gPH7yQ3eKWKnFWme c3C4qFT6B7QhpmDmbo9ta5 xsYXBzZTog Y29s (more content not included)... Normal [facility] Nursing Assessment - Woundon 07-05-2022 Nursing Assessment - Wound [id number]#1. 00CD:127 Normal [facility] Nursing Note - Woundon 07-05 Nursing Note - Wound [id number]#1. 00CD:127 [facility] Consent for Procedure/Surger yon 07-04-2022 Consent for Procedure/Surgery [id number]#1.00 CD:127 Normal [facility] Multi-Wound Charton 07-04-19 Multi-Wound Chart [id number] 20 [id number]#1. 00CD:127 Normal [facility] Physician Orderon 07-04-2022 Physician Order [id number] 20 [id number]#1. 00CD:127 [facility] Procedure - Woundon 07-04-19 Procedure - Wound [id number] 20 [id number]#1. 00CD:127 [facility] Progress Note - Woundon Progress Note - Wound [id number]#1. 00CD:127 Normal [facility] Physician Orderon 07-02-2022 Physician Order [id number] 20 [id number]#1. 00CD:127 Normal [facility] Coding Summary.on 06-29-2022 Coding Summary. CD:[id number]:[id number] Gh 0bWw+PGhlYWQ+VF5QZTUnL 27fnFCcbL4VQ9sIXG9LUID XDISWGB4SAU3jbVG2NXsdY 2VybiAv RkusfPSiOU10HYq4YCA8jV ooQEatsS0aoGHlS5c7HeMf NM25fI56IMsiPIVpTbM8Ur ZpbjsgbWFy U9rxSyVbxMAvVfq+PHRhYm xlIHdpZHRoPScxMDAlJyBz iFnmVG4jZe0jKGCuDWHoiL xhcHNlOiBj f1tbCDIsWMtzLC4cqWvaE3 NupKS7SMEbz2s9Ft53oFY+ CVIbIPK5bPjwQQqij857Na Wxy3wnKAY3 wCBuDLyjVAC7Z21xn8G5QJ YoMCGjCCK6jAV7lO9sxQer uiyiA8TpfFFsMiK8LVT5dV MdsE8izZyu vovkeP1kMhb+M19MYH6ATZ LTIJ1EZic9X2MuJfomxPE+ NC08SGWoXA28cXUkrXUes8 rgrDo4LzHp LKJkIPZ6qFgwZBvzn1IsUY SwP97neEIou9Q7OLHyfDdq nWGfTbZrsMT4oD4bVNyazm fep5ircqpz Rjsgo8qcuo12mK38N13gLA lkBYMdNKB6HTZoHUHbcHie hu4gsY2dYk7+ANqds0kmn3 yqtAc0VmGz GVZecyRoaXpyOOX6a1AzPj 69V8RqvZtwg5RcVyw7nj90 jDLyx3B7aKA3QBmiQOZnvA 1eJIcpVuF7 JPQpEfXfqQ67tOJfLShdUr 1qoProeSnxOR9tZRDzlxqo EUAdoQ3bYJLahWRkbJakCO 4wNTBpbjtm m982PcGmDDE0MDPuaYBeY7 MhgM6oClCyRHKaYPGmK9Da eAIrEFemG384CFybXoR6NX HwavMqD2Bn TRDzePuzZcU2n0A1Gl8Ch3 KgvsouWEI8UYpxXQDuIeUn OjAeVpK4H3IpZgm5OIAsnK xbAN2lB4Zg HGBfsozvqatceSU5VRSyZS HweH59qAIjIMtsVs8tm5B7 r453CZTsFZMpxM98Yn6yaR ogMTBwdCBU uC1gcfety1jwkgfjAyZaSA HxYKp3OTd5RQIaxZwuPnFl IEP7AyA0UWA0uVXssY2ceV nnbwdtdU3o Oyc+Q79ucC9qXPH9BWN7wi wyADRxpdCiQG66UU33G7Mt PjwvdGFibGU+PGRpdiBzdH mbIL5hGhJm p2btn5DaSYoiJ1YfMHOfAO gtQun0ESIbLTW5eQF8rF9k ZREsDFcsk9V7kLB4W8Qcsu Xfuz9qd1rk KVMiJHcoB30qbQDmg8I3TE VymTB2IVDjrEbzJyAmiV78 Oyc+PMXhbRmec5UvJhfhk2 ces5kmpSb0 GbQxNIXvrhBlwMbsPZB4u4 NrMd03I50uOJleVTJmTXKj ZSMdJAOalElwlc4ilH3eYj 8+PGNvbCB3 uRR8aV6nEOGwYtJ9KZmyE2 19KgGczEBuJjcnp1ojr4yq xJf7CdTzPSTjjxTmjSldQH S9a7BgFt34 W01fRQnlCAEbQEQbHNQaIW AzlYydsu9ytH8qKn7+PC9j j0luyw83iR25jEJ+PHRkIH C8kPyhOLrv CCLasD1pPJeqQkR9FDEvLm BkyY78vKYfUPdwEl8lpVqz pHbyDW4wSIZgwunjy292Xu Rnb5icFJJq aOMvPFydWDE8H09ru2Q7KZ JdUMQeORI6fLU9rG1loBuh bjogbGVmdDsgdmVydGljYW jyRPowL790 IHRvcDsnPlBhdGllbnQgTm ZcLEg3K1FfNvl6BLJypGqt CM5ebGWuTAidBe9abHuodA cvPQ9tZAFk rbcny073QmKuw7bgGHPsiV LjPBmtABP3F71wm5G6ENSx IITqMQO4xME9sQ7teRlgeq ogbGVmdDsg bsTdqUsuMRjhRAanU674NO RvcDsnPkJpcnRoIERhdGU6 HF10MO44dGLnr8P8iCF8A9 BhZGRpbmct rdokbKR5APSsJRPajD88Io 1kqYtiHr9uCMXbOAT8LECo lPCsJ8NtnP4dMoYuZRSvDQ JnC6LjgFDw TSreN679CKvkOdM0RNRftf XgV9ZuLLTslSmfHqB7f5H5 Mh7SN1Z7ZT85IL50tFVym4 W2jCV0C7Yf PXLvafzosrkjwBM8XBEeTJ TtjQ72Pm0xpEglOe1cSFPn UVF0XHKmwREiH9PcbQ6yTk AjMDAwMDAw A1ZraNCeAXgfC896YOhsGn E4VHEpnpPuG7ZvEHWptRex UnW1g9Q1Au7XSJx0VF66PH 12lWUjq9T8 tTQ4Q3VyKLPtyooynznshJ H4XKGtZPZnnQ57Kz7uhZyl Dn2zGKNjMYC3RHOwrQOuU7 OtkQ3sVmKn FKLsGIHxA9OkzRSlYBbcV3 10LShzQxD7FBZuayViP7Pw GSBlpSbsOjJ3z9O8No9UJX QfSN69DEX1 mKY9VJ14EP83L1BoUaxowD FibGU+PHRhYmxlIHdpZHRo DPnnCFVkQnCbbMwiWS0qJr 9yZGVyLWNv iHgpmBKjTuWuc7tdKRNyWM wdGO9muNzhM4BicFV6MTMy u0p0Jq92Z31nI4LklYC+PG QycHQ6bGN0 tH5uKeTeXuF5DLasD026Hm UjiFUmOiioh1rcp0qccZk6 MhH8YWMpahRzbZrnDGU6t5 WpXa26Z37x IHdpZHRoPSIxNSUiIHZhbG fgud0soL2aAt4+PGNvbCB3 tMR3sN4cOdGyGnI4OWdgI2 49InRvcCIv Vorhx0yjr7xjuFr3GxYtER ExdnYbnFefWPO0r4MoBf25 X8GczLske2YdJxb3rh55xX Ccr9D9yID5 F1FxMCZjxnldcJYrgVtsYJ 0vCKKglkueRHMzmH1zCTQi T7d0YvHuLoQ6ZVbiR9Gjjl Z0LKTycVJj LMdxUMT6N89fi3I2ODLsSF YeMNV1kHI6jB8xgPcplxls bGVmdDsgdmVydGljYWwtYW siY388EKTe eKkzUSUflX9bGKEtdRHloQ usCP5wIEScvbslNcePSHLt IFJPQkJJRTwvdGQ+PHRkIH T3yCasVQiv FGZdfB7sNUIpA2q3RcTjYb K8YEerH2EiNYLrawutYi26 kD2rEzMyRxI5RVluQ2Kjzk D6ZDAbtDPt XFjbVEV9N67bm5G4XCNhSV InNLL3cHV6iV8stYkmaszs bGVmdDsgdmVydGljYWwtYW cyM135YWBz hVnhQiPaHnMcRwC8JNm5P4 GmSwb1MBYmmShvPT7uiCFo PBkxAh0jrXfaiVylQN3mYE BpbjtwYWRk gX7rVOVngZRheSglXN3qXF Ixishei933SuHtMQL4SLOj oMOiB7EveT8aXqCvSHZnRL KnU8BdsFOi EBojQ752HNxvXdM7VHZvwk EoF1PzHITsmDgvWnA8a5V6 El8nTtVUAMSsohwreHR+PH LnXUE1iBch JOjrPFGtsV6lGPBhR9t5Hm RtSxA3FBhnK4KcHZXrtslm Lx25kQ5fIbLjAeP7LBpgG1 XqfjK6SNXv bYQgVNknZZQ2V68ft4B6FM YiJZUvLHX6mED8aU2shFhl bjogbGVmdDsgdmVydGljYW dmKAulN660 TRGmmKbmId9qyIO9E2OtFv r8OFBnlZbeMN8qzNZfJWif Es8kiNyduPnuKE3pHFZzat hsQAOmvD5t CESzzHQmxGfsCO5eFYPukh fts525QcYmLCK5HTTeoRXt C1JpoC5xLhYuIYQbITVaM1 RleHQtYWxp F761XRboDtT4BANdxgIoA1 ZmXQWsbKjsRfD4r0B9Ew7A xRSgYCVlRD39LY22YW38M4 RyPjwvdGFi bGU+PHRhYmxlIHdpZHRoPS lzOFWaAsRywSqzLT6yEu0s ZGVyLWNvbGxhcHNlOiBjb2 xsYXBzZTsg LE1qeZbaR6GxtNQ0UVBth7 y8Cq17J89nR7IlyRF+PGNv iGQ9dWP7wB9eMwAxIeN8DI lyM621ByDb hTYcJwiis6psj7nxfSj4La EuXDVcdcUsoHqhBUX0v5Cr Qm20I23bCUbcOXHzGXTiGE UiIHZhbGln bi3onI4uDw9+NNRasNH1bU J4cR5vUbWrUaR5WBmoA475 DyRiwCGpGwhzR00mZ3FuqD A+PHRyPjx0 YJPjkFnqWR9ljLCxMUxlRj 8lSIH5JwDfLjDhVBqdO4Jj UDAbmsbqmprosIU3HCGvRE DfeN09Ab2i mRsqMi2qRDQlPIT7NMNztK AqK3RbwJ8tCaMjJKHdGFWg D0JeqXVpZKbpV206SKvoYn E1SMXbhyWw D3MbQEJhkFcjWbJ8g6I3Hu 4VlZzzvMSyBO3uUkRvECk5 L6NpMjt3XHNnpYgmCZ5hcN HjLIryBb4r vHzjdAveSE9cLWWhvwhpr9 76VeRfj9paWKZklSQgCFnw DXT9B58tf0G4DBHsFYEiVA L6iPS9iE1m bGlnbjogbGVmdDsgdmVydG xlNIqzMYsoR809XJAzgTot HqRADda6T5GcQqj3XYNxwZ tjFL6qzVJs NDimMu9nzBqaaCxhMW7hEU Odlpxij291ArFqs8jpPFWw zSCxNHwnIBA0P12do6U0QY MwMDAwMDA7 vTC8zA4kzCginezivUPvlU pabeHyzCtfVMkjOZmjY156 RDLlpChfTr1QUls1N8KvZq e0KWFljMot QV1xwTKuBUfsPg8ggCmseJ zbVD0iUWKqkzvpd614ZfJd n2sjZSLegWWnWWwnSZJ2C3 1lu5F2OMUt HBObDIH8fEH7fW3tgQvqes ogbGVmdDsgdmVydGljYWwt IChpU625ZOKwgPrbQbMmgC VyOjwvdGQ+ DY88ow18S4UfRjafVir6NO GkGTP7bUL5aW0jPYCzNFxa t3U6lIG2Q5DmgeBoij7fm8 xsYXBzZTog Y29s (more content not included)... Normal [facility] Multi-Wound Charton 06-28-19 23 Multi-Wound Chart [id number] 20 [id number]#1. 00CD:127 Normal [facility] Nursing Note - Woundon 06-28 Nursing Note - Wound [id number]#1. 00CD:127 [facility] Consent for Treatmenton Consent for Treatment [id number]#1.0 0CD:127 [facility] Coding Summary.on 06-25-2022 Coding Summary. CD:[id number]:[id number] Gh 0bWw+PGhlYWQ+TI0GSOAlT 26igNRtdF5SQ4rYCY1MBTZ HBHJSWP7TXC5juUM9DYpbM 2VybiAv QbukwRVwZS64DJq4CQG8hX edGLvudB8hcOObF1p3ZxCh CC61rK56VBlnAPJkBfC7Gk ZpbjsgbWFy H9jwUcRxcPWsYjv+PHRhYm xlIHdpZHRoPScxMDAlJyBz tLiyWL4lCs0uHZGvIXImlQ xhcHNlOiBj v5hdXNYoKAqmCV7vdRdzO9 NxiBD3ORRix0f6Wi27qEP+ DDPqQSC7aFgnGIqtk067Pa Lem2ihLEE1 lIHnCTlxDLB3G16in4N0BQ NnZRZfRDM4rJE0xB0mrVmo limnQ5XueEWeWmA3OGT6zM NxjR7eiYjo ggucsX9jJki+B09PLV1HEU EISS4YBvr0U0WoLgadgYZ+ PT60XTAtDB30xOIymPCqt3 tbuZy6UnHb GDDqHXR8vIolBLcng1BhLQ BcF97ejFRot2V1CIIzbUqj eDYyEtDexHW8uS9rWPfaua lps1svpnqr Yxcrq2ixdo96wP29V00oXN ljNNIgMEP6RPVaNLFbgIao ax5giQ4aEm0+XMpyb9joy7 kkuKy0PrRr HWOwnlBkaLlzQPS1w6MmJc 80C6WwlUoip0TdNhr0hr25 eYOxb1O3cJF1FCvqMOBzsA 7tGUdyJiL8 BQWsOiWvaJ32sBMpQGocRi 7xxJxqsLzsMM0qZTVpkthu DHOdvI5bMDQdcQWqiQwiUW 4wNTBpbjtm n097MwOvYHT4USVxpYFaU1 OcaQ1iYfIzDCJyGQUnV0Qh lAYgTFcaQ403WMzmTmP3LX PylmCsW6Wt UZTxhTiuRyP8m8I1Sq5Az9 HgfajdUDI2NTpmSZNaLoJq MwZjXxF1X6FtKvi3RDBgzL ovGH9sC8Ke SHCeshjxcvbpvYE2JSRvDN UijY63oBMzDEigKq2on5T4 l848LKSzJAZtcM40Ei5uwY ogMTBwdCBU eX9cpjayp2fmsefpCqFlCM JwPAh6IEw1JUHcoRgaCaLz WBF2PpZ3HLK5hHAemJ0ixM bvazclqT5c Oyc+B39miX7jNVR9DNC6wp lmREMiovTeCL82EK30L3Jn PjwvdGFibGU+PGRpdiBzdH bhKO3dNkLt d8teh4NoJSubP4ZcRIBlFK uyDrm4CTWiYAH6wFO5vN4f OJEvINexb3V5rCF2C6Rrdo Vvlt9pr8oz OSGjCVbxO88kjFOwk8T0GC AjwWQ9QOQsqNpeLwVovE56 Oyc+QRKfpYyiv8UxJnieg2 jbi0cnnNv9 KrNoYEAjmrZkgRhjNSX5t0 BbMb05I99zWHwuIDMrVOAu ENQyMYHvmJgtml9wzU7kOn 8+PGNvbCB3 eVL1dT2nWHYfLqS2NJfdL3 95EfOhjQLwYewuo7wsd9an iUf5QrKfFMQhpvUtjLocHL X0u0UxSz47 D87dAFcyFJGkWZEaVPGzDE UnoUfkhl3ncG1cLt7+PC9j r1oweh44iF86iXQ+PHRkIH M2gXqeWYfs MAKzeB7lXUiwIpD3WUDwLz McyS77sGHtDFbdFx6boToj bAlsZH3dRJFignoek472Ut Qwr2gsTCLn tUAhHJmcWJA0S17bt9V0IW McGXUoYYM9sBR3sF9fdNzf bjogbGVmdDsgdmVydGljYW sdVOkaN966 IHRvcDsnPlBhdGllbnQgTm JtYIv4R1RhWei4OMYjjRno RC3crUBrABsrIa9zpWqqwH wiVH1dAGGp ujplk089ElLhj0feLZCytT PpCMplQQV9R14qs7O2DQAe AOZxQYX2hVL0qR6jmLcxyz ogbGVmdDsg phYnyDgqCNqhTTrhF898TZ RvcDsnPkJpcnRoIERhdGU6 AQ61YZ30xQCmr7M6iAC0C8 BhZGRpbmct elnopFQ3KYPcYMSmuF31Cq 0kqGqrPl1hZTJqLRR3NGCh yZJgA5MjaC6hXvTyETNjGT FiE5UesMIe IHjbE870EAdoVbN1ZMHejg EaV8XzEXRuhRypLxV1n8D6 Tl6AB5S4RS27HA12zZYay5 Y3nAU4W9Fv HCCtbpereqfgrFH4ZUBoBJ XgsK21Mz8hoKmjDd8aYFHp KFP2IXYhoBIwP2QuhO8wAw AjMDAwMDAw G3CkzTVnKNjvC479SEcmZm G0EYTgkxAuD8CoDCMuoVsl QzB5s7J7Ei3UEOj8AQ75JE 22yXJwa9C1 yRN3B7KwGXLxhervtsdfcD S8GBXtYZBtnS67Ed4pfIyf Cb3pISYlIKP6KJEgfPDvI0 WkvZ1oZcUg FAJkXXBiJ2UwhIUjBZygE8 76GPuaJnT8KUIxpcYgN2Tr DZKlzVwnVtY4t5M4Xh7XMC DgBI14EPQ7 sUY8ED20HT95X5YdTnlhzX FibGU+PHRhYmxlIHdpZHRo WBvdKXGvKwKvqFbuFM9lUo 9yZGVyLWNv vGggyLEkCnGjw1geDIXkNU gvTA6chEwcC4SuyOX8HZJc g6z2Az06Y59gA1SqySD+PG XepKY2qHY0 hD3eWdDaYiB1CHruU483Pd BrkBKwRjxrm1iwn7aqkUs5 OsA1SWLgioYzqDsvTNP4m0 IyJu81P61v IHdpZHRoPSIxNSUiIHZhbG cqao0dyW1vVr0+PGNvbCB3 qCE3pB7sImBtLvP2RWbbV9 49InRvcCIv Ssvvf3ymb4tgtSm6BoVmEH BafdQarCleCWB8d1BzPc56 S6JfuGkar0XeFix3om33aF Mjx7K7nNB6 N0DyOJAbkmnqaVIwqHbdKM 0jVRGwpttrCCMxsT6dUQRc B6c3EsNgYaS1UXixB1Jtji I9ZEKpnQOe MOssLPM1W26ry2V2HHWgPW SoPED0oNA9fS1fvOavtnuq bGVmdDsgdmVydGljYWwtYW kqT474ZVKh gZpvVGWgtR1yFHQagEIueC ixWC4hBVNtniuoWbzTVRMc IFJPQkJJRTwvdGQ+PHRkIH M6jGoxVUtv UIEsgJ6mPJBnJ0v9KiHiZb U0RYhtH4WiIKThsvizLw85 jU4vXmNpEdX8KKikV7Vtmv N5KWTdsKLf YNraRDV9S95ua5C9IJLaQI QoPXG5gPV3zL8obNwecgnt bGVmdDsgdmVydGljYWwtYW jhG142IUQl xKvsKeLwMoLcKaO3BIc8P7 BvUss9OVFjdArbRS9soWJo KXdwUv5ljOcwvWkxWE8pEM BpbjtwYWRk gC1wXQJzkEIjbDheFE6mIX Jyhjfjd437MyWmPVQ0CDVv nDJnN3ExfE1bDrUlYEXsUC CrE4DegZCj GXfuE004EQuaBnU0ZTJagi NhF5GtOCZgkMriHlW6n2E6 Ll3vBaNEALBzykxqpYE+PH QgIPL4sYjv WEldXCEqjD8fJSUmM5p4Tk RqBmQ1MAcnR9HkDOGcrgfs Bz49lL8yDnUhPjT8DRsyN7 ZwlbN2FLEk qGPiLZalWSS4W20kj2Q3UI XsVNNyEKW7gPE3tM2uqLpm bjogbGVmdDsgdmVydGljYW skMRodD830 CTZexWifOh4dxPT0B6ZtEz e7XEJofZqfGZ3bfZQdYNcl Mp8bcCzupFipLR4rBPNkia vvINXefZ5o RJYqaACfrShsVA4vBVZmbo xli066ZwShTOJ8JSMijQSy Y1UxtB0cQxWdVERbCCHaI8 RleHQtYWxp Z185RQjlGfC1SIFatnArL4 KiADSjbBerNqB7l7H4Gl5N cMEuOHLnQD48CV90TQ48J3 RyPjwvdGFi bGU+PHRhYmxlIHdpZHRoPS ttDZBeMbCouZgnII3yWu9s ZGVyLWNvbGxhcHNlOiBjb2 xsYXBzZTsg RY0fxAayE8KulAJ8XGRaz7 o2Qn54T93eC9ZymTT+PGNv pIM2vNR3qJ6dUdZgAaA4QA bcH570LyFh xIDvDwdyt5oil8zztKb2Mw NfAJDfjcTbrFwmRQN3v4Ft Df86O74hBLboGCLiTBJaQQ UiIHZhbGln nz9niU6gAr6+FUFxaAD5oI Y2wW7uZwPuAfH3NGqcB327 LoDzmUFyHzfoJ80uL4YtzO A+PHRyPjx0 SKHuaZnyMF1jxCVaLLmjBm 1uRXN8FxNjVxPkGBngE7Wf SDAiehihtwdcoWD8BFIiWS LgoM39By2j eTmhEc9sVYVwKQT4TJEerO QsD0FaxI8lUtWzYTStPXLa P4OwoSOeDOhgL607GWztJj T9NOSbrdZw H5OaWBKjmBhsMeW8t7V5Zh 4RiJteeRAwAL3bPrOjOVv1 P2NgFcw7XNAsrYoyTS0pqJ WzTIehUo0y dBfqyBpfEU7gZDDgezjxn7 86NqMiy5efCMOjvAOjEImq OLU3C97wm5P9YFQgCLLsVH G8xDK4bX2a bGlnbjogbGVmdDsgdmVydG nhQBusFEzqQ132FKVseLlj PzLNVbc2P0CcHhp5FEHhxB gcIS6xsDCm TDklYm0zdCjdfPizRG8uYC Cojbzbi223JeOib1ozPKEl qTHyEQtnWGE4U22kd9H0ZK MwMDAwMDA7 kEH0pI7vpKshtyuacWVvkP rqvsSqkIcsUHooPKjwK938 JGOknWyaTp2PCmr0Z0QyAu p8MMDyqHuo XG0rtSSlUBtoDq2twWkwyN sjTO2zIGHezutfa365BuHa l3qhAAJweRJuOYndGXP8A1 1vq5T1SQLr RGMzSFY1lPO0vK3bqDiyyd ogbGVmdDsgdmVydGljYWwt TPvyY811ASPlzTwbAdTaaW VyOjwvdGQ+ ZA49pa11J8CbItjeNhw1HG GbWCV0pOP2wO4rSECzRBdw j3S8mIX7I4YqfjNbkj8ok2 xsYXBzZTog Y29s (more content not included)... [facility] Physician Orderon 06-25-2022 Physician Order [id number]#1. 00CD:127 [facility] Consent for Treatmenton 05-28 Consent for Treatment [id number]#1.0 0CD:127 Normal [facility] Multi-Wound Charton 06-22-19 Multi-Wound Chart [id number]#1. 00CD:127 Normal [facility] Nursing Note - Woundon 06-22 Nursing Note - Wound [id number]#1. 00CD:127 Normal [facility] Coding Summary.on 06-15-2022 Coding Summary. CD:[id number] Gh 0bWw+PGhlYWQ+NK9IIKTtC 21axDKczL5XN5nTOF6VHWM JGSPJZI9CPR7kfZO2JQybV 2VybiAv LpqngCAqEI43OLl5BOI9dV enOGekiB7qlNJcO4v2GaRy CM28mI71PZpjBLVdOlR9Pt ZpbjsgbWFy B9kdNzMwnRUzVzg+PHRhYm xlIHdpZHRoPScxMDAlJyBz zUxrZO8hTz0uCOTcOEZbhN xhcHNlOiBj b9imKDOyOMilWD9wzFwwD2 ZavLY2USLry2b5Zp48uQL+ EAPtOEG4rGhhQKnqe831Ct Fbq5rmEZG9 qRUcMTtqJGZ0S99lt4A7RY SrSWMmLJF5vUN3eH5mmUna jnqzB8QfmXCvKtS7XGZ1xW UbxP1dlBis fytxhS2vDzq+T76KSA1FAM BEAG4DVgo0K6WiJxqksJM+ HD14OBAfFV55pSIbeMRgj9 tkbWi8UbOw TWGfLGA1hXhsPNzye2AtNX XuY12jbCAwc4F6BMAhkGuq aZJeAiPnfAI5qN8vKRzivz lni4bwhwzh Btyqe6xkpb64mZ64M33cVC upIPBaEPK9RKYsVBRiuOmv gx9sgU5pPg7+FVxhj8jjo9 nkmFo1YdRy OBDdjpMusQkpZBX4q1DoMo 20F6EqtMscc8RwTiv2tr92 jKRrf6T8cJE5BQfaUXRbgK 0lELhfJhX8 AKJjAiGiyU10xCWmCTdvVw 2dxEnbwAqtRE8zBQTwqyhp TSTpxU2oTYQvcVZvwTdwGQ 4wNTBpbjtm s195VjCtDZE8IZCumNVsD2 LhlF9hHtRzHSSnQJKuT0Pj uAJnHZtdC077AIbgRaL7AS XtxfDgV9Ha GHXwoEacMaP9o3M9Zl1Sz5 VkpfxtZON4FSxoKJHiUyMx JzSbSyQ2J2RmOtk5PNLmgB zdDQ7qS3Dv EFPswszdenxnoIC3JBCgPB HinR27gTArSJlkHt8kw6D7 h670TIXdXFGnjW82Jo2wjT ogMTBwdCBU mD2ijdklt6osheymYyXqWU KeUYs8LGt5LDArpFjcBtYk INM4MbI4GRC4aACcdT8wdZ ojvgqtpV8d Oyc+K35kmX0xMQK3HYT0db ciYFQalrDpRL45PA96S1Wi PjwvdGFibGU+PGRpdiBzdH mzZO9lSeZd c4kse3YwVDalS6GrPLPeRH xkGnu7YTUzTEL9pLI8oH4q ETVdQWpfk1S4lRX4Y6Iazu Abqd2rj7fx DOVyYRzpT76vyGWmp5F1PA NfnBT6SPOqjNbyYtQdzC48 Oyc+YSSyjVqhg1IlOeewv6 ppm6cvvHk6 BkFmWTJvzyHyzOdmSOW7l5 NdRq46Y17hKAkzJEUnGWWu XYWgSOYzeGvggy8hgR9oDo 8+PGNvbCB3 qPS1wU5lRGOfUsC7DWbvF6 93TgFvrAFoQuijz5fhc4ty ySr5XgFlGCKgelGhoVjiMU X6h3OvLe01 D25iWKpyGPAaJELcHDIhOV ToiUrkze9scW6yHp2+PC9j q4lxhy69kN21kQK+PHRkIH X0lSxbKHhv VIGcbL4oQDeoGeU9LNGlSn IbwS39oGRjTRjaXy7phYhr rEycNT9tYMGicbcop145Ao Iax2nzDHKl hTUmRItoCHK9V80ir1O1BX BcSFZrQUW3nOF4gD9dbZgg bjogbGVmdDsgdmVydGljYW euVSfkC510 IHRvcDsnPlBhdGllbnQgTm DhEUt0Q9UuRhe7SDVrwMxn VI5gsEOsQZidKe0xhFruuP hoIY6oZTVi jzazf440ZpTnd1tyMOZxwD PhTCltULX8Q95pv1P2ZMJk BVDkVXH1sJL7oY6lfVjjzt ogbGVmdDsg ruBuoMsgGLqdINvnU653TP RvcDsnPkJpcnRoIERhdGU6 CV58XM01vKXar6B9nXH5N6 BhZGRpbmct gqbcvSA9WXZaVLHyeM84Zi 8sgQspPr0tAOLrUTG7JZTu lZRwB8DkmX3oZcEhPFJqLB IyG3DjmKHr AWbnH283PVjgZgI7QJXcwz LgD2FfPNCgzXllTkP2y9H4 Kw4KI0L4ES62MG83eZSid3 M4uVF1X1Xv GOLosxwvlpwxrRG4HGGgBG IweR36Tq1sqAydKe3sSQWm MLM0VIKjzSAlR5VjzP9zLi AjMDAwMDAw S7LnpUSwEDfdN045HOjdCu G3VLGwfcYiM9SwARNvoGjk MsS7g6V5Hm1OJVc1KH55UN 36rFUjh6N3 nGF5W2WtIYFxsyephlcxpH L9SAGjMEEunQ28Di7tfZnn An0xSRMvPIY1HNVzfNUnV4 OunJ9yKsGq VHBbGAGaC7EecZCqIDgcB3 45YDzaWsM8DBYuyuPfB9Hd RIPmnVjvXtW7h6U2Nr7HEE EiKL92UEZ5 xXY2WG50HM28A0ScErwqpH FibGU+PHRhYmxlIHdpZHRo PFufAPBdOeCjhArkYJ0rTb 9yZGVyLWNv ePxqkSBhGpVas5khNEZsJU vxRP1pvGbvB9FtqFK7VRQf s6t2Eb01A11sM5EnhJZ+PG JexTC4cQB7 dK8qPyJjSaZ6KEamP537Fg MykIBgHsxue1ffw6mkhZw3 ZvJ2UFZagkOhaVnhHRR5e6 PtDy79U31r IHdpZHRoPSIxNSUiIHZhbG qsbi4tlB3oYd9+PGNvbCB3 nCR2jF0tXzYuYfS8SCaxJ7 49InRvcCIv Dztvx4cne1vwgJy3DlNmIH NfepZzsNxgPLT1m8CsZc55 U0QblIvgh3VqDkn7vr72vI Aoh2O1tNI7 K8PmNOCfbwjvnZJdzUvgCQ 6mQDVdxjskQDAhoU4xUGAn D1n7NkJdSnJ3RKlpT2Smkd K0NSUslQBi WIxkARU2Z40eo4Q6LBGkXQ BtKWE2iLC2hI5fpWrbatcq bGVmdDsgdmVydGljYWwtYW edB789FIEn lOvvUJAmfN2rJUVgxRDdgD ktMQ0bGYXryzcrGhtKZIMp IFJPQkJJRTwvdGQ+PHRkIH O2gVsfUSwq NZZcwH8hYBBeY3l9PmXbCe W8WApxG6SfWZIbwtznOy44 cS0vNvIlEsW0MKocY8Abwx A2OMYjqFJe BBbaKKE5M53vn0X6YFLcIT DmPPS4jZS4bK2zfDwfgoqv bGVmdDsgdmVydGljYWwtYW vcW210AZEs dWspBzRxKaKsZfW2TPa8E3 VoWdg7AZJqkGwbHD6egXJv NGkfQd0vvHfyoWubEF5wXN BpbjtwYWRk xC1zDKIlbPBvdHfrUD8xPD Zvpgymg682GvWyZYG7ZTAq cUAyM6MggH7dRdKyQJNwOE HfB9IqyTVr SFwuY921RKesMzX3QTJswg AjH1AzHKMmpNcuGgG2k7H5 Ff3xDhMCVEEbyapqkQB+PH CoNBF9uVcv WUekCPRljI4fUMPgY5e9Cv TlOyP7IQqqR6DqLEWetnvq Pt35nW7bKqKuHaT6REbtL1 ObspM8DGTu gBPbXXelYJI0Y74vz2Q6BO GwOISoSZE8hLH6jS8hmFtm bjogbGVmdDsgdmVydGljYW xzKYvgP016 DNCyuNowGv0ezBR6Q3NoRh r9QAHldMulVJ8weZOsATrq Yn2jyBuuoSoiFF9zVNOnsp ipZSMwvA6k FOCkeRNfgQhiIU3vFUYyvm owi431GhOaUMC7CADkwEDc O5MtgJ2vMiTdYCSkOXTlW9 RleHQtYWxp D932ZJceHzM6GHWijzDpB9 GfGGQhxFgoBdB9z9E5Zh7A dOPiCYPsFZ97XZ29AB67E4 RyPjwvdGFi bGU+PHRhYmxlIHdpZHRoPS raDXUlUeBozTnxCL5wIf0s ZGVyLWNvbGxhcHNlOiBjb2 xsYXBzZTsg VL4lfFxfW1GftRV1VEXcm7 n1Ch39V24zS9VpeFK+PGNv pMN4vBP0tM2qByHfUfH4XR ujD620MxDl eECqUwttk4xvq4psaFd5Mi RxSWGgpwOapNddPNA6a2Mr Es46Z03dRPbpAYDxIYGpJS UiIHZhbGln ed0amW2zPu3+IJXwdQD4lB V3bX3qOmXjWsU9EHdoY005 OtKclEXuWadoH17jR0KboR A+PHRyPjx0 AWQqpKfqMH7qlNUwKKrtQp 9yILK8BnXuZfIdSPbhJ5Lh HGVujrucsyarmBV0TKOeDP AcvF64Qh9h tLjwHm6xNAQmNNV7QVEbqB AjQ2UiiR3qNuFqCFObOWVv N5YoaBOzBByaD405OLdqLu V3REKdxlAs F2RxSZPqbQckKrD5y6T7Hx 6BgJltuDBzBO1bZePwPPc1 J3UcXkh5XVHzzUgcXA7qkW AvMMubYg4r jLoxoHgfCD2rUWPnucpyu9 82ZrRlh7taFLQrcTOnNFxm TDF9E61oc2H9NCVnRSGxCI K2aJH0sT3l bGlnbjogbGVmdDsgdmVydG pmHOqcMFukL629BPXeqMvm LlAIZxy9F6QyOvl6QMGorP faLO3okNPp FRpoGm5liJdoqFimIQ5tCE Sorsxoi079OcDsy5bsNKSt sTWlNHieBDS0T85uz6U4YR MwMDAwMDA7 uNS2eQ6gsNrzydfpsDSknL ndsnKewCitMWqeRLtyH527 BQKwvObbIz1MZel3R0LaOo l3AVKcoSak HV8brNNlKUffEp2reSmoxF fhVR0lRZQekcijt009MyFn w6daLKVnsNMjYWqfSFL0F6 2fp4U0LSGv LMYaDVD6lWG9kF6quXhwyj ogbGVmdDsgdmVydGljYWwt BXizS027BXMrvLycVlCvlD VyOjwvdGQ+ AA88wc08W3ImNrevXnz2HZ IfIJN5rCL3bT1zDDRxDHez f1I1vFY5J2ZiemTwyw6kw7 xsYXBzZTog Y29s (more content not included)... [facility] Consent for Procedure/Surger yon 06-13-2022 Consent for Procedure/Surgery [id number]#1. 00CD:127 [facility] Consent for Treatmenton 05-27 Consent for Treatment [id number]#1.0 0CD:127 [facility] Multi-Wound Charton 06-13-19 Multi-Wound Chart [id number]#1. 00CD:127 [facility] Nursing Assessment - Woundon 06-13-2022 Nursing Assessment - Wound [id number]#1. 00CD:127 [facility] Nursing Note - Woundon 06-13 Nursing Note - Wound [id number]#1. 00CD:127 [facility] Physician Orderon 06-13-2022 Physician Order [id number]#1. 00CD:127 [facility] Procedure - Woundon 06-13-19 Procedure - Wound [id number]#1. 00CD:127 Normal [facility] Progress Note - Woundon 05-27 Progress Note - Wound [id number]#1. 00CD:127 Normal [facility] Coding Summary.on 06-12-2022 Coding Summary. CD:[id number] Gh 0bWw+PGhlYWQ+VQ5QYEPgD 93ajUAvsU4TA2cBUP5JQXE VAYYIZQ3SAV9jcOI2JPrqJ 2VybiAv CwweyRWmXJ42GDd5ACY5bY ukBPqnmO2quYAgI4a5XmQg IG70rK36FRplVVMtHnS0Rl ZpbjsgbWFy R2hjWxOtgPPvKcp+PHRhYm xlIHdpZHRoPScxMDAlJyBz yJckVK3aSb0zTLHjOKYojI xhcHNlOiBj h4gwRBBeYCntWK7siSkhY2 CmfLJ9AJPdd9k8Gz62uHM+ DNEvKZJ1wVmmETqdd800Xy Eup5rxDUO2 jTZcFJmyNQL1S25ky5W1XZ VpEAMjUBN4tQV6sK4pvHoj mmfjG5BwfZOwBnO9YAG1oG OhkA0kgAuu ulwdcZ6wMzp+R79KOM9ZTE UCKQ0EDcj9K6VpQokydUO+ TR29XLOlHQ39uRTlyCYbr9 cczOr6BfSt DGZePCN3dOalGFtit4MxCV NoE87kvFJyo5K2RHKnrKga sKVkGlOlbDZ2sK2dZZyxss zdp1kjfeqm Vnmfi5wkyr17yZ04X60aXX hiRAGoECQ2CXBvWGZqlHht oq0hnD1mJu0+YBaaf4ajz1 gjlDj7WpSe SJPhasMlvUybHBK7t6PmQy 37H2PdvVrlw5NhStu5nz36 iFAsy4R4jKF0TEtxYRLtnC 7uOEljOfO7 GPZbUsMtkM56nFQdIErxWo 9jiVfffMzaSS8nBWNtbbhn KGOjoC8cUDAafUZtiGtdQQ 4wNTBpbjtm d585QmPoHEO6CWIzjRTfU4 DmtV1lUyQwCDRcEXQiZ6Gl cVLeCNjaW152HWbeGbO8CD WcrmMoE0Vn UHSrsLreWbV2k0R2Az6Ex6 InxjnfHAM1CVxtUAYdBkY5 AzJzCxZ8F2QmIhi5ICIrdZ rdHE0mX9Tq IKUmpqkghlrfzLI5BSSuPX OtnE34nXBiSLbtZj3qa9P9 r590QMIrVUNkkG83Nj4hfD ogMTBwdCBU sT1urevpi4gbfqrlDnHtYD AhCVo0SXt1ABAnmEjfNqIg BRS7SbI4IOJ4aAVjqX7llQ zyswnkxC2c Oyc+Y07nmV8uWAX7ABC7ug ozZVWuzcZnGE11TY96G0Iv PjwvdGFibGU+PGRpdiBzdH yjDC2fDbHk s6jzf0PeGTxoW0PdDKWjYT dqShr8UOQcSHX4uEB9xI6w YNOqCPhnw2D2rZB3M1Ktun Crci1ou6zb FJEpQFelD75jgTLli4A9OP WozKB7OIAplNwuIiEupZ47 Oyc+SPBwxPyje5NtTeeri8 hsv7rxuFo9 FwEfIAFekgQwtIouUHG7d3 NqUm05N77nUTkgQWUwIHDt SGMyCDGmkBgxer8khW9eTq 8+PGNvbCB3 qHD4fI9zTPZhYpS1YQdzE0 28PmUwtGFzRhwof6jzb1ef kYx4StVhJGFxjoLvrPrpND E9d3SaXo86 V06lWQjrNINdVIMbIMExDX KdkCuhlh2pmP7jKc2+PC9j v5xtse13bT88mIA+PHRkIH Q0aRimDZgy JGDruN4vDJpvYbP6CNOvLo OdoW91bJImULzaKo0hrGqq dKurQQ0dKMLgjgwnx045Zd Zre0jsSHEr pJDsDBtxLFQ0U00oc4D3WM SuUKKpWPE5uCL4dE3txQvg bjogbGVmdDsgdmVydGljYW ueLQciZ952 IHRvcDsnPlBhdGllbnQgTm BqSEz8G0AhSeg8XAUtpMqe FV6bpVQlRFqzTw8ybWuftO enUW2aXLHx bebfm254QuZla4iqYHIzjJ LgGBohWQM2U23lb0G7LNCa WVFqXYB4wHG2lD2llXwrad ogbGVmdDsg jyUgzBrvCKtvVZuwG686TF RvcDsnPkJpcnRoIERhdGU6 AL84NL65uVSwg3U7jRR9Y3 BhZGRpbmct uxlxbJZ3ZSIjOPQxlQ17Zh 9lfLpqPi0mCWBqOMC3CMSp jPWnU5DvdW2nCwDtXPRlAX OeE5WgcJOj AQwxB326UHroVdK1XLYrzh YyI3BaPGXozJouVkI3s8Y7 Tz2SS2W5WC04DZ31kFPzo2 Z4qDJ6A7Pi XDXzpdbxujednFH7AVIyQB ZynK81Zc3noDjgSj6rXFQa WXN2AWAluVAeV0RrsL4jHt AjMDAwMDAw R3LfbCLdAWfzJ031GBmzOl B1XBRbyrGpY9UiWTQhlJvq JnO7h6I2Js7TQDp6EV19BE 25hZBfr8U3 dMM6C7WbVEAtyoumvmddeD J9TTAeNDGewB83Rc3qdYry Vm9kDWDcBIM8NOHjqWZrS6 ExxO8fUeXm NBEtGARmM1KbjKEqALdaK9 22PIwvIeE3LMOvboAwJ9Fj XWFauNivAmD7a2B3Kc5ZZU TuJW88QTM5 uRO8KT05JK42W6NkYzkqtK FibGU+PHRhYmxlIHdpZHRo EZpdARJjNfYydGnxNR6bGi 9yZGVyLWNv mAixiUVnRhPrg6mkWUZpNL jvQC4vnUydO7UnbAP5UPUt x3b7Ye27P41lQ0QnkLZ+PG WuhAY7qTT5 xL8cTnVhEqN3HEkgS058Wk WtaJUkRasxo2nhw9vgmYc2 KsJ4KCQdznIfmNvhKFE0j8 CkDq13Y32r IHdpZHRoPSIxNSUiIHZhbG rxal6cuE6mYg8+PGNvbCB3 gME3pJ1mSpJpUkF8MZefS4 49InRvcCIv Yalsb8ucc6mojAd3JdMsNZ GkwnDefPrmEBB1c1OaCm38 Y0AaxXhwr9PoZyc4gq60xK Jbd8T9nQK5 T5RdAQSylzgtnVYtrQezZK 8qHBIsqahbNTLysW3vGQBy U5c9WuHkUrL2WImiK4Pqof I9CITbtEUx NIfvJSN4R08po2P6GXZkPN YoBJZ5rKZ2zT5qjRzspifj bGVmdDsgdmVydGljYWwtYW thC708FDCf hAqiMMQahA0oQCXwaJBhfA dhVD8fVETsyznpOmmZYMTv IFJPQkJJRTwvdGQ+PHRkIH S8eIdxSZfb QEAopZ1eCTYvQ0t1LpZrUt Q6PMfoZ8FuUGRowtcfEe11 lX1uFfKnWoP1BSnwR2Htbj T7KMAhnPEs TKolMRY6N60tg6H7TLIwLR XsOTC1mGU7xE5bbHymryop bGVmdDsgdmVydGljYWwtYW oxU425ESPv dKktBzTwMhSvXvX4MPu9U6 AfNsz5WXZhpWyfSA5elMTk YMitBc4kaLoraRpkFN0bYZ BpbjtwYWRk sK7tWGEadLUukHjhBB5dLW Kmmxpse787AjTyHMG2UVFp lOSzK8LleI0iTmTrJRVtHO AuZ2HbpZEg SVsnX457ZVtvOaR6XIXhyx DmG7OwHCOamUwcXqD0g2X7 Kn5yAiRNHUWwkyelpSO+PH NzANB5yXdf IXfyFDBorA7mNRRoU2l5Mz JzEbL2IAoiE3WlWCTrxfun Jq99qH5gWoOgFdZ6XWpgE2 UcgrR7UKLc hRHyHKgsCPR8H14mp8R4MW BxISWpYJH0nAR2cQ9qyAzv bjogbGVmdDsgdmVydGljYW ypZEbjM772 ENJawFjaPo2fvQR1X3BuTf g9IBBqtNgeZG1szOOyTEir Cj7ynWtvtMsvGR1uMNYnjq boIPHgrD0l DXTwaRSegHwuIH9uEUCupc eeh487LeBzKTY3CNIxkYZf Q2ZcpC0zJcMzSXZlGTBtL6 RleHQtYWxp D171AYujDgF0WMXvciNsM5 UzLQTuxGsxEcA8f6H9Yl7T jUEeBIAwZU88MB13QI94Q1 RyPjwvdGFi bGU+PHRhYmxlIHdpZHRoPS yfWFDaRsRrhJwcBP0nEt3s ZGVyLWNvbGxhcHNlOiBjb2 xsYXBzZTsg XZ3zcFptH3CgpOU4DEBod0 f8Yf73W32oT7KmoQS+PGNv gAI3nRC3xI8jFxDcCpQ7TH bvR235SyTf hAGrKcpiq9wip9qgrXw4Gc GiWIVvmrPkgQsdZRE6r4Tp Zl47T37xJGuuIMXoOXHnEL UiIHZhbGln vt9nkG8zCt1+VGNqdTS8yT Y0oH4wZaVyGqL0BFfjQ139 JbBudFIlJgflE80kH3VttP A+PHRyPjx0 TMMyzGpmCC3dzPBeVWvoHn 0bUXR0XaZuOvInGChlK0Nw LHOyduriynilrHX1UEXcJY WbvL31Mx5v fVuqQb1mZPPaOJH4IPMdkW LbU9KduQ1hRmUfUQGaMKNz W2IcoFZdOKesY165OUvyCj I1BXJxgpMs C9DvDWRksDptEfE5d9T5Rn 7ElQrvjBDcCH2rQgFxCLi2 R9CyAvh8HYWkpDjpPI7wqD ZnFGafCw1s dHxmrMjjPM3jGWUxmkylu5 89KrFpa6kqEDFizZBnFGkm QYT6T44aj8V2ECZsGMFzWI C6vUE8fH8v bGlnbjogbGVmdDsgdmVydG vkCWcfVShgP972DIUrnNwb NuBDAqd3M0QsVat1BGBlkE ndNE4ulHEo HCghLx7plOieqPioWC7yXR Hctgylc717ArQaw1lfLWOx qDIkSNvvCAM8Z96rw2N3ML MwMDAwMDA7 kXH8sP6jmJcmwqcpxQRcaX jsnbVqrTinQIrkMTdeY155 TIQzmXcnWy6ZGun9Q0KuUt t4NCKkwIpz UU2ghCQaZIklRx2slHdfwE pfIT2vKUObkzlsv794KjWy w5xeAYPwkBZjMMctBHU6F8 1wi7H8CBLi SUCdLJF9lRN9lW9erFiarc ogbGVmdDsgdmVydGljYWwt OYsaC005PJMdnZpvDgJsiH VyOjwvdGQ+ QY90hk00I7ZoYkjeWhb5GO SuKYQ3wSI3iK0mVWWzOAok d5S7cYI5F4DgjhJefo0if7 xsYXBzZTog Y29s (more content not included)... Normal [facility] Multi-Wound Charton 06-12-19 Multi-Wound Chart [id number] 10 [id number]#1. 00CD:127 Normal [facility] Nursing Note - Woundon 06-12 Nursing Note - Wound [id number]#1. 00CD:127 [facility] Physician Orderon 06-12-2022 Physician Order [id number]#1. 00CD:127 [facility] Consent for Treatmenton 05-27 Consent for Treatment [id number]#1. 00CD:127 [facility] Coding Summary.on 05-25-2022 Coding Summary. CD:[id number]:[id number] Gh 0bWw+PGhlYWQ+TD2CHEEkD 09hzGKvqI2IO3gIAO3RJAC CGEWKBZ8GFG9crUZ2PMnaE 2VybiAv WwmfuKBnDQ23DOv4JGP2rG ggFVzvxB8suSQaQ5u7WyXl KB68eU45MElzIRUdEyI0Rj ZpbjsgbWFy K5jpObDhbORkZnu+PHRhYm xlIHdpZHRoPScxMDAlJyBz eRotEV8mKh6iDOZmHKDzqU xhcHNlOiBj m9eaRFAoZTrjXU8itRruH0 TjzQM2XFWmw7y2Lu28zEX+ HLOzENT1uExyOXvvz236Ke Srq7naNRT6 oHPuBTvaKON2W63yc4O1TU SxJGVdEEP4oVT2nI2yvFlc wzpoY8AmkAPtQfT8VUO1eQ KqqE3vjHnm olmctC3gZzf+F84KFG7YEW OYTY5HCbw8S0MyEoygeCG+ AP95OTCoAF06iZQvlHZqv9 ddoYk5XaDm CBJbMAO2eAwhHNwfu7ThHW ZsB06xpVLve2N6ONVczRiu aPXgVbDbjTP4uV5gDRfkvu nik9xynkya Mfqfh0jbfa51lF70V83aMN ntKRFdKGL3KEHrSWQrkYhh pb2hyF5yAh3+EToun4iiw5 vgnSd7QzIw OTGajaSciWdpBIK1c9NdLk 26Z5UmwYlko1VgJck2gc62 yUBuy7A5sTN3EHzpNBSemU 6nDZjcAzV5 CPZfCqSkhU89qLRdPNctMd 4jdBfkxIsdYS6fSKIloofp CNLdrU3oHLOfjIMnsKmaYE 4wNTBpbjtm l191VzTkEBN9KGZhfGUmT1 JrkC6pIcFjWXUoACHiS1Ic dEXoGYkmL164REvmOoI3PZ VdkgEgJ9Kg ZFYncPlgIuT4q5K7Dv4Of6 NxcodeDDQ2CMlfBZApSsVx BsOzDrP8Y7YcEru7PXLppF jgGO5mU6Al OBLbflgtskgedFV5IWDwGC DdyU44lZErJYdkCt1xq6X0 z720BNEaGDGqrO88Ua2zoA ogMTBwdCBU wT5mkvblq9xfqoiaVvIqBW GaHSs6IDc3VMCefDowKnCv GET6YyJ3IRJ1hYGkaK7opM fwxbsmdI2c Oyc+X78wmI7lUEC8WSF9ef yiBGEbsnRyGZ44JM37A0Qt PjwvdGFibGU+PGRpdiBzdH ouYW7oCfFp q4fdm4DhXUqyS3DgZXVpDA veMjf7JLZzDKA5bPV1hE4l STIeKHxov3H6yWT1X6Jrpv Aenp2ma5ld YUAbULroI66piJQif6Q7RC VyjOT9QTCpzMnaTyUsrF65 Oyc+WVLofGezt9KkJhdwi5 eje8qqdFb1 MjCsJWIjtjRhvRolBMF5z9 MmEe93W65gTQtxFBIqHBLe CPUqWAAgiUqmav6foV4oQs 8+PGNvbCB3 uOA5tM4sWWTrTuW4GYrhR1 50YlXzuTJyZokry9qet7wv fHu8IjZuNFWpqiPdrDtmCT Z9v7QwQs80 W04eUMfcWZBkXUZbIKSxMJ GwqYclta1fnN4bRi1+PC9j h5huhp19kY87uFB+PHRkIH L1kWrkJZye RJWcwP0xRWqyXkN8CKPiFh AqpV28bEHfSRezAa8bfVlb hXkwGV8hTODzbbdjd775Gl Jut3uuZSQu lKBdTDubMUZ3H41wc3O7VM FvDJJrXFX6pFG2qI0nzDxn bjogbGVmdDsgdmVydGljYW kqUJhzJ538 IHRvcDsnPlBhdGllbnQgTm FfIYc2H0NcQvg3IFEftJek WV0pxPXgUVdpDb6tzKptcK cbTP6bPZJr ccoww010PgEuf5myLKUobR DbGAvbJRX2M30nl8C3RLXr NHQhLSK9pAG6lG9sjYjkqk ogbGVmdDsg qeLkkVfzANknMPtbQ131XB RvcDsnPkJpcnRoIERhdGU6 NA43JO88qERev7X8gHJ7U9 BhZGRpbmct ifrggRC3YIQmOWPwmE37Lk 0xvZjcFe4xTRWeVBL0QNCw eSKyI6MhcF9zWoBaIIQxTF ZwZ0RicJYd SRneM978JFboPxP1YSCivi KdQ3RlPIAiwQpdIlX0n3C5 Of4CW3A8PO10WD11dSUoh5 I9yHP2V4Cj HIUiwcitxzkdtST6XJEfJP FpxX97Mi6hvUbcFq0gPUAz UED9LRUqiNTdW0AmiR7eTd AjMDAwMDAw O4WhlYMlMBlaK294TSdgAc F8PUJrerKrG4TgKBOheDgq YbY3e0K5Ls5NNUq2SD60ZK 87pFPgl0E7 zSW3L7ZgWUIacoljndbxuL F1RXLfSNNtaD05Ab3hbQrv Jq9aVJJcPII2YIIltGAjV8 CcbG9dOgMt YTArRKJmC4SuiDAqRYhyU4 58ZFfuGwE9XUOwtqHlE7Hw ARSsvLwnLuO5z3C6Lb6FZH HsIL16RHZ6 yME2RC56BP27K2UdBwrjyF FibGU+PHRhYmxlIHdpZHRo JHjmVUCzYzGacCcdVG7aRw 9yZGVyLWNv iOzejERySoLox9vkJPJtYT hhIX9xfVhtB2YvsBE8GPMw v5a2Jf14X40mB9CdyDB+PG IsvSU4rTV8 dY6tSyPuFsZ0CMddR369Hv PvpJMsUhlag6bew4ibhPj2 VeF1VRCgknQssMviQTK1z9 BtEs18L88x IHdpZHRoPSIxNSUiIHZhbG oazu8vfF0qZa1+PGNvbCB3 pEI3pR5pUzOjGjK6KFyiJ5 49InRvcCIv Cxutk2lmn4venZv6PjHxQR ZhlmVhkUehOSX0x1HbMz11 A2AldAhxr1QrPpf4vn14oR Agl4H1zVT7 X5DySTBqfhjunWNqtYfgIP 0uXRMdpunnLINjfZ6xORQg X5u6LvYcWuL4JVfqS7Iimm E7XODbyHMj SZkmUXY0D49cm0G5YYDqNK FpRBO3uWP4fE1xgRkfpenu bGVmdDsgdmVydGljYWwtYW zpW003SGBo sIcdJWGbpR3pABGpqMVftI ihNE5qMWBrltpuNvfBSDQa IFJPQkJJRTwvdGQ+PHRkIH A5uXtoJHix ADAjyU8wVDEzA5n4RyMoCt L9FHdsU1DoHCLufkhkOs90 nR0qLiCrQdB4DIwsB4Ycqt X9ESXfgHEq ZTdaAGT3M93ze0R2VNIzFE PkVJL8nUU8wG9wuPopczef bGVmdDsgdmVydGljYWwtYW onF128MKCi nLsoQfUrMaUqAzF9BMy1S2 BiDjj8LOJjpXzhST0cwNTj LAdvPn2fbSaeuRuoUI5dWQ BpbjtwYWRk jC5uNRUlzVNquPjtHE1mYH Mocefnq639AaXnYSY5LVYc nSOnU0OxlE7mJmIvQZOcKT WiP9CvyTFq IYawO042IBseLuE5CYKyav IpN9RqONXyjXryDwT0b9D2 Ai8dLjPQRGXdudslkLL+PH ZaESR9gPoz FHiiLSQolZ9xZVVuA7d5Wn EtHhP1NTwhQ7ScLHJgrutz Pm88sA7dEwPyQoF6ZZmxL3 BbrpJ0VORv zALrUQfhXRK7F28gc9E3HN UfQQRjTZK9dQC6lV5lzRby bjogbGVmdDsgdmVydGljYW rwPYxxI158 KSVvsWiuYp2aoOX5M4EwTc v7YFCiyQksJT3oiEIcNKrk Jd5taLraxNieIM1aBLVbxe ftCTHtkA6t FZViqXHmqUqnPU8tYFSinj vav433HjNcNYM8KVKycJAe J8XriA0aAcGxBEBcTGPkV0 RleHQtYWxp U251MAeiGzC4HVAogdCwQ3 WwIJClmQdpOgQ8b6B2Gh2H uOHhATRvBN94IL65QE68N0 RyPjwvdGFi bGU+PHRhYmxlIHdpZHRoPS urLQHmGqWikOvbLE5mZw9k ZGVyLWNvbGxhcHNlOiBjb2 xsYXBzZTsg WG9vlTztY2QpnXZ1IBUpy2 e4Bz03P20qL7IeiKG+PGNv tIZ2xMW4bT0eQuEbEhW9HY bfE585LaXb xACmXnlfa7bbj5ygoVn4Hl DmQFAowxZivVorLDE0q9Vw Nr14S15oWXvkFZLvBVEtXI UiIHZhbGln qm0shR1qXz2+TUVexHM5uT W7bF2kIvBvNnL2ZKrnU020 IaYuqBOjIfnvA20xY1ZdtU A+PHRyPjx0 NUHqoXyrSZ6inOZcKZnzWt 9sGJB9SoJmAfKcZFxhA5He SHUxhdgejzecaWF3FOXyPW JboF61Nk9n bQmbVl5sSDChAGR7QNRndS SbE4GmmP9xJgBqFJUuFJZo U6JkqVPuBTvgC029KMojFa X7NPHzlqWf O8OkGIEneAslDqG0p3I9Sr 2PqDrmfMQbZO7nHvApRVx7 J7YgIna9CJGztVsqVD7imU GjBOwjLg9g yCpqbCnlNN2uCDWvihlrl3 17YuFst4puQBWcsIYeAIlh MWN3L16wg4Z9NQZgEPAgBE G7hBM5nC4p bGlnbjogbGVmdDsgdmVydG ehUBhaHXlxL420BITydLtl SnBTHrl7E6VnGyx4JKCbeT zeRE6riVPb JNmwRc4lmNfncXsvEV3kUT Jevesja921BmOwo9iqLHSn rHKfNTkjFMS0P39if0Y8SY MwMDAwMDA7 gNO6fI4ohEtsobocmNFnuR tcyaZniVbaEPyyOVqhO119 UYOaoKqdLk9QKoc8F5ZpJa k8VZEywFtk KZ2oxUYnFMiqRm7prYpjaF kfPH6nCBRswonyf608MbSv q3vsKGTqzDTsWVuwNFA3F9 7lg1Y6UVJy ZJYrOZW1tIY3tE5laNipsx ogbGVmdDsgdmVydGljYWwt KNcyW271AQBojDhgHrPbwH VyOjwvdGQ+ JI68eb61X7WyVzhyXnk9PH LeSMV6cQE7mZ5uAJYpRCez x7A6uPS5A1WoncMxdn4at6 xsYXBzZTog Y29s (more content not included)... Normal [facility] Consent for Treatmenton 04-27 Consent for Treatment [id number]#1.0 0CD:127 Normal [facility] Multi-Wound Charton 05-23-20 Multi-Wound Chart [id number] 20 [id number]#1. 00CD:127 Normal [facility] Nursing Assessment - Woundon 05-23-2022 Nursing Assessment - Wound [id number]#1. 00CD:127 Normal [facility] Nursing Note - Woundon 05-23 Nursing Note - Wound [id number]#1. 00CD:127 [facility] Physician Orderon 05-23-2022 Physician Order [id number]#1. 00CD:127 [facility] Physician Order [id number] 20 [id number]#1. 00CD:127 [facility] Procedure - Woundon 05-23-20 Procedure - Wound [id number] 20 [id number]#1. 00CD:127 [facility] Progress Note - Woundon 04-27 Progress Note - Wound [id number]#1. 00CD:127 [facility] Coding Summary.on 05-18-2022 Coding Summary. CD:[id number]:[id number] Gh 0bWw+PGhlYWQ+ZX5LQMGtY 15bjENnbR2FE7iEMZ8XKRO SIQNIWK5GOG8zhGG5GCdfZ 2VybiAv SakqvTAnYV00IUo7URC1zE ylJYenoL1bwDIsJ2w1EwEy BF40sX80WNbsBSMcBnD4Xm ZpbjsgbWFy W1xlSeJniFHyGdy+PHRhYm xlIHdpZHRoPScxMDAlJyBz iXnvVW8zWo6fTQLrEJFpfX xhcHNlOiBj z6gkCPCiTHfkRB8gyQstK1 VttRU7GQWrh5x2Zk89lPI+ LZHlCVX2dKezDDaea766Hy Cmm3asKSY3 mQAcQQusHNM7O20qx9S6EZ NoKHTtIBN2eSS0qK9fxDau kviiR4DayKBcPeF1EWD0xG MxoV5vpAvo untpnT0sCmu+B27URH6UBN UQWV0UBst1I7BzMxtcsWO+ HJ55RDBvOS72uRKtkFGin8 mooMn0RgOo VMFiNSA5cIhrXJeev3MgLY WoQ78fxVVpm8S8QNLxrJbv vYVmIgZdvPF8hA2pWXuzmx wfj6taldzq Xrbol9xodg80iU23T77uIT vhXIIfLIF6MMQoFPByxHag vy3poF8sRx4+DNdps7mmx3 hgtAf8AnBh GJQjafZsfNiuFUG0q5TcEq 77T5PghVstq8XsGuh3pr56 tAPxp9G3wXF4STpuJMCivQ 3mJDfcMpF4 KWKjZhMflI92aDXrIJqwGm 9qoUxriProYJ6aABVmatzr MNZntZ4oILQytMSegFmeZS 4wNTBpbjtm t357DiYcXZI9QGOhlLLgT5 OpgI7zNuQpZVHcDBAkP3Qo zNCyAVwcO303VUbmYyS6VQ ImqxElC6Qg JEFnuXnvIdZ1z7R5Tm6Dh4 KnxtmoWRQ6VZtaKAHxFhTj JbJdJuD5E8VcPis9PRTxzC gcMZ1bD5Dg ZVAaqeakepedxAW3TZBvMX NmbF36aZRrYZvnRs0qn5C4 z282JAUiJKIdsT46Px3hrF ogMTBwdCBU wD4cdgoru1wdibamUvArIK MoEBx2EWv3TWExoBrwKoDc OGG0WcF3XQA4iBTfjH8kpU deznmetZ8b Oyc+H70zgW8rMDT5NVG1rz eoKHOuylPxGV59HZ26T2Be PjwvdGFibGU+PGRpdiBzdH yjNR9aBoXz u4ykw0IsKEcdN3QmTUGjXE zhHxk7VLRpDMK1jUO9sN8e MVLjIBmzy6Q6fNA2O9Stpn Ddao5pl5rr XDAkHRbsE08saNCap2V0MY DxaBC6TTQmpLfxMfCkmQ17 Oyc+QFZpuKwku3YxFwdsq5 pzt4qxjYw6 NoNwZNPkgzRgvRaxGAX4t9 JtQf45J84nABnkPEGkDNOa UVUtBNPbsMskjj2bzW7cAk 8+PGNvbCB3 nIE4hT7cXFUfZzU5MIjxO7 38JcCctKAoLpatm8zdc3fv tQe0MlZmNRQsubBltDgkHA Y9m5FpAt16 J37kFWgpVUTuHWTdKWIqYM UglAhmkl7esK7qZa2+PC9j b3byzb02oZ40uGD+PHRkIH D4bXpvPJsa HLQlgX2zKNdzSnL4CJOxVs PqfR63rUOvMKkmIz6byXwh gRfsAR4fMNWsfjine341Kb Uis5hkCZSd kFKsDRawJAV0G53cf8S5PS LyJXEbAYA5uJJ4rV5twPhb bjogbGVmdDsgdmVydGljYW hvGGvdX061 IHRvcDsnPlBhdGllbnQgTm PxOHl7T9TfVuk3JEYlgJoe MN8xqZSkJBnuEe9gbNzscM ugOK3rPBZf rqare016ErKya7jqTRKozN AzQVwxMXE6V77bi4Y7HEGh VSXgQAW6oJJ8tZ4lsCrpaa ogbGVmdDsg wiQolXruJXkmDJqkT038OH RvcDsnPkJpcnRoIERhdGU6 WL27VI86cRHff7F6iCJ0W7 BhZGRpbmct tgoceBK2UOAhJTRtyR13Zc 2dfJckMh6wWCPiXCP6CCLy pBMxS2YhyS8tCqMiUGVkEW YbJ5GwcHWx EJywE753ZWkwJgR5OGLwfr TcP3PlIAGolLutMgP9g1T3 Nr9DQ5Q3XQ42JV27mDKgx2 E6mWI3P3Kp ALXpihpsxtywiMA2VPThTI FpwW58Sq8mzBrqQa8rBWYo QUJ9ODUebJIuZ8XubW8mLl AjMDAwMDAw C1PpfNOqRPsmU651AVnrMd V1OWErcnVnF0YnYSJqvUat MwA9j1O3Zm8MLNi7BX57WE 15tQRok6F4 qSX7G2HpEWXoedsfhouklN P7NDBtAAZryP74Tf6yeAaz Yn2eJGCgGIL9YRBvnFKgU3 HbbD3xUhVa LTFwGEZkJ5AvbSZwCEsjO7 49ALydLlR3EUQygzNgG1Je GXOmiCkcGdC5v9O4Xq4OMJ SeDN84SFF7 iYV0UM34OW00J3OhYvfgjO FibGU+PHRhYmxlIHdpZHRo AUdeLWRoXsWfhKilCK8kQz 9yZGVyLWNv oNyrePZkQxDhb6xwIWUkLU juDB8adZgcJ4HltXR8ONYl s7z4Fd96B43zG9FunSG+PG ErsFM0qZS3 aT5fXgUvYpF1RMaqC933Mu PxjEJmSefft3jqg0gryFi2 ZvF0QKGvafSzlSqmIDE2m3 GkLz86P39j IHdpZHRoPSIxNSUiIHZhbG jrxr6szJ1cCs5+PGNvbCB3 zIV3nN7zKiAxMtM6UTiiS8 49InRvcCIv Obinu4rtg6qfzXk3GaKcKY MyqnIwqYcfRGK1w8HbOn08 N1JidTifr9EsXgu8lw19lI Wnd9R8mRQ8 E9ZjZICbmjleoVTvxNisFQ 6mCDXmsvheXLMouM1zDYBd G6l0IiTuJfC1UHxrJ8Dkwu Q8HWFfjHHi HKpzZAZ3M21fd3S6BVMgFP KjWHI6oUY9vM9iqWyfbaxy bGVmdDsgdmVydGljYWwtYW xuB263FGBn sZhdPGSlgS7bFYZmqTPwtQ gzWG5sBCFhkocpRjhNCCHf IFJPQkJJRTwvdGQ+PHRkIH C0dEyeNHqk IUZzaP0sFDGaH5u6GfQgSb B0NMijB4GfLYJzqontQd67 nQ4xTcPoOaU2HKelB6Ekxc J8ULZnpGAz ZGtePGJ4A88ph4G7IHPdPP HnQSZ8jVI3jL0nfZzkymnb bGVmdDsgdmVydGljYWwtYW zbP514KFBx eDojZwHvXvAlFkP9DZz5K5 GmJrr5PURceWjeHB4dpKWr NUjtNj3alSnfdUyhVD6jMJ BpbjtwYWRk qW8qAUImoGLyiWxjNX7eOL Cwwtypa314LzCkPJO4IQPo oSVaG0WffB8tHsGbDLVhHB YbS6PhxJSp JGaqQ818TTevKtB4ROQeib NxC2MwVDSksBksYoS4q8Y5 Xe0qZoRYFGLlivezkQR+PH OhFLC9qNsp RLpuZEJcpA1hRNAlI7j1Up FhCdE1RIacK3GqAGOvbjul Tw27dM0xAbRiMxP3DGwmK0 TlfhG5WJGa tIXhCRycTEP5W68uf8O6UK PfLLXfPBC7sXZ8gL1dwGlr bjogbGVmdDsgdmVydGljYW nlQHwcX132 RIGnqYqwCp7cjNB8H0LeJk x9OXLdsKpfCZ6ozXVkDYob Tp6njOyfrSmkMY2gCHCspn xwLZUnsY7i OFSkgMHfxIzxSB1wMGZamk ena683KwOoBFR6BHHhsUPj J2VtaP0cPqZgVNYuWOPlF1 RleHQtYWxp I816RZezCgE2BBTmqnVwD5 PxOOHduFnsQwS2h9F0Ai8S lDFlUNHvHY38QO75WL51M5 RyPjwvdGFi bGU+PHRhYmxlIHdpZHRoPS zxBZLzWmFhhBgpEU5rEk7m ZGVyLWNvbGxhcHNlOiBjb2 xsYXBzZTsg YD5oaRbyU8TefTJ3OLFpq3 g4Zp05L18rT8PsjCK+PGNv rHA5aFR7fI5uJmUpHuR3NZ wdM924HfIx qMPuUhocw0klm3ytwHc4Rf SxQWQpmjBudZniOMB2b8Sc Le10U98dPBfhDCWzZOOzWZ UiIHZhbGln kc9uyN5pNj4+RUJgxDO4eK C6uG4gLiAyKpF5LFfmY283 PaYizYYuYrjyH54xE1UvaH A+PHRyPjx0 SZOijIgqNS2eyRQqNGslPp 0yZYS3WaQfSqNaLCxuN5Dg VITmpovlgayaeYO1YDYlGK LfuT49Yo0m hLqfUd2wWKOiCSW9HEBogM DsG6HzzH0fWvXtXWFhWMVg T8TxsCDxMOhoM721TJmmZc B2BEWtxjCq K9BkONKviVkaMsT0a2U4Xp 0TlGafwUBxAB9fByUaGDh8 S9OnUnc3DGVblOfqDM5lyF RsVNjjKx7y jEgulHtiFO3lEONbfrzzn8 04UmRxv4mgVGAjgWAdIWdy SHE8U80en9C5ODNuFNXsYW V2vCS5nN7x bGlnbjogbGVmdDsgdmVydG fcQFuvXQarN763ABZrkNsf BtGDYva6U7AmKxf5HWHgyB tqDG9oeWRt AOtuIu6qbNbgqAgsCO9qEO Sefztxa120LmEpq7cgHTMd oOFmZHqjZGM8T42nd4O3RJ MwMDAwMDA7 cFT9cP0zjWqwwcsjzGNaeR jmyeNlcIciPJryUInhU992 JEKljNvxPn0PAod0A5RdYv a8KEFkzZhz RY6csMHzOYkaAo1inVlqyB deLT6aQDPvsnbnr341ScIh q2ejONExiMLkUPwoJAM4S5 5wx3T5YYLk VVEaNGA3kUB6nI4zrVhnxh ogbGVmdDsgdmVydGljYWwt FKdtF782KOIwnLvrIvKfcN VyOjwvdGQ+ XS35hs67R8OxWernEil7PG LeCTD1jEY3iK0vONFiYJhn q7B8pOX7Z9HersSkxm6ox6 xsYXBzZTog Y29s (more content not included)... [facility] Coding Summary.on 05-17-2022 Coding Summary. CD:[id number]:[id number] Gh 0bWw+PGhlYWQ+ZP4QSCFkX 17tnLNtfL0FJ0tWTU0VYVO UXONOTT6EFH5ydGC9RDziZ 2VybiAv JhkyeEXaHI38ZRl2FWR5tE maYGgieJ4mnNHfL8l0HbAf UR37rL04EKskTZAyUvV3Mn ZpbjsgbWFy P0ikQfSbdPYmZut+PHRhYm xlIHdpZHRoPScxMDAlJyBz hMmmGZ1tWd7wAGBjQARopC xhcHNlOiBj p4eiWWDiUYepBJ3sqNchW3 CdeKN0PYJpr8s2Wk79tDL+ HGVvPXR2iQbpZVnbp613Ao Oho5kfIZU5 uLVqWIoeFFC8Q00ey3R6LB IjSOIlBJS9nTP3nF0icBba cdeoD4IucAUqJyW0IKE6vC ZpaA7muIdo agteqJ2eNqx+P77HRO7ILC QAHI9XShu7P7UhSftmxEL+ HS20RDRuXN68aLQwbQJmo2 ethKj3KfLq MIHyARZ8hRnbLVbwi2BeWT SgT65aqFXfs6V9TTChpDok eWFqWsDfcKP7mV0qNOtqhx rxv2idnjah Jmgvh3ioyi96eU93W23hDK exSCSpMLT7ZYLnNXDibVnw gu7vsE4sQp8+JHbkm7jgw2 azcRf9PhJy CKMopzJvdNptUAO4c3MlPd 07M7UebLkgc8IkDdm7ss73 dUVxf5Q6zCC0BWgqOWQmmT 9nUQbaGmC5 HMFlLdHmuI65kNQiHXrbHw 1zwFykjYaeVU0gBGAqsykv PLSwqZ9zBCPgsOGdxMprRL 4wNTBpbjtm r337UuThJLP3ASPmsYRqQ6 DdbF6rUiUeQHMrEVXyT1Yv bQGjVVfyT395XFhvXeM2AZ BierZlX4Xz NZUwyXevWqU4j7K2Cy2Eq5 OevdvpMKP3ZKhcUDJdMdTq JfEyZrT8S1VlDak5HQUkgK qpUY3oD3Cr LREtaqqxyfmbsGB5WHFfNP AkxC04tZYyETjeRr1ow1P3 h281NOGjWTMxoY74Ry1nhD ogMTBwdCBU gR4itxiaa5sajjreFkMuKK IdXKd1KQt8HNPbmVcvYzJz YWP3QyC1PSP7oQOseX7doN ecqjohqW5k Oyc+Y32czK4mLCA3JYY5zy lpAHNfebOlPT27GH55F8Fz PjwvdGFibGU+PGRpdiBzdH jpWJ0iPrTg r0fva4RsFIhmR1NcOYUpMK oxBiy7YFZgBMJ7hBX1xG7s OJBwYYcmo8T2xLM4K4Ounu Mgex4cn1aq WYOfLLwpQ25ooXRwi9L4BC UbgSD9FLAtwDwvSwUxiT65 Oyc+UBSuyLtfu0GvRwsjp1 nlx6ubqCr2 BdPzEPMrrsQvjGagRUL8b3 VhOe24K56jWXtrODXeAWYw VYLxRIRtvMvvnu7shA2pAo 8+PGNvbCB3 xYO2dB1jIYJkQfO2FMxzB0 95KaBpwGOyVgwws6xto7ck yYs2UoPiOPBwljTucQcmMH V8b5QaUp14 O38kWJosWHAsERVmGSFlKA CrvMteys3avY5sFv2+PC9j r5llns32sR51aXS+PHRkIH Q6fEaxPWgv ZRChxI3jFQvzGwJ7QMKnTb AivC91tZCwDFszAy1wpRxy dQehST2pHSAmqwlvl271Ek Eor8mdNPAa lFLwUUxhZUJ2Z87pw2A6PE MeAMLiDOO9uBL0wY1yxObd bjogbGVmdDsgdmVydGljYW rfFUphK904 IHRvcDsnPlBhdGllbnQgTm IyPOx4X9DgWdr3PQByfWos IT5llUOtISgmWl4eeVgdjX tbET9lUQPh ymnyy071CtCrf5rfFOAkmH WdMLspJSY4H84rc1C9MSIc TNTeCVN7fIE1oL3hkWdlnc ogbGVmdDsg dmQhcLqrSRsaCOmoY634EA RvcDsnPkJpcnRoIERhdGU6 YA28CJ71cLXpp7M3dTO4B2 BhZGRpbmct msdvaXW2SYQwQLJefG72Ri 6wvGbqFz2aSAQmEIL7KCLv gLSxT0VprI3tRwHsTYPsET ZnR6PxyWOz INemK496CDsuIpZ6KRFdbk JhT5VxHGJinSobVjP7c5S1 Iw6ND3A2LM44WY34xFMkc4 E8aAO0R7Xo STSdrsqeizeupJE6TLTgQJ VyjT15Br5kdWpbQg8zCYDg PFW3GVTfiYMiC6TiiF9kJw AjMDAwMDAw U9WnjHRuVZmkM642WYohAe G9HXHbnnWlK9XmNRTcyEpa ZnW5y3Z3Oh2QIBg2CU52UB 00fDQxc9M6 oAS4T1WeSMZyutnjqnqhiL I1YQPdQQZttA85Bb0jlPmr Bo0qTCJlKHE9OMZhrHMwU2 DtxJ0eFjPs QEJnEUKiE4ZlbPNoQZnaD7 28GDqvUlS4IMSrafJiQ6Py GDZvsJbzGzU4o3U9Dr8FDV RvWF41LYF1 oJV6RM95AX36S5GbCpbofN FibGU+PHRhYmxlIHdpZHRo BUsbAACoCiXydTigRX9xPz 9yZGVyLWNv zTzdcLUjKrIod5rzKXOfVU ovFE5kcJpkS2OtfGU2DLVu y3u8Xh39B78wQ7XabIJ+PG MutNF8aBZ0 bV3kMlLuMdS2OFxnY469Gc GwmYEsPuwzw9gfr5xmqAx4 RiM3EFRlzlSkoBecUHF2d0 LuQx91Z44m IHdpZHRoPSIxNSUiIHZhbG gyxo0llP4mNf6+PGNvbCB3 kFE6qR6iQoYxCmX9ZHyoB8 49InRvcCIv Swfgg5zxj9tssMd7MdQsJV AistUuoHbvWJJ7z1RmRn30 V3DvpWqsk2YyDej5mw29qM Kik6W2rIK7 P0CsXGDcqvxhmDFpvLhnHK 5tGLTicxzbPOVkgW7pSWZl K9t6BwQqAqH4MCaoO7Hpnj N0DGVjlAJc JLuqYDT0Y42sw4Y3PRCeKO JdUFK0jVN4fP7ilJdbzvrt bGVmdDsgdmVydGljYWwtYW vrY818TMWf jJzmDLTplE4nGAGsiJXdkN hcUC4yAUSxrelxWidBDNFx IFJPQkJJRTwvdGQ+PHRkIH V9rGgxSGoy WMXlsI9tMBVoB6m1XqIlPu K2RAvcS7IeNSJxieggNw29 gQ3lAqPeDtV2EWfpH0Euaw Q3SOYqoHWc MDneQZG8G71mb5Y3TTEqGN MtTNS5uBZ4qO1ieKkxplot bGVmdDsgdmVydGljYWwtYW tvZ361AZBj iBjpEdXaIbFwEkV7YJe4W2 CdPmm0YQUewBlpTI8auYXu YJcpBs8bdMiexJjhOR2oXI BpbjtwYWRk jO0dUIXwwYAuqKxqDX6jOB Jzhvjtf013EqZdUZS1EPWj hKOeO3JbhH0iWfMtRQNfFK QzL4KxiMAe FLvpX195YAxnYsD1VFLtge AaS9UfXGUhyKpqGwX6a8Y0 Sv5kVtSZCSJgghlqiHP+PH QcXSY6eSof XTwdEJUheF4yILRgI3r2Wy QhFeY7XKpsU9PaPKQwbrhy Gb81tR4eTuClWnI4YPpaE4 BcueA9JSQb kZSuYUhwKXE4T36vs1O0CP WiWNIiJHL9oAZ0tW0ioOco bjogbGVmdDsgdmVydGljYW qjHLjvQ625 SYIpaCoxIz0ahKC5I9XpFx q2HFPjcJgpCY9mpNEbGKzw Du2zkOyxuXqmTF1pPJKapz fkSVBzwO7j CCStlPQzlLqlXK1rHQEqch yoy436XqSjXNL7IHNrhOUv H6LnwO3zFrLqEMPiWNMjL3 RleHQtYWxp G347OApkIrI4BDHrpuZtA6 JvMYLulFiyBiG4m1P3Al1E gKOzGENtIO05UO14DE45S7 RyPjwvdGFi bGU+PHRhYmxlIHdpZHRoPS hyXEFaFoQipVmzSA8rUp1i ZGVyLWNvbGxhcHNlOiBjb2 xsYXBzZTsg EJ2aiLifQ1VvzDH9IPZgt5 t9Ve56V43hW8OdyMR+PGNv bKA2wOZ5gS6gMaHzDuM5DQ jiF784KnPp nIYxSpgdw3jaz3gaoHd9Hq LfTOXslfCmeEsfJGU8p8Fo Yq59V13uLVqeTRBjNMOnPL UiIHZhbGln gn4yxR6nIj5+DQVktPL0nD J3kW9mSpOkPwZ1KUznG498 CkYvrFSeZwyeS52iO8FurX A+PHRyPjx0 WMLbtByjOM4xtTEzCXggTl 6zAIB8CgBcYdRoCPidF4Cz PHWofmajdytadIP9IGEeBQ NoeT77Cz3z fDwqCz6jPXPmGED3YLBaoX OhB4OxqO4tJeQrCTJuFYDz V1DeiFCeOQukQ924XFihPt E2EOOxaeXp E9OkWSZvhQroLqB0i7T2Sj 9HmBaqgITtYF5hLcKnMWz1 T7XkCzx1CHPkdNmvSK1znN HeOBjtCu7y fRtsaDniAH1sHBHlpttba8 75BoSva1rbIUQfgIXxVSog FAJ9G20kn0Q9GWLmHCHeYD A7hME1cV0x bGlnbjogbGVmdDsgdmVydG qeCFaaJIerQ533AQQjtXxs JuZUXtw4X5WvFwh1TVTkmO saXX1vrIEw JNenQj1yiXvgaNceIF0uAP Nhiqiel612SrNfe6zhNOVe wKQpMNriLWZ6J23bm7V0MA MwMDAwMDA7 cUZ8aF1mfXpnoepyiTWqwK vdekMpvKtzAImdYFmpQ328 RTEwjGisEt1BPsa4B4IkUe x5IBZadDgh WH5wjDHlDKqmSm0jvEmauK ssTC2wWKKifujst351SmUb h3rpKDRhhZIuWIueVDA5V9 5vl6H9BZEa KJMwMTN7cWA0qO9mzUptoy ogbGVmdDsgdmVydGljYWwt MJbyV424MVFwhPtoIuRmoR VyOjwvdGQ+ TQ33zt20Q0GuBexbOgg1AA JnHSB7gTU0dN1kAANoKOfv c7G6mFL3F1JbicDbxo9gh0 xsYXBzZTog Y29s (more content not included)... [facility] Consent for Treatmenton 04-27 Consent for Treatment [id number]#1.0 0CD:127 [facility] Multi-Wound Charton 05-17-20 Multi-Wound Chart [id number] 20 [id number]#1. 00CD:127 [facility] Nursing Note - Woundon 05-17 Nursing Note - Wound [id number]#1. 00CD:127 [facility] Progress Note - Woundon 04-27 Progress Note - Wound [id number]#2. 00CD:127 [facility] Nursing Assessment - Woundon 05-15-2022 Nursing Assessment - Wound [id number]#2. 00CD:127 [facility] Consent for Treatmenton 04-26 Consent for Treatment [id number]#1.0 0CD:127 [facility] Correspondence - Woundon Correspondence - Wound [id number]#1. 00CD:127 [facility] Multi-Wound Charton 05-14-20 Multi-Wound Chart [id number]#1. 00CD:127 [facility] Nursing Assessment - Woundon 05-14-2022 Nursing Assessment - Wound [id number]#1. 00CD:127 [facility] Nursing Note - Woundon 05-14 Nursing Note - Wound [id number]#1. 00CD:127 [facility] Nursing Note - Wound [id number]#2. 00CD:127 Normal [facility] Physician Orderon 05-14-2022 Physician Order [id number] 20 [id number]#1. 00CD:127 Normal [facility] Procedure - Woundon 05-14-20 Procedure - Wound [id number] 20 [id number]#1. 00CD:127 Normal [facility] Progress Note - Woundon 04-26 Progress Note - Wound [id number]#1. 00CD:127 Normal [facility] Coding Summary.on 05-11-2022 Coding Summary. CD:[id number]:[id number] Gh 0bWw+PGhlYWQ+MY0MPYHwL 28irRLovP0SZ2aGGE0RWND EIYKGLI1ACH7eoGC3CFrhY 2VybiAv GfqmpBOfWG68SIw8WQN0pS pxFJtzdU8kbIIrW4z9BwYd XV71kG89WMtqGULwOrG6Js ZpbjsgbWFy K0vhEtGbhOGqWzv+PHRhYm xlIHdpZHRoPScxMDAlJyBz mFgfBV0xBc8vUWEnAOJfmC xhcHNlOiBj e9ibTUGbUWznZT9hvLvgD6 NfxDB2KGFla6e6Tx99dNL+ NCLvDRL1fFlvFSjtq489To Mkg0sgIJC6 uTJhUBbaEIA9D69uz8L7EJ QcJQWeNQD2rKO2iB3sjAnc asydZ1LesUXvAkV0XRL2aC HifQ1jmCpa gddqdG5yUry+Q22HUG3RMS QWJM8RTqe5S1AdNlkndYU+ SO94VEUcVI67ySTolPMga5 jgkTy9DoNi AFIkQIB6uGfaASpso8ExWT ZmT48doIJsn1X7UTXkhIpd oWBpHgFtbBG5qP8pIDxhxz bec9eopxsl Djdnq5bfvz80tY28K76nAO ldXMQrQWC1RBXcWKBbzVih zm7vrI0eZn9+ZEowa4qhp3 gamWu1GeZs XSUoqbHjeLlwKEZ0p1OhGh 20A8WikBsxo0SmPhi5ze90 pTHjx5D5sRQ5PAvbHGAnxK 9nYIziTlE9 CRIdJvKbbI96lQUtDHdhBj 0trVpyxPooHQ8bVKItgmym UZRbtI6bIPNqqCArkGjwDA 4wNTBpbjtm k256EeXuJIH7YTGuwVIjL1 DfqR4yBdPqJIXtHYFiB1Uz eKVcRMeaL975VCdhPuD3TR HvlsNzU3La UJXbcWhuFuS2z4G9Hd3Zv5 TxqsdePXV1UJxpROGvFgB6 YsUwFyR1M3DvGyk2VVGdmV xgWX8iR0Am LVSazoxmqcdsqEF7CSTuBA RetO61xOPwGUhkIs3pi0S7 v776DIKlOUTeaE65Mj1lbC ogMTBwdCBU lL7nrsyfx0qsxsqwLzLhOQ NzAXb5RWz8NHHjvZjfArXf TEJ8LsH9UBI0zNYeqJ2egR omesgijB1d Oyc+F13oqQ2gFGW4DRB1ht anCOEdadDxMP49CZ10H7Tp PjwvdGFibGU+PGRpdiBzdH toUO6gNlWr e2cgq6QpGXudW4VlZVPmFO miRvz7IZMgOAB8nLY5dC8b QIUaKZove6T6nNK4F9Vatn Imwy7ih9gc IPDeXOyfE15xtPBux9O6YW SacLU4IOYizLlbWmHiwM31 Oyc+AMYepApfk2UmMadlp5 qgt6ubvOl5 QhZaNGUzuyCnqBsyXAE2c6 IkIs17P18tEHxwPVEqLJXz CEJfHMZjySttxg6qrT9yFl 8+PGNvbCB3 hMC5rV8yYZCnJxI7GOisG3 86KaZxaLCjDkrkw7fxe3kp hZd3GpBpYGUskpFztDkkFZ H0g3BoVs71 G65dSJgpYKWzCJLcBNCvVF NwsIvjkx8oxR6gXw2+PC9j q2yqyb68hI97uYS+PHRkIH P9nKvkBOmd EVBlkF4fMZftWsF6MMUmLl XvyD00zBJxNAslMh1arGtj vEhtQE7cMMLzuxiat211Kj Bms2rjATTd mSYdVIruNKC9U64qj8E9ZY GrEIWzNZJ5dLN6kF2hlQjy bjogbGVmdDsgdmVydGljYW oaDXvnB409 IHRvcDsnPlBhdGllbnQgTm UiKZv0C4XkYya9MAXjrSwo IL5plQZiRHtcSz2ovTpdjU dlQF0pYIUm ewjlr395CcLig5cxNHMpnF IuKNtnZUU2G53cl4Z4KIEe RNVcRET1eRE1kZ6nyIkeuq ogbGVmdDsg wmExeGqgIXwaERhjK028UP RvcDsnPkJpcnRoIERhdGU6 WW83OK85cQZox2Z8pAW8C6 BhZGRpbmct gfvdtST8IUIdTEDdbN03Fn 8ynYfhIf9cJGLzQQX0FFEp bBFoM6YvlN4vPsIyORItOG ZlW4FkvPQl LAutH589FQulHoA9YXBvyu IrZ3DrPPXteEkyIqH2v6P0 He0CI5D3WQ73EU17tRIpu1 U9tDV5P0Pf YTObvihilybppKC0KNRqFQ GacC74Yj8muBdvHg6mXUCy SJD5UVMqcKCcP9TxaX5fVf AjMDAwMDAw H7CwiDWgSTfaD115MWmkUb X8UHNdaiHqB3XxFFVxpTkk PwX4q3D6Kg3MFDq1FA78JH 07vNQpe9K8 mIE8G8LyJUAjrtfayyirhN P0YHGyVXRrqX93Wr0peRky Xb9aQULuGVB3NBWgmUOxO7 KcyP1gDhKn TGNmSIAvY8PphASsRHbyI1 03JNsgAvR6CGYjzxEtT0If SDRocBddXlS5f0O9Lp6SLS RkLX07TWL6 uGS5DL91YM90A5FoUzgvuX FibGU+PHRhYmxlIHdpZHRo FSmkNBSeChAouDmrZO0cSe 9yZGVyLWNv xExcyQSwKnGpy3roYCBpTY erUJ9qyBcbS7HyyLL5ZZTs w5f0Sz73D24zV6GvkXQ+PG XcgNR4tBG8 wO6aYlJxGfU6IFyeP694Xb OrdOFqNjxta1ogq2huuNz5 QbA3LGDizjNelQneMQC8u2 AqRw09N95j IHdpZHRoPSIxNSUiIHZhbG mmti5elA5kSs6+PGNvbCB3 aPV2bK0uMeQnKyJ4HJbuQ2 49InRvcCIv Grhwr9sgu0nrwIy9AoUkKC OeykZilQvpOMB1o8OaLr18 I6HyxNjkv4HxApr2uo00xI Rez1J7gCU1 J3UjWLTviuzvoPXrnWjcDW 6lWYOmpfrlIPRgtY2cVVKa E0b0ZfJxOzQ2OIxqN2Dkbr R2KRMoeBZj LMnnQEU4U32ln8G9IMCzYI VfTNA4kBW2kK3ukUdbfqcb bGVmdDsgdmVydGljYWwtYW dcD558OSIq gVfiKGFtuF0rYWJgqFBepA rfIZ9xLMWhlcnwEcbYMSLc IFJPQkJJRTwvdGQ+PHRkIH E0aVlpDLmv HPXluT6zNACnC1p8NgPmDj H6VFcfP1IqCGLehhttMd84 tA2fMuBrIrS9EUtqH0Qzam W9ZXNscOQy DXrhHXY1W30qm0W9UDWnFK RvWFZ4oXR8cD1luVffldtc bGVmdDsgdmVydGljYWwtYW icC055PDPe pGalJtDnVdGcEeK6DGu9Q8 PsDvh8TCSaiBwdDQ0ukHAw CFoiBv0fsUmtaXkcYJ3eOF BpbjtwYWRk zM5eJGYxkKRjgTiiEJ5zFC Bmluvbx368DnRcNLZ3WUQj yNQmG7KttY0uDrMpUXIePL VkV1QzwCDd HKeqH034XTorMsD7MKIgit BvV2AmQDMleFepCmH3y9O4 Nr6vWvYPWMThxfewhFX+PH PdHUI1mUzd CWomQJWzzR1qSMLlZ2m8Ig KwBrH7JShdU6NhDBFgaayk Wk67xN8kCkErHrG4HUclD1 HiqtR8KQTj iXMlIWixCNZ7S09bu3R8XL MjABPlHXZ5kQM4bZ8tbOhy bjogbGVmdDsgdmVydGljYW arEGgeE466 GDJnaZgfZm8ubWN1W0EtIc q1GJFpgXtpUI4cfTNkJHgx Yw4fnYwndRhgCV7xFYXery tbGYCmmD7s RCHfkCGzaGecKP8fCCWwpg eeh758IvSfQSM7MCRwrYPc J0KwrW1tAbZtSVRfTQJwG3 RleHQtYWxp T862FCfzCfY1KDCkfsNmP9 ExRUWiiHukHtS9q0V7Wf2C rZFxGAXzIK17FS49VZ73D0 RyPjwvdGFi bGU+PHRhYmxlIHdpZHRoPS qyBKRzKxRrtHnzZN5dCz8o ZGVyLWNvbGxhcHNlOiBjb2 xsYXBzZTsg BD7amVboE8IphSE4MVStg6 n0Qf00V55yU5IwrIU+PGNv kYQ0uUP6yQ6gQzZoRtH7KS eaQ023OzIv fKFoSxsnf7nzo6hanNb4Lp DnRSDlapWwnCyoBAI5t7Yx Gq95S24fIBgwOZTzCGBmUP UiIHZhbGln bb0acY7pLa1+FOGqrUL7aQ N7zB8kYsLtZcV4KSpeW538 AiHrrPIwNhyaE51kH0NmjE A+PHRyPjx0 ZLDbkCwgAD1ncKUyFPhiHh 0wLMK7XxViAeMsABozA4Vc MOHbajdyehpnwPJ7BJLgDO JpzK15Vl2b lDvuYa6cVQMxVBY0QIYgfQ EdQ4XmlJ7pWePkAYBqJGIl B3AdvUIrPWtqI409NSrfMv H1PDBdebZg S4NmJIUvaRsvXoR9v0L7Lq 4MdLrqaIJpFK4mCmNjMSr1 D7UsZwo2RZHreFtiPP8oxK UdPOsiIm3n gSldiHwkVR3kGZIokkmtx9 22WsHug7ttFYKcaEObECwu SXH0G59tk6O1KMPzJKFiVZ O8nRE6dU7s bGlnbjogbGVmdDsgdmVydG ykUPycAHvoP606KXXpbGbz FjUKKvj8K3WjDdu8CGNfnK nuNS2abYVr BOnvXv5zaGngdBhhVL4vIH Nlxqnov862UsYqy8gkRFQw zSPmBBxyIFQ3X27lw6N9KO MwMDAwMDA7 lNA6aH2wmBqhvwitmMTtpK citgPueLtiKWlgBGgaO754 TBDsnGpdBk2PQsv0V1SfZo k3ODHoeJtn HH9rzMErHNhlIm1sdZmyjL spHX0cRNProlwkh434BwWh r5nuKITagPWvYYvmSIF4O8 1rg6Y3TFSu HCWsRLP6wDC7cR5xhIxnha ogbGVmdDsgdmVydGljYWwt OZxqN085CQAtdOclYyOtbI VyOjwvdGQ+ OB10tk80B7ZfDkadAra9VX YmSJI3qOT7vU7nGPKuQXsw g4P9kCN0H8PwrhTbpx8mp9 xsYXBzZTog Y29s (more content not included)... [facility] Consent for Procedure/Surger yon 05-07-2022 Consent for Procedure/Surgery [id number]#1.0 0CD:127 [facility] Consent for Treatmenton 04-26 Consent for Treatment [id number]#1.0 0CD:127 [facility] Consent to Photographon 04-26 Consent to Photograph [id number]#1.0 0CD:127 [facility] Correspondence - Woundon Correspondence - Wound [id number]#1.0 0CD:127 [facility] Correspondence - Wound [id number]#1.0 0CD:127 [facility] HIPAA Forms Officeon 022 HIPAA Forms Office [id number]#1.0 0CD:127 Normal [facility] Multi-Wound Charton 05-07-20 Multi-Wound Chart [id number]#1. 00CD:127 Normal [facility] Physician Orderon 05-07-2022 Physician Order [id number]#1. 00CD:127 Normal [facility] Procedure - Woundon 05-07-20 Procedure - Wound [id number]#1. 00CD:127 Normal [facility] Telephone Encounteron 2021 [employer] Authentication Interface Message Text .Patient is calling to check the status of this request. Normal [facility] Telephone Encounteron 2021 [employer] Authentication Interface Message Text Reason for EGS/ Trauma Patient Call A patient call was received from family member/significant other tarik on May 03, 2022 Reason for call: other: issues w/getting meds Appointment made: no Was surgery performed? Yes, to By Meka Discussed with resident Mani Elaine [facility] Addendum Noteon 05-02-2022 [employer] Authentication Interface Message Text Addended by: MANI BLUE on: 05/02/2022 02:50 PM Modules accepted: Orders Normal [facility] Telephone Encounteron 2021 [employer]hentication Interface Message Text Situation: Pt's calling in. Pt gave verbal permission to speak with her on his behalf. [facility] pharmacy has not received Oxycodone Rx from today. Background: It is listed as written by Heath Peterson PA-C, but when I secure-chatted him, he replied: The medical staff office somehow never registered me to escribe so I cannot help with this. However I informed our surgery chief earlier this afternoon and he put in the scripts after I tried. I see his encounter for the patient. I will add him to this conversation- Assessment: - Recommendation: Both , Antonette Hernandes MD and Mani Blue MD were added by Heath Peterson PA-C and all viewed the group secure chat at approx 4:24 pm. Awaiting response from either MD provider in the chat. requesting a call back when pain med has been order and pharmacy in [place] also aware to notify the pt/ when order is received. Normal [facility] [employer] Interface Message Text Was notified that the meds that were ordered for this patient while he was in hospital were blocked by [facility]-to-beds to get to his pharmacy. Had to reorder his medications. Mani Blue MD Surgery Resident [facility] [phone] ACS Consults [phone] ACS Floor Patients Normal [facility] [employer]hentication Interface Message Text Discharge 04/30/2022, Pt called regarding patient medication was sent to a [facility], they live in [facility]. I spoke to VIOLA Ramirez gave him [facility] pharmacy phone number [phone], closer to the patient home. I will follow up with the once the script has been completed. Normal [facility] Telephone Encounteron 2021 [employer] Authentication Interface Message Text Patient is calling to check the status of this request. Patient is in need of this medication at this time. Normal [facility] [employer] Interface Message Text What is the need: Pt triaged for concern of wound vac malfunction. Situation: As noted. Background: Wound vac in place s/p RLE Right DEBRIDEMENT, WOUND 04/28/22. Pt not receiving home care services at this time. Assessment: See triage. No bleeding, rash, fever, chills. Leaking clear fluid. No odor. Recommendation: Pt/spouse inquiring about getting site checked. Please reach out to pt/spouse: Phone numbers Advised to call back to report any new/worsening sx. Reason for Disposition [1] Caller has URGENT question AND [2] triager unable to answer question Answer Assessment - Initial Assessment Questions 1. SYMPTOM or QUESTION: What is your reason for calling today? or How can I best help you? (e.g., bleeding, redness, drainage, pain) States d/c with wound vac and noted that connection from tubing and sponge was lost. They came apart a little bit ago. States wound is already leaking. Leaking clear fluid. No odor. 2. WOUND APPEARANCE: What does the wound look like? Is there new or spreading redness? If YES, ask: What is the size of the red area? (Inches, centimeters, or compare to size of a coin). Has the drainage changed or increased? Is there a new odor? Wound is covered and sponge intact. 3. ONSET: When did the problem begin? As noted. 4. LOCATION: Where is the wound(s)? (e.g., , ankle, lower left leg) RLE - calf posterior 5. BLEEDING: Are you having a problem with bleeding? (e.g., amount, timing) Denies 6. PAIN: Is there any pain? If Yes, ask: How bad is the pain? (Scale 1-10; or mild, moderate, severe) Denies 7. FEVER: Do you have a fever? If Yes, ask: What is your temperature, how was it measured, and when did it start? Denies 8. OTHER SYMPTOMS: Do you have any other symptoms? (e.g., chills, rash elsewhere, new weakness) Denies 9. TREATMENT: How have you been treating the wound? 10. NEGATIVE PRESSURE WOUND THERAPY (NPWT): What concerns do you have about your negative pressure dressing? When was your last dressing change? Are you getting a device alert or alarm? What have you done to try to fix the problem? Disconnection 11. : Is there any chance you are ? When was your last menstrual period? NA Protocols used: Wound - Chronic and Negative Pressure Wound [id number] Normal [facility] [employer] Interface Message Text Patient is calling to check the status of this request. Normal [facility] [employer] [facility] Message Text Pharmacy did not receive the E-script that was sent for this medication. Please re-send another prescription for the patient. Thank you. Patient did not get medications on discharge and he lives too far to come back [facility]. Please send to his local pharmacy. Requested Prescriptions Pending Prescriptions Disp Refills acetaminophen (TYLENOL) 325 mg tablet 30 Tablet 0 Sig: Take 2 Tablets by mouth every 6 (six) hours. oxyCODONE 5 MG immediate release tablet 9 Tablet 0 Sig: Take 1 Tablet by mouth every 4 hours as needed for up to 3 days. No PCP on file No PCP on file Normal [facility] AEROBIC WOUND CULTUREon Bacteria identified Cx Nom (Wound) Positive Abnormal [facility] Bacteria identified Cx Nom (Wound) 1+ Streptococcus pyogenes - (Group A) [facility] Interpretation and review of laboratory results Abnormal [facility] Microscopic observation Gram stain Nom (Unsp spec) 2+ Polymorphonuclear Leukocytes [facility] Microscopic observation Gram stain Nom (Unsp spec) No Squamous Epithelial Cells seen [facility] Microscopic observation Gram stain Nom (Unsp spec) No organisms seen [facility] AEROBIC WOUND CULTUREOrdered By: Paige Benz on 04-30-2022 Bacteria identified Cx Nom (Wound) Positive Abnormal [facility] Bacteria identified Cx Nom (Wound) 1+ Streptococcus pyogenes - (Group A) [facility] Interpretation and review of laboratory results Abnormal [facility] Microscopic observation Gram stain Nom (Unsp spec) 1+ Polymorphonuclear Leukocytes [facility] Microscopic observation Gram stain Nom (Unsp spec) No Squamous Epithelial Cells seen [facility] Microscopic observation Gram stain Nom (Unsp spec) No organisms seen [facility] BASIC METABOLIC PANELon Anion gap [Moles/Vol] 13 mmol/L Normal 10-20 [facility] Comment on above: Performed By: #### Chata H8 MG PHOS #### [facility] [address] [place] [address], Calcium [Mass/Vol] 8.3 mg/dL Low 8.4-10.4 [facility] Comment on above: Performed By: #### Chata H8 MG PHOS #### [facility] [address] [place] [address], Chloride [Moles/Vol] 105 mmol/L Normal 97-111 [facility] Comment on above: Performed By: #### C H8 MG, PHOS #### [facility] [address] [place] [address], CO2 [Moles/Vol] 26 mmol/L Normal 21-30 [facility] Comment on above: Performed By: #### C H8, MG, PHOS #### [facility] [address] [place] [address], Creatinine [Mass/Vol] 0.99 mg/dL Normal 0.80-1.30 [facility] Comment on above: Performed By: #### MG Archer PHOS #### [facility] [address] [place] [address], ESTIMATED GFR (CKD-EPI) 103 mL/min/1.73sqm Normal >=60 [facility] Comment on above: Result Comment: 2020 CKD EPI Equation using Creatinine without Race Comment: Estimated glomerular filtration rate (eGFR) is calculated without a race coefficient. Values should be interpreted in the context of the patient's full clinical presentation. Reference: 1. Ghassan C, Josselyn M, Freddy DC, et al.. A Unifying Approach for GFR Estimation: Recommendations of the NKF-ASN Task Force on Reassessing the Inclusion of Race in Diagnosing Kidney Disease. [place] Journal of Kidney Diseases 2021;79(2):268-88.e1. 2. N Engl J Med 2020 Vol. 385 Issue 19 Pages 3972-4864 Performed By: #### MG Archer PHOS #### [facility] [address] [place] [address], Glucose [Mass/Vol] 75 mg/dL Normal 68-110 [facility] Comment on above: Performed By: #### MG Archer PHOS #### [facility] LABORATORY [address] [place] [address], Potassium [Moles/Vol] 4.4 mmol/L Normal 3.3-5.3 [facility] Comment on above: Performed By: #### MG Archer PHOS #### [facility] [address] [place] [address], Sodium [Moles/Vol] 140 mmol/L Normal 135-148 [facility] Comment on above: Performed By: #### MG Archer PHOS #### [facility] [address] [place] [address], Urea nitrogen [Mass/Vol] 12 mg/dL Normal 8-22 [facility] Comment on above: Performed By: #### MG Archer PHOS #### [facility] [address] [place], [address] Basic metabolic 2000 panelon 04-30-2022 Anion gap [Moles/Vol] 13 mmol/L 10 - 20 [facility] Calcium [Mass/Vol] 8.3 mg/dL Low 8.4 - 10. 4 mg/dL [facility] Chloride [Moles/Vol] 105 mmol/L 97 - 111 mmol/L [facility] CO2 [Moles/Vol] 26 mmol/L 21 - 30 mmol/L [facility] Creatinine [Mass/Vol] 0.99 mg/dL 0.80 - 1.30 mg/dL [facility] GFR/1.73 sq M.predicted MDRD (S/P/Bld) [Vol rate/Area] 103 mL/min/{1.73_m2} - PINF [facility] Comment on above: 2020 CKD EPI Equatio n using Creatinine without Race Comment: Estimated glomerular filtration rate (eGFR) is calculated without a race coefficient. Values should be interpreted in the context of the patient's full clinical presentation. Reference: 1. Ghassan C, Josselyn M, Freddy DC, et al.. A Unifying Approach for GFR Estimation: Recommendations of the NKF-ASN Task Force on Reassessing the Inclusion of Race in Diagnosing Kidney Disease. Indonesian Journal of Kidney Diseases 202;79(2):268-88.e1. 2. N Engl J Med 2020 Vol. 385 Issue 19 Pages 0253-4759 Glucose [Mass/Vol] 75 mg/dL 68 - 110 mg/dL [facility] Interpretation and review of laboratory results Abnormal [facility] Potassium [Moles/Vol] 4.4 mmol/L 3.3 - 5.3 mmol/L [facility] Sodium [Moles/Vol] 140 mmol/L 135 - 148 mmol/L [facility] Urea nitrogen [Mass/Vol] 12 mg/dL 8 - 22 mg/dL [facility] CBC panel Auto (Bld)on 04-30 Erythrocyte distribution width (RBC) [Ratio] 13.1 % 11.5 - 14.5 % [facility] Hematocrit (Bld) [Volume fraction] 30.7 % Low 41.0 - 53.0 % [facility] Hemoglobin (Bld) [Mass/Vol] 10.2 g/dL Low 13.9 - 16.3 g/dL [facility] Interpretation and review of laboratory results Abnormal [facility] MCH (RBC) [Entitic mass] 32.3 pg 26.0 - 34.0 pg [facility] MCHC (RBC) [Mass/Vol] 33.2 g/dL 32.0 - 35.9 g/dL [facility] MCV (RBC) [Entitic vol] 97 fL 80 - 100 fL [facility] Platelet mean volume (Bld) [Entitic vol] 8.3 fL 7.5 - 11.2 fL [facility] Platelets (Bld) [#/Vol] 480 10*3/uL High 150 - 400 K/uL [facility] RBC (Bld) [#/Vol] 3.16 10*6/uL Low [facility] WBC (Bld) [#/Vol] 11.4 10*3/uL 4.5 - 11.5 K/uL [facility] COMPLETE BLOOD COUNTon 04-30 Erythrocyte distribution width (RBC) [Ratio] 13.1 % Normal 11.5-14.5 [facility] Comment on above: Performed By: #### C BC #### S PATHOLOGY LABORATORY [address] [place] [address], Hematocrit (Bld) [Volume fraction] 30.7 % Low 41.0-53.0 [facility] Comment on above: Performed By: #### C BC #### S PATHOLOGY LABORATORY [address] [place] [address], Hemoglobin (Bld) [Mass/Vol] 10.2 g/dL Low 13.9-16.3 [facility] Comment on above: Performed By: #### C BC #### S PATHOLOGY LABORATORY [address] [place] [address], MCH (RBC) [Entitic mass] 32.3 pg Normal 26.0-34.0 [facility] Comment on above: Performed By: #### C BC #### S PATHOLOGY LABORATORY [address] [place] [address], MCHC (RBC) [Mass/Vol] 33.2 g/dL Normal 32.0-35.9 [facility] Comment on above: Performed By: #### C BC #### S PATHOLOGY LABORATORY [address] [place], [place], MCV (RBC) [Entitic vol] 97 fL Normal 80-100 [facility] Comment on above: Performed By: #### C BC #### S PATHOLOGY LABORATORY [address] [place] [address], Platelet mean volume (Bld) [Entitic vol] 8.3 fL Normal 7.5-11.2 [facility] Comment on above: Performed By: #### C BC #### [facility] [address] [place] [address], Platelets (Bld) [#/Vol] 480 10*3/uL High 150-400 [facility] Comment on above: Performed By: #### C BC #### [facility] [address] [place] [address], RBC (Bld) [#/Vol] 3.16 10*6/uL Low 4.50-5.90 [facility] Comment on above: Performed By: #### C BC #### [facility] [address] [place] [address], WBC (Bld) [#/Vol] 11.4 10*3/uL Normal 4.5-11.5 [facility] Comment on above: Performed By: #### C BC #### [facility] [address] [place] [address], Care Plan Noteon 04-30-2022 [employer] Authentication Interface Message Text Problem: Safety: Goal: Patient will remain free of falls during hospital stay 04/30/2022 1605 by Ely Mendoza RN Outcome: Completed 04/30/2022 07 by Ely Mendoza RN Outcome: Progressing Note: Call light and bed alarm on throughout shift for safety Goal: Free from injury during hospitalization 04/30/2022 1605 by Ely Mendoza RN Outcome: Completed 04/30/2022 07 by Ely Mendoza RN Outcome: Progressing Problem: Acute Pain: Goal: Ability to identify pain intensity on a pain scale and rate it consistently will be achieved and maintained 04/30/2022 1605 by Ely Mendoza RN Outcome: Completed 04/30/2022 07 by Ely Mendoza RN Outcome: Progressing Goal: Understanding of proper administration and use of medicines will be achieved 04/30/2022 160 by Ely Mendoza RN Outcome: Completed 04/30/2022740 by Ely Mendoza RN Outcome: Progressing Goal: Acceptable level of pain which allows the patient to achieve functional outcome goals 04/30/2022 160 by Ely Mendoza RN Outcome: Completed 04/30/2022 07 by Ely Mendoza RN Outcome: Progressing Problem: Discharge Planning: Goal: Discharge needs of the adult patient will be met 04/30/2022 160 by Ely Mendoza RN Outcome: Completed 04/30/2022740 by Ely Mendoza RN Outcome: Progressing Problem: Impaired Skin Integrity: Goal: Acheive wound healing without signs and symptoms of infection 04/30/2022 160 by Ely Mendoza RN Outcome: Completed 04/30/2022740 by Ely Mendoza RN Outcome: Progressing Note: Pt. To show no signs and symptoms of infection throughout shift Problem: Routine Care: Goal: Patient care will be managed and maintained throughout hospital stay per unit specific routine care procedure 04/30/2022 160 by Ely Mendoza RN Outcome: Completed 04/30/2022740 by Ely Mendoza RN Outcome: Progressing Note: Purposeful hourly rounding and assessment throughout shift RN given and reviewed discharge paper work with pt. And spouse at bedside. RN educated both pt. And spouse on medication administration, as well as wound care instruction and provided two prevena wound vac cannister's to last to the follow up appointment in [facility] on the 08 of May. ordered medication to be filled at [facility] closest to pt. Home. RN removed IV at bedside, and gathered all pt. Belongings prior to discharge. CCP taken pt. Safely downstairs via wheelchair to spouse, and discharged home. Normal [facility] [facility] [employer] Authentication Interface Message Text Problem: Safety: Goal: Patient will remain free of falls during hospital stay Outcome: Progressing Note: Call light and bed alarm on throughout shift for safety Goal: Free from injury during hospitalization Outcome: Progressing Problem: Acute Pain: Goal: Ability to identify pain intensity on a pain scale and rate it consistently will be achieved and maintained Outcome: Progressing Goal: Understanding of proper administration and use of medicines will be achieved Outcome: Progressing Goal: Acceptable level of pain which allows the patient to achieve functional outcome goals Outcome: Progressing Problem: Discharge Planning: Goal: Discharge needs of the adult patient will be met Outcome: Progressing Problem: Impaired Skin Integrity: Goal: Acheive wound healing without signs and symptoms of infection Outcome: Progressing Note: Pt. To show no signs and symptoms of infection throughout shift Problem: Routine Care: Goal: Patient care will be managed and maintained throughout hospital stay per unit specific routine care procedure Outcome: Progressing Note: Purposeful hourly rounding and assessment throughout shift Normal [facility] [employer] [facility] MAGNESIUMon 04-30-2022 Magnesium [Mass/Vol] 2.4 mg/dL 1.6 - 2.8 mg/dL [facility] Magnesium [Mass/Vol] 2.4 mg/dL Normal 1.6-2.8 [facility] [employer] [facility] Comment on above: Performed By: #### Chata H8, MG, PHOS #### [facility] [address] [place] [address], No Panel Informationon 04-30 Interpretation and review of laboratory results [facility] PHOSPHORUSon 04-30-2022 Phosphate [Mass/Vol] 4.5 mg/dL 2.5 - 4.8 mg/dL [facility] Phosphate [Mass/Vol] 4.5 mg/dL Normal 2.5-4.8 [facility] [facility] Comment on above: Performed By: #### Chata H8, MG, PHOS #### [facility] [address] [place] [address], Progress Noteson 04-30-2022 [employer] Authentication Interface Message Text Normal [facility] [employer] Interface Message Text Attestation signed by Giovany Miller MD at 04/30/2022 2:28 PM Teaching Physician Note: I saw and evaluated the patient. I personally obtained the stokes and critical portions of the history and physical exam. I reviewed the resident's documentation and discussed the patient with the resident. I agree with the resident's medical decision making as documented in the resident's note. Wound is clean without sign of infection. Minimal areas of fibrinous exudate which were debrided at bedside. Wound vac re-applied, pt stable for discharge with follow up in wound clinic. Giovany Miller MD Division of Trauma, Critical Care, Pulido, and Emergency General Surgery Department of Surgery [facility] DIVISION OF ACUTE CARE SURGERY -------- GENERAL INFORMATION ------- EMERGENCY GENERAL SURGERY NOTE Patient Name: Nadia Biggs Admission Date: 04/28/2022 Patient seen and examined on 04/30/2022 ------ INTERVAL HISTORY/EVENTS ---- Background Narrative: Mr. iBggs is a 32 yo who presents after I AND D of right leg abscess with large wound and concern for NSTI. Patient states he had progressive swelling of his right leg with increasing difficulty walking. He had an ulcer overlying the calf that began to bleed a little. He presented to OSH where CT was consistent with 10 cm abscess. He is now s/p I AND D on 04/27. Cultures with padilla-sensitive Group A Strep. Was on Vanc and Zosyn at OSH. WBC at presentation was 25, now normalized. He endorses fever that was improved with Tylenol. Pain in his leg has significantly improved since his I AND D. Denies chills, nausea, vomiting, numbness/tingling in extremity. Hospital Course/Procedures: 04/28: Admitted to ACS service. OR for excisional debridement of right lower extremity and wound vac placement. 12:04: No acute events overnight Events in last 24 hours: No acute overnight events overnight. Recovering well and pain well-tolerated. Denies nausea, vomiting, fever and chills. PHYSICAL EXAM Vitals: Vital sign ranges over the past 24 hours (retrieved 04/30/2022 at 9:27 AM): Tmax (24 hours): 98.2 ???F (36.8 ???C) Pulse Av Min: 54 Max: 59 Systolic (24hrs), Av , Min:124 , Max:130 Diastolic (24hrs), Av, Min:66, Max:92 MAP (mmHg) Av mmHg Min: 84 mmHg Max: 103 mmHg Resp Av.2 Min: 14 Max: 18 SpO2 Av.6 % Min: 99 % Max: 100 % 24 Hour Input/Output In: 270 (3.1 mL/kg) [P.O.:220; I.V.:50 (0 mL/kg/hr)] Out: 1850 (21.5 mL/kg) [Urine:1800 (0.9 mL/kg/hr); Drainage:50] Net: -1580 Weight: 86.2 kg Physical Exam: General: Alert, lying comfortably in bed CVS: RRR Pulm: No respiratory distress on RA Abd: Soft, NT, ND Ext: Right calf with wound vacc changes with a new one this AM with some fibrinous tissue debrided at the bedside, surrounding erythema decreasing within the marked area. Skin: As above Neuro: Grossly nonfocal, motor and sensory intact though range of motion limited secondary to pain LABORATORY RESULTS (LAST 24 HOURS) 11.4 10.2 / 480 / 30.7 CBC: 04/30/2022: 2:55 AM 140 105 12 / 4.4 26 0.99 BMP: 04/30/2022: 2:55 AM Phosp: 4.5, Ma.4 IMAGING RESULTS - Last 24 hours (PERSONALLY REVIEWED) None overnight --------- DIAGNOSIS AND PLAN Diagnoses: Right leg abscess Assessment: Mr. Biggs is a 32 yo M who presents s/p I AND D of right calf wound. Currently afebrile and hemodynamically normal. Wound necessitating further debridement. Cultures from OSH positive for padilla-sensitive Group A Strep. He is now s/p OR for excisional debridement of right lower extremity and wound vac placement 04/28/2022. Plan Neuro Analgesia: Tylenol 650 mg q 6 hr; oxycodone 5 mg q 4 hr PRN moderate/severe pain; Dilaudid 0.5 mg q 3 hr PRN for breakthrough pain Resp Saturating appropriately on RA; encourage IS Cardio Monitor Vitals Cont home atenolol and tricor GI Diet: Regular; senna and Miralax IV Zofran PRN Renal BMP, Mg, Phosp Replace electrolytes PRN Received Mag and IV phosp this AM Endo No glycemic issues Heme/ID No indication for transfusion; daily CBC IV Ceftriaxone 2g daily MSK PT/OT consulted Ppx Lovenox 40 mg BID; SCD to LLE; no indication for ulcer prophylaxis Dispo: Continue care of RNF. Wound vacc replaced at bedside this AM on round, patient will be discharged later today with a portable wound vacc and followup with a wound clinic. Follow up: Dr. Ackerman Plan was discussed with attending, Dr. Angela Blue MD Surgery R (more content not included)... Normal [facility] TISSUE CULTURE, AEROBICon Bacteria identified Cx Nom (Tiss) Positive Abnormal [facility] Bacteria identified Cx Nom (Tiss) 4+ Streptococcus pyogenes - (Group A) [facility] Interpretation and review of laboratory results Abnormal [facility] Microscopic observation Gram stain Nom (Unsp spec) 4+ Polymorphonuclear Leukocytes [facility] Microscopic observation Gram stain Nom (Unsp spec) No Squamous Epithelial Cells seen [facility] Microscopic observation Gram stain Nom (Unsp spec) Positive [facility] ABO RH TYPEon 04-29-2022 ABO and Rh group Nom (Bld) Blood group B Rh(D) positive Normal [facility] Comment on above: Performed By: #### Pola EVANS ####S PATHOLOGY [id number] [place], [place], [facility] BASIC METABOLIC PANELon Anion gap [Moles/Vol] 14 mmol/L Normal 10-20 [facility] Comment on above: Performed By: #### KAJAL Funes CH8 ####S PATHOLOGY [id number] [place], [place], Calcium [Mass/Vol] 8.4 mg/dL Normal 8.4-10.4 [facility] Comment on above: Performed By: #### KAJAL Funes CH8 ####S PATHOLOGY [id number] [place], [place], Chloride [Moles/Vol] 103 mmol/L Normal 97-111 [facility] Comment on above: Performed By: #### KAJAL Funes CH8 ####S PATHOLOGY [id number] [place], [place], CO2 [Moles/Vol] 25 mmol/L Normal 21-30 [facility] Comment on above: Performed By: #### KAJAL Funes CH8 ####[facility] PATHOLOGY [id number] [place], [place], Creatinine [Mass/Vol] 1.04 mg/dL Normal 0.80-1.30 [facility] Comment on above: Performed By: #### KAJAL Funes CH8 ####[facility] [id number] [place], [place], ESTIMATED GFR (CKD-EPI) 97 mL/min/1.73sqm Normal >=60 [facility] Comment on above: Result Comment: 2020 CKD EPI Equation using Creatinine without Race Comment: Estimated glomerular filtration rate (eGFR) is calculated without a race coefficient. Values should be interpreted in the context of the patient's full clinical presentation. Reference: 1. Ghassan C, Josselyn M, Freddy AYALA, et al.. A Unifying Approach for GFR Estimation: Recommendations of the NKF-ASN Task Force on Reassessing the Inclusion of Race in Diagnosing Kidney Disease. Indonesian Journal of Kidney Diseases 2021;79(2):268-88.e1. 2. N Engl J Med 2020 Vol. 385 Issue 19 Pages 7856-4894 Performed By: #### KAJAL Funes CH8 ####[facility] [id number] [place], [place], Glucose [Mass/Vol] 165 mg/dL High 68-110 [facility] Comment on above: Performed By: #### KAJAL Funes CH8 ####[facility] PATHOLOGY [id number] [place], [place], Potassium [Moles/Vol] 4.2 mmol/L Normal 3.3-5.3 [facility] Comment on above: Performed By: #### KAJAL Funes CH8 ####[facility] PATHOLOGY [id number] [place], [place], Sodium [Moles/Vol] 138 mmol/L Normal 135-148 [facility] Comment on above: Performed By: ###KAJAL Navarrete CH8 ####[facility] PATHOLOGY [id number] [place], [place], Urea nitrogen [Mass/Vol] 11 mg/dL Normal 8-22 [facility] Comment on above: Performed By: #### KAJAL Funes CH8 ####[facility] [id number] [place], [phone] Basic metabolic 2000 panelon 04-29-2022 Anion gap [Moles/Vol] 14 mmol/L 10 - 20 [facility] Calcium [Mass/Vol] 8.4 mg/dL 8.4 - 10. 4 mg/dL [facility] Chloride [Moles/Vol] 103 mmol/L 97 - 111 mmol/L [facility] CO2 [Moles/Vol] 25 mmol/L 21 - 30 mmol/L [facility] Creatinine [Mass/Vol] 1.04 mg/dL 0.80 - 1.30 mg/dL [facility] GFR/1.73 sq M.predicted MDRD (S/P/Bld) [Vol rate/Area] 97 mL/min/{1.73_m2} - PINF [facility] Comment on above: 2020 CKD EPI Equatio n using Creatinine without Race Comment: Estimated glomerular filtration rate (eGFR) is calculated without a race coefficient. Values should be interpreted in the context of the patient's full clinical presentation. Reference: 1. Ghassan C, Josselyn M, Freddy DC, et al.. A Unifying Approach for GFR Estimation: Recommendations of the NKF-ASN Task Force on Reassessing the Inclusion of Race in Diagnosing Kidney Disease. Indonesian Journal of Kidney Diseases 202;79(2):268-88.e1. 2. N Engl J Med 1 Vol. 385 Issue 19 Pages 9348-7810 Glucose [Mass/Vol] 165 mg/dL High 68 - 110 mg/dL [facility] Interpretation and review of laboratory results Abnormal [facility] Potassium [Moles/Vol] 4.2 mmol/L 3.3 - 5.3 mmol/L [facility] Sodium [Moles/Vol] 138 mmol/L 135 - 148 mmol/L [facility] Urea nitrogen [Mass/Vol] 11 mg/dL 8 - 22 mg/dL [facility] CBC panel Auto (Bld)on 04-29 Erythrocyte distribution width (RBC) [Ratio] 13.2 % 11.5 - 14.5 % [facility] Hematocrit (Bld) [Volume fraction] 30.6 % Low 41.0 - 53.0 % [facility] Hemoglobin (Bld) [Mass/Vol] 10.6 g/dL Low 13.9 - 16.3 g/dL [facility] Interpretation and review of laboratory results Abnormal [facility] MCH (RBC) [Entitic mass] 33.4 pg 26.0 - 34.0 pg [facility] MCHC (RBC) [Mass/Vol] 34.6 g/dL 32.0 - 35.9 g/dL [facility] MCV (RBC) [Entitic vol] 97 fL 80 - 100 fL [facility] Platelet mean volume (Bld) [Entitic vol] 8.3 fL 7.5 - 11.2 fL [facility] Platelets (Bld) [#/Vol] 429 10*3/uL High 150 - 400 K/uL [facility] RBC (Bld) [#/Vol] 3.16 10*6/uL Low [facility] WBC (Bld) [#/Vol] 14.6 10*3/uL High 4.5 - 11.5 K/uL [facility] COMPLETE BLOOD COUNTon 04-29 Erythrocyte distribution width (RBC) [Ratio] 13.2 % Normal 11.5-14.5 [facility] Comment on above: Performed By: #### C BC #### [facility] [address] [place] [address], Hematocrit (Bld) [Volume fraction] 30.6 % Low 41.0-53.0 [facility] Comment on above: Performed By: #### C BC #### [facility] [address] [place] [address], Hemoglobin (Bld) [Mass/Vol] 10.6 g/dL Low 13.9-16.3 [facility] Comment on above: Performed By: #### C BC #### [facility] [address] [place] [address], MCH (RBC) [Entitic mass] 33.4 pg Normal 26.0-34.0 [facility] Comment on above: Performed By: #### C BC #### S PATHOLOGY LABORATORY [address] [place] [address], MCHC (RBC) [Mass/Vol] 34.6 g/dL Normal 32.0-35.9 [facility] Comment on above: Performed By: #### C BC #### S PATHOLOGY LABORATORY [address] [place] [address], MCV (RBC) [Entitic vol] 97 fL Normal 80-100 [facility] Comment on above: Performed By: #### C BC #### [facility] [address] [place] [address], Platelet mean volume (Bld) [Entitic vol] 8.3 fL Normal 7.5-11.2 [facility] Comment on above: Performed By: #### C BC #### [facility] [address] [place] [address], Platelets (Bld) [#/Vol] 429 10*3/uL High 150-400 [facility] Comment on above: Performed By: #### C BC #### [facility] [address] [place] [address], RBC (Bld) [#/Vol] 3.16 10*6/uL Low 4.50-5.90 [facility] Comment on above: Performed By: #### C BC #### [facility] [address] [place] [address], WBC (Bld) [#/Vol] 14.6 10*3/uL High 4.5-11.5 [facility] Comment on above: Performed By: #### C BC #### [facility] [address] [place] [address], Care Plan Noteon 04-29-2022 [employer] Authentication Interface Message Text Problem: Safety: Goal: Patient will remain free of falls during hospital stay Outcome: Progressing Goal: Free from injury during hospitalization Outcome: Progressing Problem: Acute Pain: Goal: Ability to identify pain intensity on a pain scale and rate it consistently will be achieved and maintained Outcome: Progressing Note: Pain rated on numeric pain scale; relieved through scheduled and PRN medication Goal: Understanding of proper administration and use of medicines will be achieved Outcome: Progressing Goal: Acceptable level of pain which allows the patient to achieve functional outcome goals Outcome: Progressing Problem: Discharge Planning: Goal: Discharge needs of the adult patient will be met Outcome: Progressing Problem: Impaired Skin Integrity: Goal: Acheive wound healing without signs and symptoms of infection Outcome: Progressing Note: Pt. To show no signs and symptoms of infection throughout shift Problem: Routine Care: Goal: Patient care will be managed and maintained throughout hospital stay per unit specific routine care procedure Outcome: Progressing Note: Purposeful hourly rounding and assessment throughout shift Normal [facility] [employer] Authentication Interface Message Text Problem: Safety: Goal: Patient will remain free of falls during hospital stay 04/29/2022152 by Rose Gomez RN Outcome: Progressing 04/29/2022151 by Rose Gomez RN Outcome: Progressing Goal: Free from injury during hospitalization 04/29/2022152 by Rose Gomez RN Outcome: Progressing 04/29/2022151 by Rose Gomez RN Outcome: Progressing Problem: Acute Pain: Goal: Ability to identify pain intensity on a pain scale and rate it consistently will be achieved and maintained 04/29/2022152 by Rose Gomez RN Outcome: Progressing 04/29/2022151 by Rose Gomez RN Outcome: Progressing Goal: Understanding of proper administration and use of medicines will be achieved 04/29/2022152 by Rose Gomez RN Outcome: Progressing 04/29/2022151 by Rose Gomez RN Outcome: Progressing Goal: Acceptable level of pain which allows the patient to achieve functional outcome goals 04/29/2022152 by Rose Gomez RN Outcome: Progressing 04/29/2022151 by Rose Gomez RN Outcome: Progressing Problem: Discharge Planning: Goal: Discharge needs of the adult patient will be met 04/29/2022152 by Rose Gomez RN Outcome: Progressing 04/29/2022151 by Rose Gomez RN Outcome: Progressing Problem: Impaired Skin Integrity: Goal: Acheive wound healing without signs and symptoms of infection 04/29/2022152 by Rose Gomez RN Outcome: Progressing 04/29/2022151 by Rose Gomez RN Outcome: Progressing Problem: Routine Care: Goal: Patient care will be managed and maintained throughout hospital stay per unit specific routine care procedure Outcome: Progressing Patient arrived to unit from PACU in stable condition with wound VAC at -125. Patient has no s/s of distress. Call light given to patient and patient agrees to call for help before getting out of bed. Normal [facility] Laboratory - Blood bankon ABO and Rh group Nom (Bld) Blood group B Rh(D) positive [facility] MAGNESIUMon 04-29-2022 Magnesium [Mass/Vol] 1.9 mg/dL Normal 1.6-2.8 [facility] Comment on above: Performed By: #### KAJAL Funes CH8 ####[facility] [id number] [place], [place], Magnesium [Mass/Vol] 1.9 mg/dL 1.6 - 2.8 mg/dL [facility] No Panel Informationon 04-29 Interpretation and review of laboratory results Normal [facility] PHOSPHORUSon 04-29-2022 Phosphate [Mass/Vol] 2.5 mg/dL Normal 2.5-4.8 [facility] Comment on above: Performed By: #### KAJAL Funes CH8 ####[facility] [id number] [place], [place], Phosphate [Mass/Vol] 2.5 mg/dL 2.5 - 4.8 mg/dL [facility] Progress Noteson 04-29-2022 [employer] Authentication Interface Message Text [facility] DIVISION OF ACUTE CARE SURGERY -------- GENERAL INFORMATION ------- EMERGENCY GENERAL SURGERY NOTE Patient Name: Nadia Biggs Admission Date: 04/28/2022 Patient seen and examined on 04/29/2022 ------ INTERVAL HISTORY/EVENTS ---- Background Narrative: Mr. Biggs is a 32 yo who presents after I AND D of right leg abscess with large wound and concern for NSTI. Patient states he had progressive swelling of his right leg with increasing difficulty walking. He had an ulcer overlying the calf that began to bleed a little. He presented to OSH where CT was consistent with 10 cm abscess. He is now s/p I AND D on 04/27. Cultures with padilla-sensitive Group A Strep. Was on Vanc and Zosyn at OSH. WBC at presentation was 25, now normalized. He endorses fever that was improved with Tylenol. Pain in his leg has significantly improved since his I AND D. Denies chills, nausea, vomiting, numbness/tingling in extremity. Hospital Course/Procedures: 04/28: Admitted to ACS service. OR for excisional debridement of right lower extremity and wound vac placement. Events in last 24 hours: No acute overnight events since surgery. Recovering well and pain well-tolerated. Have not ambulated d/t wound vacc. PHYSICAL EXAM Vitals: Vital sign ranges over the past 24 hours (retrieved 04/29/2022 at 8:27 AM): Tmax (24 hours): 99.1 ???F (37.3 ???C) Pulse Av.9 Min: 63 Max: 91 Systolic (24hrs), Av , Min:108 , Max:133 Diastolic (24hrs), Av, Min:72, Max:97 MAP (mmHg) Av mmHg Min: 85 mmHg Max: 113 mmHg Resp Av.7 Min: 16 Max: 18 SpO2 Av.2 % Min: 94 % Max: 100 % 24 Hour Input/Output In: 670 (7.8 mL/kg) [P.O.:120; I.V.:550 (0.3 mL/kg/hr)] Out: 1120 (13 mL/kg) [Urine:1050 (0.5 mL/kg/hr); Drainage:50] Net: -450 Weight: 86.2 kg Physical Exam: General: Alert, lying comfortably in bed CVS: RRR Pulm: No respiratory distress on RA Abd: Soft, NT, ND Ext: Right calf with wound vacc, surrounding erythema decreasing within the marked area. Skin: As above Neuro: Grossly nonfocal, motor and sensory intact though range of motion limited secondary to pain LABORATORY RESULTS (LAST 24 HOURS) 14.6 10.6 / 429 / 30.6 CBC: 04/29/2022: 12:26 AM 138 103 11 / 165 4.2 25 1.04 BMP: 04/29/2022: 12:26 AM Phosp: 2.5, Ma.9 IMAGING RESULTS - Last 24 hours (PERSONALLY REVIEWED) None overnight --------- DIAGNOSIS AND PLAN Diagnoses: Right leg abscess Assessment: Mr. Biggs is a 32 yo M who presents s/p I AND D of right calf wound. Currently afebrile and hemodynamically normal. Wound necessitating further debridement. Cultures from OSH positive for padilla-sensitive Group A Strep. He is now s/p OR for excisional debridement of right lower extremity and wound vac placement 04/28/2022. Plan Neuro Analgesia: Tylenol 650 mg q 6 hr; oxycodone 5 mg q 4 hr PRN moderate/severe pain; Dilaudid 0.5 mg q 3 hr PRN for breakthrough pain Resp Saturating appropriately on RA; encourage IS Cardio Monitor Vitals Cont home atenolol and tricor GI Diet: Regular; senna and Miralax IV Zofran PRN Renal BMP, Mg, Phosp Replace electrolytes PRN Received Mag and IV phosp this AM Endo No glycemic issues Heme/ID No indication for transfusion; daily CBC IV Ceftriaxone 2g daily MSK PT/OT consulted Ppx Lovenox 40 mg BID; SCD to LLE; no indication for ulcer prophylaxis Dispo: Continue care of RNF Follow up: Dr. Ackerman Plan was discussed with attending, Dr. Ta Blue MD Surgery Resident [facility] [phone] ACS Consults [phone] ACS Floor Patients Teaching Physician Note: I saw and evaluated the patient. I personally obtained the stokes and critical portions of the history and physical exam. I reviewed the resident's documentation and discussed the patient with the resident. I agree with the resident's medical decision making as documented in the resident's note. Will take down wound vac tomorrow to evaluate wound, possible discharge home if wound appears healthy. Patient takes Rinvoq for severe eczema, will discuss whether this needs to be held. Tien Chappell MD Division of Trauma, Critical Care, Pulido, and Emergency General Surgery Department of Surgery [facility] Pager: [phone] Normal [facility] AEROBIC WOUND CULTUREon AEROBIC WOUND CULTURE C PYOG: Positive Culture Report STREPTOCOCCUS PYOGENES - (GROUP A) 1+ Streptococcus pyogenes - (Group A) GRAM STAIN: 1+ Polymorphonuclear Leukocytes No Squamous Epithelial Cells seen No organisms seen Normal [facility] Comment on above: Performed By: #### C BC #### [facility] [address] [place] [address], AEROBIC WOUND CULTURE C PYOG: Positive Culture Report STREPTOCOCCUS PYOGENES - (GROUP A) 1+ Streptococcus pyogenes - (Group A) GRAM STAIN: 2+ Polymorphonuclear Leukocytes No Squamous Epithelial Cells seen No organisms seen Normal [facility] Comment on above: Performed By: #### C BC #### [facility] [address] [place] [address], AFB CULTURE/SMEARon 04-28-20 AFB CULTURE/SMEAR C AFB: No Growth AFB STAIN: No Acid Fast Bacilli Seen Normal [facility] Comment on above: Performed By: #### C BC #### [facility] [address] [place] [address], AFB CULTURE/SMEAR C AFB: No Growth AFB STAIN: No Acid Fast Bacilli Seen Normal [facility] Comment on above: Performed By: #### C AFB ####[facility] [id number] [place], [id number] Performed By: #### C BC #### [facility] [address] [place] [address], ANAEROBIC CULTURE, MISCon ANAEROBIC CULTURE, MISC C ANRBC: No Anaerobes isolated Normal [facility] Comment on above: Performed By: #### C BC #### [facility] [address] [place], [place], ANAEROBIC CULTURE, MISC C ANRBC: No Anaerobes isolated Normal [facility] Comment on above: Performed By: #### C BC #### S [facility] LABORATORY [address] [place], [place], Anesthesia Attestationon [employer] Authentication Interface Message Text Anesthesia Attestation ATTESTATION OF INFORMED CONSENT FOR ANESTHESIA Anesthesia options were discussed with the patient and/or legal electroplating sales representative. The risks, benefits and alternatives were reviewed. Questions regarding anesthesia were answered. Patient and/or legal electroplating sales representative knows such anesthetics and procedures may be performed by Resident physicians, Certified Anesthesiologist Assistants, or Certified Nurse Anesthetists under the supervision of a physician. The patient /or the patient's legal electroplating sales representative agree with the plan for anesthesia. Normal [facility] Anesthesia Postprocedure Denia luationon 04-28-2022 [employer] Authentication Interface Message Text Anesthesia Postoperative Assessment: Vital Signs (most recent): BP 128/72 (BP Location: right arm) Pulse 69 Temp 36.8 ???C (98.3 ???F) (Oral) Resp 18 Ht 6' (1.829 m) Wt 190 lb (86.2 kg) SpO2 100% BMI 25.77 kg/m??? Anesthesia Post Evaluation Level of consciousness: awake Post-procedure exam normal. Body temperature, hydration status, PONV and pain evaluated and addressed. Pain management: adequate Hydration status: normal PONV:No nausea/vomiting reported Cardiopulmonary status stable Respiratory status: acceptable Cardiovascular status: acceptable ANESTHESIA NOTABLE EVENTS: No notable events documented. Normal [facility] Anesthesia Preprocedure Eval uationon 04-28-2022 [employer] Authentication Interface Message Text ASA: 2 No history of anesthetic complications NPO status: Less than 8 hours (ate heavy breakfast at 11am and clears at 2pm) Past Medical History and Review of Systems Pulmonary - negative ROS Dental ROS (+) teeth problems missing, Endo (+) obesity () Neuro/Psych - negative ROS Cardiovascular (+) hypertension, Surgical risk: intermediate; Cardiac condition: no apparent Comment: HLD No previous ECG available GI/Hepatic/Renal - negative ROS Heme/Other - negative ROS Other ROS: 32 yo who presents after I AND D of right leg abscess with large wound and concern for NSTI. Patient states he had progressive swelling of his right leg with increasing difficulty walking. He had an ulcer overlying the calf that began to bleed a little. He presented to OSH where CT was consistent with 10 cm abscess. He is now s/p I AND D on 04/27. Cultures with padilla-sensitive Group A Strep. Was on Vanc and Zosyn at OSH. WBC at presentation was 25, now normalized. He endorses fever that was improved with Tylenol. Pain in his leg has significantly improved since his I AND D. Denies chills, nausea, vomiting, numbness/tingling in extremity Physical Exam Airway Mallampati: II TM distance: Adequate Micrognathia: Not present Jaw opening: Adequate Neck flexion: Adequate Dental PE (+) missing teeth Pulmonary - pulmonary exam normal Cardiovascular - cardiovascular exam normal Neuro - neurological exam normal Plan Anesthesia plan: general (ETT) Medications may include (but not limited to): anxiolytics, narcotic analgesics, IV hypnotics, neuromuscular blockers and inhalational analgesics Pain management: May include (but not limited to): IV, oral, anxiolytics, narcotic analgesics and local anesthetic Anesthesia risks / alternatives discussed pre-op Questions answered / anesthesia plan accepted Past medical history, surgical history, allergies, and medications reviewed. Pertinent laboratory tests, EKG, imaging, and consults reviewed and I have personally seen and evaluated the patient, repeating stokes portions of the history and physical examination. Normal [facility] Anesthesia Transfer Of [facility] n 04-28-2022 [employer] Authentication Interface Message Text Patient taken to PACU. Patient was awake, comfortable and stable on arrival. Anesthesia Transfer of Care Note Past Medical History: Past Medical History: Diagnosis Date * Eczema 03/25/2020 * High cholesterol * Hypertension Sleep Apnea/Positive STOP-BANG: No Problem List: Patient Active Problem List: Abscess of left thigh [L02.416] Abscess of right leg [L02.415] Past Surgical History: There is no previous surgical history on file. Allergies: Patient has no known allergies. Basic Operating Room Facts: Surgeon(s): Nakita Ackerman MD Anesthesiologist: Yanelis Perez MD CASING BLOWER: Rika Jessica APRN-CASING BLOWER Supervisor Small Appliance Assembly: Bernie Rivero MD DEBRIDEMENT, WOUND (Right) Intraoperative Events: No acute event ASA: 2 EBL: 20 mL Urine Not documented Lactated Ringers and NaCl 0.9%: Fluid Totals (Filter: LR and NaCl 0.9% Medications Shown) Medication Calculated Total Lactated Ringers 500 mL / 1 bag Cell Saver: Not documented Blood Volume Values: Blood Products None MTP Blood: MTP PRBC: Not documented MTP FFP: Not documented MTP PLT: Not documented MTP Cryo: Not documented MTP Whole Blood: Not documented Current Vasoactive Medications: {Vasoactive Medications: None Lines, Drains, Airways Peripheral IV Access: 04/28/22 1300 20 gauge Right Antecubital Present on Arrival to Hospital (Active) Site Assessment WNL;Dressing intact 04/28/22 1300 Infusion Status Port #1 Capped;Patent 04/28/22 1300 Peripheral IV Access: 04/28/22 1300 20 gauge Left Antecubital Present on Arrival to Hospital (Active) Site Assessment WNL;Dressing intact 04/28/22 1300 Infusion Status Port #1 Capped;Patent 04/28/22 1300 Airway Insertion Details [REMOVED] Advanced Airway: ETT, Oral #7 (Removed) 04/28/22 1926 Pre-Oxygenation/ Induction: Rapid Sequence Induction?: Yes Mask Ventilation: Easy Blade size: Mac 4 Visualization: Airway Type: ETT, Oral Airway Size: #7 Post Insertion Assessment: Confirmation: Equal bilateral breath sounds, CO2 confirmed # Attempts >1: Special Equipment: Glidescope Present on Admission?: Previously Removed / Not Present: Removal Reason: Not Removed at Discharge: Removed 04/28/222004 All non-working IVs have been removed: N/A Laboratory Data: CBC (last 3 years, up to 5 values) WBC RBC Hgb Hct MCV RDW Plt 04/28/22 1604 10.8 3.33 11.3 32.5 98 13.0 393 Basic Metabolic Panel Na K Cl CO2 Gap Glu BUN Cr Ca 04/28/22 1604 138 4.1 102 28 12 83 12 1.05 8.5 Basic Metabolic Panel Na K Cl CO2 Gap Glu BUN Cr Ca Mg PO4 04/28/22 1604 2.8 04/28/22 1604 2.0 04/28/22 1604 138 4.1 102 28 12 83 12 1.05 8.5 No results found for: INR No result for BNP LFT's (last 3 years, up to 5 values) None Arterial Blood Gases None Hand off Completed: Yes 1. The patient was identified. 2. Pertinent medical history was relayed. 3. A brief discussion was had about any pertinent surgical/ procedural issues. 4. Intraoperative/ anesthetic management issue and concerns were discussed. 5. Plans for the early post-operative period relayed. 6. An opportunity for questions and acknowledgment of understanding of the report was received. Bernie Rivero MD Normal [facility] BASIC METABOLIC PANELon 12-0 Anion gap [Moles/Vol] 12 mmol/L Normal 10-20 [facility] Comment on above: Performed By: #### P HOS CH8, MG #### [facility] [address] [place] [address], Calcium [Mass/Vol] 8.5 mg/dL Normal 8.4-10.4 [facility] Comment on above: Performed By: #### P HOS, CH8, MG #### [facility] [address] [place] [address], Chloride [Moles/Vol] 102 mmol/L Normal 97-111 [facility] Comment on above: Performed By: #### P HOS, CH8, MG #### [facility] [address] [place] [address], CO2 [Moles/Vol] 28 mmol/L Normal 21-30 [facility] Comment on above: Performed By: #### P HOS, CH8, MG #### [facility] [address] [place] [address], Creatinine [Mass/Vol] 1.05 mg/dL Normal 0.80-1.30 [facility] Comment on above: Performed By: #### P HOS, CH8, MG #### [facility] [address] [place] [address], ESTIMATED GFR (CKD-EPI) 96 mL/min/1.73sqm Normal >=60 [facility] Comment on above: Result Comment: 2020 CKD EPI Equation using Creatinine without Race Comment: Estimated glomerular filtration rate (eGFR) is calculated without a race coefficient. Values should be interpreted in the context of the patient's full clinical presentation. Reference: 1. Ghassan C, Josselyn M, Freddy DC, et al.. A Unifying Approach for GFR Estimation: Recommendations of the NKF-ASN Task Force on Reassessing the Inclusion of Race in Diagnosing Kidney Disease. Indonesian Journal of Kidney Diseases 202;79(2):268-88.e1. 2. N Engl J Med 1 Vol. 385 Issue 19 Pages [phone] Performed By: #### P HOS CH8, MG #### [facility] [address] [place] [address], Glucose [Mass/Vol] 83 mg/dL Normal 68-110 [facility] Comment on above: Performed By: #### P HOS CH8, MG #### [facility] [address] [place] [address], Potassium [Moles/Vol] 4.1 mmol/L Normal 3.3-5.3 [facility] Comment on above: Performed By: #### P HOS, CH8, MG #### [facility] [address] [place] [address], Sodium [Moles/Vol] 138 mmol/L Normal 135-148 [facility] Comment on above: Performed By: #### P HOS, CH8, MG #### [facility] [address] [place] [address], Urea nitrogen [Mass/Vol] 12 mg/dL Normal 8-22 [facility] Comment on above: Performed By: #### P HOS, CH8, MG #### [facility] [address] [place] [address], Basic metabolic 2000 panelon 04-28-2022 Anion gap [Moles/Vol] 12 mmol/L 10 - 20 [facility] Calcium [Mass/Vol] 8.5 mg/dL 8.4 - 10. 4 mg/dL [facility] Chloride [Moles/Vol] 102 mmol/L 97 - 111 mmol/L [facility] CO2 [Moles/Vol] 28 mmol/L 21 - 30 mmol/L [facility] Creatinine [Mass/Vol] 1.05 mg/dL 0.80 - 1.30 mg/dL [facility] GFR/1.73 sq M.predicted MDRD (S/P/Bld) [Vol rate/Area] 96 mL/min/{1.73_m2} - PINF [facility] Comment on above: 2020 CKD EPI Equatio n using Creatinine without Race Comment: Estimated glomerular filtration rate (eGFR) is calculated without a race coefficient. Values should be interpreted in the context of the patient's full clinical presentation. Reference: 1. Ghassan C, Josselyn M, Freddy DC, et al.. A Unifying Approach for GFR Estimation: Recommendations of the NKF-ASN Task Force on Reassessing the Inclusion of Race in Diagnosing Kidney Disease. Indonesian Journal of Kidney Diseases 2021;79(2):268-88.e1. 2. N Engl J Med 2020 Vol. 385 Issue 19 Pages 6455-2955 Glucose [Mass/Vol] 83 mg/dL 68 - 110 mg/dL [facility] Potassium [Moles/Vol] 4.1 mmol/L 3.3 - 5.3 mmol/L [facility] Sodium [Moles/Vol] 138 mmol/L 135 - 148 mmol/L [facility] Urea nitrogen [Mass/Vol] 12 mg/dL 8 - 22 mg/dL [facility] Blood Attestationon 04-28-20 [employer] Authentication Interface Message Text Blood Attestation ATTESTATION OF INFORMED CONSENT FOR BLOOD The transfusion of blood and/or blood components were discussed with the patient and/or legal electroplating sales representative. The risks, benefits and alternatives were reviewed. Questions regarding blood transfusions were answered. The patient /or the patient's legal electroplating sales representative agree with the plan for transfusion of blood and/or blood components. Normal [facility] Brief Operative Noteon 04-28 [employer] Authentication Interface Message Text Brief Operative Note MAIN OR 11 Nadia Biggs 32 year old male Surgical Contact Serial Number: [id number] Preoperative Diagnosis: Abscess of right leg [L02.415] Postoperative Diagnosis: * Abscess of right leg [L02.415] Procedures: Excisional debridement of right lower extremity Wound vac placement Surgeon(s): Surgeon(s): Nakita Ackerman MD Staff: Scrub: Rea Leal Solution Manager Nurse: Osmin Lay RN Dragsaw Operator: Jeannette Billingsley MD Anesthesia: General Anesthesiologist: Yanelis Perez MD CASING BLOWER: Rika Jessica APRN-CORY Supervisor Small Appliance Assembly: Bernie Rivero MD Specimen(s): ID Type Source Tests Collected by Time Destination 1 : right leg tissue Tissue Leg, Right TISSUE CULTURE, AEROBIC, ANAEROBIC CULTURE, MISC, FUNGAL CULTURE AND KATHERINE PREP, AFB CULTURE/SMEAR, SPECIMEN FOR SURGICAL PATH Nakita Ackerman MD 04/28/2022 1950 A : #1 right leg swab Swab Leg, Right AEROBIC WOUND CULTURE, ANAEROBIC CULTURE, MISC, AFB CULTURE/SMEAR Nakita Ackerman MD 04/28/20221947 B : #2 right leg swab Swab Leg, Right AEROBIC WOUND CULTURE, ANAEROBIC CULTURE, MISC, AFB CULTURE/SMEAR Nakita Ackerman MD 04/28/20221947 Estimated Blood Loss: 5-10 cc Lines/Drains: Peripheral IV Access: 04/28/22 1300 20 gauge Right Antecubital Present on Arrival to Hospital (Active) Site Assessment WNL;Dressing intact 04/28/22 1300 Infusion Status Port #1 Capped;Patent 04/28/22 1300 Peripheral IV Access: 04/28/22 1300 20 gauge Left Antecubital Present on Arrival to Hospital (Active) Site Assessment WNL;Dressing intact 04/28/22 1300 Infusion Status Port #1 Capped;Patent 04/28/22 1300 Temporarily Retained Foreign Object: Yes Location: Right lower extremity Object: Black sponge Anticipated removal date: Exchange in 3 days Findings: Purulent exudate of the right calf wound Eschar of the skin edge Wound debrided to healthy tissue Complications: None Status at end of surgery: Stable Activity: Ad Jessi Surgical wound class: Yes, wound was dirty or infected. Patient Class: Inpatient. Is this a patient scheduled as an outpatient that needs to be admitted as an inpatient? No Dr. Ackerman was present in the OR for the entirety of the procedure and procedure sign-out. Signed by Jeannette Billingsley MD 04/28/2022 8:19 PM Normal [facility] CBC panel Auto (Bld)on 04-28 Erythrocyte distribution width (RBC) [Ratio] 13.0 % 11.5 - 14.5 % [facility] Hematocrit (Bld) [Volume fraction] 32.5 % Low 41.0 - 53.0 % [facility] Hemoglobin (Bld) [Mass/Vol] 11.3 g/dL Low 13.9 - 16.3 g/dL [facility] Interpretation and review of laboratory results Abnormal [facility] MCH (RBC) [Entitic mass] 33.8 pg 26.0 - 34.0 pg [facility] MCHC (RBC) [Mass/Vol] 34.6 g/dL 32.0 - 35.9 g/dL [facility] MCV (RBC) [Entitic vol] 98 fL 80 - 100 fL [facility] Platelet mean volume (Bld) [Entitic vol] 8.2 fL 7.5 - 11.2 fL [facility] Platelets (Bld) [#/Vol] 393 10*3/uL 150 - 400 K/uL [facility] RBC (Bld) [#/Vol] 3.33 10*6/uL Low [facility] WBC (Bld) [#/Vol] 10.8 10*3/uL 4.5 - 11.5 K/uL [facility] COMPLETE BLOOD COUNTon 04-28 Erythrocyte distribution width (RBC) [Ratio] 13.0 % Normal 11.5-14.5 [facility] Comment on above: Performed By: #### C BC #### [facility] [address] [place] [address], Hematocrit (Bld) [Volume fraction] 32.5 % Low 41.0-53.0 [facility] Comment on above: Performed By: #### C BC #### [facility] [address] [place] [address], Hemoglobin (Bld) [Mass/Vol] 11.3 g/dL Low 13.9-16.3 [facility] Comment on above: Performed By: #### C BC #### [facility] [address] [place] [address], MCH (RBC) [Entitic mass] 33.8 pg Normal 26.0-34.0 [facility] Comment on above: Performed By: #### C BC #### [facility] [address] [place] [address], MCHC (RBC) [Mass/Vol] 34.6 g/dL Normal 32.0-35.9 [facility] Comment on above: Performed By: #### C BC #### [facility] [address] [place] [address], MCV (RBC) [Entitic vol] 98 fL Normal 80-100 [facility] Comment on above: Performed By: #### C BC #### [facility] [address] [place] [address], Platelet mean volume (Bld) [Entitic vol] 8.2 fL Normal 7.5-11.2 [facility] Comment on above: Performed By: #### C BC #### [facility] [address] [place] [address], Platelets (Bld) [#/Vol] 393 10*3/uL Normal 150-400 [facility] Comment on above: Performed By: #### C BC #### [facility] [address] [place] [address], RBC (Bld) [#/Vol] 3.33 10*6/uL Low 4.50-5.90 [facility] Comment on above: Performed By: #### C BC #### [facility] [address] [place] [address], WBC (Bld) [#/Vol] 10.8 10*3/uL Normal 4.5-11.5 [facility] Comment on above: Performed By: #### C BC #### [facility] [address] [place] [address], FUNGAL CULTURE AND KATHERINE PREPo n 04-28-2022 FUNGAL CULTURE AND KATHERINE PREP C FUNGUS: No Growth KATHERINE ROSARIO: No Yeast Or Fungal Elements Seen Normal [facility] Comment on above: Performed By: #### C BC #### [facility] [address] [place] [address], MAGNESIUMon 04-28-2022 Magnesium [Mass/Vol] 2.0 mg/dL Normal 1.6-2.8 [facility] Comment on above: Performed By: #### P HOS, CH8, MG ####[facility] [id number] [place], [address] Magnesium [Mass/Vol] 2.0 mg/dL 1.6 - 2.8 mg/dL [facility] No Panel Informationon 04-28 Interpretation and review of laboratory results Normal [facility] OP Noteon 04-28-2022 [employer] Authentication Interface Message Text Operative Note Patient name: Nadia Biggs Patient Date of procedure: 04/28/22 Surgical Contact Serial Number: [id number] Pre-op Diagnosis: Right leg abscess and cellulitis Post-op Diagnosis: Right leg abscess and cellulities Procedure: Excisional debridement of right leg, 45 cm3 Wound vac placement Procedure Start Time: 19:40 Procedure End Time: 20:09 Total Operating Time: 29 minutes Surgeon: Nakita Ackerman MD Resident Surgeon: Jeannette Billingsley MD Anesthesia: General EBL: 5 cc Findings: Purulent exudate of the right calf wound, eschar of the skin edge Specimen: Right leg tissue and fluid for culture Indication: Nadia Biggs is a 32 year old year old male who underwent incision and drainage of right leg abscess at OS. Patient had a large wound and there was a concern for NSTI so he was transferred to [facility]. On evaluation, there did not appear to be evidence of NSTI; however, there was an area of necrotic skin and purulent drainage present, so he was taken to the OR for further debridement. Description of Procedure: A huddle was performed in the pre-operative area. Patient was taken to the OR and placed in supine position with both arms out. Sequential compression device was placed on the left calf and turned on. General anesthesia was induced and the patient was intubated. Patient received Ceftriaxone pre-operatively. The right leg was circumferentially prepped and draped in normal sterile fashion. A timeout was performed. There was an area of necrotic skin on the inferomedial aspect of the prior I AND D site. The skin and underlying subcutaneous tissue was excised sharply with Bovie and curved Durbin scissors (total 45 cubic centimeters). This tissue was sent for culture. There was purulent drainage deep to this area which was also cultured. The muscle was then bluntly debrided with the back of a forceps down to clean, healthy bleeding tissue. Final wound measurements were 11 cm long x 12 cm wide (4 cm undermine under the skin laterally) x 1 cm deep. We attempted to approximate the lateral undermined portion but the tissue was too friable to hold a stitch. We generously irrigated the wound and achieved adequate hemostasis using a combination of suture ligation and electrocautery. A single black wound vac sponge was placed (not undermined) and an adequate seal was obtained using -125 mmHg continuous suction. He had mild surrounding erythema which was outlined using a skin marker. This concluded our operation. All sponge, instrument, and needle counts were correct at the end of the case. The patient was awaken from anesthesia and taken to PACU in stable condition. Complications: None Dr. Ackerman was present in the OR for timeout and the entirety of the procedure. Jeannette Billingsley MD General Surgery, PGY-2 I agree with the above operative note as edited by me. I was present and scrubbed for the entire procedure. Nakita Ackerman MD Normal [facility] PHOSPHORUSon 04-28-2022 Phosphate [Mass/Vol] 2.8 mg/dL Normal 2.5-4.8 [facility] Comment on above: Performed By: #### P HOS, CH8, MG ####[facility] [id number] [place], [place], Phosphate [Mass/Vol] 2.8 mg/dL 2.5 - 4.8 mg/dL [facility] TISSUE CULTURE, AEROBICon TISSUE CULTURE, AEROBIC C TISS: Positive Culture Report STREPTOCOCCUS PYOGENES - (GROUP A) 4+ Streptococcus pyogenes - (Group A) GRAM STAIN: 4+ Polymorphonuclear Leukocytes No Squamous Epithelial Cells seen 2+ Gram Positive Cocci Normal [facility] Comment on above: Performed By: #### C BC #### [facility] [address] [place], [place], TYPE AND SCREENon 04-28-2022 ABO and Rh group Nom (Bld) Blood group B Rh(D) positive Normal [facility] Comment on above: Performed By: #### T S #### [facility] [address] [place], [place], ABO and Rh group Nom (Bld) No Previous Results Normal [facility] Comment on above: Performed By: #### T S #### [facility] [address] [place], [place], ABSC INT Negative Normal [facility] Comment on above: Performed By: #### T S #### [facility] [address] [place], [place], ABO and Rh group Nom (Bld) Blood group B Rh(D) positive [facility] ABO and Rh group Nom (Bld) No Previous Results [facility] Blood group antibody screen Ql Negative [facility] COAGULATION SCREENon 022 aPTT Coag (Bld) [Time] 31 s Normal 26 - 39 [facility] Comment on above: Result Comment: THE APTT IS NO LONGER USED FOR MONITORING UNFRACTIONATED HEPARIN THERAPY. FOR MONITORING HEPARIN THERAPY, USE THE HEPARIN ASSAY. Performed By: #### C OAGS #### [address] [address] PT Coag (PPP) [Time] 16.0 s High 9.8 - 13.4 [facility] Comment on above: Performed By: #### C OAGS #### [address] [address] PT, INR 1.4 High 0.9 - 1.1 [facility] Comment on above: Performed By: #### C OAGS #### [address] [address] COMPREHENSIVE PANELon 2021 Albumin [Mass/Vol] 4.1 g/dL Normal 3.4 - 5.0 [facility] Comment on above: Performed By: #### C MP #### [address] [address] ALP [Catalytic activity/Vol] 66 U/L Normal 33 - 120 [facility] Comment on above: Performed By: #### C MP #### [address] [address] ALT [Catalytic activity/Vol] 23 U/L Normal 10 - 52 [facility] Comment on above: Result Comment: Angel ents treated with Sulfasalazine may generate falsely decreased results for ALT. Performed By: #### C MP #### [address] [address] Anion gap [Moles/Vol] 16 mmol/L Normal 10 - 20 [facility] Comment on above: Performed By: #### C MP #### [address] [address] AST [Catalytic activity/Vol] 21 U/L Normal 9 - 39 [facility] Comment on above: Performed By: #### C MP #### [address] [address] Bilirubin [Mass/Vol] 0.7 mg/dL Normal 0.0 - 1.2 [facility] Comment on above: Performed By: #### C MP #### [address] [address] Calcium [Mass/Vol] 9.8 mg/dL Normal 8.6 - 10.3 [facility] Comment on above: Performed By: #### C MP #### [address] [address] Chloride [Moles/Vol] 90 mmol/L Low 98 - 107 [facility] Comment on above: Performed By: #### C MP #### [address] [address] Creatinine [Mass/Vol] 0.80 mg/dL Normal 0.50 - 1.30 [facility] Comment on above: Performed By: #### C MP #### [address] [address] eGFR MALE >90 Normal >90 [facility] Comment on above: Result Comment: CALC ULATIONS OF ESTIMATED GFR ARE PERFORMED USING THE 2020 CKD-EPI STUDY REFIT EQUATION WITHOUT THE RACE VARIABLE FOR THE IDMS-TRACEABLE CREATININE METHODS. https://jasn.asnjournals.org/content/early//ASN.51322756 88 Performed By: #### C MP #### [address] [address] Glucose [Mass/Vol] 100 mg/dL High 74 - 99 [facility] Comment on above: Performed By: #### C MP #### [address] [address] HCO3 (Bld) [Moles/Vol] 25 mmol/L Normal 21 - 32 [facility] Comment on above: Performed By: #### C MP #### [address] [address] Potassium [Moles/Vol] 3.0 mmol/L Low 3.5 - 5.3 [facility] Comment on above: Performed By: #### C MP #### [address] [address] Protein [Mass/Vol] 8.9 g/dL High 6.4 - 8.2 [facility] Comment on above: Performed By: #### C MP #### [address] [address] Sodium [Moles/Vol] 128 mmol/L Low 136 - 145 [facility] Comment on above: Performed By: #### C MP #### [address] [address] Urea nitrogen [Mass/Vol] 11 mg/dL Normal 6 - 23 [facility] Comment on above: Performed By: #### C MP #### [address] [address] D-DIMER, NON VTEon 2 D-DIMER, NON VTE 790 ng/mL FEU Abnormal = 500 [facility] Comment on above: Result Comment: THE D-DIMER ASSAY IS REPORTED IN NG/ML FIBRINOGEN EQUIVALENT UNITS (FEU). THE RESULTS OF THIS ASSAY SHOULD NOT BE USED FOR THE EXCLUSION OF DEEP VEIN THROMBOSIS AND/OR PULMONARY EMBOLISM. Performed By: #### D MARGUERITE #### [address] [address] US DUPLEX VENOUS LEG RIGHTon 04-23-2022 US DUPLEX VENOUS LEG RIGHT Patient Info Name: NADIA BIGGS Age: 32 years : 1990 Gender: Male Exam Date: 04/23/2022 2:14 PM Patient Status: Outpatient Liability Analyst: Tiffany Leonard RDMS, CHAVA Referring Physician: KAIN VIEYRA ; Indications M79.604 - Pain in right leg Procedure Description 30788 Duplex examination using B-mode, color and spectral Doppler of extremity veins including responses to compression and other maneuvers; unilateral or limited study. Conclusions * Right. * No evidence of deep or superficial vein thrombosis in the right lower extremity. * area of mixed echogenicity on the right posterior proximal calf measuring 6.57 cm X 2.5 cm with no color flow visualized. Risk Factors Patient has no risk factors. . Report Signatures Finalized by Viraj Miller MD on 04/23/2022 04:02 PM Normal [facility] US DUPLEX VENOUS LEG RIGHT Patient Info Name: NADIA BIGGS Age: 32 years : 1990 Gender: Male Exam Date: 04/23/2022 2:14 PM Patient Status: Outpatient Liability Analyst: Tiffany Leonard RDMS, CHAVA Referring Physician: KAIN VIEYRA ; Indications M79.604 - Pain in right leg Procedure Description 69336 Duplex examination using B-mode, color and spectral Doppler of extremity veins including responses to compression and other maneuvers; unilateral or limited study. Conclusions * Right. * No evidence of deep or superficial vein thrombosis in the right lower extremity. * area of mixed echogenicity on the right posterior proximal calf measuring 6.57 cm X 2.5 cm with no color flow visualized. Risk Factors Patient has no risk factors. . Report Signatures Finalized by Viraj Miller MD on 04/23/2022 04:02 PM Dictated by: VIRAJ MILLER on SatApr 23, 2022 4:03:30 PM EST Transcribed by: VIRAJ MILLER on SatApr 23, 2022 4:03:30 PM EST Finalized by: VIRAJ MILLER on SatApr 23, 2022 4:03:30 PM EST Normal [facility] Ambulatory Provider Note - ED v2on 06- Provider Note - ED v2 Provider Note - ED v2: Chart Review: ED NOTES ED NOTES: This is a 30-year-old white male brought in by EMS from home. Patient admits to drinking heavily tonight. He states he went outside he said on the banister of his porch. Patient lost his balance and he fell at least 6 to 8 feet down onto the ground. He did not lose consciousness. He states he was unable to get back up because he was so intoxicated so he used his phone and called 911. He wanted assistance to get back into his house. EMS told him that he had to come to the emergency room because he was intoxicated. Patient refused immobilization. Patient states he has no pain. HISTORY OF PRESENTING ILLNESS NADIA is a 30 year old Male and was seen by me at 09-Nov-2020 01:22 for a chief complaint of suspected alcohol intoxication (Patient states he fell tonight while drinking, denies injury or pain, called EMS to help him get into his house, EMS told patient he had to come to the hospital because he was intoxicated. Patient states he did not want to come, refuses C-Collar, refuses IV, states he does not want CT scan or medication.)(1). Triage Information: Most recent Vital Sign Value Date Temp (F): 96.9 11-09-2020 01:21 Temp (C): 36.1 11-09-2020 01:21 Heart Rate (beats/min): 92 11-09-2020 01:21 Respirations (breaths/min): 18 11-09-2020 01:21 SpO2 (%): 98 11-09-2020 01:21 BP Systolic (mm Hg): 137 11-09-2020 01:21 BP Diastolic (mm Hg): 98 11-09-2020 01:21 PAST MEDICAL HISTORY ATTESTATION: I have reviewed and confirmed nurse's/medic's notes for patient's medications, allergies, and medical, surgical, family and social history ALLERGIES/INTOLERANCES : No Known Allergies HEALTH HISTORY: No documented data. OUTPATIENT MEDICATIONS: Home Medications Review Status for Reconciliation: N/A Med Status: N/A No documented data. SIGNIFICANT EVENTS: Past Medical History Description:HTN Description:Daily Drinker REVIEW OF SYSTEMS CONSTITUTIONAL: Negative for: weakness EYES: Negative for: pain and photophobia ENMT Ears: Negative for: pain Nose: Negative for: congestion, discharge, nose bleeds, obstruction and sneezing Throat/Neck: Negative for: dysphagia, hoarseness, throat lesions, throat pain, neck lumps, neck pain, neck stiffness and swollen glands CARDIOVASCULAR: Negative for: bradycardia, chest pain, diaphoresis, edema, irregular rhythm, orthopnea, palpitations and tachycardia RESPIRATORY: Negative for: cough, dyspnea, hemoptysis, pleuritic chest pain and wheezing GASTROINTESTINAL: Negative for: abdominal pain, constipation, diarrhea, nausea and vomiting; MUSCULOSKELETAL: Negative for: back pain, joint pain, neck pain, pain, sensory deficits, stiffness and weakness INTEGUMENTARY: Negative for: abrasions, dryness, hives, itching, jaundice, lesions and lumps; NEUROLOGICAL: Negative for: dizziness, headache, loss of consciousness and loss of function; memory impairment and vertigo PSYCHIATRIC: Negative for: anxiety, depression, hallucinations, insomnia, memory changes and mood swings RESULTS/VITAL SIGNS VITAL SIGNS: T PRBP SpO2O2(LPM) %FiO2 Method 09-Nov-2020 01:21:[id number] 98 PHYSICAL EXAM CONSTITUTIONAL: Appearance: (Smells of alcohol) Development: well developed Distress: no apparent Mentation: awake, alert and oriented to person, place, time/situation Nourishment: well HENMT: Airway patent, ears with clear tympanic membranes bilaterally. Nasal mucosa clear. Mouth with normal mucosa. Throat has no vesicles, no oropharyngeal exudates and uvula is midline. Face with no lymph node enlargement. CARDIOVASCULAR: Normal rate, regular rhythm. Heart sounds S1, S2. No murmurs, rubs or gallops. PMI non-displaced. RESPIRATORY: Breath sounds clear and equal bilaterally. GASTROINTESTINAL: Abdomen soft, non-distended, no rebound, no guarding. Bowel sounds normal in all 4 quadrants. MUSCULOSKELETAL: Spine appears normal, range of motion is not limited, no muscle or joint tenderness. NEUROLOGICAL: Level of Consciousness: alert and follows commands Memory: memory/cognition intact Neck: normal and non-tender Speech: clear Gait and Weight Bearing: normal NIH Stroke Scale: [place] Coma Scale (baseline) [place] Coma Scale: Verbal Response: (V5) oriented Eye: (E4) spontaneous Motor: (M6) obeys commands GCS Score: 15 SKIN: Skin normal color for race, warm, dry and intact. No evidence of trauma. MEDICAL DECISION MAKING/ED COURSE MDM/ED COURSE: This is a 30-year-old white male who has a history of hypertension. Patient has been drinking alcohol this evening. He accidentally fell off of a porch banister. Patient refusing medical evaluation. He called his and while I was speaking to him she arrived and stated that she would take responsibility for the patient. She signed him out AGAINST MEDICAL ADVICE. He patient (more content not included)... Normal [facility] Triage - EDon 11-09-2020 Triage - ED Quick Triage: The patient and/or guardian verbally acknowledges placement for services into the following (when Urgent Care Service hours are operating):emergency department Chart Review: ARRIVAL INFORMATION Mode of Arrival: ambulance Agency Name: [place] CHIEF COMPLAINT NADIA BIGGS is a Male patient with a chief complaint of suspected alcohol intoxication (Patient states he fell tonight while drinking, denies injury or pain, called EMS to help him get into his house, EMS told patient he had to come to the hospital because he was intoxicated. Patient states he did not want to come, refuses C-Collar, refuses IV, states he does not want CT scan or medication.). Triage Date/Time: 09-Nov-2020 01:21 RENATO: 3 Vital Signs: Temperature: 96.9F ( 36.1C) Blood Pressure: 137/98 Mean: Heart Rate: 92 Respiratory Rate: 18 Pulse Oximetry: 98% Height: 5 feet 11 inches. 180.3 CM Weight: 185.1 pounds. Calculated 84.0 kg. Calculated BMI (kg/m2): 25.839 Calculated BSA (m2) 2.05 Jade Coma Scale: Best Eye Response: (E4) spontaneous Best Motor Response: (M6) obeys commands Best Verbal Response: (V5) oriented Jade Score: 15 Cough lasting greater than 3 weeks: no Allergies: no Mask applied: yes Patient has homicidal thoughts: no Risk Screens Suicide Risk Screen In the Past Month: Have you wished you were or wished you could go to sleep and not wake up no In the Past Month: Have you had any actual thoughts of killing yourself no In Your Lifetime: Have you ever done anything, started to do anything, or prepared to do anything to end your life no Roldan Fall Scale Screening Has the patient fallen before (or is the patient in the ED as a result of a fall) has not had a fall Does the patient have an impaired gait does not have impaired gait Is the patient cognitively impaired not cognitively impaired Interventions: Roldan Fall Interventions: LOW INTERVENTIONS: *patient oriented to surroundings and call system, * patient/family falls education completed and documented, *patients fall status communicated during bedside handoff, *whiteboard updated, *mode of toileting discussed with patient, *bed in low position with brakes locked, *call light in reach, * non-skid footwear TRAVEL HISTORY Travel History Coronavirus Screening: no exposure or symptoms Travel Exposure History: NO travel to International locations in the past 30 days PAIN Pain Scale Used: JUSTIN Past Medical History: Past Medical History Reviewedyes Electronic Signatures: Mathew Nixon (RN) (Signed 09-Nov-2020 01:31) Authored: Quick Triage, Risk Screens, Pain, Travel History, Chart Review, Scores, Past Medical History Last Updated: 09-Nov-2020 01:31 by Mathew Nixon (RN) Normal [facility] COMPREHENSIVE PANELon 2020 Albumin [Mass/Vol] 4.8 g/dL Normal 3.4 - 5.0 [facility] Comment on above: Performed By: #### C MP #### [place] [address] ALP [Catalytic activity/Vol] 74 U/L Normal 33 - 120 [facility] Comment on above: Performed By: #### C MP #### [address] [address] ALT [Catalytic activity/Vol] 43 U/L Normal 10 - 52 [facility] Comment on above: Result Comment: Angel ents treated with Sulfasalazine may generate falsely decreased results for ALT. Performed By: #### C MP #### [address] [address] Anion gap [Moles/Vol] 13 mmol/L Normal 10 - 20 [facility] Comment on above: Performed By: #### C MP #### [address] [address] AST [Catalytic activity/Vol] 38 U/L Normal 9 - 39 [facility] Comment on above: Performed By: #### C MP #### [address] [address] Bilirubin [Mass/Vol] 0.6 mg/dL Normal 0.0 - 1.2 [facility] Comment on above: Performed By: #### C MP #### [address] [address] Calcium [Mass/Vol] 10.5 mg/dL High 8.6 - 10.3 [facility] Comment on above: Performed By: #### C MP #### [address] [address] Chloride [Moles/Vol] 103 mmol/L Normal 98 - 107 [facility] Comment on above: Performed By: #### C MP #### [address] [address] Creatinine [Mass/Vol] 0.75 mg/dL Normal 0.50 - 1.30 [facility] Comment on above: Performed By: #### C MP #### [address] [address] GFR- AM. >60 Normal >60 [facility] Comment on above: Result Comment: CALC ULATIONS OF ESTIMATED GFR ARE PERFORMED USING THE MDRD STUDY EQUATION FOR THE IDMS-TRACEABLE CREATININE METHODS. CLIN CHEM 2007;53:766-72 Performed By: #### C MP #### [address] [address] GFR-NON AM. >60 Normal >60 [facility] Comment on above: Performed By: #### C MP #### [address] [address] Glucose [Mass/Vol] 96 mg/dL Normal 74 - 99 [facility] Comment on above: Performed By: #### C MP #### [address] [address] HCO3 (Bld) [Moles/Vol] 27 mmol/L Normal 21 - 32 [facility] Comment on above: Performed By: #### C MP #### [address] [address] Potassium [Moles/Vol] 3.9 mmol/L Normal 3.5 - 5.3 [facility] Comment on above: Performed By: #### C MP #### [address] [address] Protein [Mass/Vol] 8.0 g/dL Normal 6.4 - 8.2 [facility] Comment on above: Performed By: #### C MP #### [address] [address] Sodium [Moles/Vol] 139 mmol/L Normal 136 - 145 [facility] Comment on above: Performed By: #### C MP #### [address] [address] Urea nitrogen [Mass/Vol] 8 mg/dL Normal 6 - 23 [facility] Comment on above: Performed By: #### C MP #### [address] [address] ALCOHOLon 07-13-2020 ALCOHOL Canceled [facility] Comment on above: Order Comment: TEST ALCOHOL WAS CANCELLED, 07/12/2020 23:20 Result Comment: FOR MEDICAL USE ONLY. Performed By: #### A LC #### [address] [address] BASIC METABOLIC PANELon 06-27 ANION GAP Canceled Normal [facility] Comment on above: Order Comment: TEST BASIC METABOLIC PANEL WAS CANCELLED, 07/12/2020 23:19 Performed By: #### B MP #### [address] [address] BICARBONATE Canceled Normal [facility] Comment on above: Order Comment: TEST BASIC METABOLIC PANEL WAS CANCELLED, 07/12/2020 23:19 Performed By: #### B MP #### [address] [address] CALCIUM Canceled Normal [facility] Comment on above: Order Comment: TEST BASIC METABOLIC PANEL WAS CANCELLED, 07/12/2020 23:19 Performed By: #### B MP #### [address] [address] CHLORIDE Canceled Normal [facility] Comment on above: Order Comment: TEST BASIC METABOLIC PANEL WAS CANCELLED, 07/12/2020 23:19 Performed By: #### B MP #### [address] [address] CREATININE Canceled [facility] Comment on above: Order Comment: TEST BASIC METABOLIC PANEL WAS CANCELLED, 07/12/2020 23:19 Performed By: #### B MP #### [address] [address] GFR- AM. Canceled Normal [facility] Comment on above: Order Comment: TEST BASIC METABOLIC PANEL WAS CANCELLED, 07/12/2020 23:19 Result Comment: CALC ULATIONS OF ESTIMATED GFR ARE PERFORMED USING THE MDRD STUDY EQUATION FOR THE IDMS-TRACEABLE CREATININE METHODS. CLIN CHEM 2007;53:766-72 Performed By: #### B MP #### [address] [address] GFR-NON AM. Canceled [facility] Comment on above: Order Comment: TEST BASIC METABOLIC PANEL WAS CANCELLED, 07/12/2020 23:19 Performed By: #### B MP #### [address] [address] GLUCOSE Canceled [facility] Comment on above: Order Comment: TEST BASIC METABOLIC PANEL WAS CANCELLED, 07/12/2020 23:19 Performed By: #### B MP #### [address] [address] POTASSIUM Canceled [facility] Comment on above: Order Comment: TEST BASIC METABOLIC PANEL WAS CANCELLED, 07/12/2020 23:19 Performed By: #### B MP #### [address] [address] SODIUM Canceled [facility] Comment on above: Order Comment: TEST BASIC METABOLIC PANEL WAS CANCELLED, 07/12/2020 23:19 Performed By: #### B MP #### [address] [address] UREA NITROGEN Canceled [facility] Comment on above: Order Comment: TEST BASIC METABOLIC PANEL WAS CANCELLED, 07/12/2020 23:19 Performed By: #### B MP #### [address] [address] CBC AND DIFFERENTIALon 07-13 % BASOPHIL Canceled [facility] Comment on above: Order Comment: TEST CBC AND DIFFERENTIAL WAS CANCELLED, 07/12/2020 23:19 Performed By: #### C BCDF #### [address] [address] % EOSINOPHIL Canceled [facility] Comment on above: Order Comment: TEST CBC AND DIFFERENTIAL WAS CANCELLED, 07/12/2020 23:19 Performed By: #### C BCDF #### [address] [address] % LYMPHOCYTE Canceled [facility] Comment on above: Order Comment: TEST CBC AND DIFFERENTIAL WAS CANCELLED, 07/12/2020 23:19 Performed By: #### C BCDF #### [address] [address] % MONOCYTE Canceled Normal [facility] Comment on above: Order Comment: TEST CBC AND DIFFERENTIAL WAS CANCELLED, 07/12/2020 23:19 Performed By: #### C BCDF #### [address] [address] % NEUTROPHIL Canceled [facility] Comment on above: Order Comment: TEST CBC AND DIFFERENTIAL WAS CANCELLED, 07/12/2020 23:19 Performed By: #### C BCDF #### [address] [address] BASOPHIL Canceled [facility] Comment on above: Order Comment: TEST CBC AND DIFFERENTIAL WAS CANCELLED, 07/12/2020 23:19 Performed By: #### C BCDF #### [address] [address] DIFFERENTIAL Canceled [facility] Comment on above: Order Comment: TEST CBC AND DIFFERENTIAL WAS CANCELLED, 07/12/2020 23:19 Performed By: #### C BCDF #### [address] [address] EOSINOPHIL Canceled [facility] Comment on above: Order Comment: TEST CBC AND DIFFERENTIAL WAS CANCELLED, 07/12/2020 23:19 Performed By: #### C BCDF #### [place] [address] HCT Canceled [facility] Comment on above: Order Comment: TEST CBC AND DIFFERENTIAL WAS CANCELLED, 07/12/2020 23:19 Performed By: #### C BCDF #### [place] [address] HGB Canceled [facility] Comment on above: Order Comment: TEST CBC AND DIFFERENTIAL WAS CANCELLED, 07/12/2020 23:19 Performed By: #### C BCDF #### [place] [address] LYMPHOCYTE Canceled [facility] Comment on above: Order Comment: TEST CBC AND DIFFERENTIAL WAS CANCELLED, 07/12/2020 23:19 Performed By: #### C BCDF #### [place] [address] MCHC Canceled [facility] Comment on above: Order Comment: TEST CBC AND DIFFERENTIAL WAS CANCELLED, 07/12/2020 23:19 Performed By: #### C BCDF #### [place] [address] MCV Canceled [facility] Comment on above: Order Comment: TEST CBC AND DIFFERENTIAL WAS CANCELLED, 07/12/2020 23:19 Performed By: #### C BCDF #### [place] [address] MONOCYTE Canceled [facility] Comment on above: Order Comment: TEST CBC AND DIFFERENTIAL WAS CANCELLED, 07/12/2020 23:19 Performed By: #### C BCDF #### [place] [address] NEUTROPHIL Canceled [facility] Comment on above: Order Comment: TEST CBC AND DIFFERENTIAL WAS CANCELLED, 07/12/2020 23:19 Result Comment: Perc ent differential counts (%) should be interpreted in the context of the absolute cell counts (cells/L). Performed By: #### C BCDF #### [address] [address] PLT Canceled [facility] Comment on above: Order Comment: TEST CBC AND DIFFERENTIAL WAS CANCELLED, 07/12/2020 23:19 Performed By: #### C BCDF #### [address] [address] RBC Canceled [facility] Comment on above: Order Comment: TEST CBC AND DIFFERENTIAL WAS CANCELLED, 07/12/2020 23:19 Performed By: #### C BCDF #### [place] [id number] RDW-CV Canceled [facility] Comment on above: Order Comment: TEST CBC AND DIFFERENTIAL WAS CANCELLED, 07/12/2020 23:19 Performed By: #### C BCDF #### [address] [address] WBC Canceled [facility] Comment on above: Order Comment: TEST CBC AND DIFFERENTIAL WAS CANCELLED, 07/12/2020 23:19 Performed By: #### C BCDF #### [place] [id number] HEPATIC FUNCTION PANELon ALBUMIN Canceled [facility] Comment on above: Order Comment: TEST ALCOHOL WAS CANCELLED, 07/12/2020 23:20 Performed By: #### A LC #### [place] [id number] ALKALINE PHOSPHATASE Canceled [facility] Comment on above: Order Comment: TEST ALCOHOL WAS CANCELLED, 07/12/2020 23:20 Performed By: #### A LC #### [place] [id number] ALT Canceled [facility] Comment on above: Order Comment: TEST ALCOHOL WAS CANCELLED, 07/12/2020 23:20 Result Comment: Angel ents treated with Sulfasalazine may generate falsely decreased results for ALT. Performed By: #### A LC #### [place] [id number] AST Canceled [facility] Comment on above: Order Comment: TEST ALCOHOL WAS CANCELLED, 07/12/2020 23:20 Performed By: #### A LC #### [address] [address] BILIRUBIN,DIRECT Canceled [facility] Comment on above: Order Comment: TEST ALCOHOL WAS CANCELLED, 07/12/2020 23:20 Performed By: #### A LC #### [place] [id number] BILIRUBIN,TOTAL Canceled [facility] Comment on above: Order Comment: TEST ALCOHOL WAS CANCELLED, 07/12/2020 23:20 Performed By: #### A LC #### [place] [id number] TOTAL PROTEIN Canceled [facility] Comment on above: Order Comment: TEST ALCOHOL WAS CANCELLED, 07/12/2020 23:20 Performed By: #### A LC #### [place] [id number] LACTATEon 07-13-2020 LACTATE Canceled [facility] Comment on above: Order Comment: TEST LACTATE WAS CANCELLED, 07/12/2020 23:19 Result Comment: Anel puncture immediately after or during the administration of Metamizole may lead to falsely low results. Testing should be performed immediately prior to Metamizole dosing. Performed By: #### L ACT #### [place] [id number] LIPASEon 07-13-2020 LIPASE Canceled [facility] Comment on above: Order Comment: TEST ALCOHOL WAS CANCELLED, 07/12/2020 23:20 Result Comment: Anel puncture immediately after or during the administration of Metamizole may lead to falsely low results. Testing should be performed immediately prior to Metamizole dosing. Performed By: #### A LC #### [place] [id number] Provider Note - ED v2on 06-27 Provider Note - ED v2 Provider Note - ED v2: Chart Review: ED NOTES ED NOTES: HPI: Patient is a 30-year-old male describes chief complaint of epigastric and right upper quadrant pain starting this morning. First noticed it when he woke up. Seems to come and go. Nothing seems to make it better or worse. He arrived via EMS. He denies any nausea or vomiting. He is a daily drinker. He does report loose/soft stool throughout the day today. No other complaints. No headache double vision or blurry vision. No chest pain or shortness of breath. No radiating symptoms. No neurologic complaints. No urinary symptoms. No focal weakness or rashes. ROS: All systems are negative other than as noted in HPI. Physical Exam I have reviewed the triage vital signs. Const: Well nourished, well developed, appears stated age, no acute distress Eyes: PERRL, EOM intact, no conjunctival injection, vision grossly normal HENT: Neck supple without meningismus , Moist mucous membranes, no pharyengeal swelling or exudate CV: Regular rate and rhythm, Warm, well-perfused extremities. Chest non tender RESP: Lungs clear bilaterally, Unlabored respiratory effort GI: soft, moderate epigastric and right upper quadrant tenderness with some voluntary guarding, non-distended, no masses : MSK: No gross deformities appreciated Skin: Warm, dry. No rashes Neuro: Alert and oriented x4, GCS 15 , take down sorter II-XII grossly intact. Sensation and motor function of extremities grossly intact. Psych: Appropriate mood and affect. HISTORY OF PRESENTING ILLNESS NADIA is a 30 year old Male and was seen by me at 12-Jul-2020 23:03 for a chief complaint of abdominal pain (right sided abd pain has been ongoing but worsened this morning. Denies n/v. patient states he is a daily drinker.)(1). Triage Information: Most recent Vital Sign Value Date Temp (F): 97.1 07-12-2020 23:03 Temp (C): 36.1 07-12-2020 23:03 Heart Rate (beats/min): 89 07-12-2020 23:03 Respirations (breaths/min): 18 07-12-2020 23:03 SpO2 (%): 98 07-12-2020 23:03 BP Systolic (mm Hg): 160 07-12-2020 23:03 BP Diastolic (mm Hg): 94 07-12-2020 23:03 PAST MEDICAL HISTORY ATTESTATION: I have reviewed and confirmed nurse's/medic's notes for patient's medications, allergies, and medical, surgical, family and social history ALLERGIES/INTOLERANCES : No Known Allergies HEALTH HISTORY: No documented data. OUTPATIENT MEDICATIONS: Home Medications Review Status for Reconciliation: N/A Med Status: N/A No documented data. SIGNIFICANT EVENTS: Past Medical History Description:HTN Description:Daily Drinker RESULTS/VITAL SIGNS VITAL SIGNS: T PRBP SpO2O2(LPM) %FiO2 Method 12-Jul-2020 23:03:[id number]/9 4 98 room air, no respiratory support MEDICAL DECISION MAKING/ED COURSE MDM/ED COURSE: Patient presents via EMS. Apparently they attempted IV placement twice in the EMS. He is refusing any lab draws or IV access here in the ED. Patient stated if you want to get my blood you will have to get the special tester . I informed patient that he is not under arrest and he is under no requirement to be evaluated further if he does not want to. Patient's vital signs are stable. He does not want any additional diagnostics. He will be discharged. CLINICAL IMPRESSION Diagnosis/Annotation: ED Dx Name:Right upper quadrant abdominal pain Code:R10.11 Disposition: discharged Type: home ATTESTATION Comments/Additional Findings: Patient left prior to receiving discharge papers CRITICAL CARE TIME Is this a critically ill patient: no Electronic Signatures: Alirio Angel) (Signed 12-Jul-2020 23:16) Authored: ED Notes, HPI, PMH, PE, Results/Vital Signs, MDM/ED Course, CDS/Scales, Clinical Impression, Attestation, Chart Review, Scores Last Updated: 12-Jul-2020 23:16 by Alirio Angel) References: 1. Data Referenced From Triage - ED 12-Jul-2020 23:03 [facility] Triage - EDon 07-13-2020 Triage - ED Quick Triage: The patient and/or guardian verbally acknowledges placement for services into the following (when Urgent Care Service hours are operating):emergency department Chart Review: PRIMARY ASSESSMENT NADIA LETICIA KALYAN's primary assessment is Within Defined Limits. The airway is open and patent. Breathing spontaneous and unlabored with clear breath sounds bilaterally. Circulation is normal with good peripheral pulses. Skin is warm and dry and color is normal for race. TREATMENT PRIOR TO ARRIVAL Treatment Prior to Arrival: Prior to arrival in the Emergency Department NADIA BIGGS had treatment conducted by EMS which included the following; see ambulance record. ARRIVAL INFORMATION Means of Arrival: stretcher Mode of Arrival: ambulance Agency: [facility] Agency Name: [facility] Arrival From: home Accompanied By: self Language: Spoken Language Preferred: Brazilian Reading Language Preferred: Brazilian CHIEF COMPLAINT NADIA BIGGS is a Male patient with a chief complaint of abdominal pain (right sided abd pain has been ongoing but worsened this morning. Denies n/v. patient states he is a daily drinker.). Triage Date/Time: 12-Jul-2020 23:03 Pain Rating (0-10): 0 = None Pain location: abd pain Vital Signs: Temperature: 97.1F ( 36.1C) taken oral Blood Pressure: 160/94 Mean: Heart Rate: 89 Respiratory Rate: 18 Pulse Oximetry: 98% on room air, no respiratory support. Height: 6 feet 0 inches. 182.8 CM Weight: 180.3 pounds. Calculated 81.8 kg. (stated) Calculated BMI (kg/m2): 24.479 Calculated BSA (m2) 2.04 [place] Coma Scale: Best Eye Response: (E4) spontaneous Best Motor Response: (M6) obeys commands Best Verbal Response: (V5) oriented [place] Score: 15 Cough lasting greater than 3 weeks: no Allergies: no Patient has homicidal thoughts: no RENATO: 3 Symptoms Are Negative For: fever, nausea and vomiting. Last Bowel Movement: 12-Jul-2020 Risk Screens Suicide Risk Screen In the Past Month: Have you wished you were or wished you could go to sleep and not wake up no In the Past Month: Have you had any actual thoughts of killing yourself no In Your Lifetime: Have you ever done anything, started to do anything, or prepared to do anything to end your life no [place] Fall Scale Screening Has the patient fallen before (or is the patient in the ED as a result of a fall) has not had a fall Does the patient have an impaired gait does not have impaired gait Is the patient cognitively impaired not cognitively impaired Interventions: Roldan Fall Interventions: LOW INTERVENTIONS: *patient oriented to surroundings and call system, * patient/family falls education completed and documented, *patients fall status communicated during bedside handoff, *whiteboard updated, *mode of toileting discussed with patient, *bed in low position with brakes locked, *call light in reach, * non-skid footwear PAST MEDICAL HISTORY Immunization History: Last Known Tetanus Immunization: Unknown TRAVEL HISTORY Travel History Coronavirus Screening: no exposure or symptoms PAIN Pain Scale Used: JUSTIN Pain Rating (0-10): 0 = None Past Medical History: Past Medical History Reviewedyes Daily Drinker: Past Medical History, Active HTN: Past Medical History, Active Electronic Signatures: Amberly Ludwig) (Signed 12-Jul-2020 23:07) Authored: Quick Triage, Risk Screens, Pain, Arrival, Pre-arrival, ABCD, Immunizations, Chart Review, Scores, Past Medical History Last Updated: 12-Jul-2020 23:07 by Amberly Ludwig (ALFIE) [facility] URINALYSISon 07-13-2020 Appearance (U) Canceled [facility] Comment on above: Order Comment: TEST URINALYSIS WAS CANCELLED, 07/12/2020 23:19 Performed By: #### U A #### [place] [address] ASCORBIC ACID Canceled [facility] Comment on above: Order Comment: TEST URINALYSIS WAS CANCELLED, 07/12/2020 23:19 Result Comment: Conc entrations > = 20 mg/dL of ascorbic acid can be expected to cause strong interference in the reactions testing for glucose, nitrite and blood. It is recommended to discontinue Vitamin C administration and retest in 10 hours. Performed By: #### U A #### [place] [id number] Bilirubin Ql (U) Canceled [facility] Comment on above: Order Comment: TEST URINALYSIS WAS CANCELLED, 07/12/2020 23:19 Performed By: #### U A #### [place] [id number] Color (U) Canceled [facility] Comment on above: Order Comment: TEST URINALYSIS WAS CANCELLED, 07/12/2020 23:19 Performed By: #### U A #### [place] [id number] Glucose Ql (U) Canceled [facility] Comment on above: Order Comment: TEST URINALYSIS WAS CANCELLED, 07/12/2020 23:19 Performed By: #### U A #### [address] [address] Hemoglobin Ql (U) Canceled [facility] Comment on above: Order Comment: TEST URINALYSIS WAS CANCELLED, 07/12/2020 23:19 Performed By: #### U A #### [address] [address] Ketones Ql (U) Canceled [facility] Comment on above: Order Comment: TEST URINALYSIS WAS CANCELLED, 07/12/2020 23:19 Performed By: #### U A #### [address] [address] Leukocyte esterase Test strip Ql (U) Canceled [facility] Comment on above: Order Comment: TEST URINALYSIS WAS CANCELLED, 07/12/2020 23:19 Performed By: #### U A #### [address] [address] Nitrite Ql (U) Canceled [facility] Comment on above: Order Comment: TEST URINALYSIS WAS CANCELLED, 07/12/2020 23:19 Performed By: #### U A #### [address] [address] pH Canceled [facility] Comment on above: Order Comment: TEST URINALYSIS WAS CANCELLED, 07/12/2020 23:19 Performed By: #### U A #### [address] [address] Protein Ql (U) Canceled [facility] Comment on above: Order Comment: TEST URINALYSIS WAS CANCELLED, 07/12/2020 23:19 Performed By: #### U A #### [address] [address] Specific gravity (U) [Rel density] Canceled [facility] Comment on above: Order Comment: TEST URINALYSIS WAS CANCELLED, 07/12/2020 23:19 Performed By: #### U A #### [address] [address] UROBILINOGEN Canceled [facility] Comment on above: Order Comment: TEST URINALYSIS WAS CANCELLED, 07/12/2020 23:19 Performed By: #### U A #### [address] [address] HOSPon 02-07-2017 HOSP Office Visit OPHT (OPTLOU) [facility][id number]) 1990 [facility] Department[facility]/07/17 8:30 AM FAZAL STEVENS II OPTLOU During your visit today, we recorded the following information about you:Fazal Stevens, GREG, OD 02/07/2017 9:34 AM SignedASSESSMENT/PLAN: 1. Myopia of both eyes - ICD9: 367.1, ICD10: H52.13 (primary diagnosis)Glasses power shows minimal change. Update as desired.2. Glaucoma suspect of both eyes - ICD9: 365.00, ICD10: H40.003Glaucoma suspect both eyes due to optic nerve cupping, field losses, and notedNFL anomalies. Recommend consult with Dr. King regarding need for treatment.Recheck here in one year. No treatment indicated at this time. Discussed needfor continued close observation to minimize chance of future vision loss.3. Visual field loss - ICD9: 368.40, ICD10: H53.40Partial superior right homonymous quadrant losses both eyes unchanged from05/10 visit. Discussed need to determine if losses are due to glaucoma changesor lesions further back in brain. Appointment scheduled with Dr. King.I have confirmed and edited as necessary the relevant ophthalmic history,review of systems, surgical history, and ophthalmological examination findingsas obtained by the ophthalmic technical staff. I have seen and examined Alissa Biggs. I have discussed the examination findings, diagnosis, and treatmentoptions with the patient and/or the patient's family. I have also reviewed andagree with the assessment and plan as stated above and agree with all itsrelevant components. I gave the patient the opportunity to ask questions aboutthe findings, diagnosis, and treatment options.Fazal Stevens, II, ODJoalexia Stevens, II, OD 02/07/2017 9:34 AM SignedASSESSMENT/PLAN: 1. Myopia of both eyes - ICD9: 367.1, ICD10: H52.13 (primary diagnosis)Glasses power shows minimal change. Update as desired.2. Glaucoma suspect of both eyes - ICD9: 365.00, ICD10: H40.003Glaucoma suspect both eyes due to optic nerve cupping, field losses, and notedNFL anomalies. Recommend consult with Dr. King regarding need for treatment.Recheck here in one year. No treatment indicated at this time. Discussed needfor continued close observation to minimize chance of future vision loss.3. Visual field loss - ICD9: 368.40, ICD10: H53.40Partial superior right homonymous quadrant losses both eyes unchanged from05/10 visit. Discussed need to determine if losses are due to glaucoma changesor lesions further back in brain. Appointment scheduled with Dr. King.Referring Provider: SELF [[id number]]Allergies As of Date: 02/07/2017(No Known Allergies)Date Reviewed: 02/07/2017Reviewed by: Fazal Stevens II - Fully AssessedReason for Visit: Glaucoma Suspect Evaluation [3046]Primary Visit Diagnosis:Myopia of both eyes [H52.13] Other Visit Diagnoses:Glaucoma suspect of both eyes [H40.003] Visual field loss [H53.40]Order(s):VISUA L FIELD 24-2 OU (BOTH EYES) [5276310] Order #: [id number]: 1 OCT OPTIC NERVE CIRRUS OU (BOTH EYES) [0321064] Order #: [id number]: 1Problem List As Of Date 02/07/2017 Noted Resolved Myopia [H52.10] INVALID FOR* Glaucoma suspect of both eyes [H40.003] INVALID FOR* Visual field loss [H53.40] INVALID FOR* Other instructions from your clinician: ASSESSMENT/PLAN: 1. Myopia of both eyes - ICD9: 367.1, ICD10: H52.13 (primary diagnosis) Glasses power shows minimal change. Update as desired. 2. Glaucoma suspect of both eyes - ICD9: 365.00, ICD10: H40.003 Glaucoma suspect both eyes due to optic nerve cupping, field losses, and noted NFL anomalies. Recommend consult with Dr. King regarding need for treatment. Recheck here in one year. No treatment indicated at this time. Discussed need for continued close observation to minimize chance of future vision loss. 3. Visual field loss - ICD9: 368.40, ICD10: H53.40 Partial superior right homonymous quadrant losses both eyes unchanged from 05/10 visit. Discussed need to determine if losses are due to glaucoma changes or lesions further back in brain. Appointment scheduled with Dr. King.Disposition: Return in about 1 year (around 02/07/2018).Follow-up and Disposition History RecordedLetter TextEncounter Number: [id number] Status:Closed by FAZAL STEVENS II OD on 02/07/17 [facility] PROGRESSon 02-07-2017 PROGRESS HNO ID: [id number]: Fazal Stevens IIService: (none)Author Type: OPTOMETRISTType: Progress NotesFiled: 02/07/2017 9:34 AMNote Text:ASSESSMENT/PLAN:1 . Myopia of both eyes - ICD9: 367.1, ICD10: H52.13 (primary diagnosis)Glasses power shows minimal change. Update as desired.2. Glaucoma suspect of both eyes - ICD9: 365.00, ICD10: H40.003Glaucoma suspect both eyes due to optic nerve cupping, field losses, andnoted NFL anomalies. Recommend consult with Dr. King regarding need fortreatment. Recheck here in one year. No treatment indicated at thistime. Discussed need for continued close observation to minimize chanceof future vision loss.3. Visual field loss - ICD9: 368.40, ICD10: H53.40Partial superior right homonymous quadrant losses both eyes unchanged from05/10 visit. Discussed need to determine if losses are due to glaucomachanges or lesions further back in brain. Appointment scheduled with .I have confirmed and edited as necessary the relevant ophthalmic history,review of systems, surgical history, and ophthalmological examinationfindings as obtained by the ophthalmic technical staff. I have seen andexamined Nadia Cornell Biggs. I have discussed the examination findings,diagnosis, and treatment options with the patient and/or the patient'sfamily. I have also reviewed and agree with the assessment and plan asstated above and agree with all its relevant components. I gave thepatient the opportunity to ask questions about the findings, diagnosis,and treatment options.Fazal Stevens, II, OD [facility] Vital Signs Date Time Vital Sign Value Performing Clinician Facility 09-30-2024 10: Body height 182.9 cm Yeimi Andrea BUSINESS DEVELOPMENT REPRESENTATIVE-BENZENE WASHER OPERATOR Work Phone: [facility] 09-30-2024 10:14040 Body mass index (BMI) [Ratio] 26.19 kg/m2 Yeimi Andrea BUSINESS DEVELOPMENT REPRESENTATIVE-BENZENE WASHER OPERATOR Work Phone: [facility] 09-30-2024 10:14040 Body weight 87.59 kg Yeimi Andrea BUSINESS DEVELOPMENT REPRESENTATIVE-BENZENE WASHER OPERATOR Work Phone: [facility] 09-30-2024 10:14040 Diastolic blood pressure 91 mm[Hg] Yeimi Andrea BUSINESS DEVELOPMENT REPRESENTATIVE-BENZENE WASHER OPERATOR Work Phone: [facility] 09-30-2024 10:14040 Heart rate 97 /min Yeimi Andrea BUSINESS DEVELOPMENT REPRESENTATIVE-BENZENE WASHER OPERATOR Work Phone: [facility] 09-30-2024 10:14040 Systolic blood pressure 147 mm[Hg] Yeimi Andrea BUSINESS DEVELOPMENT REPRESENTATIVE-BENZENE WASHER OPERATOR Work Phone: [facility] 03-23-2024 11:17-0400 Diastolic blood pressure 76 mm[Hg] Eric Elkinshauser DO Work Phone: [facility] 03-23-2024 11:17-0400 Systolic blood pressure 132 mm[Hg] Eric Elkinshausderrick DO Work Phone: [facility] 03-23-2024 10:47-0400 Body height 182.9 cm Eric Oberhauser DO Work Phone: [facility] 03-23-2024 10:47-0400 Body mass index (BMI) [Ratio] 26.99 kg/m2 Eric Oberhauser DO Work Phone: [facility] 03-23-2024 10:47-0400 Body weight 90.27 kg Eric Oberhauser DO Work Phone: 4([phone] [address] [place] [address] 03-23-2024 10:47-0400 Heart rate 72 /min Eric Oberhauser DO Work Phone: 9(358)125-590206 [address] 09-16-2023 11:34-0400 Body height 182.9 cm Eric Oberhauser DO Work Phone: 7([phone])[phone] [address] 09-16-2023 11:34-0400 Body mass index (BMI) [Ratio] 26.31 kg/m2 Eric Oberhauser DO Work Phone: 8(262)[phone] [address] [place] [address] 09-16-2023 11:34-0400 Body weight 88 kg Eric Oberhauser DO Work Phone: 1(022)[phone] [address] [place] [address] 09-16-2023 11:34-0400 Diastolic blood pressure 84 mm[Hg] Eric Oberhauser DO Work Phone: 0(641)[phone] [address] [place] [address] 09-16-2023 11:34-0400 Heart rate 53 /min Eric Oberhauser DO Work Phone: [phone])[phone] [address] [place] [address] 09-16-2023 11:34-0400 Systolic blood pressure 137 mm[Hg] Eric Oberhauser DO Work Phone: 9(536)[phone] [address] [place] [address] 06-17-2023 08:25-0500 Body height 182.9 cm Eric Oberhauser DO Work Phone: 5(565)[phone] [address] 06-17-2023 08:25-0500 Body mass index (BMI) [Ratio] 26.72 kg/m2 Eric Oberhauser DO Work Phone: [facility] 06-17-2023 08:25-0500 Body weight 89.36 kg Eric Oberhauser DO Work Phone: [facility] 06-17-2023 08:25-0500 Diastolic blood pressure 79 mm[Hg] Eric Oberhauser DO Work Phone: [facility] 06-17-2023 08:25-0500 Heart rate 75 /min Eric Oberhauser DO Work Phone: [facility] 06-17-2023 08:25-0500 Systolic blood pressure 133 mm[Hg] Eric Oberhauser DO Work Phone: [facility] 04-30-2022 14:19-0500 Body temperature 98.1 [degF] Chris Suarez MD Work Phone: [facility] 04-30-2022 14:19-0500 Diastolic blood pressure 90 mm[Hg] [facility] 04-30-2022 14:19-0500 Heart rate 58 /min Chris Suarez MD [facility] 04-30-2022 14:19-0500 Respiratory rate 16 /min Chris Suarez MD [facility] 04-30-2022 14:19-0500 SaO2% (BldA) [Mass fraction] 100 % Chris Suarez MD Work Phone: [employer] 04-30-2022 14:19-0500 Systolic blood pressure 129 mm[Hg] Chris Suarez MD Work Phone: [employer] 04-28-2022 13:00-0500 Body height 182.9 cm Chris [facility] 04-28-2022 13:00-0500 Body mass index (BMI) [Ratio] 25.77 kg/m2 Chris Suarez MD Work Phone: [facility] 04-28-2022 13:00-0500 Body weight 86.18 kg Chris Suarez MD Work Phone: [facility] 11-09-2020 03:21-0400 Body height 180.3 cm Kain Hellinger Other Phone: [facility] 11-09-2020 03:21-0400 Body temperature 96.98 [degF] Kain Hellinger Other Phone: [facility] 11-09-2020 03:21-0400 Body weight 84 kg Kain Hellinger Other Phone: [facility] 11-09-2020 03:21-0400 Diastolic blood pressure 98 mm[Hg] Kain Hellinger Other Phone: [facility] 11-09-2020 03:21-0400 Heart rate 92 /min Kain Hellinger Other Phone: [facility] 11-09-2020 03:21-0400 Respiratory rate 18 /min Kain Hellinger Other Phone: [facility] 11-09-2020 03:21-0400 SaO2% (BldA) [Mass fraction] 98 % Kain Hellinger Other Phone: [facility] 11-09-2020 03:21-0400 Systolic blood pressure 137 mm[Hg] Kain Hellinger Other Phone: [facility] Encounters Encounter Date Encounter Type Care Provider Facility Start: 11-04-2024 End: 11-04-2024 Subsequent hospital visit by physician Sylvester Nam [facility] Comment on above: Arrived Start: 11-04-2024 End: 11-04-2024 ambulatory YEIMI B [facility] Start: 09-30-2024 End: 09-30-2024 Subsequent hospital visit by physician Sylvester [email or web address] Comment on above: Left hip pain Start: 09-30-2024 End: 09-30-[address] [facility] Start: 09-30-2024 End: 09-30-2024 Encounter for general adult medical examination without abnormal findings [facility] Start: 09-30-2024 End: 09-30-2024 Office outpatient visit 25 minutes Yeimi Mendez BUSINESS DEVELOPMENT REPRESENTATIVE-BENZENE WASHER OPERATOR Work Phone: [facility] Comment on above: Primary hypertension (Primary Dx); Left hip pain; Mixed hyperlipidemia; Allergic eczema; Gastroesophageal reflux disease without esophagitis; Health maintenance examination; Screening for prostate cancer Start: 09-30-2024 End: 09-30-2024 Patient encounter status Yeimi Mendez BUSINESS DEVELOPMENT REPRESENTATIVE-BENZENE WASHER OPERATOR Work Phone: [facility] Work Phone: Start: 06-18-2024 End: 06-19-2024 Emergency department patient visit JOSH DO COFFMAN [facility] Start: 03-23-2024 End: 03-23-2024 Office outpatient visit 25 minutes Eric L Oberhauser DO Work Phone: [facility] Comment on above: Bee allergy status ( Primary Dx); Diarrhea, unspecified type; RUQ pain Start: 03-23-2024 End: 03-23-2024 ambulatory [facility] Start: 10-18-2023 End: 10-19-2023 Emergency department patient visit HARRIET SHAH [facility] Start: 09-16-2023 End: 09-16-2023 Office outpatient visit 25 minutes Eric L Oberhauser DO Work Phone: [facility] Comment on above: Primary hypertension (Primary Dx); Allergic eczema; Mixed hyperlipidemia Start: 06-17-2023 End: 06-18-2023 ambulatory [facility] Start: 06-17-2023 End: 06-17-2023 Office outpatient new 45 minutes Eric L Oberhauser DO Work Phone: [facility] Comment on above: Primary hypertension (Primary Dx); Mixed hyperlipidemia; Gastroesophageal reflux disease without esophagitis Start: 07-18-2022 End: 07-19-2022 ambulatory Daniel Morenita Dolce Facility:[facility] Start: 07-18-2022 End: 07-18-2022 Patient encounter procedure Daniel Morenita Miller [facility] Start: 07-04-2022 End: 07-05-2022 ambulatory Daniel R Dolce Facility:[facility] Start: 07-04-2022 End: 07-04-2022 Patient encounter procedure Daniel R Nardace [facility] Start: 06-27-2022 End: 06-28-2022 ambulatory Daniel R Dolce Facility:[facility] Start: 06-27-2022 End: 06-27-2022 Patient encounter procedure Daniel Morenita Miller [facility] Start: 06-22-2022 End: 06-23-2022 ambulatory Daniel R Dolce Facility:[facility] Start: 06-22-2022 End: 06-22-2022 Patient encounter procedure Daniel Morenita Miller [facility] Start: 06-13-2022 End: 06-14-2022 ambulatory Daniel R Dolce Facility:[facility] Start: 06-13-2022 End: 06-13-2022 Patient encounter procedure Daniel Morenita Laboyce [facility] Start: 06-07-2022 End: 06-08-2022 ambulatory Daniel R Dolce Facility:[facility] Start: 06-07-2022 End: 06-07-2022 Patient encounter procedure Daniel R Nardace [facility] Start: 05-23-2022 End: 05-24-2022 ambulatory Daniel R Dolce Facility:[facility] Start: 05-23-2022 End: 05-23-2022 Patient encounter procedure Daniel R Dolce [facility] Start: 05-17-2022 End: 05-18-2022 ambulatory Daniel Miller Facility:[facility] Start: 05-17-2022 End: 05-17-2022 Patient encounter procedure Daniel Miller [facility] Start: 05-14-2022 End: 05-15-2022 ambulatory Daniel Miller Facility:[facility] Start: 05-14-2022 End: 05-14-2022 Patient encounter procedure Daniel Miller [facility] Start: 05-07-2022 End: 05-08-2022 ambulatory Daniel Miller Facility:[facility] Start: 05-03-2022 Transcribe Orders Earnest Whitman [facility] Comment on above: Abscess of right leg (Primary Dx) Start: 05-02-2022 Telephone encounter Tien Chappell MD Work Phone: [facility] Start: 05-01-2022 Telephone encounter Mahad Cuevas RN [facility] Comment on above: Refill Start: 04-28-2022 End: 04-30-2022 Evaluation and management of inpatient Chris Suarez MD Work Phone: [facility] Comment on above: Antalgic gait (Prima ry Dx); Abscess of left thigh; Abscess of right leg Start: 04-23-2022 End: 04-24-2022 ambulatory KAIN MtzMariam [facility] Start: 11-09-2020 End: 11-09-2020 Emergency department patient visit Clover Brown [facility] Emergency 11 Start: 02-07-2017 End: 02-08-2017 Ambulatory FAZAL STEVENS II [facility] Procedures Date Procedure Procedure Detail Performing Clinician Start: 11-04-2024 Mri any jt lower ext rem w/o contrast matrl Yeimi Mendez BUSINESS DEVELOPMENT REPRESENTATIVE-BENZENE WASHER OPERATOR Work Phone: Start: 06-19-2024 Urinalysis JOSH Sarabia Comment on above: Result Comment: URIN ALYSIS Performed By: #### 2 [id number] #### [facility],[address] [id number] Start: 06-17-2023 CBC W Auto Different ial panel - Blood ERIC SINGH Start: 06-17-2023 Comprehensive metabo lic 2000 panel - Serum or Plasma ERIC SINGH Start: 06-17-2023 Hemoglobin A1c/Hemoglobin.total in Blood ERIC SINGH Start: 06-17-2023 Lipid panel ERIC ADRIA JOHNSTON Start: 06-17-2023 Lipid 1996 panel - S miles or Plasma Eric Singh DO Work Phone: Start: 04-30-2022 Assay of magnesium Marcy Billingsley MD Work Phone: Start: 04-29-2022 Assay of magnesium Marcy Billingsley MD Work Phone: Start: 04-29-2022 Blood typing serologic abo Jeannette Billingsley MD Work Phone: Start: 04-28-2022 End: 04-28-2022 Cul bact xcpt urine blood/stool aerobic isol Jeannette Billingsley MD Work Phone: Start: 04-28-2022 Assay of magnesium Marcy Billingsley MD Work Phone: Start: 04-28-2022 Blood typing, ABO, R ho(D) and RBC antibody screening Jeannette Billingsley MD Work Phone: Plan of Treatment Date Care Activity Detail Author Start: 2049 RSV patient s and/or patients aged 60+ years (1 - 1-dose 60+ series) RSV patients and/or patients aged 60+ years (1 - 1-dose 60+ series) [facility] Start: 2039 Shingles (RZV) Vacci ne (1 of 2) Shingles (RZV) Vaccine (1 of 2) [facility] Start: 2039 Zoster Vaccines (1 o f 2) Zoster Vaccines (1 of 2) [facility] Start: 06-17-2028 Lipid panel Lipid Panel [facility] Start: 06-17-2026 Diabetes mellitus screening Diabetes Screening [facility] Start: 04-07-2025 End: 04-07-2025 Patient encounter procedure 04/07/2025 10:50 AM EST Office Visit [facility] [address] [place] [address] Yeimi Mendez, BUSINESS DEVELOPMENT REPRESENTATIVE-BENZENE WASHER OPERATOR [address] [facility] [place] [address] [facility] Start: 01-25-2025 Influenza vaccination Influenz a Vaccine (Season Ended) [facility] Start: 09-30-2024 End: 09-30-2025 CBC W Auto Differential panel - Blood CBC and Auto Differential Lab Routine Gastroesophageal reflux disease without esophagitis Health maintenance examination Expected: 09/30/2024 (Approximate), Expires: 09/30/2025 [facility] Work Phone: Comment on above: Expected: 09/30/2024 (Approximate), Expires: 09/30/2025 Start: 09-30-2024 End: 09-30-2025 Comprehensive metabolic 2000 panel - Serum or Plasma Comprehensive Metabolic Panel Lab Routine Primary hypertension Mixed hyperlipidemia Health maintenance examination Expected: 09/30/2024 (Approximate), Expires: 09/30/2025 [facility] Work Phone: Comment on above: Expected: 09/30/2024 (Approximate), Expires: 09/30/2025 Start: 09-30-2024 End: 09-30-2025 Lipid 1996 panel - Serum or Plasma Lipid Panel Lab Routine Primary hypertension Mixed hyperlipidemia Health maintenance examination Expected: 09/30/2024 (Approximate), Expires: 09/30/2025 [facility] Work Phone: Comment on above: Expected: 09/30/2024 (Approximate), Expires: 09/30/2025 Start: 09-30-2024 End: 09-30-2025 Prostate specific Ag [Mass/volume] in Serum or Plasma Prostate Spec.Ag,Screen Lab Routine Health maintenance examination Screening for prostate cancer Expected: 09/30/2024 (Approximate), Expires: 09/30/2025 [facility] Work Phone: Comment on above: Expected: 09/30/2024 (Approximate), Expires: 09/30/2025 Start: 09-30-2024 End: 09-30-2025 TSH with reflex to Free T4 if abnormal TSH with reflex to Free T4 if abnormal Lab Routine Health maintenance examination Expected: 09/30/2024 (Approximate), Expires: 09/30/2025 [facility] Work Phone: Comment on above: Expected: 09/30/2024 (Approximate), Expires: 09/30/2025 Start: 09-30-2024 End: 09-30-2025 XR Hip Views [facility] Work Phone: Comment on above: Expected: 09/30/2024 , Expires: 09/30/2025 Once for 1 Occurrenc es starting 09/30/2024 until 09/30/2024 Start: 09-21-2024 End: 09-21-2024 Patient encounter procedure 09/21/2024 8:00 AM EDT Office Visit [facility] [address] [address] Eric Singh, DO [address] [facility] [place] [address] [facility] Start: 03-23-2024 End: 03-23-2025 CBC W Auto Differential panel - Blood CBC and Auto Differential Lab Routine Diarrhea, unspecified type Expected: 03/23/2024 (Approximate), Expires: 03/23/2025 [facility] Area Work Phone: Comment on above: Expected: 03/23/2024 (Approximate), Expires: 03/23/2025 Start: 03-23-2024 End: 03-23-2025 Comprehensive metabolic 2000 panel - Serum or Plasma Comprehensive Metabolic Panel Lab Routine Diarrhea, unspecified type Expected: 03/23/2024 (Approximate), Expires: 03/23/2025 [facility] Work Phone: Comment on above: Expected: 03/23/2024 (Approximate), Expires: 03/23/2025 Start: 03-23-2024 End: 03-23-2025 TSH with reflex to Free T4 if abnormal TSH with reflex to Free T4 if abnormal Lab Routine Diarrhea, unspecified type Expected: 03/23/2024 (Approximate), Expires: 03/23/2025 [facility] Work Phone: Comment on above: Expected: 03/23/2024 (Approximate), Expires: 03/23/2025 Start: 03-23-2024 End: 03-23-2025 US Abdomen RUQ US gallbladder Imaging Routine RUQ pain Expected: 03/23/2024, Expires: 03/23/2025 [facility] Work Phone: Comment on above: Expected: 03/23/2024 , Expires: 03/23/2025 Start: 03-23-2024 End: 03-23-2024 Patient encounter procedure 03/23/2024 11:00 AM EDT Office Visit [facility] [address] [address] Eric Singh L, DO [address] [place] [address] [facility] Start: 01-26-2024 COVID-19 Vaccine ( season) COVID-19 Vaccine ( season) [facility] Start: 01-26-2024 Influenza vaccination [facility] Start: 06-17-2023 End: 06-17-2024 CBC W Auto Differential panel - Blood CBC and Auto Differential Lab Routine Primary hypertension Expected: 06/17/2023 (Approximate), Expires: 06/17/2024 [facility] Work Phone: Comment on above: Expected: 06/17/2023 (Approximate), Expires: 06/17/2024 Start: 06-17-2023 End: 06-17-2024 Comprehensive metabolic 2000 panel - Serum or Plasma Comprehensive Metabolic Panel Lab Routine Primary hypertension Expected: 06/17/2023 (Approximate), Expires: 06/17/2024 [facility] Area Work Phone: Comment on above: Expected: 06/17/2023 (Approximate), Expires: 06/17/2024 Start: 06-17-2023 End: 06-17-2024 Lipid 1996 panel - Serum or Plasma Lipid Panel Lab Routine Mixed hyperlipidemia Expected: 06/17/2023 (Approximate), Expires: 06/17/2024 [facility] Work Phone: Comment on above: Expected: 06/17/2023 (Approximate), Expires: 06/17/2024 Start: 01-25-2023 COVID-19 Vaccine ( season) COVID-19 Vaccine ( season) [facility] Start: 01-25-2023 Influenza vaccination Influenza Vacc ine (#1) [facility] Start: 05-04-2022 End: 05-04-2022 Patient encounter procedure 05/04/2022 Office Visit Wound Care Gemini Francis, DPM [address] [place] [address] [facility] Start: 02-24-2022 Influenza vaccination Influenza Vacc ine (#1) [facility] Start: 01-25-2022 Influenza vaccination Sequenti al Influenza Vaccine (#1) [facility] Start: 2008 Pneumococcal Vaccine : Pediatrics and At-Risk Adult Patients (1 of 2 - PCV) Pneumococcal Vaccine: Pediatrics and At-Risk Adult Patients (1 of 2 - PCV) [facility] Start: 2008 Zoster Vaccines (1 o f 2) Zoster Vaccines (1 of 2) [facility] Start: 2007 [facility]atitis C screening [facility] Start: 2007 Tetanus + diphtheria + acellular pertussis vaccine (product) Tdap Booster [facility] Start: 2004 HIV screening [facility] Start: 2002 Varicella vaccination Varicell a Vaccines (1 of 2 - 13+ 2-dose series) [facility] Start: 02-05-2002 Hepatitis B Vaccines (2 of 3 - 3-dose series) Hepatitis B Vaccines (2 of 3 - 3-dose series) [facility] Start: 02-05-2002 Varicella vaccination Varicell a Vaccines (1 of 2 - 2-dose childhood series) [facility] Start: 2001 Depression screening using PHQ-9 (Patient Health Questionnaire 9) score Depression Screening (PHQ-2/9) [facility] Start: 2000 DTaP/Tdap/Td Vaccine s (5 - Tdap) DTaP/Tdap/Td Vaccines (5 - Tdap) [facility] Start: 1995 Pneumococcal vaccination Pneumococcal Vaccine(s) (1 - PCV) [facility] Start: 1994 COVID-19 Vaccine (#1) COVID-19 Vacci ne (#1) [facility] Start: 1992 History and physical examination, annual for health maintenance Wellness Visit [facility] Start: 1989 COVID-19 Vaccine (#1) COVID-19 Vacci ne (#1) [facility] Start: 1989 HIV screening HIV Screening [facility] Start: 1989 Lipid panel Lipid Panel [facility] Start: 1989 Medicare Annual Wellness Visit Medicare Annual Wellness Visit (AWV) [facility] Start: 1989 Tetanus vaccination Tetanus: Every 1 0yrs [facility] Start: 1989 Yearly Adult Physical Yearly Adult P hysical [facility] Assay of magnesium MAGNESIUM Lab Routine Daily until discontinued starting 04/29/2022, 2 completed [facility] Comment on above: Daily until disconti nued starting 04/29/2022, 2 completed Assay of phosphorus inorganic PHOSPHORUS Lab Routine Daily until discontinued starting 04/29/2022, 2 completed [facility] Comment on above: Daily until disconti nued starting 04/29/2022, 2 completed Basic metabolic 2000 panel - Serum or Plasma BASIC METABOLIC PANEL Lab Routine Daily until discontinued starting 04/29/2022, 2 [facility] Comment on above: Daily until disconti nued starting 04/29/2022, 2 completed CBC panel - Blood by Automated count COMPLETE BLOOD COUNT Lab Routine Daily until discontinued starting 04/29/2022, 2 completed [employer] Work Phone: Comment on above: Daily until disconti nued starting 04/29/2022, 2 completed Culture bacterial an y source anaerobic iso&id [facility] Culture fngi mold/ye ast prsmptv oth xcpt blood [facility] Comment on above: Release Upon Orderin g for 1 Occurrences starting 04/28/2022 Culture tubercle/oth acid-fast bacilli any isol [facility] Comment on above: Release Upon Orderin g for 1 Occurrences starting 04/28/2022 Surgical pathology procedure SPECIMEN FOR SURGICAL PATH Anatomic Pathology Routine Abscess of right leg Release Upon Ordering for 1 Occurrences starting 04/28/2022 [employer] Work Phone: Comment on above: Release Upon Orderin g for 1 Occurrences starting 04/28/2022 Payers Date Payer Category Payer Medicare (Managed Care) [employer] BY REPLACED BY [facility] [id number] 2023 Unknown 2023 Medicare [id number] 2023 Medicare [id number] 2022 Unknown [id number] 2020 Medicaid [id number] 2020 Medicaid [id number] 1989 Unknown [id number] 2.16.840.1.412261.3.579.2. 903 1989 Unknown [id number] 2.16.840.1.921688.3.579.2. 732 1989 Unknown [id number] 2.16.840.1.284236.3.579.2. 727 1989 Unknown [id number] 2.16.840.1.858733.3.579.2. 727 1989 Unknown [id number] 2.16.840.1.275419.3.579.2. 727 1989 Unknown [id number] 2.16.840.1.749227.3.579.2. 727 1989 Unknown [id number] 2.16.840.1.880384.3.579.2. 727 1989 Unknown [id number] 2.16.840.1.266669.3.579.2. 727 1989 Unknown [id number] 2.16.840.1.224616.3.579.2. 727 1989 Unknown [id number] 2.16.840.1.483286.3.579.2. 727 1989 Unknown [id number] 2.16.840.1.813160.3.579.2. 727 1989 Unknown [id number] 2.16.840.1.739317.3.579.2. 727 1989 Unknown [id number] 2.16.840.1.733381.3.579.2. 1245 1989 Unknown [id number] 2.16.840.1.495197.3.579.2. 651 1989 Unknown [id number] 2.16.840.1.083451.3.579.2. 651 1989 Unknown [id number] 2.16.840.1.054363.3.579.2. 1244 1989 Unknown [id number] 2.16.840.1.485526.3.579.2. 1244 1989 Unknown [id number] 2.16.840.1.815703.3.579.2. 1243 1989 Unknown [id number] 2.16.840.1.300968.3.579.2. 1243 Social History Date Type Detail Facility [facility] Tobacco smoking consumption unknown [facility] Start: 04-28-2022 Tobacco smoking stat us MIIS Smokes tobacco daily [facility] Start: 04-28-2022 End: 06-17-2023 Tobacco use and exposure User of smokeless tobacco [facility] History of tobacco use Chews Tobacco [facility] Start: 04-30-2022 History SDOH Financial 3 [facility] Start: 04-30-2022 History SDOH Food Worry 1 [facility] Start: 04-30-2022 History SDOH Transpo rt Med 2 [facility] Start: 1989 Sex Assigned At Not on file [facility] Start: 04-13-2022 End: 11-04-2024 Exposure to SARS-CoV-2 (event) Not sure [facility] Tobacco smoking status No Smokin g Status Entered [facility] Start: 06-17-2023 End: 09-30-2024 Sex Assigned At Male [facility] Start: 06-17-2023 [facility] Work Phone: Start: 06-17-2023 End: 09-30-2024 Alcohol intake Current drinker of alcohol (finding) [facility] Work Phone: Start: 06-17-2023 End: 09-30-2024 History of Social function [facility] Work Phone: Clinical Notes 04-28-2022 to 09-30-2024 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 male who presents for [facility]. HPI Here today with and children. PMH reviewed Acute concerns with left hip pain, denies a specific injury. Denies n/t, weakness, or pain radiation down his left leg. Reports his medications for current treatment are good without any problems. Review of Systems Constitutional: Negative for chills, fatigue and fever. Respiratory: Negative for cough and shortness of breath. Cardiovascular: Negative for chest pain, palpitations and leg swelling. Gastrointestinal: Negative for abdominal pain, diarrhea and nausea. Genitourinary: Negative for dysuria. Musculoskeletal: Positive for arthralgias and myalgias. Neurological: Negative for light-headedness and headaches. Psychiatric/Behavioral: The patient is not nervous/anxious. Objective BP (!) 147/91 (Patient Position: Sitting) Pulse 97 Ht 1.829 m (6') Wt 87.6 kg (193 lb 1.6 oz) BMI 26.19 kg/m Physical Exam Cardiovascular: Rate and Rhythm: Normal rate and regular rhythm. Heart sounds: Normal heart sounds. Pulmonary: Breath sounds: Normal breath sounds. Musculoskeletal: Left hip: Tenderness present. Decreased range of motion. Right lower leg: No edema. Left lower leg: No edema. Neurological: Mental Status: He is alert and oriented to person, place, and time. Assessment/Plan Problem List Items Addressed This Visit ICD-10-CM Primary hypertension - Primary I10 Relevant Medications blood pressure monitor kit Other Relevant Orders Comprehensive Metabolic Panel Lipid Panel Allergic eczema L23.9 Mixed hyperlipidemia E78.2 Relevant Orders Comprehensive Metabolic Panel Lipid Panel Other Visit Diagnoses Codes Left hip pain M25.552 Relevant Medications methylPREDNISolone (Medrol Dospak) 4 mg tablets meloxicam (Mobic) 15 mg tablet Other Relevant Orders XR hip left with pelvis when performed 2 or 3 views Gastroesophageal reflux disease without esophagitis K21.9 Relevant Orders CBC and Auto Differential Health maintenance examination Z00.00 Relevant Orders CBC and Auto Differential Comprehensive Metabolic Panel Lipid Panel TSH with reflex to Free T4 if abnormal Prostate Spec.Ag,Screen Screening for prostate cancer Z12.5 Relevant Orders Prostate Spec.Ag,Screen Eczema -Follows with dermatology -Currently doing Adbry 300mg every two weeks Htn HLD -continue fenofibrate 160mg daily -continue lisinopril-hydrochlorothiazide -blood pressure cuff ordered Left hip pain -Xray ordered -Medrol dose pack for inflammation -Mobic 15 mg daily -Consider ortho referral vs PT pending results documented in this encounter [facility] Work Phone: 06-19-2024 Note Discharge Instructio ns Discharge Summary [address] [address] [id number] 06/18/2024 Patient: NADIA BIGGS Sex: Male : 1990 Age: 34y Thank you for visiting [facility]. You have been evaluated today by Josh Coffman D.O. for the following condition(s): Principal Diagnosis Probable suicidal ideation Probable alcohol intoxication with alcohol dependence.No alcohol intoxication with delirium. Complicated alcohol intoxication. INSTRUCTIONS No alcohol. Warnings: Further evaluation is necessary. SEDATIVE MEDICATION: You were given sedative medication during your visit. Do not drive or operate dangerous machinery. You have been given the following additional information: Suicidal Thoughts (72-Hour Hold) Alcohol Intoxication Patient Signature 1 of 8 Discharge Instructions Facility General Engineer Date/Time General Instructions with ExitWriter [address] [address] [id number] 06/18/2024 Patient: NADIA BIGGS Sex: Male : 1990 Age: 34y Thank you for visiting [facility]. You have been evaluated today by Josh Coffman D.O. for the following condition(s): Principal Diagnosis Probable suicidal ideation Probable alcohol intoxication with alcohol dependence.No alcohol intoxication with delirium. Complicated alcohol intoxication. INSTRUCTIONS No alcohol. Warnings: Further evaluation is necessary. SEDATIVE MEDICATION: You were given sedative medication during your visit. Do not drive or operate dangerous machinery. ADDITIONAL INFORMATION Suicidal Thoughts (72-Hour Hold) Your doctor has determined that your thoughts and actions are suicidal and that there is a risk that you may try to harm yourself if you leave here. This is most often a sign of depression or excess anger at yourself or someone else. With your protection and well-being in mind, you have been placed on a legal 72-hour hold so that you can be evaluated by a psychiatrist. 2 of 8 Discharge Instructions What is a 72-hour hold? The law requires that you must be held for up to 72 hours for a psychiatric evaluation if a certified person such as an emergency doctor, psychiatrist, psychiatric nurse, licensed clinical elementary school social worker, police investigator or special tester's deputy determines that you are: A danger to yourself or others, or Not able to care for yourself, or Gravely disabled The requirement that you be held for 72 hours is enforced even if you don't consent. Follow-up care Upon release, please follow up with your doctor or mental health provider for continued medical care. Follow-up is very important for your ongoing well-being. Call 911 Call 911 if you have suicidal thoughts, a suicide plan, and the means to carry out the plan, or serious thoughts of hurting someone else. When to seek medical advice Call your healthcare provider or emergency services right away if any of the following occur: Current symptoms gradually or suddenly return Medicine side-effects develop Feeling extreme depression, anxiety or anger toward yourself or others Feeling out of control Feeling that you may try to harm yourself or someone else Hearing voices that others do not hear Seeing things that others do not see Having extreme mood swings Not able to sleep or eat for 3 days in a row Family or friends express concern over your well-being and behaviors and ask you to seek help 3 of 8 Discharge Instructions To learn more National Suicide Prevention Lifeline 428-939-XQYW (729-604-0326) www.suicidepreventionlifeline.or g National [place] of Mental Health 723-368-7494 www.nimh.nih.gov National [place] on Mental Illness 676-310-0517 www.john.org Mental Health [place] 857-126-0539 www.[facility].org Alcohol Intoxication Alcohol intoxication is very serious. It occurs when you drink alcohol faster than your liver can break it down. Severe intoxication is a medical emergency. It is also called alcohol overdose or alcohol poisoning. It can lead to . Here are some stokes facts: It can take 10 minutes or more to start to feel the effects of a drink. So it's easy to drink more than you planned. Binge drinking is having 5 or more drinks over a short time. This can lead to an alcohol overdose. One drink may be more than 1 serving of alcohol. In some cases, a drink can be 2 to 4 servings. This depends on the type of drink. It takes about 1 hour for your body to break down 1 serving of alcohol. If you have more than 1 drink, it can take a few hours or more. People with alcohol abuse disorders are more likely to get alcohol poisoning. But it can happen to anyone who drinks too much alcohol. Even a first-time drinker is at ky (more content not included)... [facility] 03-23-2024 History of Present illness Narrative Subjective Patient ID: Nadia Biggs is a 34 y.o. male who presents for Follow-up (6 month). HPI Patient is here today for 6 mo follow up Pt reports that he has loose stools daily. Pain in right lower quadrant. No fevers, no blood in his stools. Review of Systems Constitutional: Negative for activity change, appetite change, chills and fatigue. HENT: Negative for congestion, postnasal drip, sinus pressure, sinus pain and sore throat. Respiratory: Negative for cough, shortness of breath and wheezing. Cardiovascular: Negative for chest pain and leg swelling. Gastrointestinal: Negative for abdominal distention, diarrhea, nausea and vomiting. Musculoskeletal: Negative for back pain. Neurological: Negative for weakness and numbness. Objective BP 132/76 (BP Location: Left arm, Patient Position: Sitting) Pulse 72 Ht 1.829 m (6') Wt 90.3 kg (199 lb) BMI 26.99 kg/m Physical Exam Constitutional: General: He is not in acute distress. Appearance: Normal appearance. HENT: Head: Normocephalic. Nose: Nose normal. Mouth/Throat: Pharynx: No oropharyngeal exudate. Eyes: General: Right eye: No discharge. Left eye: No discharge. Extraocular Movements: Extraocular movements intact. Pupils: Pupils are equal, round, and reactive to light. Cardiovascular: Rate and Rhythm: Normal rate and regular rhythm. Heart sounds: No murmur heard. No gallop. Pulmonary: Effort: Pulmonary effort is normal. No respiratory distress. Breath sounds: Normal breath sounds. No wheezing. Abdominal: General: Bowel sounds are normal. There is no distension. Palpations: Abdomen is soft. Tenderness: There is abdominal tenderness (RUQ pain tenderness). Musculoskeletal: General: No swelling. Normal range of motion. Skin: General: Skin is warm and dry. Coloration: Skin is not jaundiced. Neurological: General: No focal deficit present. Mental Status: He is alert and oriented to person, place, and time. Cranial Nerves: No cranial nerve deficit. Psychiatric: Mood and Affect: Mood normal. Behavior: Behavior normal. Assessment/Plan Problem List Items Addressed This Visit None Visit Diagnoses Bee allergy status - Primary Relevant Medications EPINEPHrine (Epipen) 0.3 mg/0.3 mL injection syringe Diarrhea, unspecified type Relevant Orders CBC and Auto Differential Comprehensive Metabolic Panel TSH with reflex to Free T4 if abnormal RUQ pain Relevant Orders US gallbladder HTN, controlled - recheck manual bp was 132/76 - continue atenolol 50mg po daily - continue lisinopil-hydrochlorothiazide 20-12.5mg po daily - cmp normal 2. Eczema - sees DermDr Parnell ready - on Adbry 3. HLD - continue fenofibrate 160mg po daily - LDL 119, triglycerides 247 4. Ruq pain, diarrhea - will check cbc, cmp, tsh - check gallbladder us Final diagnoses: [Z91.030] Bee allergy status [R19.7] Diarrhea, unspecified type [R10.11] RUQ pain documented in this encounter [facility] Work Phone: 09-16-2023 History of Present illness Narrative Subjective Patient ID: Nadia Biggs is a 33 y.o. male who presents for Follow-up (3 month). HPI Patient is here today for 3 mo follow up Pt reports that the PPI did help with his symptoms, he has transient sob but no where near like it was. Review of Systems Constitutional: Negative for activity change, appetite change, chills and fatigue. HENT: Negative for congestion, postnasal drip, sinus pressure, sinus pain and sore throat. Respiratory: Negative for cough, shortness of breath and wheezing. Cardiovascular: Negative for chest pain and leg swelling. Gastrointestinal: Negative for abdominal distention, diarrhea, nausea and vomiting. Musculoskeletal: Negative for back pain. Neurological: Negative for weakness and numbness. Objective BP 137/84 Pulse 53 Ht 1.829 m (6') Wt 88 kg (194 lb) BMI 26.31 kg/m Physical Exam Constitutional: General: He is not in acute distress. Appearance: Normal appearance. HENT: Head: Normocephalic. Nose: Nose normal. Mouth/Throat: Pharynx: No oropharyngeal exudate. Eyes: General: Right eye: No discharge. Left eye: No discharge. Extraocular Movements: Extraocular movements intact. Pupils: Pupils are equal, round, and reactive to light. Cardiovascular: Rate and Rhythm: Normal rate and regular rhythm. Heart sounds: No murmur heard. No gallop. Pulmonary: Effort: Pulmonary effort is normal. No respiratory distress. Breath sounds: Normal breath sounds. No wheezing. Musculoskeletal: General: No swelling. Normal range of motion. Skin: General: Skin is warm and dry. Coloration: Skin is not jaundiced. Neurological: General: No focal deficit present. Mental Status: He is alert and oriented to person, place, and time. Cranial Nerves: No cranial nerve deficit. Psychiatric: Mood and Affect: Mood normal. Behavior: Behavior normal. Assessment/Plan Problem List Items Addressed This Visit Primary hypertension - Primary Allergic eczema Mixed hyperlipidemia HTN, controlled - continue atenolol 50mg po daily - continue lisinopil-hydrochlorothiazide 20-12.5mg po daily - cmp normal 2. Eczema - sees Dr Parmjit Patel - on Adbry 3. HLD - continue fenofibrate 160mg po daily - LDL 119, triglycerides 247 4. Sob, mucus, resolved -resolved with ppi Final diagnoses: [I10] Primary hypertension [L23.9] Allergic eczema [E78.2] Mixed hyperlipidemia documented in this encounter [facility] Work Phone: 06-17-2023 History of Present illness Narrative Subjective Patient ID: Nadia Biggs is a 33 y.o. male who presents for Establish Care ([employer] RECOR[employer] ANALYST/EST CARE/Requesting lab work). HPI Patient is a 33y.o. male patient who is here today to establish care. Pt reports that he has been having trouble breathing, worse in the morning, like he can't catch his breath. No chest pain. Estimates that this has been going on for about 6 mo. Pt reports that he feels like he is gagging in the morning. Pt has a pmhx of htn, excema and hld. Review of Systems Constitutional: Negative for activity change, appetite change, chills and fatigue. HENT: Negative for congestion, postnasal drip, sinus pressure, sinus pain and sore throat. Respiratory: Positive for shortness of breath. Negative for cough and wheezing. Cardiovascular: Negative for chest pain and leg swelling. Gastrointestinal: Negative for abdominal distention, diarrhea, nausea and vomiting. Musculoskeletal: Negative for back pain. Neurological: Negative for weakness and numbness. Objective BP 133/79 Pulse 75 Ht 1.829 m (6') Wt 89.4 kg (197 lb) BMI 26.72 kg/m Physical Exam Constitutional: General: He is not in acute distress. Appearance: Normal appearance. HENT: Head: Normocephalic. Right Ear: Tympanic membrane, ear canal and external ear normal. Left Ear: Tympanic membrane, ear canal and external ear normal. Nose: Nose normal. Mouth/Throat: Pharynx: No oropharyngeal exudate. Eyes: General: Right eye: No discharge. Left eye: No discharge. Extraocular Movements: Extraocular movements intact. Pupils: Pupils are equal, round, and reactive to light. Cardiovascular: Rate and Rhythm: Normal rate and regular rhythm. Heart sounds: No murmur heard. No gallop. Pulmonary: Effort: Pulmonary effort is normal. No respiratory distress. Breath sounds: Normal breath sounds. No wheezing. Abdominal: General: Bowel sounds are normal. There is no distension. Palpations: Abdomen is soft. Musculoskeletal: General: No swelling. Normal range of motion. Cervical back: Neck supple. Skin: General: Skin is warm and dry. Coloration: Skin is not jaundiced. Neurological: General: No focal deficit present. Mental Status: He is alert and oriented to person, place, and time. Cranial Nerves: No cranial nerve deficit. Psychiatric: Mood and Affect: Mood normal. Behavior: Behavior normal. Immunizations Flu shot declines COVID declines PNA -- Shingles -- RSV -- Colonoscopy -- Psa -- Assessment/Plan Problem List Items Addressed This Visit None Visit Diagnoses Primary hypertension - Primary Relevant Medications atenolol (Tenormin) 50 mg tablet fenofibrate (Triglide) 160 mg tablet lisinopril 10 mg tablet lisinopriL-hydrochlorothiazide 20-12.5 mg tablet Other Relevant Orders Comprehensive Metabolic Panel CBC and Auto Differential Mixed hyperlipidemia Relevant Orders Lipid Panel Gastroesophageal reflux disease without esophagitis Relevant Medications omeprazole (PriLOSEC) [address] gonzalez HTN, controlled - continue atenolol 50mg po daily - continue lisinopil-hydrochlorothiazide 20-12.5mg po daily - will order cbc, cmp 2. Eczema - sees Dr Parmjit Patel - on Adbry 3. HLD - continue fenofibrate 160mg po daily - order lipid panel 4. Sob, increased mucus - smoker - will try ppi suspect gerd if no change will order pfts Final diagnoses: [I10] Primary hypertension [E78.2] Mixed hyperlipidemia [K21.9] Gastroesophageal reflux disease without esophagitis documented in this encounter [facility] Work Phone: 05-02-2022 Note Addended by: Pola BLUE on: 05/02/2022 02:50 PM Modules accepted: Orders [facility] 05-02-2022 Note Addended by: Pola BLUE on: 05/02/2022 02:50 PM Modules accepted: [facility] Note Addended by: Pola BLUE on: 05/02/2022 02:50 PM Modules accepted: Orders [facility] 05-02-2022 Miscellaneous Notes Addended by: MANI BLUE on: 05/02/2022 02:50 PM Modules accepted: Orders Was notified that the meds that were ordered for this patient while he was in hospital were blocked by [facility]-to-beds to get to his pharmacy. Had to reorder his medications. Mani Blue MD Surgery Resident [facility] [phone] ACS Consults [phone] ACS Floor Patients Patient is calling to check the status of this request. Patient is in need of this medication at this time. Patient is calling to check the status of this request. Pharmacy did not receive the E-script that was sent for this medication. Please re-send another prescription for the patient. Thank you. Patient did not get medications on discharge and he [place] too far to come back to [facility]. Please send to his local pharmacy. Requested Prescriptions Pending Prescriptions Disp Refills acetaminophen (TYLENOL) 325 mg tablet 30 Tablet 0 Sig: Take 2 Tablets by mouth every 6 (six) hours. oxyCODONE 5 MG immediate release tablet 9 Tablet 0 Sig: Take 1 Tablet by mouth every 4 hours as needed for up to 3 days. No PCP on file No PCP on file documented in this encounter [facility] 05-02-2022 Telephone encounter Note Was notified that the meds that were ordered for this patient while he was in hospital were blocked by med-to-beds to get to his pharmacy. Had to reorder his medications. Mani Blue MD Surgery Resident [facility] [phone] ACS Consults [phone] ACS Floor Patients [facility] 05-02-2022 Telephone encounter Note Discharge 04/30/2022, Pt called regarding patient medication was sent to a [facility], they live in [facility]. I spoke to VIOLA Ramirez gave him [email or web address] phone number [phone], closer to the patient home. I will follow up with the once the script has been completed. [facility] 05-02-2022 Miscellaneous Notes Discharge 04/30/2022, Pt called regarding patient medication was sent to a [facility] pharmacy, they live in [place]. I spoke to VIOLA Ramirez gave him [email or web address] phone number [phone], closer to the patient home. I will follow up with the once the script has been completed. [facility] Note Received triage refe rral regarding the patient's wound vac becoming dislodged. Called patient and confirmed that the vac became dislodged at the patient connection point, therefore would need to be seen in ED/Clinic to have a new vac system placed. Patient states already has an appointment for routine vac change on Saturday and does not feel it is pressing enough to be seen more immediately. Instructed patient on how to remove vac dressing and properly place a wet-to-dry dressing over the wound. Instructed patient on daily wound care being important until his next scheduled follow up, and on when to present to the ED. Patient verbalized understanding and said would be able to get dressing supplies today and help perform dressing changes. [facility] 05-01-2022 Telephone encounter Note Received triage referral regarding the patient's wound vac becoming dislodged. Called patient and confirmed that the vac became dislodged at the patient connection point, therefore would need to be seen in ED/Clinic to have a new vac system placed. Patient states already has an appointment for routine vac change on Saturday and does not feel it is pressing enough to be seen more immediately. Instructed patient on how to remove vac dressing and properly place a wet-to-dry dressing over the wound. Instructed patient on daily wound care being important until his next scheduled follow up, and on when to present to the ED. Patient verbalized understanding and said would be able to get dressing supplies today and help perform dressing changes. [facility] 05-01-2022 Miscellaneous Notes Received triage referral regarding the patient's wound vac becoming dislodged. Called patient and confirmed that the vac became dislodged at the patient connection point, therefore would need to be seen in ED/Clinic to have a new vac system placed. Patient states already has an appointment for routine vac change on Saturday the and does not feel it is pressing enough to be seen more immediately. Instructed patient on how to remove vac dressing and properly place a wet-to-dry dressing over the wound. Instructed patient on daily wound care being important until his next scheduled follow up, and on when to present to the ED. Patient verbalized understanding and said would be able to get dressing supplies today and help perform dressing changes. documented in this encounter [facility] 05-01-2022 Telephone encounter Note Patient is calling to check the status of this request. Patient is in need of this medication at this time. [facility] 05-01-2022 Telephone encounter Note Patient is calling to check the status of this request. [facility] Work Phone: 05-01-2022 Telephone encounter Note Pharmacy did not receive the E-script that was sent for this medication. Please re-send another prescription for the patient. Thank you. Patient did not get medications on discharge and he lives too far to come back to [facility]. Please send to his local pharmacy. Requested Prescriptions Pending Prescriptions Disp Refills acetaminophen (TYLENOL) 325 mg tablet 30 Tablet 0 Sig: Take 2 Tablets by mouth every 6 (six) hours. oxyCODONE 5 MG immediate release tablet 9 Tablet 0 Sig: Take 1 Tablet by mouth every 4 hours as needed for up to 3 days. No PCP on file No PCP on file [facility] 04-30-2022 Note Formatting of this n ote might be different from the original. Problem: Safety: Goal: Patient will remain free of falls during hospital stay 04/30/2022 1605 by Ely Mendoza RN Outcome: Completed 04/30/2022 07 by Ely Mendoza RN Outcome: Progressing Note: Call light and bed alarm on throughout shift for safety Goal: Free from injury during hospitalization 04/30/2022 1605 by Ely Mendoza RN Outcome: Completed 04/30/2022 07 by Ely Mendoza RN Outcome: Progressing Problem: Acute Pain: Goal: Ability to identify pain intensity on a pain scale and rate it consistently will be achieved and maintained 04/30/2022 1605 by Ely Mendoza RN Outcome: Completed 04/30/2022740 by Ely Mendoza RN Outcome: Progressing Goal: Understanding of proper administration and use of medicines will be achieved 04/30/2022 1605 by Ely Mendoza RN Outcome: Completed 04/30/2022740 by Ely Mendoza RN Outcome: Progressing Goal: Acceptable level of pain which allows the patient to achieve functional outcome goals 04/30/2022 1605 by Ely Mendoza RN Outcome: Completed 04/30/2022740 by Ely Mendoza RN Outcome: Progressing Problem: Discharge Planning: Goal: Discharge needs of the adult patient will be met 04/30/2022 1605 by Ely Mendoza RN Outcome: Completed 04/30/2022740 by Ely Mendoza RN Outcome: Progressing Problem: Impaired Skin Integrity: Goal: Acheive wound healing without signs and symptoms of infection 04/30/2022 1605 by Ely Mendoza RN Outcome: Completed 04/30/2022 07 by Ely Mendoza RN Outcome: Progressing Note: Pt. To show no signs and symptoms of infection throughout shift Problem: Routine Care: Goal: Patient care will be managed and maintained throughout hospital stay per unit specific routine care procedure 04/30/2022 1605 by Ely Mendoza RN Outcome: Completed 04/30/2022 07 by Ely Mendoza RN Outcome: Progressing Note: Purposeful hourly rounding and assessment throughout shift RN given and reviewed discharge paper work with pt. And spouse at bedside. RN educated both pt. And spouse on medication administration, as well as wound care instruction and provided two prevena wound vac cannister's to last to the follow up appointment in [facility] on the 08 of May. MD ordered medication to be filled at [facility] closest to pt. Home. RN removed IV at bedside, and gathered all pt. Belongings prior to discharge. CCP taken pt. Safely downstairs via wheelchair to spouse, and discharged home. [facility] 04-30-2022 Miscellaneous Notes Problem: Safety: Goal: Patient will remain free of falls during hospital stay 04/30/2022 1605 by Ely Mendoza RN Outcome: Completed 04/30/2022 07 by Ely Mendoza RN Outcome: Progressing Note: Call light and bed alarm on throughout shift for safety Goal: Free from injury during hospitalization 04/30/2022 1605 by Ely Mendoza RN Outcome: Completed 04/30/2022 07 by Ely Mendoza RN Outcome: Progressing Problem: Acute Pain: Goal: Ability to identify pain intensity on a pain scale and rate it consistently will be achieved and maintained 04/30/2022 1605 by Ely Mendoza RN Outcome: Completed 04/30/2022 07 by Ely Mendoza RN Outcome: Progressing Goal: Understanding of proper administration and use of medicines will be achieved 04/30/2022 160 by Ely Mendoza RN Outcome: Completed 04/30/2022740 by Ely Mendoza RN Outcome: Progressing Goal: Acceptable level of pain which allows the patient to achieve functional outcome goals 04/30/2022 160 by Ely Mendoza RN Outcome: Completed 04/30/2022740 by Ely Mendoza RN Outcome: Progressing Problem: Discharge Planning: Goal: Discharge needs of the adult patient will be met 04/30/2022 160 by Ely Mendoza RN Outcome: Completed 04/30/2022740 by Ely Mendoza RN Outcome: Progressing Problem: Impaired Skin Integrity: Goal: Acheive wound healing without signs and symptoms of infection 04/30/2022 160 by Ely Mendoza RN Outcome: Completed 04/30/2022740 by Ely Mendoza RN Outcome: Progressing Note: Pt. To show no signs and symptoms of infection throughout shift Problem: Routine Care: Goal: Patient care will be managed and maintained throughout hospital stay per unit specific routine care procedure 04/30/2022 160 by Ely Mendoza RN Outcome: Completed 04/30/2022740 by Ely Mendoza RN Outcome: Progressing Note: Purposeful hourly rounding and assessment throughout shift RN given and reviewed discharge paper work with pt. And spouse at bedside. RN educated both pt. And spouse on medication administration, as well as wound care instruction and provided two prevena wound vac cannister's to last to the follow up appointment in [facility] on the 08 of May. MD ordered medication to be filled at [facility] closest to pt. Home. RN removed IV at bedside, and gathered all pt. Belongings prior to discharge. CCP taken pt. Safely downstairs via wheelchair to spouse, and discharged home. Problem: Safety: Goal: Patient will remain free of falls during hospital stay Outcome: Progressing Note: Call light and bed alarm on throughout shift for safety Goal: Free from injury during hospitalization Outcome: Progressing Problem: Acute Pain: Goal: Ability to identify pain intensity on a pain scale and rate it consistently will be achieved and maintained Outcome: Progressing Goal: Understanding of proper administration and use of medicines will be achieved Outcome: Progressing Goal: Acceptable level of pain which allows the patient to achieve functional outcome goals Outcome: Progressing Problem: Discharge Planning: Goal: Discharge needs of the adult patient will be met Outcome: Progressing Problem: Impaired Skin Integrity: Goal: Acheive wound healing without signs and symptoms of infection Outcome: Progressing Note: Pt. To show no signs and symptoms of infection throughout shift Problem: Routine Care: Goal: Patient care will be managed and maintained throughout hospital stay per unit specific routine care procedure Outcome: Progressing Note: Purposeful hourly rounding and assessment throughout shift Problem: Safety: Goal: Patient will remain free of falls during hospital stay Outcome: Progressing Goal: Free from injury during hospitalization Outcome: Progressing Problem: Acute Pain: Goal: Ability to identify pain intensity on a pain scale and rate it consistently will be achieved and maintained Outcome: Progressing Note: Pain rated on numeric pain scale; relieved through scheduled and PRN medication Goal: Understanding of proper administration and use of medicines will be achieved Outcome: Progressing Goal: Acceptable level of pain which allows the patient to achieve functional outcome goals Outcome: Progressing Problem: Discharge Planning: Goal: Discharge needs of the adult patient will be met Outcome: Progressing Problem: Impaired Skin Integrity: Goal: Acheive wound healing without signs and symptoms of infection Outcome: Progressing Note: Pt. To show no signs and symptoms of infection throughout shift Problem: Routine Care: Goal: Patient care will be managed and maintained throughout hospital stay per unit specific routine care procedure Outcome: Progressing Note: Purposeful hourly rounding and assessment throughout shift Problem: Safety: Goal: Patient will remain free of falls during hospital stay 04/29/2022 0153 by Rose Gomez RN Outcome: Progressing 04/29/2022 015 by Rose Gomez RN Outcome: Progressing Goal: Free from injury during hospitalization 04/29/2022152 by Rose Gomez RN Outcome: Progressing 04/29/2022151 by Rose Gomez RN Outcome: Progressing Problem: Acute Pain: Goal: Ability to identify pain intensity on a pain scale and rate it consistently will be achieved and maintained 04/29/2022152 by Rose Gomez RN Outcome: Progressing 04/29/2022151 by Rose Gomez RN Outcome: Progressing Goal: Understanding of proper administration and use of medicines will be achieved 04/29/2022152 by Rose Gomez RN Outcome: Progressing 04/29/2022151 by Rose Gomez RN Outcome: Progressing Goal: Acceptable level of pain which allows the patient to achieve functional outcome goals 04/29/2022152 by Rose Gomez RN Outcome: Progressing 04/29/2022151 by Rose Gomez RN Outcome: Progressing Problem: Discharge Planning: Goal: Discharge needs of the adult patient will be met 04/29/2022152 by Rose Gomez RN Outcome: Progressing 04/29/2022151 by Rose Gomez RN Outcome: Progressing Problem: Impaired Skin Integrity: Goal: Acheive wound healing without signs and symptoms of infection 04/29/2022152 by Rose Gomez RN Outcome: Progressing 04/29/2022151 by Rose Gomez RN Outcome: Progressing Problem: Routine Care: Goal: Patient care will be managed and maintained throughout hospital stay per unit specific routine care procedure Outcome: Progressing Patient arrived to unit from PACU in stable condition with wound VAC at -125. Patient has no s/s of distress. Call light given to patient and patient agrees to call for help before getting out of bed. Brief Operative Note MAIN OR 11 Nadia Biggs 32 year old male Surgical Contact Serial Number: [id number] Preoperative Diagnosis: Abscess of right leg [L02.415] Postoperative Diagnosis: * Abscess of right leg [L02.415] Procedures: Excisional debridement of right lower extremity Wound vac placement Surgeon(s): Surgeon(s): Nakita Ackerman MD Staff: Scrub: Rea Leal Solution Manager Nurse: Osmin Lay RN Dragsaw Operator: Jeannette Billingsley MD Anesthesia: General Anesthesiologist: Yanelis Perez MD CASING BLOWER: Rika Jessica APRN-CASING BLOWER Supervisor Small Appliance Assembly: Bernie Rivero MD Specimen(s): ID Type Source Tests Collected by Time Destination 1 : right leg tissue Tissue Leg, Right TISSUE CULTURE, AEROBIC, ANAEROBIC CULTURE, MISC, FUNGAL CULTURE & KATHERINE PREP, AFB CULTURE/SMEAR, SPECIMEN FOR SURGICAL PATH Nakita Ackerman MD 04/28/2022 1950 A : #1 right leg swab Swab Leg, Right AEROBIC WOUND CULTURE, ANAEROBIC CULTURE, MISC, AFB CULTURE/SMEAR Nakita Ackerman MD 04/28/20221947 B : #2 right leg swab Swab Leg, Right AEROBIC WOUND CULTURE, ANAEROBIC CULTURE, MISC, AFB CULTURE/SMEAR Nakita Ackerman MD 04/28/20221947 Estimated Blood Loss: 5-10 cc Lines/Drains: Peripheral IV Access: 04/28/22 1300 20 gauge Right Antecubital Present on Arrival to Hospital (Active) Site Assessment WNL;Dressing intact 04/28/22 1300 Infusion Status Port #1 Capped;Patent 04/28/22 1300 Peripheral IV Access: 04/28/22 1300 20 gauge Left Antecubital Present on Arrival to Hospital (Active) Site Assessment WNL;Dressing intact 04/28/22 1300 Infusion Status Port #1 Capped;Patent 04/28/22 1300 Temporarily Retained Foreign Object: Yes Location: Right lower extremity Object: Black sponge Anticipated removal date: Exchange in 3 days Findings: Purulent exudate of the right calf wound Eschar of the skin edge Wound debrided to healthy tissue Complications: None Status at end of surgery: Stable Activity: Ad Jessi Surgical wound class: Yes, wound was dirty or infected. Patient Class: Inpatient. Is this a patient scheduled as an outpatient that needs to be admitted as an inpatient? No Dr. Ackerman was present in the OR for the entirety of the procedure and procedure sign-out. Signed by Jeannette Billingsley MD 04/28/2022 8:19 PM Images from the original note were not included. Operative Note Patient name: Nadia Biggs Patient Date of procedure: 04/28/22 Surgical Contact Serial Number: [id number] Pre-op Diagnosis: Right leg abscess and cellulitis Post-op Diagnosis: Right leg abscess and cellulities Procedure: Excisional debridement of right leg, 45 cm^3 Wound vac placement Procedure Start Time: 19:40 Procedure End Time: 20:09 Total Operating Time: 29 minutes Surgeon: Nakita Ackerman MD Resident Surgeon: Jeannette Billingsley MD Anesthesia: General EBL: 5 cc Findings: Purulent exudate of the right calf wound, eschar of the skin edge Specimen: Right leg tissue and fluid for culture Indication: Nadia Biggs is a 32 year old year old male who underwent incision and drainage of right leg abscess at OSH. Patient had a large wound and there was a concern for NSTI so he was transferred to [facility]. On evaluation, there did not appear to be evidence of NSTI; however, there was an area of necrotic skin and purulent drainage present, so he was taken to the OR for further debridement. Description of Procedure: A huddle was performed in the pre-operative area. Patient was taken to the OR and placed in supine position with both arms out. Sequential compression device was placed on the left calf and turned on. General anesthesia was induced and the patient was intubated. Patient received Ceftriaxone pre-operatively. The right leg was circumferentially prepped and draped in normal sterile fashion. A timeout was performed. There was an area of necrotic skin on the inferomedial aspect of the prior I&D site. The skin and underlying subcutaneous tissue was excised sharply with Bovie and curved Durbin scissors (total 45 cubic centimeters). This tissue was sent for culture. There was purulent drainage deep to this area which was also cultured. The muscle was then bluntly debrided with the back of a forceps down to clean, healthy bleeding tissue. Final wound measurements were 11 cm long x 12 cm wide (4 cm undermine under the skin laterally) x 1 cm deep. We attempted to approximate the lateral undermined portion but the tissue was too friable to hold a stitch. We generously irrigated the wound and achieved adequate hemostasis using a combination of suture ligation and electrocautery. A single black wound vac sponge was placed (not undermined) and an adequate seal was obtained using -125 mmHg continuous suction. He had mild surrounding erythema which was outlined using a skin marker. This concluded our operation. All sponge, instrument, and needle counts were correct at the end of the case. The patient was awaken from anesthesia and taken to PACU in stable condition. Complications: None Dr. Ackerman was present in the OR for timeout and the entirety of the procedure. Jeannette Billingsley MD General Surgery, PGY-2 I agree with the above operative note as edited by me. I was present and scrubbed for the entire procedure. Nakita Ackerman MD Anesthesia Attestation ATTESTATION OF INFORMED CONSENT FOR ANESTHESIA Anesthesia options were discussed with the patient and/or legal electroplating sales representative. The risks, benefits and alternatives were reviewed. Questions regarding anesthesia were answered. Patient and/or legal electroplating sales representative knows such anesthetics and procedures may be performed by Resident physicians, Certified Anesthesiologist Assistants, or Certified Nurse Anesthetists under the supervision of a physician. The patient /or the patient s legal electroplating sales representative agree with the plan for anesthesia. Blood Attestation ATTESTATION OF INFORMED CONSENT FOR BLOOD The transfusion of blood and/or blood components were discussed with the patient and/or legal electroplating sales representative. The risks, benefits and alternatives were reviewed. Questions regarding blood transfusions were answered. The patient /or the patient s legal electroplating sales representative agree with the plan for transfusion of blood and/or blood components. documented in this encounter [facility] 04-30-2022 Note DISCHARGE SUMMARY [address] [address] Nadia Biggs Date of : 1990 32 year oldmale Attending Chris Suarez MD Date of Admission 04/28/2022 Date of Discharge 04/30/2022 [facility] DIVISION OF ACUTE CARE SURGERY EMERGENCY GENERAL SURGERY FINAL DIAGNOSES: Hospital Problems as of 04/30/2022 * (Principal) Abscess of right leg Abscess of left thigh Antalgic gait PROCEDURES: Excisional debridement of right leg, 45 cm3 Wound vac placement DISCHARGE MEDICATIONS: Current Discharge Medication List START taking these medications Details oxyCODONE 5 MG immediate release tablet Take 1 Tablet by mouth every 4 hours as needed for up to 3 days. Qty: 9 Tablet, Refills: 0 Associated Diagnoses: Abscess of right leg acetaminophen (TYLENOL) 325 mg tablet Take 2 Tablets by mouth every 6 (six) hours. Qty: 30 Tablet, Refills: 0 Current Facility-Administered Medications: enoxaparin (LOVENOX) 40 MG/0.4ML injection 40 mg, 40 mg, Subcutaneous, 2x Daily, Jeannette Billingsley MD, 40 mg at 04/30/22 09 acetaminophen (TYLENOL) tablet, 650 mg, Oral, q6h, Jeannette Billingsley MD, 650 mg at 04/30/22 0917 oxyCODONE immediate release tablet, 5 mg, Oral, Q4H PRN, Jeannette Billingsley MD, 5 mg at 04/30/22 0642 HYDROmorphone (DILAUDID) 1 mg/mL injection, 0.5 mg, Intravenous Push, Q3H PRN, Jeannette Billingsley MD, 0.5 mg at 04/30/22 1020 ondansetron (ZOFRAN) 4 MG/2ML injection, 4 mg, Intravenous Push, Q4H PRN, Jeannette Billingsley MD fenofibrate (TRICOR) tablet, 145 mg, Oral, Daily, Jeannette Billingsley MD, 145 mg at 04/30/22 0917 atenolol (TENORMIN) tablet, 50 mg, Oral, Daily, Jeannette Billingsley MD, 50 mg at 04/30/22 09 cefTRIAXone (ROCEPHIN) 2,000 mg in dextrose 50 mL ivpb, 2,000 mg, Intravenous, Q24H Antibiotic, Jeannette Billingsley MD, 2,000 mg at 04/29/22 1720 REASON FOR HOSPITALIZATION: Mr. Biggs is a 32 yo who presents after I AND D of right leg abscess with large wound and concern for NSTI. Patient states he had progressive swelling of his right leg with increasing difficulty walking. He had an ulcer overlying the calf that began to bleed a little. He presented to OSH where CT was consistent with 10 cm abscess. He is now s/p I AND D on 04/27. Cultures with padilla-sensitive Group A Strep. Was on Vanc and Zosyn at OSH. WBC at presentation was 25, now normalized. He endorses fever that was improved with Tylenol. Pain in his leg has significantly improved since his I AND D. Denies chills, nausea, vomiting, numbness/tingling in extremity. SIGNIFICANT FINDINGS: Purulent exudate of the right calf wound Eschar of the skin edge Wound debrided to healthy tissue HOSPITAL COURSE: 04/28: Admitted to ACS service. OR for excisional debridement of right lower extremity and wound vac placement. 04/29: No acute events overnight 04/30: Wound vacc was changed at the bedside and portable wound vacc was provided to the patient. Patient denies nausea, vomiting, fever, chills. Stable to go home and follow-up with wound clinic. The patient was seen and examined on the day of discharge with the following findings: General: Alert, lying comfortably in bed CVS: RRR Pulm: No respiratory distress on RA Abd: Soft, NT, ND Ext: Right calf with wound vacc changes with a new one this AM with some fibrinous tissue debrided at the bedside, surrounding erythema decreasing within the marked area. Skin: As above Neuro: Grossly nonfocal, motor and sensory intact though range of motion limited secondary to pain Condition at discharge: improved Diet: No restrictions Restrictions: No restriction, with physical therapy sessions outpatient. Patient discharged to: Home ANTICIPATED FOLLOW UP: [facility] for May 08 at 1245. Patient was explained to maintain portable wound vacc and follow-up in the clinic. Patient was also given script for outpatient physical therapy. Discharge Procedure Orders DME WALKER Order Comments: The patient has a mobility limitation that significantly impairs his/her ability to participate in one or more Mobility Related ADL (MRADLs) in the home. The patient is unable to safely use a cane or crutch, and can safely use the walker in their home. The functional mobility deficit can be sufficiently resolved with the use of a walker. Scheduling Instructions: You should expect to be contacted within 2 working days. If not, call [phone]. Order Specific Question Answer Comments Months needed (99 = lifetime) 99 Deliver Supplies To: Inpatient Unit Room and Bed: [place] [address] Expected Discharge: Today Style: Folding - 2 wheeled (patient weight up to 500 lbs/226 kg) Walker type: Standard (for patient weight up to 350 lbs/158 kg) Patient last height 6' 0 04/28/2022 Patient last weight (kg) 86.18 kg 04/28/2022 Mani Blue MD Surgery Resident [facility] [phone] ACS Consults [id number] (more content not included)... [facility] 04-30-2022 Hospital course Narrative DISCHARGE SUMMARY [address] [address] Nadia Biggs Date of : 1990 32 year oldmale Attending Chris Suarez MD Date of Admission 04/28/2022 Date of Discharge 04/30/2022 [facility] DIVISION OF ACUTE CARE SURGERY EMERGENCY GENERAL SURGERY FINAL DIAGNOSES: Hospital Problems as of 04/30/2022 * (Principal) Abscess of right leg Abscess of left thigh Antalgic gait PROCEDURES: Excisional debridement of right leg, 45 cm^3 Wound vac placement DISCHARGE MEDICATIONS: Current Discharge Medication List START taking these medications Details oxyCODONE 5 MG immediate release tablet Take 1 Tablet by mouth every 4 hours as needed for up to 3 days. Qty: 9 Tablet, Refills: 0 Associated Diagnoses: Abscess of right leg acetaminophen (TYLENOL) 325 mg tablet Take 2 Tablets by mouth every 6 (six) hours. Qty: 30 Tablet, Refills: 0 Current Facility-Administered Medications: enoxaparin (LOVENOX) 40 MG/0.4ML injection 40 mg, 40 mg, Subcutaneous, 2x Daily, Jeannette Billingsley MD, 40 mg at 04/30/22 0917 acetaminophen (TYLENOL) tablet, 650 mg, Oral, q6h, Jeannette Billingsley MD, 650 mg at 04/30/22 0917 oxyCODONE immediate release tablet, 5 mg, Oral, Q4H PRN, Jeannette Billingsley MD, 5 mg at 04/30/22 0642 HYDROmorphone (DILAUDID) 1 mg/mL injection, 0.5 mg, Intravenous Push, Q3H PRN, Jeannette Billingsley MD, 0.5 mg at 04/30/22 1020 ondansetron (ZOFRAN) 4 MG/2ML injection, 4 mg, Intravenous Push, Q4H PRN, Jeannette Billingsley MD fenofibrate (TRICOR) tablet, 145 mg, Oral, Daily, Jeannette Billingsley MD, 145 mg at 04/30/22 0917 atenolol (TENORMIN) tablet, 50 mg, Oral, Daily, Jeannette Billingsley MD, 50 mg at 04/30/22 0917 cefTRIAXone (ROCEPHIN) 2,000 mg in dextrose 50 mL ivpb, 2,000 mg, Intravenous, Q24H Antibiotic, Jeannette Billingsley MD, 2,000 mg at 04/29/22 1720 REASON FOR HOSPITALIZATION: Mr. Biggs is a 32 yo who presents after I&D of right leg abscess with large wound and concern for NSTI. Patient states he had progressive swelling of his right leg with increasing difficulty walking. He had an ulcer overlying the calf that began to bleed a little. He presented to OSH where CT was consistent with 10 cm abscess. He is now s/p I&D on 04/27. Cultures with padilla-sensitive Group A Strep. Was on Vanc and Zosyn at OSH. WBC at presentation was 25, now normalized. He endorses fever that was improved with Tylenol. Pain in his leg has significantly improved since his I&D. Denies chills, nausea, vomiting, numbness/tingling in extremity. SIGNIFICANT FINDINGS: Purulent exudate of the right calf wound Eschar of the skin edge Wound debrided to healthy tissue HOSPITAL COURSE: 04/28: Admitted to ACS service. OR for excisional debridement of right lower extremity and wound vac placement. 04/29: No acute events overnight 04/30: Wound vacc was changed at the bedside and portable wound vacc was provided to the patient. Patient denies nausea, vomiting, fever, chills. Stable to go home and follow-up with wound clinic. The patient was seen and examined on the day of discharge with the following findings: General: Alert, lying comfortably in bed CVS: RRR Pulm: No respiratory distress on RA Abd: Soft, NT, ND Ext: Right calf with wound vacc changes with a new one this AM with some fibrinous tissue debrided at the bedside, surrounding erythema decreasing within the marked area. Skin: As above Neuro: Grossly nonfocal, motor and sensory intact though range of motion limited secondary to pain Condition at discharge: improved Diet: No restrictions Restrictions: No restriction, with physical therapy sessions outpatient. Patient discharged to: Home ANTICIPATED FOLLOW UP: [facility] for May 08 at 1245. Patient was explained to maintain portable wound vacc and follow-up in the clinic. Patient was also given script for outpatient physical therapy. Discharge Procedure Orders DME WALKER Order Comments: The patient has a mobility limitation that significantly impairs his/her ability to participate in one or more Mobility Related ADL (MRADLs) in the home. The patient is unable to safely use a cane or crutch, and can safely use the walker in their home. The functional mobility deficit can be sufficiently resolved with the use of a walker. Scheduling Instructions: You should expect to be contacted within 2 working days. If not, call [phone]. Order Specific Question Answer Comments Months needed (99 = lifetime) 99 Deliver Supplies To: Inpatient Unit Room and Bed: [place] [address] Expected Discharge: Today Style: Folding - 2 wheeled (patient weight up to 500 lbs/226 kg) Walker type: Standard (for patient weight up to 350 lbs/158 kg) Patient last height 6' 0 04/28/2022 Patient last weight (kg) 86.18 kg 04/28/2022 Mani Blue MD Surgery Resident [facility] [phone] ACS Consults [id number] ACS Floor Patients Explanation of the primary diagnosis, and secondary diagnoses where applicable, including test results, Discussion of any new medications and treatments, including expected benefits and potential major side effects, Explanation of previous treatments or medications that are discontinued, Discussion of post-hospital day-to-day care needs including therapy, wound care, etc., and Follow up plans and warning signs that should prompt more urgent follow up documented in this encounter [facility] 04-30-2022 Note 04/30/22 1131 Assessment and Discharge Planning Evaluation READMISSION LESS THAN 30 DAYS No READMISSION RISK SCORE IS Low Risk INTERVIEWED Patient Functional Status Ambulatory LIVING SITUATION Home - Own;Spouse/Significant Other PCP VERIFIED Yes (Kain YuparishderrickSIS) ADMISSION INSURANCE Medicaid Medicaid [facility] HEALTH CARE PRIOR TO ADMISSION No TENTATIVE DISCHARGE PLAN Home - Own READMISSION RISK SCORE SHOULD BE Remain Unchanged REASON READMISSION SCORE NEEDS ADJUSTED No need for adjustment SDOH Completed? Yes CASE MANAGEMENT Met with patient at bedside to introduce self and explain role as CM. Patient address and phone number verified PCP Verified: Kain Vieyra CNP Lives with Patient does not drive but drives to appointments Patient will need wound clinic appointment set up closer to his home. Left message for [facility] requesting return call. PT/OT have recommended outpatient therapy. MEDICAL TEAM: Patient will need a script script for therapy. Script should in diagnosis and EVAL AND TREAT. ADDENDUM [id number] Follow up appointment was made at [facility] for May 08 at 1245. Nayeli Escalona RNcalender machine operator [phone] (Phone) Hours 7:30 am to 4pm [facility] 04-30-2022 Note PHYSICAL THERAPY PRO SWETHA SUMMARY Patient seen from 1056 to 1120 on GC5E unit for 24 minute treatment. SUBJECTIVE: Patient Subjective/Goals: It's not going to happen in one day! Pt states when discussing importance of stretching R ankle/knee and hip to prevent contracture OBJECTIVE: Appearance: pt in bed upon entering room w/ R LE prevena wound vac intact. Parents at bedside RLE posturing in knee flexion w/ hip ER, R foot in PF Behavior: alert,cooperative Pain: Site/Location: RLE; Pain Scale: ~6/10 Pain Relief Interventions Implemented: Positioning and Relaxation Training Therex- R QS 1x5 w/ static hold w/ pt achieving ~ -20 degrees knee ext R heel cord stretch 2x/30 second hold, ~ -25 degrees DF Pt instructed in self heel cord stretch Sitting EOB w/ foot flat to floor bringing heel towards bed while keeping heel to floor Mobility NA Dep Max Mod Min CG CS DS KS I Comment Supine to sit x Sit to/from stand x Walking on level surface x ~80 feet with rolling walker Gait Analysis: 3 point gait pattern, pt maintains TTWB RLE Stairs x Not stairs at home Stand to sit x x Vc's for proper technique Functional Endurance: improving Patient/Family Education: Pt extensively educated in importance of heel toe gait, positioning of RLE in neutral positioning in bed, and completing stretching exercises to R knee/ankle. Pt at high risk for contractures to RLE. Pt verbalizes understanding Patient up in chair with call light in reach. DME: With Patients permission ordered wheeled walker via [employer] Order. If any questions contact [facility] DME Provider at [phone]. 6 Clicks Basic Mobility PT 04/30/2022 Difficulty turning over in bed 4 Difficulty sitting down and standing up from a chair with arms 4 Difficulty moving from lying on back to sitting on the side of the bed 4 Help from another person moving to and from bed to a chair 3 Help from another person to walk in hospital room 3 Help from another person climbing 3-5 steps with a railing 3 PT 6 Clicks Score 21 6 Click Score Guidelines: 1 - Total = Requires total assistance, or cannot do at all. 2 - A lot = Requires a lot of help (maximun to moderate assistance) Can use assistive devices. 3 - A little = Requires a little help (supervision, minimal assistance) Can use assistive devices. 4 - None = Does not require any help and does the activity independently. Can use assistive devices. ASSESSMENT: Pt is functionally appropriate to return home when medically ready. Recommend outpt PT f/u. Goals (to be achieved by 3 days or by discharge from acute care): ONGOING Patient will achieve acceptable level of pain control to allow participation in therapy. Patient will increase bed mobility to independent ACHIEVED Patient will perform sit to/from stand pivot transfer, bed to/from chair with rolling walker with independent ACHIEVED Patient will ambulate 150 feet with rolling walker with independent Assess patient with crutches Patient will ascend/descend 4 stairs with 1 rail(s) and crutches with modified independent Patient will increase ROM/Strength/Endurance/Balance to allow for above goals. Patient/Family independent with exercise program/precautions. PLAN: Will follow established Plan of Care Ericka STEWART Beeper #[phone] NA = Not Assessed, I = Independent, KS = Modified Independent, Sup = Supervised, Set up = Physical Assistance for Set-up Only, Min = Minimal Assistance, Mod = Moderate Assistance, Max = Maximal assistance; Dep = Dependent; AROM = Active Range of Motion; PROM = Passive Range of Motion; MMT = Manual Muscle Test [facility] 04-30-2022 Hospital Discharge instructions Mani Blue MD - 04/30/2022 12:42 PM EST Discharge Instructions: Date of admission: 04/28/2022 Date of discharge: 04/30/2022 You are being discharged to home Follow up: - Please call to schedule your follow-up appointments - information provided separately. - You will need to follow up with: [facility] - See below for information regarding contacting your primary care physician or establishing care at [facility] if you do not already have one. Wound Care and Showering/Bathing: - Okay to shower daily -- allow soap and water to run down your incisions. Do not scrub the area. - Do not get your wound wet for any reason. This includes protecting it from shower water and in the rain. - If you cannot keep your wounds completely sealed and dry then you should not shower. Sponge baths are the best way to maintain hygiene while your are healing. - To sponge bath, wet a washcloth with soapy water and gently wash body with the washcloth. Then use a dry washcloth to wipe off. - If you cannot maintain your balance in the shower, then you should not shower. Sponge baths are the best way to maintain hygiene while your are healing. - To sponge bath, wet a washcloth with soapy water and gently wash body with the washcloth. Then use a dry washcloth to wipe off. - No submerging the wound in water or pools until cleared by our office. - Make sure you cover your drain site VERY well with plastic when you shower. Once you are out of the shower, remove the plastic and dry off very well. Then re-apply dressings. - If you begin to experience progressive and rapidly increasing pain that seems out of proportion to what you normally have been experiencing from your baseline pain after surgery/injury. Alternatively, you may come into the [facility] Emergency Department IMMEDIATELY for an emergent evaluation by the Trauma resident. Drain Care: - Strip your drains by using an alcohol pad or a bit of foam soap. While holding the drain near your skin, squeeze the tubing in the direction of the bulb. - keep the drain skin area clean by using a warm washcloth. - record your drain output daily. Ostomy Care: - empty the ostomy appliance when more than 1/2 full as you were shown in the hospital. - when the appliance falls off or every 3 days, remove the appliance and apply a fresh appliance - record the output from the ostomy every day. If >1000mL or 1 quart per day, please call and notify your surgeon. Activity and Weight Bearing: - You do not have any weight bearing limitations/restrictions - Do not lift, push, pull, or drag anything at all with your arm. - Do not put any weight on your leg. - You have orders from your Orthopedic doctor to NOT use your for any weight bearing. - Keep your sling in place when sitting up, standing, or walking. - Once you are cleared by your Orthopedic doctor ( ), you are to start attending outpatient Therapy. (Prescription Provided at discharge). - Call your insurance company to see what Therapy facility is covered, then call that facility to establish care. Let them know you have a prescription and bring it with you to your first appointment. - You may also come back to [facility] for your rehab. Call the number provided to start the therapy. - You will continue these restrictions while you are in Rehab. Pain control: - For MILD to MODERATE pain (pain 1-6 out of 10 on a pain scale) take: -- Tylenol 325 mg, 1-2 tablets every 6 hours as needed. - If you are still having pain 30 min after taking Tylenol, add: -- Motrin 400 mg, 1 tablet every 6 hours as needed. -Wait 30 minutes to 1 hour after taking Tylenol and Motrin, then reassess your pain. - If you are still having pain, and it is SEVERE pain (pain 7-10 out of 10 on pain scale) take: -- Take Oxycodone 5 mg, 1 tablet. You may take 1 tablet every 6 hours for as needed for severe pain . - It is okay to take Tylenol, Motrin, and Oxycodone together if needed. - If you are having muscle cramps or muscle spasms, take Flexeril as prescribed. - If taking Flexeril and Oxycodone, space them out by 1 hour. - Please begin to wean off of your pain medications as soon as possible. -- To do this, start taking Oxycodone every 8 hours instead of every 6, then every 12 hours, then only once per day if needed. Then stop. You may use Motrin and Tylenol until your pain is diminished enough for you to tolerate your pain. - Your pain medication will be adjusted as necessary in the acute rehabilitation facility. - Please do not drive within 24 hours of taking Oxycodone or any opiate medication. Update your primary care physician or establish care: Please see your primary care physician at the next available appointment for follow up. Please call either on the day of your discharge, or the day after, to make the appointment. If you are followed by a managed care company or if your insurance requires, call your physician for authorization to be seen in a specialty clinic. If you do not have a primary physician please call [phone] for guidance on finding a [facility] provider. If you have questions or concerns , if your condition worsens or you develop new symptoms please call the [facility] Line at [phone]. documented in this encounter [facility] 04-30-2022 History of Present illness Narrative 04/30/22 1131 Assessment and Discharge Planning Evaluation READMISSION LESS THAN 30 DAYS No READMISSION RISK SCORE IS Low Risk INTERVIEWED Patient Functional Status Ambulatory LIVING SITUATION Home - Own;Spouse/Significant Other PCP VERIFIED Yes (Kain Vieyra CNP) ADMISSION INSURANCE Medicaid Medicaid O- [facility] HOME HEALTH CARE PRIOR TO ADMISSION No TENTATIVE DISCHARGE PLAN Home - Own READMISSION RISK SCORE SHOULD BE Remain Unchanged REASON READMISSION SCORE NEEDS ADJUSTED No need for adjustment SDOH Completed? Yes CASE MANAGEMENT Met with patient at bedside to introduce self and explain role as CM. Patient address and phone number verified PCP Verified: Kain Vieyra CNP Lives with Patient does not drive but drives to appointments Patient will need wound clinic appointment set up closer to his home. Left message for [facility] requesting return call. PT/OT have recommended outpatient therapy. MEDICAL TEAM: Patient will need a script script for therapy. Script should in diagnosis and EVAL AND TREAT. ADDENDUM 1410 Follow up appointment was made at [facility] for May 08 at 1245. Nayeli Escalona RNcalender machine operator [phone] (Phone) Hours 7:30 am to 4pm Images from the original note were not included. [facility] DIVISION OF ACUTE CARE SURGERY GENERAL INFORMATION EMERGENCY GENERAL SURGERY NOTE Patient Name: Nadia Biggs Admission Date: 04/28/2022 Patient seen and examined on 04/30/2022 INTERVAL HISTORY/EVENTS Background Narrative: Mr. Biggs is a 32 yo who presents after I&D of right leg abscess with large wound and concern for NSTI. Patient states he had progressive swelling of his right leg with increasing difficulty walking. He had an ulcer overlying the calf that began to bleed a little. He presented to OSH where CT was consistent with 10 cm abscess. He is now s/p I&D on 04/27. Cultures with padilla-sensitive Group A Strep. Was on Vanc and Zosyn at OSH. WBC at presentation was 25, now normalized. He endorses fever that was improved with Tylenol. Pain in his leg has significantly improved since his I&D. Denies chills, nausea, vomiting, numbness/tingling in extremity. Hospital Course/Procedures: 04/28: Admitted to ACS service. OR for excisional debridement of right lower extremity and wound vac placement. 12:04: No acute events overnight Events in last 24 hours: No acute overnight events overnight. Recovering well and pain well-tolerated. Denies nausea, vomiting, fever and chills. ---- PHYSICAL EXAM ---- Vitals: Vital sign ranges over the past 24 hours (retrieved 04/30/2022 at 9:27 AM): Tmax (24 hours): 98.2 F (36.8 C) Pulse Av Min: 54 Max: 59 Systolic (24hrs), Av , Min:124 , Max:130 Diastolic (24hrs), Av, Min:66, Max:92 MAP (mmHg) Av mmHg Min: 84 mmHg Max: 103 mmHg Resp Av.2 Min: 14 Max: 18 SpO2 Av.6 % Min: 99 % Max: 100 % 24 Hour Input/Output In: 270 (3.1 mL/kg) [P.O.:220; I.V.:50 (0 mL/kg/hr)] Out: 1850 (21.5 mL/kg) [Urine:1800 (0.9 mL/kg/hr); Drainage:50] Net: -1580 Weight: 86.2 kg Physical Exam: General: Alert, lying comfortably in bed CVS: RRR Pulm: No respiratory distress on RA Abd: Soft, NT, ND Ext: Right calf with wound vacc changes with a new one this AM with some fibrinous tissue debrided at the bedside, surrounding erythema decreasing within the marked area. Skin: As above Neuro: Grossly nonfocal, motor and sensory intact though range of motion limited secondary to pain LABORATORY RESULTS (LAST 24 HOURS) 11.4 \ 10.2 / 480 / 30.7 \ CBC: 04/30/2022: 2:55 AM 140 105 12 / \ 75 4.4 26 0.99 BMP: 04/30/2022: 2:55 AM Phosp: 4.5, Ma.4 IMAGING RESULTS - Last 24 hours (PERSONALLY REVIEWED) None overnight DIAGNOSIS & PLAN -- Diagnoses: Right leg abscess Assessment: Mr. Biggs is a 32 yo M who presents s/p I&D of right calf wound. Currently afebrile and hemodynamically normal. Wound necessitating further debridement. Cultures from OSH positive for padilla-sensitive Group A Strep. He is now s/p OR for excisional debridement of right lower extremity and wound vac placement 04/28/2022. Plan Neuro Analgesia: Tylenol 650 mg q 6 hr; oxycodone 5 mg q 4 hr PRN moderate/severe pain; Dilaudid 0.5 mg q 3 hr PRN for breakthrough pain Resp Saturating appropriately on RA; encourage IS Cardio Monitor Vitals Cont home atenolol and tricor GI Diet: Regular; senna and Miralax IV Zofran PRN Renal BMP, Mg, Phosp Replace electrolytes PRN Received Mag and IV phosp this AM Endo No glycemic issues Heme/ID No indication for transfusion; daily CBC IV Ceftriaxone 2g daily MSK PT/OT consulted Ppx Lovenox 40 mg BID; SCD to LLE; no indication for ulcer prophylaxis Dispo: Continue care of RNF. Wound vacc replaced at bedside this AM on round, patient will be discharged later today with a portable wound vacc and followup with a wound clinic. Follow up: Dr. Ackerman Plan was discussed with attending, Dr. Angela Blue MD Surgery Resident [facility] [phone] ACS Consults [phone] ACS Floor Patients Associated attestation - Giovany Miller MD - 04/30/2022 2:28 PM EST Teaching Physician Note: I saw and evaluated the patient. I personally obtained the stokes and critical portions of the history and physical exam. I reviewed the resident's documentation and discussed the patient with the resident. I agree with the resident's medical decision making as documented in the resident's note. Wound is clean without sign of infection. Minimal areas of fibrinous exudate which were debrided at bedside. Wound vac re-applied, pt stable for discharge with follow up in wound clinic. Giovany Miller MD Division of Trauma, Critical Care, Pulido, and Emergency General Surgery Department of Surgery [facility] Images from the original note were not included. [facility] DIVISION OF ACUTE CARE SURGERY GENERAL INFORMATION EMERGENCY GENERAL SURGERY NOTE Patient Name: Nadia Biggs Admission Date: 04/28/2022 Patient seen and examined on 04/29/2022 INTERVAL HISTORY/EVENTS Background Narrative: Mr. Biggs is a 32 yo who presents after I&D of right leg abscess with large wound and concern for NSTI. Patient states he had progressive swelling of his right leg with increasing difficulty walking. He had an ulcer overlying the calf that began to bleed a little. He presented to OSH where CT was consistent with 10 cm abscess. He is now s/p I&D on 04/27. Cultures with padilla-sensitive Group A Strep. Was on Vanc and Zosyn at OSH. WBC at presentation was 25, now normalized. He endorses fever that was improved with Tylenol. Pain in his leg has significantly improved since his I&D. Denies chills, nausea, vomiting, numbness/tingling in extremity. Hospital Course/Procedures: 04/28: Admitted to ACS service. OR for excisional debridement of right lower extremity and wound vac placement. Events in last 24 hours: No acute overnight events since surgery. Recovering well and pain well-tolerated. Have not ambulated d/t wound vacc. ---- PHYSICAL EXAM ---- Vitals: Vital sign ranges over the past 24 hours (retrieved 04/29/2022 at 8:27 AM): Tmax (24 hours): 99.1 F (37.3 C) Pulse Av.9 Min: 63 Max: 91 Systolic (24hrs), Av , Min:108 , Max:133 Diastolic (24hrs), Av, Min:72, Max:97 MAP (mmHg) Av mmHg Min: 85 mmHg Max: 113 mmHg Resp Av.7 Min: 16 Max: 18 SpO2 Av.2 % Min: 94 % Max: 100 % 24 Hour Input/Output In: 670 (7.8 mL/kg) [P.O.:120; I.V.:550 (0.3 mL/kg/hr)] Out: 1120 (13 mL/kg) [Urine:1050 (0.5 mL/kg/hr); Drainage:50] Net: -450 Weight: 86.2 kg Physical Exam: General: Alert, lying comfortably in bed CVS: RRR Pulm: No respiratory distress on RA Abd: Soft, NT, ND Ext: Right calf with wound vacc, surrounding erythema decreasing within the marked area. Skin: As above Neuro: Grossly nonfocal, motor and sensory intact though range of motion limited secondary to pain LABORATORY RESULTS (LAST 24 HOURS) 14.6 \ 10.6 / 429 / 30.6 \ CBC: 04/29/2022: 12:26 AM 138 103 11 / \ 165 4.2 25 1.04 BMP: 04/29/2022: 12:26 AM Phosp: 2.5, Ma.9 IMAGING RESULTS - Last 24 hours (PERSONALLY REVIEWED) None overnight DIAGNOSIS & PLAN -- Diagnoses: Right leg abscess Assessment: Mr. Biggs is a 32 yo M who presents s/p I&D of right calf wound. Currently afebrile and hemodynamically normal. Wound necessitating further debridement. Cultures from OSH positive for padilla-sensitive Group A Strep. He is now s/p OR for excisional debridement of right lower extremity and wound vac placement 04/28/2022. Plan Neuro Analgesia: Tylenol 650 mg q 6 hr; oxycodone 5 mg q 4 hr PRN moderate/severe pain; Dilaudid 0.5 mg q 3 hr PRN for breakthrough pain Resp Saturating appropriately on RA; encourage IS Cardio Monitor Vitals Cont home atenolol and tricor GI Diet: Regular; senna and Miralax IV Zofran PRN Renal BMP, Mg, Phosp Replace electrolytes PRN Received Mag and IV phosp this AM Endo No glycemic issues Heme/ID No indication for transfusion; daily CBC IV Ceftriaxone 2g daily MSK PT/OT consulted Ppx Lovenox 40 mg BID; SCD to LLE; no indication for ulcer prophylaxis Dispo: Continue care of RNF Follow up: Dr. Ackerman Plan was discussed with attending, Dr. Ta Blue MD Surgery Resident [facility] [phone] ACS Consults [phone] ACS Floor Patients Teaching Physician Note: I saw and evaluated the patient. I personally obtained the stokes and critical portions of the history and physical exam. I reviewed the resident's documentation and discussed the patient with the resident. I agree with the resident's medical decision making as documented in the resident's note. Will take down wound vac tomorrow to evaluate wound, possible discharge home if wound appears healthy. Patient takes Rinvoq for severe eczema, will discuss whether this needs to be held. Tien Chappell MD Division of Trauma, Critical Care, Pulido, and Emergency General Surgery Department of Surgery [facility] Pager: [phone] documented in this encounter [facility] 04-30-2022 Note Formatting of this n ote might be different from the original. Problem: Safety: Goal: Patient will remain free of falls during hospital stay Outcome: Progressing Note: Call light and bed alarm on throughout shift for safety Goal: Free from injury during hospitalization Outcome: Progressing Problem: Acute Pain: Goal: Ability to identify pain intensity on a pain scale and rate it consistently will be achieved and maintained Outcome: Progressing Goal: Understanding of proper administration and use of medicines will be achieved Outcome: Progressing Goal: Acceptable level of pain which allows the patient to achieve functional outcome goals Outcome: Progressing Problem: Discharge Planning: Goal: Discharge needs of the adult patient will be met Outcome: Progressing Problem: Impaired Skin Integrity: Goal: Acheive wound healing without signs and symptoms of infection Outcome: Progressing Note: Pt. To show no signs and symptoms of infection throughout shift Problem: Routine Care: Goal: Patient care will be managed and maintained throughout hospital stay per unit specific routine care procedure Outcome: Progressing Note: Purposeful hourly rounding and assessment throughout shift [facility] 04-29-2022 Note OCCUPATIONAL THERAPY INITIAL EVALUATION Patient seen from 08:49 to 09:07 on 5Ea unit for 18 minutes. Reason for Admit: 32 yo presented from OSH for large 10 cm distal R LE abscess with concern for NSTI. Diagnosis: Abscess of R LE Precautions/Activity Order: Full code Moderate falls Procedures this admit: 04/28/22 Procedures: Excisional debridement of right lower extremity Wound vac placement Past Medical and Surgical History: PMH: Past Medical History: Diagnosis Date Eczema 03/25/2020 High cholesterol Hypertension PSH: History reviewed. No pertinent surgical history. SUBJECTIVE: Patient Subjective: I can't put my foot flat, it pulls the wound vac and hurts Patient Identified Goal(s): To go home Home Living Situation Prior Functional Status: Lives with spouse and 2 young children in single story house. Flat entry, no stairs to manage once pt is inside. No BENNY; tub shower though reports sponge bathing past couple of weeks with onset of wound. Pt denies falls, not working or driving. Equipment available at home: no equipment OBJECTIVE: Patient Identification: patient verbalizing his/her name and date of . and patient's id band and date of . Risks and benefits of occupational therapy: Patient informed of risks and benefits of treatment Appearance: WFL, PIV, Wound vac to R LE Alertness: WFL Affect: WNL Cooperation/Behavior: Appropriate dialogue with therapist and Pleasant and cooperative Communication: WFL Pain: Pain ratin/10, Location: ache, surgical site Pain Relief Interventions Implemented: Positioning Self Care: Assistance Level Dep Max Mod Min CG CS DS KS I Set-Up Comment Feeding x Grooming/Hygiene x Bathing:UB x x Anticipated level for seated sponge bathing Bathing:LB x x Anticipated level for seated sponge bathing Dressing:UB x Dressing: LB x Able to bend at waist to reach distal LE and manage socks while sitting EOB Toileting x Anticipated level Transfers/Bed Mobility: Assistance Level Dep Max Mod Min CG CS DS KS I Set-Up Comment Toilet Transfers x Simulated Bed Transfers x Transfers from supine to sitting EOB without deficit Sit/stand transfers x Functional ambulation x Cues for hand placement and proximity to chair prior to sitting. Use of ww, no overt balance deficits observed. pt demonstrates inability to fully extend R knee or dorsiflex R ankle 2/2 pain- anticipate also due to tightness as pt reports walking on forefoot with R knee kept bent for past 2 weeks. Pt not bearing weight through R LE despite education on trying to extend R LE and place some pressure through LE Endurance for Self Care: WFL Static Sitting Balance: WFL Dynamic Sitting Balance: WFL UE Motor: BUE AROM and strength WNLs, no observed deficits, grossly at least 4+/5 throughout Vision/Perception: WFL Cognition: Orientation: Oriented to person, place, time, date, recent events, and situation Follows Commands: WFL Attention: WNL Memory: WFL Problem Solving: WFL Safety/Judgement: WFL Sequencing: WFL Other Specialized Tests: None Patient/Family Education: Instructed patient in roles of therapy Patient up in chair with call light in reach. DME: With Patients permission ordered no equipment via [employer] Order. If any questions contact [facility] DME Provider at [phone]. 9 Clicks Daily Activity OT 04/29/2022 Help from another person Eating meals 4 Help from another person taking care of personal grooming 4 Help from another person bathing 3 Help from another person putting on and taking off regular upper body clothing 4 Help from another person putting on and taking off regular lower body clothing 4 Help from another person toileting 4 OT 6 Clicks Score 23 6 Click Score Guidelines: 1 - Unable = Total/Dependent Assist 2 - A lot = Max/Moderate Assist 3 - A little = Minimum/Contact Guard Assist/Supervision 4 - Non = Modified [place]/Independent ASSESSMENT: Patient is functionally appropriate for discharge home once medically cleared. No further Occupational Therapy Services reccommended at this time. Pt has necessary assistance from family and neighbors at home and intends on sponge bathing with prn assist from spouse. Able to manage ADLs-dressing, toileting-- at MOD I. PLAN: Nadia Biggs will be discharged from acute OT services at this time. able to discuss the evaluation findings and treatment plan with the patient/family. Mark BORJA, OTR/L NA = Not Assessed, I = Independent, KS = Modified Independent, Sup = Supervised, Set up = Physical Assistance for Set-up Only, Min = Minimal Assistance, Mod = Moderate Assistance, Max = Max assistance; Dep = Dependent; AROM = Active Range of Motion;PROM=Passive Range of Motion; MMT = Manual Muscle Test; UB = Upper Body; LB = Lower Body [facility] 04-29-2022 Consult note Associated Order (s): IP OCCUPATIONAL THERAPY SERVICE REQUEST OCCUPATIONAL THERAPY INITIAL EVALUATION Patient seen from 08:49 to 09:07 on 5Ea unit for 18 minutes. Reason for Admit: 32 yo presented from OSH for large 10 cm distal R LE abscess with concern for NSTI. Diagnosis: Abscess of R LE Precautions/Activity Order: Full code Moderate falls Procedures this admit: 04/28/22 Procedures: Excisional debridement of right lower extremity Wound vac placement Past Medical and Surgical History: PMH: Past Medical History: Diagnosis Date Eczema 03/25/2020 High cholesterol Hypertension PSH: History reviewed. No pertinent surgical history. SUBJECTIVE: Patient Subjective: I can't put my foot flat, it pulls the wound vac and hurts Patient Identified Goal(s): To go home Home Living Situation Prior Functional Status: Lives with spouse and 2 young children in single story house. Flat entry, no stairs to manage once pt is inside. No BENNY; tub shower though reports sponge bathing past couple of weeks with onset of wound. Pt denies falls, not working or driving. Equipment available at home: no equipment OBJECTIVE: Patient Identification: patient verbalizing his/her name and date of . and patient's id band and date of . Risks and benefits of occupational therapy: Patient informed of risks and benefits of treatment Appearance: WFL, PIV, Wound vac to R LE Alertness: WFL Affect: WNL Cooperation/Behavior: Appropriate dialogue with therapist and Pleasant and cooperative Communication: WFL Pain: Pain ratin/10, Location: ache, surgical site Pain Relief Interventions Implemented: Positioning Self Care: Assistance Level Dep Max Mod Min CG CS DS [place] I Set-Up Comment Feeding x Grooming/Hygiene x Bathing:UB x x Anticipated level for seated sponge bathing Bathing:LB x x Anticipated level for seated sponge bathing Dressing:UB x Dressing: LB x Able to bend at waist to reach distal LE and manage socks while sitting EOB Toileting x Anticipated level Transfers/Bed Mobility: Assistance Level Dep Max Mod Min CG CS DS KS I Set-Up Comment Toilet Transfers x Simulated Bed Transfers x Transfers from supine to sitting EOB without deficit Sit/stand transfers x Functional ambulation x Cues for hand placement and proximity to chair prior to sitting. Use of ww, no overt balance deficits observed. pt demonstrates inability to fully extend R knee or dorsiflex R ankle 2/2 pain- anticipate also due to tightness as pt reports walking on forefoot with R knee kept bent for past 2 weeks. Pt not bearing weight through R LE despite education on trying to extend R LE and place some pressure through LE Endurance for Self Care: WFL Static Sitting Balance: WFL Dynamic Sitting Balance: WFL UE Motor: BUE AROM and strength WNLs, no observed deficits, grossly at least 4+/5 throughout Vision/Perception: WFL Cognition: Orientation: Oriented to person, place, time, date, recent events, and situation Follows Commands: WFL Attention: WNL Memory: WFL Problem Solving: WFL Safety/Judgement: WFL Sequencing: WFL Other Specialized Tests: None Patient/Family Education: Instructed patient in roles of therapy Patient up in chair with call light in reach. DME: With Patients permission ordered no equipment via [employer] Order. If any questions contact [facility] DME Provider at [phone]. 5 Clicks Daily Activity OT 04/29/2022 Help from another person Eating meals 4 Help from another person taking care of personal grooming 4 Help from another person bathing 3 Help from another person putting on and taking off regular upper body clothing 4 Help from another person putting on and taking off regular lower body clothing 4 Help from another person toileting 4 OT 6 Clicks Score 23 6 Click Score Guidelines: 1 - Unable = Total/Dependent Assist 2 - A lot = Max/Moderate Assist 3 - A little = Minimum/Contact Guard Assist/Supervision 4 - Non = Modified [place]/Independent ASSESSMENT: Patient is functionally appropriate for discharge home once medically cleared. No further Occupational Therapy Services reccommended at this time. Pt has necessary assistance from family and neighbors at home and intends on sponge bathing with prn assist from spouse. Able to manage ADLs-dressing, toileting-- at MOD I. PLAN: Nadia Biggs will be discharged from acute OT services at this time. able to discuss the evaluation findings and treatment plan with the patient/family. Mark Gloria MOT, OTR/L NA = Not Assessed, I = Independent, KS = Modified Independent, Sup = Supervised, Set up = Physical Assistance for Set-up Only, Min = Minimal Assistance, Mod = Moderate Assistance, Max = Max assistance; Dep = Dependent; AROM = Active Range of Motion;PROM=Passive Range of Motion; MMT = Manual Muscle Test; UB = Upper Body; LB = Lower Body [facility] 04-29-2022 Consult note Associated Order (s): IP OCCUPATIONAL THERAPY SERVICE REQUEST OCCUPATIONAL THERAPY INITIAL EVALUATION Patient seen from 08:49 to 09:07 on 5Ea unit for 18 minutes. Reason for Admit: 32 yo presented from OSH for large 10 cm distal R LE abscess with concern for NSTI. Diagnosis: Abscess of R LE Precautions/Activity Order: Full code Moderate falls Procedures this admit: 04/28/22 Procedures: Excisional debridement of right lower extremity Wound vac placement Past Medical and Surgical History: PMH: Past Medical History: Diagnosis Date Eczema 03/25/2020 High cholesterol Hypertension PSH: History reviewed. No pertinent surgical history. SUBJECTIVE: Patient Subjective: I can't put my foot flat, it pulls the wound vac and hurts Patient Identified Goal(s): To go home Home Living Situation Prior Functional Status: Lives with spouse and 2 young children in single story house. Flat entry, no stairs to manage once pt is inside. No BENNY; tub shower though reports sponge bathing past couple of weeks with onset of wound. Pt denies falls, not working or driving. Equipment available at home: no equipment OBJECTIVE: Patient Identification: patient verbalizing his/her name and date of . and patient's id band and date of . Risks and benefits of occupational therapy: Patient informed of risks and benefits of treatment Appearance: WFL, PIV, Wound vac to R LE Alertness: WFL Affect: WNL Cooperation/Behavior: Appropriate dialogue with therapist and Pleasant and cooperative Communication: WFL Pain: Pain ratin/10, Location: ache, surgical site Pain Relief Interventions Implemented: Positioning Self Care: Assistance Level Dep Max Mod Min CG CS DS [place] I Set-Up Comment Feeding x Grooming/Hygiene x Bathing:UB x x Anticipated level for seated sponge bathing Bathing:LB x x Anticipated level for seated sponge bathing Dressing:UB x Dressing: LB x Able to bend at waist to reach distal LE and manage socks while sitting EOB Toileting x Anticipated level Transfers/Bed Mobility: Assistance Level Dep Max Mod Min CG CS DS KS I Set-Up Comment Toilet Transfers x Simulated Bed Transfers x Transfers from supine to sitting EOB without deficit Sit/stand transfers x Functional ambulation x Cues for hand placement and proximity to chair prior to sitting. Use of ww, no overt balance deficits observed. pt demonstrates inability to fully extend R knee or dorsiflex R ankle 2/2 pain- anticipate also due to tightness as pt reports walking on forefoot with R knee kept bent for past 2 weeks. Pt not bearing weight through R LE despite education on trying to extend R LE and place some pressure through LE Endurance for Self Care: WFL Static Sitting Balance: WFL Dynamic Sitting Balance: WFL UE Motor: BUE AROM and strength WNLs, no observed deficits, grossly at least 4+/5 throughout Vision/Perception: WFL Cognition: Orientation: Oriented to person, place, time, date, recent events, and situation Follows Commands: WFL Attention: WNL Memory: WFL Problem Solving: WFL Safety/Judgement: WFL Sequencing: WFL Other Specialized Tests: None Patient/Family Education: Instructed patient in roles of therapy Patient up in chair with call light in reach. DME: With Patients permission ordered no equipment via [employer] Order. If any questions contact [facility] DME Provider at [phone]. 6 Clicks Daily Activity OT 04/29/2022 Help from another person Eating meals 4 Help from another person taking care of personal grooming 4 Help from another person bathing 3 Help from another person putting on and taking off regular upper body clothing 4 Help from another person putting on and taking off regular lower body clothing 4 Help from another person toileting 4 OT 6 Clicks Score 23 6 Click Score Guidelines: 1 - Unable = Total/Dependent Assist 2 - A lot = Max/Moderate Assist 3 - A little = Minimum/Contact Guard Assist/Supervision 4 - Non = Modified [place]/Independent ASSESSMENT: Patient is functionally appropriate for discharge home once medically cleared. No further Occupational Therapy Services reccommended at this time. Pt has necessary assistance from family and neighbors at home and intends on sponge bathing with prn assist from spouse. Able to manage ADLs-dressing, toileting-- at MOD I. PLAN: Nadia Biggs will be discharged from acute OT services at this time. able to discuss the evaluation findings and treatment plan with the patient/family. Mark Gloria MOT, OTR/L NA = Not Assessed, I = Independent, KS = Modified Independent, Sup = Supervised, Set up = Physical Assistance for Set-up Only, Min = Minimal Assistance, Mod = Moderate Assistance, Max = Max assistance; Dep = Dependent; AROM = Active Range of Motion;PROM=Passive Range of Motion; MMT = Manual Muscle Test; UB = Upper Body; LB = Lower Body Associated Order(s): IP PHYSICAL THERAPY SERVICE REQUEST PHYSICAL THERAPY ACUTE EVALUATION Referral received, chart reviewed. Patient seen from 941 to 1018 on 5C unit for 37 minutes. Admit date/time: 04/28/2022 2:00 PM Reason for Admit: Mr. Biggs is a 32 yo who presents after I&D of right leg abscess with large wound and concern for NSTI. Patient states he had progressive swelling of his right leg with increasing difficulty walking. He had an ulcer overlying the calf that began to bleed a little. He presented to OSH where CT was consistent with 10 cm abscess. He is now s/p I&D on 04/27. Cultures with padilla-sensitive Group A Strep. Was on Vanc and Zosyn at OSH. WBC at presentation was 25, now normalized. He endorses fever that was improved with Tylenol. Pain in his leg has significantly improved since his I&D. Denies chills, nausea, vomiting, numbness/tingling in extremity. Diagnosis: Abscess of R leg and L thigh Precautions: Up with assistance as tolerated Falls Weightbearing Weight bearing as tolerated Procedures this admit: s/p I&D wound vac to R calf Past Medical and Surgical History: PMH: Past Medical History: Diagnosis Date Eczema 03/25/2020 High cholesterol Hypertension PSH: History reviewed. No pertinent surgical history. Identification was verified by patient verbalizing his/her name and date of . Risks and Benefits of physical therapy: Patient informed of risks and benefits of treatment, Patient's family informed of risks and benefits of treatment SUBJECTIVE: I want to get my calf straighter I just got back to bed Patient Subjective:I have plenty of help Patient Identified Goal(s):return home ERGONOMIST Status: Independemt without a device but gait was altered due to the wound Home: 0 steps to enter . 0 steps to bedroom/bathroom Assistance available: parents live next door Equipment available: none OBJECTIVE: Appearance: IV and wound vac Behavior: WFL Oriented x 3 Follows 2 step commands consistently Pain: Site/Location: right calf currently no symptoms ; Pain Scale: 0/10 Pain Relief Interventions Implemented: None required; No pain at this time Passive ROM: Impaired L LE WFL R hip ext lacks ~40 degrees, R knee ext lack ~40 degrees R knee flexion ~80 R DF lacks 30 degrees Strength/Active ROM: Not formally tested however observed WFL for basic level of mobility R LE in available range only Mobility: Rolling to left: independent Sidelying to sit: independent Sit to supine: independent Sitting balance: Good Sit to stand: close supervision Transfers: close supervision Ambulation/Gait: pt ambulates 3' with rolling walker with DS cues for form to try to get heel down and R knee ext (pt states limited due to tape from wound vac) pt ambulates with decreased stance on R weight on toes no heel contact and right hip and knee flex'd Pt reports prior was walking like this without a device Endurance: WFL Patient/Family Education: Instructed Patient in roles of therapy. Instructed Spouse in roles, goals, treatment plan: demonstrated good verbal understanding. Instructed patient in Exercise Program for Ankle pumps, Heel slides right with emphasis on knee ext , Long arch quad, and right ankle pumps Seated hamstring stretch in modified position with foot on tray table needs cues for posture Discussed low intensity stretches for longer periods and doing this throughout the day Use a pillow by R hip to position leg in neutral rotation and dsicussed changing position often in order to prevent further restrictions Patient up in bed with call light in reach. bed alarm intact. DME: With Patients permission ordered no equipment via [employer] Order. If any questions contact [facility] DME Provider at [phone]. 6 Clicks Basic Mobility PT 04/29/2022 Difficulty turning over in bed 4 Difficulty sitting down and standing up from a chair with arms 3 Difficulty moving from lying on back to sitting on the side of the bed 3 Help from another person moving to and from bed to a chair 3 Help from another person to walk in hospital room 3 Help from another person climbing 3-5 steps with a railing 3 PT 6 Clicks Score 19 6 Click Score Guidelines: 1 - Total = Requires total assistance, or cannot do at all. 2 - A lot = Requires a lot of help (maximun to moderate assistance) Can use assistive devices. 3 - A little = Requires a little help (supervision, minimal assistance) Can use assistive devices. 4 - None = Does not require any help and does the activity independently. Can use assistive devices. Progressive mobility currently level 4 OOB to chair level 3, walking with assist- level 4 ASSESSMENT: Nadia Biggs is a 32 year old yo male has developed hip, knee and ankle contractures from positioning and positioning due to wound, currently has a wound vac, instructed in exercises to address tightness today and did some stretching. Anticipate patient will be appropriate for discharge home following 1-2 acute Physical Therapy sessions. Will continue to follow patient while in hospital as appropriate. Recommend Outpatient Physical Therapy. Problems: Pain Decreased ROM/strength Decreased functional mobility Decreased education in exercise/precautions Rehabilitation Potential: Good Goals (to be achieved by 3 days or by discharge from acute care): Patient will achieve acceptable level of pain control to allow participation in therapy. Patient will increase bed mobility to independent Patient will perform sit to/from stand pivot transfer, bed to/from chair with rolling walker with independent Patient will ambulate 150 feet with rolling walker with independent Assess patient with crutches Patient will ascend/descend 4 stairs with 1 rail(s) and crutches with modified independent Patient will increase ROM/Strength/Endurance/Balance to allow for above goals. Patient/Family independent with exercise program/precautions. PLAN OF CARE: Frequency: Patient to be seen 5 times a week Interventions: Functional mobility ROM/Strengthening Home exercise program Discharge planning and equipment ordering as needed Patient /Family education The evaluation findings and treatment plan were discussed with the patient/family. The patient/family indicated understanding and agreement with the plan. Julia Chin, PT, PT NA = Not Assessed, I = Independent, KS = Modified Independent, Sup = Supervised, Set up = Physical Assistance for Set-up Only, Min = Minimal Assistance, Mod = Moderate Assistance, Max = Max assistance; Dep = Dependent; AROM = Active Range of Motion; PROM = Passive Range of Motion; MMT = Manual Muscle Test; LE = Lower Extremity documented in this encounter [facility] 04-29-2022 Note PHYSICAL THERAPY ACU TE EVALUATION Referral received, chart reviewed. Patient seen from 941 to 1018 on 5C unit for 37 minutes. Admit date/time: 04/28/2022 2:00 PM Reason for Admit: Mr. Biggs is a 32 yo who presents after I AND D of right leg abscess with large wound and concern for NSTI. Patient states he had progressive swelling of his right leg with increasing difficulty walking. He had an ulcer overlying the calf that began to bleed a little. He presented to OSH where CT was consistent with 10 cm abscess. He is now s/p I AND D on 04/27. Cultures with padilla-sensitive Group A Strep. Was on Vanc and Zosyn at OSH. WBC at presentation was 25, now normalized. He endorses fever that was improved with Tylenol. Pain in his leg has significantly improved since his I AND D. Denies chills, nausea, vomiting, numbness/tingling in extremity. Diagnosis: Abscess of R leg and L thigh Precautions: Up with assistance as tolerated Falls Weightbearing Weight bearing as tolerated Procedures this admit: s/p I AND D wound vac to R calf Past Medical and Surgical History: PMH: Past Medical History: Diagnosis Date Eczema 03/25/2020 High cholesterol Hypertension PSH: History reviewed. No pertinent surgical history. Identification was verified by patient verbalizing his/her name and date of . Risks and Benefits of physical therapy: Patient informed of risks and benefits of treatment, Patient's family informed of risks and benefits of treatment SUBJECTIVE: I want to get my calf straighter I just got back to bed Patient Subjective:I have plenty of help Patient Identified Goal(s):return home ERGONOMIST Status: Independemt without a device but gait was altered due to the wound Home: 0 steps to enter . 0 steps to bedroom/bathroom Assistance available: parents live next door Equipment available: none OBJECTIVE: Appearance: IV and wound vac Behavior: WFL Oriented x 3 Follows 2 step commands consistently Pain: Site/Location: right calf currently no symptoms ; Pain Scale: 0/10 Pain Relief Interventions Implemented: None required; No pain at this time Passive ROM: Impaired L LE WFL R hip ext lacks ~40 degrees, R knee ext lack ~40 degrees R knee flexion ~80 R DF lacks 30 degrees Strength/Active ROM: Not formally tested however observed WFL for basic level of mobility R LE in available range only Mobility: Rolling to left: independent Sidelying to sit: independent Sit to supine: independent Sitting balance: Good Sit to stand: close supervision Transfers: close supervision Ambulation/Gait: pt ambulates 3' with rolling walker with DS cues for form to try to get heel down and R knee ext (pt states limited due to tape from wound vac) pt ambulates with decreased stance on R weight on toes no heel contact and right hip and knee flex'd Pt reports prior was walking like this without a device Endurance: WFL Patient/Family Education: Instructed Patient in roles of therapy. Instructed Spouse in roles, goals, treatment plan: demonstrated good verbal understanding. Instructed patient in Exercise Program for Ankle pumps, Heel slides right with emphasis on knee ext , Long arch quad, and right ankle pumps Seated hamstring stretch in modified position with foot on tray table needs cues for posture Discussed low intensity stretches for longer periods and doing this throughout the day Use a pillow by R hip to position leg in neutral rotation and dsicussed changing position often in order to prevent further restrictions Patient up in bed with call light in reach. bed alarm intact. DME: With Patients permission ordered no equipment via [employer] Order. If any questions contact [facility] DME Provider at [phone]. 6 Clicks Basic Mobility PT 04/29/2022 Difficulty turning over in bed 4 Difficulty sitting down and standing up from a chair with arms 3 Difficulty moving from lying on back to sitting on the side of the bed 3 Help from another person moving to and from bed to a chair 3 Help from another person to walk in hospital room 3 Help from another person climbing 3-5 steps with a railing 3 PT 6 Clicks Score 19 6 Click Score Guidelines: 1 - Total = Requires total assistance, or cannot do at all. 2 - A lot = Requires a lot of help (maximun to moderate assistance) Can use assistive devices. 3 - A little = Requires a little help (supervision, minimal assistance) Can use assistive devices. 4 - None = Does not require any help and does the activity independently. Can use assistive devices. Progressive mobility currently level 4 OOB to chair level 3, walking with assist- level 4 ASSESSMENT: Nadia Biggs is a 32 year old yo male has developed hip, knee and ankle contractures from positioning and positioning due to wound, currently has a wound vac, instructed in exercises to address tightness today and did some stretching. Anticipate patient will be appropriate for discharge h (more content not included)... [facility] 04-29-2022 Consult note Associated Order (s): IP PHYSICAL THERAPY SERVICE REQUEST PHYSICAL THERAPY ACUTE EVALUATION Referral received, chart reviewed. Patient seen from 941 to 1018 on 5C unit for 37 minutes. Admit date/time: 04/28/2022 2:00 PM Reason for Admit: Mr. Biggs is a 32 yo who presents after I&D of right leg abscess with large wound and concern for NSTI. Patient states he had progressive swelling of his right leg with increasing difficulty walking. He had an ulcer overlying the calf that began to bleed a little. He presented to OSH where CT was consistent with 10 cm abscess. He is now s/p I&D on 04/27. Cultures with padilla-sensitive Group A Strep. Was on Vanc and Zosyn at OSH. WBC at presentation was 25, now normalized. He endorses fever that was improved with Tylenol. Pain in his leg has significantly improved since his I&D. Denies chills, nausea, vomiting, numbness/tingling in extremity. Diagnosis: Abscess of R leg and L thigh Precautions: Up with assistance as tolerated Falls Weightbearing Weight bearing as tolerated Procedures this admit: s/p I&D wound vac to R calf Past Medical and Surgical History: PMH: Past Medical History: Diagnosis Date Eczema 03/25/2020 High cholesterol Hypertension PSH: History reviewed. No pertinent surgical history. Identification was verified by patient verbalizing his/her name and date of . Risks and Benefits of physical therapy: Patient informed of risks and benefits of treatment, Patient's family informed of risks and benefits of treatment SUBJECTIVE: I want to get my calf straighter I just got back to bed Patient Subjective:I have plenty of help Patient Identified Goal(s):return home ERGONOMIST Status: Independemt without a device but gait was altered due to the wound Home: 0 steps to enter . 0 steps to bedroom/bathroom Assistance available: parents live next door Equipment available: none OBJECTIVE: Appearance: IV and wound vac Behavior: WFL Oriented x 3 Follows 2 step commands consistently Pain: Site/Location: right calf currently no symptoms ; Pain Scale: 0/10 Pain Relief Interventions Implemented: None required; No pain at this time Passive ROM: Impaired L LE WFL R hip ext lacks ~40 degrees, R knee ext lack ~40 degrees R knee flexion ~80 R DF lacks 30 degrees Strength/Active ROM: Not formally tested however observed WFL for basic level of mobility R LE in available range only Mobility: Rolling to left: independent Sidelying to sit: independent Sit to supine: independent Sitting balance: Good Sit to stand: close supervision Transfers: close supervision Ambulation/Gait: pt ambulates 3' with rolling walker with DS cues for form to try to get heel down and R knee ext (pt states limited due to tape from wound vac) pt ambulates with decreased stance on R weight on toes no heel contact and right hip and knee flex'd Pt reports prior was walking like this without a device Endurance: WFL Patient/Family Education: Instructed Patient in roles of therapy. Instructed Spouse in roles, goals, treatment plan: demonstrated good verbal understanding. Instructed patient in Exercise Program for Ankle pumps, Heel slides right with emphasis on knee ext , Long arch quad, and right ankle pumps Seated hamstring stretch in modified position with foot on tray table needs cues for posture Discussed low intensity stretches for longer periods and doing this throughout the day Use a pillow by R hip to position leg in neutral rotation and dsicussed changing position often in order to prevent further restrictions Patient up in bed with call light in reach. bed alarm intact. DME: With Patients permission ordered no equipment via [employer] Order. If any questions contact [facility] DME Provider at [phone]. 6 Clicks Basic Mobility PT 04/29/2022 Difficulty turning over in bed 4 Difficulty sitting down and standing up from a chair with arms 3 Difficulty moving from lying on back to sitting on the side of the bed 3 Help from another person moving to and from bed to a chair 3 Help from another person to walk in hospital room 3 Help from another person climbing 3-5 steps with a railing 3 PT 6 Clicks Score 19 6 Click Score Guidelines: 1 - Total = Requires total assistance, or cannot do at all. 2 - A lot = Requires a lot of help (maximun to moderate assistance) Can use assistive devices. 3 - A little = Requires a little help (supervision, minimal assistance) Can use assistive devices. 4 - None = Does not require any help and does the activity independently. Can use assistive devices. Progressive mobility currently level 4 OOB to chair level 3, walking with assist- level 4 ASSESSMENT: Nadia Biggs is a 32 year old yo male has developed hip, knee and ankle contractures from positioning and positioning due to wound, currently has a wound vac, instructed in exercises to address tightness today and did some stretching. Anticipate patient will be appropriate for discharge home following 1-2 acute Physical Therapy sessions. Will continue to follow patient while in hospital as appropriate. Recommend Outpatient Physical Therapy. Problems: Pain Decreased ROM/strength Decreased functional mobility Decreased education in exercise/precautions Rehabilitation Potential: Good Goals (to be achieved by 3 days or by discharge from acute care): Patient will achieve acceptable level of pain control to allow participation in therapy. Patient will increase bed mobility to independent Patient will perform sit to/from stand pivot transfer, bed to/from chair with rolling walker with independent Patient will ambulate 150 feet with rolling walker with independent Assess patient with crutches Patient will ascend/descend 4 stairs with 1 rail(s) and crutches with modified independent Patient will increase ROM/Strength/Endurance/Balance to allow for above goals. Patient/Family independent with exercise program/precautions. PLAN OF CARE: Frequency: Patient to be seen 5 times a week Interventions: Functional mobility ROM/Strengthening Home exercise program Discharge planning and equipment ordering as needed Patient /Family education The evaluation findings and treatment plan were discussed with the patient/family. The patient/family indicated understanding and agreement with the plan. Julia Chin, PT, PT NA = Not Assessed, I = Independent, KS = Modified Independent, Sup = Supervised, Set up = Physical Assistance for Set-up Only, Min = Minimal Assistance, Mod = Moderate Assistance, Max = Max assistance; Dep = Dependent; AROM = Active Range of Motion; PROM = Passive Range of Motion; MMT = Manual Muscle Test; LE = Lower Extremity [facility] 04-29-2022 Note Formatting of this n ote might be different from the original. Problem: Safety: Goal: Patient will remain free of falls during hospital stay Outcome: Progressing Goal: Free from injury during hospitalization Outcome: Progressing Problem: Acute Pain: Goal: Ability to identify pain intensity on a pain scale and rate it consistently will be achieved and maintained Outcome: Progressing Note: Pain rated on numeric pain scale; relieved through scheduled and PRN medication Goal: Understanding of proper administration and use of medicines will be achieved Outcome: Progressing Goal: Acceptable level of pain which allows the patient to achieve functional outcome goals Outcome: Progressing Problem: Discharge Planning: Goal: Discharge needs of the adult patient will be met Outcome: Progressing Problem: Impaired Skin Integrity: Goal: Acheive wound healing without signs and symptoms of infection Outcome: Progressing Note: Pt. To show no signs and symptoms of infection throughout shift Problem: Routine Care: Goal: Patient care will be managed and maintained throughout hospital stay per unit specific routine care procedure Outcome: Progressing Note: Purposeful hourly rounding and assessment throughout shift [email or web address] 04-29-2022 Note Formatting of this n ote might be different from the original. Problem: Safety: Goal: Patient will remain free of falls during hospital stay 04/29/2022 0153 by Rose Gomez, KRISTI Outcome: Progressing 04/29/2022 0152 by Rose Gomez RN Outcome: Progressing Goal: Free from injury during hospitalization 04/29/2022152 by Rose Gomez RN Outcome: Progressing 04/29/2022151 by Rose Gomez RN Outcome: Progressing Problem: Acute Pain: Goal: Ability to identify pain intensity on a pain scale and rate it consistently will be achieved and maintained 04/29/2022152 by Rose Gomez RN Outcome: Progressing 04/29/2022151 by Rose Gomez RN Outcome: Progressing Goal: Understanding of proper administration and use of medicines will be achieved 04/29/2022152 by Rose Gomez RN Outcome: Progressing 04/29/2022151 by Rose Gomez RN Outcome: Progressing Goal: Acceptable level of pain which allows the patient to achieve functional outcome goals 04/29/2022152 by Rose Gomez RN Outcome: Progressing 04/29/2022151 by Rose Gomez RN Outcome: Progressing Problem: Discharge Planning: Goal: Discharge needs of the adult patient will be met 04/29/2022152 by Rose Gomez RN Outcome: Progressing 04/29/2022151 by Rose Gomez RN Outcome: Progressing Problem: Impaired Skin Integrity: Goal: Acheive wound healing without signs and symptoms of infection 04/29/2022152 by Rose Gomez RN Outcome: Progressing 04/29/2022151 by Rose Gomez RN Outcome: Progressing Problem: Routine Care: Goal: Patient care will be managed and maintained throughout hospital stay per unit specific routine care procedure Outcome: Progressing Patient arrived to unit from PACU in stable condition with wound VAC at -125. Patient has no s/s of distress. Call light given to patient and patient agrees to call for help before getting out of bed. [facility] 04-28-2022 Note Formatting of this n ote is different from the original. Brief Operative Note MAIN OR 11 Nadia Biggs 32 year old male Surgical Contact Serial Number: [id number] Preoperative Diagnosis: Abscess of right leg [L02.415] Postoperative Diagnosis: * Abscess of right leg [L02.415] Procedures: Excisional debridement of right lower extremity Wound vac placement Surgeon(s): Surgeon(s): Nakita Ackerman MD Staff: Scrub: Rea Leal Solution Manager Nurse: Osmin Lay RN Dragsaw Operator: Jeannette Billingsley MD Anesthesia: General Anesthesiologist: Yanelis Perez MD CASING BLOWER: Rika Jessica APRN-CASING BLOWER Supervisor Small Appliance Assembly: Bernie Rivero MD Specimen(s): ID Type Source Tests Collected by Time Destination 1 : right leg tissue Tissue Leg, Right TISSUE CULTURE, AEROBIC, ANAEROBIC CULTURE, MISC, FUNGAL CULTURE & KATHERINE PREP, AFB CULTURE/SMEAR, SPECIMEN FOR SURGICAL PATH Nakita Ackerman MD 04/28/2022 1950 A : #1 right leg swab Swab Leg, Right AEROBIC WOUND CULTURE, ANAEROBIC CULTURE, MISC, AFB CULTURE/SMEAR Nakita Ackerman MD 04/28/20221947 B : #2 right leg swab Swab Leg, Right AEROBIC WOUND CULTURE, ANAEROBIC CULTURE, MISC, AFB CULTURE/SMEAR Nakita Ackerman MD 04/28/20221947 Estimated Blood Loss: 5-10 cc Lines/Drains: Peripheral IV Access: 04/28/22 1300 20 gauge Right Antecubital Present on Arrival to Hospital (Active) Site Assessment WNL;Dressing intact 04/28/22 1300 Infusion Status Port #1 Capped;Patent 04/28/22 1300 Peripheral IV Access: 04/28/22 1300 20 gauge Left Antecubital Present on Arrival to Hospital (Active) Site Assessment WNL;Dressing intact 04/28/22 1300 Infusion Status Port #1 Capped;Patent 04/28/22 1300 Temporarily Retained Foreign Object: Yes Location: Right lower extremity Object: Black sponge Anticipated removal date: Exchange in 3 days Findings: Purulent exudate of the right calf wound Eschar of the skin edge Wound debrided to healthy tissue Complications: None Status at end of surgery: Stable Activity: Ad Jessi Surgical wound class: Yes, wound was dirty or infected. Patient Class: Inpatient. Is this a patient scheduled as an outpatient that needs to be admitted as an inpatient? No Dr. Ackerman was present in the OR for the entirety of the procedure and procedure sign-out. Signed by Jeannette Billingsley MD 04/28/2022 8:19 PM [facility] 04-28-2022 Note Formatting of this n ote might be different from the original. Images from the original note were not included. Operative Note Patient name: Ndaia Biggs Patient Date of procedure: 04/28/22 Surgical Contact Serial Number: [id number] Pre-op Diagnosis: Right leg abscess and cellulitis Post-op Diagnosis: Right leg abscess and cellulities Procedure: Excisional debridement of right leg, 45 cm^3 Wound vac placement Procedure Start Time: 19:40 Procedure End Time: 20:09 Total Operating Time: 29 minutes Surgeon: Nakita Ackerman MD Resident Surgeon: Jeannette Billingsley MD Anesthesia: General EBL: 5 cc Findings: Purulent exudate of the right calf wound, eschar of the skin edge Specimen: Right leg tissue and fluid for culture Indication: Nadia Biggs is a 32 year old year old male who underwent incision and drainage of right leg abscess at OSH. Patient had a large wound and there was a concern for NSTI so he was transferred to [facility]. On evaluation, there did not appear to be evidence of NSTI; however, there was an area of necrotic skin and purulent drainage present, so he was taken to the OR for further debridement. Description of Procedure: A huddle was performed in the pre-operative area. Patient was taken to the OR and placed in supine position with both arms out. Sequential compression device was placed on the left calf and turned on. General anesthesia was induced and the patient was intubated. Patient received Ceftriaxone pre-operatively. The right leg was circumferentially prepped and draped in normal sterile fashion. A timeout was performed. There was an area of necrotic skin on the inferomedial aspect of the prior I&D site. The skin and underlying subcutaneous tissue was excised sharply with Bovie and curved Durbin scissors (total 45 cubic centimeters). This tissue was sent for culture. There was purulent drainage deep to this area which was also cultured. The muscle was then bluntly debrided with the back of a forceps down to clean, healthy bleeding tissue. Final wound measurements were 11 cm long x 12 cm wide (4 cm undermine under the skin laterally) x 1 cm deep. We attempted to approximate the lateral undermined portion but the tissue was too friable to hold a stitch. We generously irrigated the wound and achieved adequate hemostasis using a combination of suture ligation and electrocautery. A single black wound vac sponge was placed (not undermined) and an adequate seal was obtained using -125 mmHg continuous suction. He had mild surrounding erythema which was outlined using a skin marker. This concluded our operation. All sponge, instrument, and needle counts were correct at the end of the case. The patient was awaken from anesthesia and taken to PACU in stable condition. Complications: None Dr. Ackerman was present in the OR for timeout and the entirety of the procedure. Jeannette Billingsley MD General Surgery, PGY-2 I agree with the above operative note as edited by me. I was present and scrubbed for the entire procedure. Nakita Ackerman MD [employer] Work Phone: 04-28-2022 Note Formatting of this n ote is different from the original. Anesthesia Attestation ATTESTATION OF INFORMED CONSENT FOR ANESTHESIA Anesthesia options were discussed with the patient and/or legal electroplating sales representative. The risks, benefits and alternatives were reviewed. Questions regarding anesthesia were answered. Patient and/or legal electroplating sales representative knows such anesthetics and procedures may be performed by Resident physicians, Certified Anesthesiologist Assistants, or Certified Nurse Anesthetists under the supervision of a physician. The patient /or the patient s legal electroplating sales representative agree with the plan for anesthesia. [employer] Work Phone: 04-28-2022 Note Formatting of this n ote is different from the original. Blood Attestation ATTESTATION OF INFORMED CONSENT FOR BLOOD The transfusion of blood and/or blood components were discussed with the patient and/or legal electroplating sales representative. The risks, benefits and alternatives were reviewed. Questions regarding blood transfusions were answered. The patient /or the patient s legal electroplating sales representative agree with the plan for transfusion of blood and/or blood components. [employer] 04-28-2022 Note Acute Care Surgery Admission History and Physical HPI: Mr. Biggs is a 32 yo who presents after I AND D of right leg abscess with large wound and concern for NSTI. Patient states he had progressive swelling of his right leg with increasing difficulty walking. He had an ulcer overlying the calf that began to bleed a little. He presented to OSH where CT was consistent with 10 cm abscess. He is now s/p I AND D on 04/27. Cultures with padilla-sensitive Group A Strep. Was on Vanc and Zosyn at OSH. WBC at presentation was 25, now normalized. He endorses fever that was improved with Tylenol. Pain in his leg has significantly improved since his I AND D. Denies chills, nausea, vomiting, numbness/tingling in extremity. Past Medical History: Hypertension Hyperlipidemia Eczema Past Surgical History: None Family History: Denies Allergies: NKDA Medications: Lisinopril-hydrochlorothiazide 20-12.5 mg daily Atenolol 100 mg daily Fenofibrate 160 mg dialy Rinvoq 15 mg daily Social History: Chews tobacco Drinks beer approximately 3 times/week Denies drug use Review of Systems: Constitutional: Per HPI Eyes: Negative Ears/ Nose/ Mouth/ Throat: Negative Respiratory: Negative Cardiovascular: Negative Gastrointestinal: Negative Genitourinary: Negative Musculoskeletal: Per HPI Neurologic: Negative Psychiatric: Negative Integumentary (skin/breast): Per HPI Endocrine: Negative Rheumatologic: Negative Vitals: BP 128/72 (BP Location: right arm) Pulse 69 Temp 98.3 ???F (36.8 ???C) (Oral) Resp 18 Ht 6' (1.829 m) Wt 190 lb (86.2 kg) SpO2 100% BMI 25.77 kg/m??? Physical Exam: General: Alert, lying comfortably in bed CVS: RRR Pulm: No respiratory distress on RA Abd: Soft, NT, ND Ext: Right calf with I AND D wound, mild surrounding erythema, some purulent drainage with otherwise healthy appearing tissue, no evidence of necrotizing infection, area of eschar on perimeter on wound Skin: As above Neuro: Grossly nonfocal, motor and sensory intact though range of motion limited secondary to pain Labs: CBC WBC RBC Hgb Hct MCV RDW Plt 04/28/22 1604 10.8 3.33 11.3 32.5 98 13.0 393 Basic Metabolic Panel Na K Cl CO2 Gap Glu BUN Cr Ca Mg PO4 04/28/22 1604 2.8 04/28/22 1604 2.0 04/28/22 1604 138 4.1 102 28 12 83 12 1.05 8.5 Imaging: CT with 10 cm abscess in right calf per records; imaging not personally reviewed by me Assessment/Plan: Mr. Biggs is a 32 yo M who presents s/p I AND D of right calf wound. Currently afebrile and hemodynamically normal. Wound necessitating further debridement. Cultures from OSH positive for padilla-sensitive Group A Strep. Neuro: Tylenol 650 mg q 6 hr; oxycodone 5 mg q 4 hr PRN moderate/severe pain; Dilaudid 0.5 mg q 3 hr PRN for breakthrough pain Cardio: Atenolol 50 mg daily (home dose 100 mg daily); continue home fenofibrate Pulm: Saturating appropriately on RA; encourage IS GI: NPO; senna and Miralax : LR at 125 mL/hr; daily BMP, Mag, Phos with PRN repletion Heme: No indication for transfusion; daily CBC ID: Ceftriaxone 2 g daily Endo: No glycemic issues MSK: PT/OT consult; return to OR today for debridement of wound Prophylaxis: Lovenox 40 mg BID; SCD to LLE; no indication for ulcer prophylaxis Dispo: [facility]; OR gumaro Billingsley MD General Surgery, PGY-2 Surgical Critical Care Fellow Attestation Note I saw and evaluated the patient and was present for the critical portions of the H/P. I have reviewed the diagnostic workup and agree with the below assessment plan In Summary: 32 yo male, admitted as a transfer from OSH s/p debridement of necrotic abscess to right calf. No signs of NSTI. Assessment/Plan: Necrotic tissue medial to debridement site. Redness/tenderness without fluctuance inferior to the site. Will need another debridement today. Plan for OR Continue CTX NPO for procedure. Nakul Arias DO Surgical Critical Care Fellow Teaching Physician Note: I saw and evaluated the patient. I personally obtained the stokes and critical portions of the history and physical exam. I reviewed the resident's documentation and discussed the patient with the resident. I agree with the resident's medical decision making as documented in the resident's note. Chris Suarez MD [facility] [employer] [facility] 04-28-2022 History and physical note Images from the original note were not included. Acute Care Surgery Admission History and Physical HPI: Mr. Biggs is a 32 yo who presents after I&D of right leg abscess with large wound and concern for NSTI. Patient states he had progressive swelling of his right leg with increasing difficulty walking. He had an ulcer overlying the calf that began to bleed a little. He presented to OSH where CT was consistent with 10 cm abscess. He is now s/p I&D on 04/27. Cultures with padilla-sensitive Group A Strep. Was on Vanc and Zosyn at OSH. WBC at presentation was 25, now normalized. He endorses fever that was improved with Tylenol. Pain in his leg has significantly improved since his I&D. Denies chills, nausea, vomiting, numbness/tingling in extremity. Past Medical History: Hypertension Hyperlipidemia Eczema Past Surgical History: None Family History: Denies Allergies: NKDA Medications: Lisinopril-hydrochlorothiazide 20-12.5 mg daily Atenolol 100 mg daily Fenofibrate 160 mg dialy Rinvoq 15 mg daily Social History: Chews tobacco Drinks beer approximately 3 times/week Denies drug use Review of Systems: Constitutional: Per HPI Eyes: Negative Ears/ Nose/ Mouth/ Throat: Negative Respiratory: Negative Cardiovascular: Negative Gastrointestinal: Negative Genitourinary: Negative Musculoskeletal: Per HPI Neurologic: Negative Psychiatric: Negative Integumentary (skin/breast): Per HPI Endocrine: Negative Rheumatologic: Negative Vitals: BP 128/72 (BP Location: right arm) Pulse 69 Temp 98.3 F (36.8 C) (Oral) Resp 18 Ht 6' (1.829 m) Wt 190 lb (86.2 kg) SpO2 100% BMI 25.77 kg/m Physical Exam: General: Alert, lying comfortably in bed CVS: RRR Pulm: No respiratory distress on RA Abd: Soft, NT, ND Ext: Right calf with I&D wound, mild surrounding erythema, some purulent drainage with otherwise healthy appearing tissue, no evidence of necrotizing infection, area of eschar on perimeter on wound Skin: As above Neuro: Grossly nonfocal, motor and sensory intact though range of motion limited secondary to pain Labs: CBC WBC RBC Hgb Hct MCV RDW Plt 04/28/22 1604 10.8 3.33 11.3 32.5 98 13.0 393 Basic Metabolic Panel Na K Cl CO2 Gap Glu BUN Cr Ca Mg PO4 04/28/22 1604 2.8 04/28/22 1604 2.0 04/28/22 1604 138 4.1 102 28 12 83 12 1.05 8.5 Imaging: CT with 10 cm abscess in right calf per records; imaging not personally reviewed by me Assessment/Plan: Mr. Biggs is a 32 yo M who presents s/p I&D of right calf wound. Currently afebrile and hemodynamically normal. Wound necessitating further debridement. Cultures from OSH positive for padilla-sensitive Group A Strep. Neuro: Tylenol 650 mg q 6 hr; oxycodone 5 mg q 4 hr PRN moderate/severe pain; Dilaudid 0.5 mg q 3 hr PRN for breakthrough pain Cardio: Atenolol 50 mg daily (home dose 100 mg daily); continue home fenofibrate Pulm: Saturating appropriately on RA; encourage IS GI: NPO; senna and Miralax : LR at 125 mL/hr; daily BMP, Mag, Phos with PRN repletion Heme: No indication for transfusion; daily CBC ID: Ceftriaxone 2 g daily Endo: No glycemic issues MSK: PT/OT consult; return to OR today for debridement of wound Prophylaxis: Lovenox 40 mg BID; SCD to LLE; no indication for ulcer prophylaxis Dispo: [facility]; OR gumaro Billingsley MD General Surgery, PGY-2 Surgical Critical Care Fellow Attestation Note I saw and evaluated the patient and was present for the critical portions of the H/P. I have reviewed the diagnostic workup and agree with the below assessment plan In Summary: 32 yo male, admitted as a transfer from OSH s/p debridement of necrotic abscess to right calf. No signs of NSTI. Assessment/Plan: Necrotic tissue medial to debridement site. Redness/tenderness without fluctuance inferior to the site. Will need another debridement today. Plan for OR Continue CTX NPO for procedure. Nakul Arias DO Surgical Critical Care Fellow Teaching Physician Note: I saw and evaluated the patient. I personally obtained the stokes and critical portions of the history and physical exam. I reviewed the resident's documentation and discussed the patient with the resident. I agree with the resident's medical decision making as documented in the resident's note. Chris Suarez MD [facility] Work Phone: 04-28-2022 History and physical note Images from the original note were not included. Acute Care Surgery Admission History and Physical HPI: Mr. Biggs is a 32 yo who presents after I&D of right leg abscess with large wound and concern for NSTI. Patient states he had progressive swelling of his right leg with increasing difficulty walking. He had an ulcer overlying the calf that began to bleed a little. He presented to OSH where CT was consistent with 10 cm abscess. He is now s/p I&D on 04/27. Cultures with padilla-sensitive Group A Strep. Was on Vanc and Zosyn at OSH. WBC at presentation was 25, now normalized. He endorses fever that was improved with Tylenol. Pain in his leg has significantly improved since his I&D. Denies chills, nausea, vomiting, numbness/tingling in extremity. Past Medical History: Hypertension Hyperlipidemia Eczema Past Surgical History: None Family History: Denies Allergies: NKDA Medications: Lisinopril-hydrochlorothiazide 20-12.5 mg daily Atenolol 100 mg daily Fenofibrate 160 mg dialy Rinvoq 15 mg daily Social History: Chews tobacco Drinks beer approximately 3 times/week Denies drug use Review of Systems: Constitutional: Per HPI Eyes: Negative Ears/ Nose/ Mouth/ Throat: Negative Respiratory: Negative Cardiovascular: Negative Gastrointestinal: Negative Genitourinary: Negative Musculoskeletal: Per HPI Neurologic: Negative Psychiatric: Negative Integumentary (skin/breast): Per HPI Endocrine: Negative Rheumatologic: Negative Vitals: BP 128/72 (BP Location: right arm) Pulse 69 Temp 98.3 F (36.8 C) (Oral) Resp 18 Ht 6' (1.829 m) Wt 190 lb (86.2 kg) SpO2 100% BMI 25.77 kg/m Physical Exam: General: Alert, lying comfortably in bed CVS: RRR Pulm: No respiratory distress on RA Abd: Soft, NT, ND Ext: Right calf with I&D wound, mild surrounding erythema, some purulent drainage with otherwise healthy appearing tissue, no evidence of necrotizing infection, area of eschar on perimeter on wound Skin: As above Neuro: Grossly nonfocal, motor and sensory intact though range of motion limited secondary to pain Labs: CBC WBC RBC Hgb Hct MCV RDW Plt 04/28/22 1604 10.8 3.33 11.3 32.5 98 13.0 393 Basic Metabolic Panel Na K Cl CO2 Gap Glu BUN Cr Ca Mg PO4 04/28/22 1604 2.8 04/28/22 1604 2.0 04/28/22 1604 138 4.1 102 28 12 83 12 1.05 8.5 Imaging: CT with 10 cm abscess in right calf per records; imaging not personally reviewed by me Assessment/Plan: Mr. Biggs is a 32 yo M who presents s/p I&D of right calf wound. Currently afebrile and hemodynamically normal. Wound necessitating further debridement. Cultures from OSH positive for padilla-sensitive Group A Strep. Neuro: Tylenol 650 mg q 6 hr; oxycodone 5 mg q 4 hr PRN moderate/severe pain; Dilaudid 0.5 mg q 3 hr PRN for breakthrough pain Cardio: Atenolol 50 mg daily (home dose 100 mg daily); continue home fenofibrate Pulm: Saturating appropriately on RA; encourage IS GI: NPO; senna and Miralax : LR at 125 mL/hr; daily BMP, Mag, Phos with PRN repletion Heme: No indication for transfusion; daily CBC ID: Ceftriaxone 2 g daily Endo: No glycemic issues MSK: PT/OT consult; return to OR today for debridement of wound Prophylaxis: Lovenox 40 mg BID; SCD to LLE; no indication for ulcer prophylaxis Dispo: RNF; OR gumaro Billingsley MD General Surgery, PGY-2 Surgical Critical Care Fellow Attestation Note I saw and evaluated the patient and was present for the critical portions of the H/P. I have reviewed the diagnostic workup and agree with the below assessment plan In Summary: 32 yo male, admitted as a transfer from OSH s/p debridement of necrotic abscess to right calf. No signs of NSTI. Assessment/Plan: Necrotic tissue medial to debridement site. Redness/tenderness without fluctuance inferior to the site. Will need another debridement today. Plan for OR Continue CTX NPO for procedure. Nakul Arias DO Surgical Critical Care Fellow Teaching Physician Note: I saw and evaluated the patient. I personally obtained the stokes and critical portions of the history and physical exam. I reviewed the resident's documentation and discussed the patient with the resident. I agree with the resident's medical decision making as documented in the resident's note. Chris Suarez MD documented in this encounter [facility] Evaluation + Plan note Future Appointments Appointment Date:05/17/2022 01:30:00 PM Scheduled Provider: Location:[facility] Appointment Type:WC Assessment (FT) Appointment Date:05/30/2022 11:00:00 AM Scheduled Provider:Daniel Miller DPM Location:[facility] Appointment Type:WC Follow Up Visit (FT) [facility] Evaluation + Plan note Future Appointments Appointment Date:05/23/2022 11:15:00 AM Scheduled Provider:Daniel Miller DPM Location:[facility] Appointment Type:WC Follow Up Visit (FT) Appointment Date:05/30/2022 11:00:00 AM Scheduled Provider:Daniel Miller DPM Location:[facility] Appointment Type:WC Follow Up Visit (FT) [facility] Evaluation + Plan note Future Appointments Appointment Date:05/30/2022 11:00:00 AM Scheduled Provider:Daniel Miller DPM Location:[facility] Appointment Type:WC Follow Up Visit (FT) Appointment Date:06/04/2022 11:00:00 AM Scheduled Provider:Daniel Miller DPM Location:[facility] Appointment Type:WC Follow Up Visit (FT) [facility] Evaluation + Plan note Future Appointments Appointment Date:06/13/2022 08:30:00 AM Scheduled Provider:Daniel Miller DPM Location:[facility] Appointment Type:WC Follow Up Visit (FT) [facility] Evaluation + Plan note Future Appointments Appointment Date:06/20/2022 09:30:00 AM Scheduled Provider:Daniel Miller DPM Location:[facility] Appointment Type:WC Follow Up Visit (FT) Appointment Date:07/04/2022 09:15:00 AM Scheduled Provider:Daniel Miller DPM Location:[facility] Appointment Type:WC Follow Up Visit (FT) [facility] Evaluation + Plan note Future Appointments Appointment Date:06/27/2022 10:00:00 AM Scheduled Provider: Location:[facility] Appointment Type:WC Assessment (FT) Appointment Date:07/04/2022 09:15:00 AM Scheduled Provider:Daniel Miller DPM Location:[facility] Appointment Type:WC Follow Up Visit (FT) [facility] Evaluation + Plan note Future Appointments Appointment Date:07/04/2022 09:15:00 AM Scheduled Provider:Daniel Miller DPM Location:[facility] Appointment Type:WC Follow Up Visit (FT) [facility] Evaluation + Plan note Future Appointments Appointment Date:07/18/2022 09:15:00 AM Scheduled Provider:Daniel Miller DPM Location:[facility] Appointment Type:WC Follow Up Visit (FT) [facility] Evaluation + Plan note Future Appointments Appointment Date:08/01/2022 09:30:00 AM Scheduled Provider:Daniel Miller DPM Location:[facility] Appointment Type:WC Follow Up Visit (FT) [facility] Evaluation note Diagnosis Abscess of right leg- Primary Cellulitis and abscess of leg, except foot Abscess of left thigh Antalgic gait Abnormality of gait [facility] Abscess of right leg- Primary Cellulitis and abscess of leg, except foot [facility] Diagnosis Acute post-operative pain- Primary [facility] Diagnosis Abscess of right leg- Primary [facility] Diagnosis Primary hypertension- Primary Unspecified essential hypertension Mixed hyperlipidemia Gastroesophageal reflux disease without esophagitis Esophageal reflux documented in this encounter [facility] Work Phone: Evaluation note* Diagnosis Primary hypertension- Primary Unspecified essential hypertension Allergic eczema Contact dermatitis and other eczema, due to unspecified cause Mixed hyperlipidemia documented in this encounter [facility] Work Phone: Evaluation note* Diagnosis Bee allergy status- Primary Diarrhea, unspecified type RUQ pain Abdominal pain, right upper quadrant documented in this encounter [facility] Work Phone: Evaluation note* Diagnosis Primary hypertension- Primary Unspecified essential hypertension Left hip pain Pain in joint, pelvic region and thigh Mixed hyperlipidemia Allergic eczema Contact dermatitis and other eczema, due to unspecified cause Gastroesophageal reflux disease without esophagitis Esophageal reflux Health maintenance examination Unspecified general medical examination Screening for prostate cancer Special screening for malignant neoplasm of prostate documented in this encounter [facility] Work Phone: Evaluation note* Diagnosis Left hip pain Pain in joint, pelvic region and thigh documented in this encounter [facility] Work Phone: Hospital course Narrative No data available for this section [facility] instructions No data available for this section [facility] No data available for this section [facility] ([facility] Consultation (Routine) - Authorized Specialty Diagnoses / Procedures Referred By Contac t Referred To Contact Primary Care Procedures Follow Up In Primary Care - Established Eric Singh DO [address] [place] [address] [place] [address] Referral ID Status Reason Start Date Expiration Date V isits Requested Visits Authorized [id number] Authorized 06/17/2023 06/16/2024 1 1 [facility] Work Phone: Reason for referral (narrative)* Consultation (Routine) - Authorized Specialty Diagnoses / Procedures Referred By Contac t Referred To Contact Primary Care Procedures Follow Up In Primary Care - Established Eric Singh DO [address] [facility] Physician [place] [id number] Referral ID Status Reason Start Date Expiration Date V isits Requested Visits Authorized [id number] Authorized 09/16/2023 09/15/2024 1 1 [facility] Work Phone: Reason for visit Narrative* Imaging (Routine) - Authorized Specialty Diagnoses / Procedures Referred By Contac t Referred To Contact Radiology Diagnoses Left hip pain Procedures XR hip left with pelvis when performed 2 or 3 views Yeimi Mendez, BUSINESS DEVELOPMENT REPRESENTATIVE-BENZENE WASHER OPERATOR [address] [facility], [address] [place] [address] Phone: tel: fax: Referral ID Status Reason Start Date Expiration Date Visits Requested Visits Authorized [id number] Authorized Perform Procedure 09/30/2024 09/30/2025 1 1 [facility] Work Phone: Summary Purpose Family History No Family History Records FoundNo Family History Records FoundNo Family History Records FoundNo Family History Records FoundNo Family History Records FoundNo Family History Records FoundNo Family History Records FoundNo Family History Records FoundNo Family History Records FoundNo Family History Records FoundNo Family History Records Found Advance Directives No Advanced Directives Records FoundLatest Code Status on File Code Status Date Activated Date Inactivated Comments Full Code 04/28/2022 3:19 PM Documentation of decision pr ocess for this code status: Discussed with patient or surrogate. Thi s is the code status chosen by the patient/surrogate. Latest Code Status on File Code Status Date Activated Date Inactivated Comments Full Code 04/28/2022 3:19 PM 04/30/2022 6:17 PM Latest Code Status on File Code Status Date Activated Date Inactivated Comments Full Code 04/28/2022 3:19 PM 04/30/2022 6:17 PM Reason for Referral Specialty Diagnoses / Procedures Referred By Contac t Referred To Contact Wound Diagnoses Abscess of right leg Giovany Miller MD [address] [place] [address] [place] [address] [place] [address] Referral ID Status Reason Start Date Expiration Date Visits Requested Visits Authorized [id number] Authorized Consultatio n-[facility] 05/02/2022 05/02/2023 5 5 Scheduling Instructions Please call the Wound Clinic at , option 8 to schedule a wound care appointment. Question Answer Patient to be evaluated for: VAC Wound [13] Comments No prior visits in WOUND Specialty Diagnoses / Procedures Referred By Lynda t Referred To Contact Wound Care Diagnoses Abscess of right leg [facility] [facility] [address] [place] [address] Gemini Francis DPM [address] [place] [address] Referral ID Status Reason Start Date Expiration Date Visits Requested Visits Authorized [id number] Authorized Specialty Services Required/Pat ient's Best Interest 05/03/2022 05/03/2023 1 1 Additional Source Comments (unrecognized sect ion and content) No Status Records FoundNo Status Records FoundNo Status Records FoundNo Status Records FoundNo Status Records FoundNo Status Records FoundNo Status Records FoundNo Status Records FoundNo Status Records FoundNo Status Records FoundNo Status Records Found INFORMATION SOURCE (unrecogn ized section and content) DATE CREATED AUTHOR 11/20/2017 [facility] DATE CREATED AUTHOR AUTHOR'S ORGANIZ ATION 11/14/2020 [facility] DATE CREATED AUTHOR AUTHOR'S ORGANIZ ATION 04/24/2022 [facility] DATE CREATED AUTHOR AUTHOR'S ORGANIZ ATION 04/26/2022 [facility] DATE CREATED AUTHOR AUTHOR'S ORGANIZ ATION 05/04/2022 [facility] DATE CREATED AUTHOR AUTHOR'S ORGANIZ ATION 06/12/2022 [facility] [facility] DATE CREATED AUTHOR AUTHOR'S ORGANIZ ATION 08/03/2022 [facility] DATE CREATED AUTHOR AUTHOR'S ORGANIZ ATION 06/23/2023 [facility] DATE CREATED AUTHOR AUTHOR'S ORGANIZ ATION 06/20/2024 [facility] DATE CREATED AUTHOR AUTHOR'S ORGANIZ ATION 10/03/2024 [facility] DATE CREATED AUTHOR AUTHOR'S ORGANIZ ATION 11/06/2024 [facility] <item> Privacy Markings (unrecogniz ed section and content) Section Author: Nga Hammond PROHIBITION ON REDISCLOSURE OF CONFIDENTIAL INFORMATION This notice accompanies a disclosure of information concerning a client made to you with the consent of such client. Reason for Visit (unrecogniz ed section and content) Specialty Diagnoses / Procedures Referred By Lynda nunez Referred To Contact Case Management Diagnoses necrotizing faciitis [email or web address] [facility] [place] [address] Phone: [phone] [employer] [place] [address] Phone: [phone] Referral ID Status Reason Start Date Expiration Date Visits Re quested Visits Authorized [id number] 3 3 Reason Onset Date Comments Refill 05/01/2022 Reason Comments Establish Care ENTERPRISE RECORDS ANALYST/EST CARERequestin g lab work Reason Comments Follow-up 3 month Specialty Diagnoses / Procedures Referred By Lynda nunez Referred To Contact Primary Care Procedures Follow Up In Primary Care - Established Eric Singh [address] Physician [place] [phone] Referral ID Status Reason Start Date Expiration Date V isits Requested Visits Authorized [id number] Authorized 06/17/2023 06/16/2024 1 1 Reason Comments Follow-up 6 month Specialty Diagnoses / Procedures Referred By Lynda nunez Referred To Contact Primary Care Procedures Follow Up In Primary Care - Established Eric Singh [address] [place] [address] Phone: tel: fax: Referral ID Status Reason Start Date Expiration Date V isits Requested Visits Authorized [id number] Authorized 09/16/2023 09/15/2024 1 1 Reason Comments Establish Care Scheduled Active and Recently Administ ered Medications (unrecognized section and content) Medication Order 04/28/2022 04/29/2022 04/30/2022 acetaminophen (TYLENOL) tablet 650 mg, Oral, Every 6 hours, First dose on 04/28/22 at 1530, Until Discontinued 1624 (Hold/Not Given - Provider: Lilliana Hernandes RN - Reason: Previously Administered)1918 (MAR Hold - Provider: Interface, Adt)215 (MAR Unhold - Provider: Interface, Adt)220 (Given - Provider: Smooth Zhou)220 (Hold/Not Given - Provider: Smooth Zhou - Reason: Other) 0330 (Hold/Not Given - Provider: Rose Gomez RN - Reason: Patient sleeping)0821 (Given - Provider: Ely Mendoza RN)1500 (Hold/Not Given - Provider: Ely Mendoza RN - Reason: Patient refused)1548 (Given - Provider: Ely Mendoza RN)2103 (Given - Provider: Rose Gomez RN) 0330 (Hold/Not Given - Provider: Rose Gomez RN - Reason: Patient refused)0917 (Given - Provider: Ely Mendoza RN)1536 (Given - Provider: Ely Mendoza RN)2130 (Due) atenolol (TENORMIN) tablet 50 mg, Oral, DAILY, First dose on 04/29/22 at 0900, Until Discontinued 0821 (Given - Provider: Ely Mendoza RN) 0917 (Given - Provider: Ely Mendoza RN) cefTRIAXone (ROCEPHIN) 2,000 mg in dextrose 50 mL ivpb 2,000 mg, Intravenous, EVERY 24 HOURS ANTIBIOTIC, First dose on 04/28/22 at 1530, Until Discontinued 1729 (IV New Bag - Provider: Lilliana Hernandes RN) 1720 (IV New Bag - Provider: Ely Mendoza RN) 1700 (Due - Provider: Ely Mendoza RN) enoxaparin (LOVENOX) 40 MG/0.4ML injection 40 mg 40 mg, Subcutaneous, 2 TIMES DAILY, First dose on 04/28/22 at 1530, Until Discontinued 1800 (Hold/Not Given - Provider: Lilliana Hernandes RN - Reason: Other - Comment: not yet acknowledged)2202 (Given - Provider: Smooth Zhou) 820 (Given - Provider: Ely Mendoza RN)2102 (Given - Provider: Rose Gomez RN) 09 (Given - Provider: Ely Mendoza RN)2100 (Due) fenofibrate (TRICOR) tablet 145 mg, Oral, DAILY, First dose on 04/29/22 at 0900, Until Discontinued 1917 (JUL Hold - Provider: Lamar, Adt)2151 (JUL Unhold - Provider: Interface, Adt) 820 (Given - Provider: Ely Mendoza RN) 916 (Given - Provider: Ely Mendoza RN) magnesium sulfate 2 GM/50ML in 50 mL ivpb (COMPLETED) 2 g (2,000 mg), Intravenous, ONCE, 1 dose, On 04/29/22 at 0600 0625 (IV New Bag - Provider: Rose Gomez RN) oxyCODONE immediate release tablet (COMPLETED) 5 mg, Oral, ONCE, 1 dose, On 04/30/22 at 0800 0756 (Given - Provider: Ely Mendoza RN - Comment: Pre wound vac change md additional dose ordered) sodium phosphate 15 mmol injection in D5W (COMPLETED) 15 mmol, Intravenous, ONCE, 1 dose, On 04/29/22 at 0600 0940 (IV New Bag - Provider: Ely Mendoza RN) Continuous Medication Order 04/28/2022 04/29/2022 04/30/2022 lactated ringers iv infusion (CANCELED) Intravenous, at 125 mL/hr, CONTINUOUS, Starting on 04/28/22 at 1530, Until 04/28/22 at 2153 1538 (IV New Bag - Provider: Lilliana Hernandes RN)1917 (JUL Hold - Provider: Interface, Adt)2151 (JUL Unhold - Provider: Interface, Adt) PRN Medication Order 04/28/2022 04/29/2022 04/30/2022 HYDROmorphone (DILAUDID) 1 mg/mL injection () 0.5 mg, Intravenous Push, EVERY 3 HOURS PRN, Starting on 04/28/22 at 1515, Until 04/30/22 at 1514, Breakthrough Pain 1917 ([facility] Hold - Provider: Interface, Adt)2151 ([facility] Unhold - Provider: Interface, Adt) 1020 (Given - Provider: Ely Mendoza, KRISTI) ondansetron (ZOFRAN) 4 MG/2ML injection 4 mg, Intravenous Push, EVERY 4 HOURS PRN, Starting on 04/28/22 at 1517, Until Discontinued, Nausea 1917 ([facility] Hold - Provider: Interface, Adt)2151 ([facility] Unhold - Provider: Interface, Adt) oxyCODONE immediate release tablet 5 mg, Oral, EVERY 4 HOURS PRN, Starting on 04/28/22 at 1515, Until Discontinued, Severe Pain (pain score 7,8,9,10), Moderate Pain (pain score 4,5,6) 1917 ([facility] Hold - Provider: Interface, Adt)2151 ([facility] Unhold - Provider: Interface, Adt)2202 (Given - Provider: Smooth Zhou) 1548 (Given - Provider: Ely Mendoza, RN)2333 (Given - Provider: Rose Gomez, KRISTI) 0642 (Given - Provider: Tomasa Torres, KRISTI)1536 (Given - Provider: Ely Mendoza, KRISTI) Care Teams (unrecognized sec tion and content) Vice President Lending Relationship Specialty Start Date End Date Kain Vieyra, BENZENE WASHER OPERATOR [address] [place] [address] PCP - General Nurse Practitioner 04/23/22 Vice President Lending Relationship Specialty Start Date End Date Eric Singh DO [address] [facility] [place] [address] PCP - General Internal Medicine 06/17/23 Vice President Lending Relationship Specialty Start Date End Date Eric Singh DO [address] [facility] Physician [place] [phone] PCP - General Internal Medicine 06/17/23 Vice President Lending Relationship Specialty Start Date End Date Eric Singh DO [address] [facility] [place] [address] PCP - General Internal Medicine 06/17/23 Eric Singh DO [address] [facility] [place] [address] PCP - MSSP ACO Attributed Provider 05/27/23 Vice President Lending Relationship Specialty Start Date End Date Eric Singh DO [address] [place] [address] PCP - MSSP ACO Attributed Provider 05/27/23 Yeimi Mendez, BUSINESS DEVELOPMENT REPRESENTATIVE-BENZENE WASHER OPERATOR [address] [facility], [place] [phone] PCP - General Family Medicine 09/21/24 Vice President Lending Relationship Specialty Start Date End Date Eric Singh DO [address] [place] [address] PCP - MSSP ACO Attributed Provider 05/27/23 Yeimi Mendez BUSINESS DEVELOPMENT REPRESENTATIVE-BENZENE WASHER OPERATOR [facility] [address] [facility], [address] [address] PCP - General Family Medicine 09/21/24 Vice President Lending Relationship Specialty Start Date End Date Eric Singh DO [address] [place] [address] PCP - MSSP ACO Attributed Provider 05/27/23 Yeimi Mendez, BUSINESS DEVELOPMENT REPRESENTATIVE-BENZENE WASHER OPERATOR [facility] [facility], [facility] [address] [place] [address] PCP - General Family Medicine 09/21/24 FOR RECORDS PERTAINING TO PATIENTS WHO ARE OR HAVE BEEN ENROLLED IN A CHEMICAL DEPENDENCY/SUBSTANCEABUSE PROGRAM, SOME INFORMATION MAY BE OMITTED. This clinical summary was aggregated from multiple sources. Caution should be exercised in using it in the provision of clinical care. This summary normalizes information from multiple sources, and as a consequence, information in this document may materially change the coding, format and clinical context of patient data. In addition, data may be omitted in some cases. CLINICAL DECISIONS SHOULD BE BASED ON THE PRIMARY CLINICAL RECORDS. [email or web address] [facility]. provides no warranty or guarantee of the accuracy or completeness of information in this document.
[2024-11-08] MEDS: traMADol 50 MG Tablet PO (01:10)
[2024-11-08 01:12] VITALS: BP 123/88; PULSE 78; RESP 18; TEMP 37.1; O2SAT 100
== END 2024-11-08 01:14 | disposition home or self-care (01) ==
PROVIDERS: Emergency Provider Emergency Medicine; Visit Provider Emergency Medicine
DX: M25.552 Pain in left hip (principal); M16.12 Unilateral primary osteoarthritis, left hip; I10 Essential (primary) hypertension; E78.5 Hyperlipidemia, unspecified; F17.290 Nicotine dependence, other tobacco product, uncomplicated; Z79.899 Other long term (current) drug therapy
CPT/HCPCS: 99284